=== PATIENT | female | born 1945 | race Caucasian/White ===

== ENCOUNTER → 2016-02-12 | Outpatient (CLI) | payer OTHER, BC ==
[~2016-02-12] MED LIST: CITA20TA9 PO; CLON0.5T3 PO; DILT120C68 PO; FERR1TAB13 PO; FOLI800T PO; GLUCTAB7 PO; LAMO100T16 PO; LURA1TAB PO; MULT-589 PO; OMEG10007 PO; OXYC-57 PO; PANT40TA PO; PRT40 PO; SPIR1TAB72 PO; SPIR50TA PO; SPIRONLACTONE HCTZ PO; WARF2TAB PO; ZNTT/150 PO
== END | disposition home or self-care (01) ==
LOC: C.LAB1850 16:23
PROVIDERS: ATTEND Internal Medicine
DX: R19.7 Diarrhea, unspecified (principal)

== ENCOUNTER 2016-03-09 08:19 | Inpatient (IN) | payer OTHER, BC ==
--- NOTE | 2016-02-22 09:29 | HISTORY & PHYSICAL EXAMINATION ---
DATE OF ADMISSION: 03/09/2016 CHIEF COMPLAINT: Right knee pain. HISTORY OF PRESENT ILLNESS: This 70-year-old female presents to the clinic today for preoperative history and physical. The patient states she has had persistent right knee pain since February of 2013 with recent onset of difficulty and pain with ambulation as well as with ascending and descending stairs. The patient denies any swelling or discoloration to the right knee. She states she does experience clicking and popping with range of motion, but denies any numbness or tingling in the right lower extremity. The patient also denies fever, chills, sweats, nausea, vomiting, diarrhea, chest pain or shortness of breath at this time. PAST SURGICAL HISTORY: Right rotator cuff repair, open reduction and internal fixation of right forearm, tonsillectomy/adenoidectomy and wisdom tooth extraction. PAST MEDICAL HISTORY: Bipolar disorder, anxiety, hallux rigidus, hypertension, hiatal hernia and obesity. FAMILY HISTORY: Father, Parkinson's disease. Mother, Alzheimer's disease, hypertension and stroke. Sister #1, breast cancer. Sister #2, bipolar disorder. ALLERGIES: THE PATIENT HAS MEDICATION ALLERGIES TO GEODON AND VICODIN. CURRENT MEDICATIONS: Celexa 20 mg oral tab 1 tab at bedtime, diltiazem hydrochloride ER 120 mg extended release 1 cap daily, ferrous sulfate 325 mg 1 tab twice daily, fish oil 1000 mg oral capsule daily, folic acid 0.4 mg oral tablet 1 tab daily, glucosamine chondroitin advanced unknown dosage 1 tab daily, Klonopin 0.5 mg oral tablet 1/2 tablet as needed, Lamictal 200 mg oral tablet 1 tab twice daily, multivitamin unknown dosage 1 tab daily, spironolactone 25 mg oral tablet 1 tab twice daily and Latuda 20 mg tablet 2 tabs at bedtime daily. SOCIAL HISTORY: The patient states that she was a 3-pack per day smoker for 16 years, but quit in February of 1996. The patient states she occasionally consumes alcohol, but denies any illicit drug use. PHYSICAL EXAMINATION: SKIN: The patient's skin is normal in appearance. No skin lesions or discharge. EYES: Pupils are equal and reactive to light and accommodation. Extraocular movements are intact. There is no notable nystagmus. EARS: Canals are clear of cerumen. Tympanic membranes are intact bilaterally with no bulging or effusion. NOSE: Turbinates are pink and boggy in appearance with no appreciable rhinorrhea. THROAT: Posterior oropharynx is clear with absence of edema, erythema or exudate. CARDIOVASCULAR: The patient has regular rate and rhythm. No murmurs or gallops appreciated. LUNGS: Auscultation of the lung medrano reveals clear breath sounds throughout. No wheezing, rales or rhonchi. ABDOMEN: Obese, nondistended, and nontender with normoactive bowel sounds. EXTREMITIES: Right knee. The patient is able to extend 0 degrees and flexion to 114 degrees. She has moderate crepitation with active and passive range of motion of the right knee joint and experiences medial and lateral joint line tenderness upon palpation with the knee placed in a flexed position. The patient's right patella is nonmobile due to arthritic changes in the patellofemoral joint. Otherwise, there is no varus or valgus laxity and negative AP drawer sign. Negative Sarah test. No edema, erythema, ecchymosis, warmth or palpable deformity. No dermatomal deficit when compared to the left lower extremity. The patient's right calf is soft, supple, and nontender to palpation. She experiences no referred knee pain with dorsi or plantar flexion of the right foot actually approximately against resistance. She is neurovascularly intact in the right lower extremity. Her peripheral pulses are palpable and her capillary refill is brisk. All other extremities are normal in appearance, appropriate range of motion and strength. NEUROLOGICAL: Cranial nerves II-XII are intact. No motor or sensory deficit. PSYCHOLOGICAL/GENERAL: The patient is alert and oriented x3 with proper grooming and hygiene. DIAGNOSIS: Degenerative joint disease of the right knee. PROCEDURE: Right total knee arthroplasty. RADIOGRAPHIC IMAGING: Images of the right knee show medial joint space narrowing/collapse. PLAN: The patient is scheduled to undergo this procedure with Dr. Param Mackey on 03/09/2016 at the [facility]. Risks and complications of surgery such as infection, bleeding, pain, scarring, nerve and blood vessel damage, weakness, wound problems, stiffness, incomplete relief of symptoms, heart attack, stroke, , hardware failure, loosening wear fracture, blood clots, and embolism were explained to the patient and she understands and agrees. Written consent to perform the procedure was obtained. We will also obtain preoperative medical clearance from the patient's primary care provider, Dr. Lee along with a CBC with differential, CMP, PT, INR, PTT, blood type and screen, urinalysis, urine culture, EKG and chest x-ray. The patient states she will obtain necessary testing next , February 24 prior to her preanesthesia clearance examination in the hospital. The patient states that she may have a walker at home and will bring it with her on the date of surgery. The patient was advised that her postoperative followup with myself will be scheduled for 03/24/2016 at 1:00 p.m. The patient states she will be proceeding to [facility] for rehabilitation for 2 weeks after discharge from the hospital and then will continue physical therapy afterwards in out PT department. The patient was advised to be provided with prescription for physical therapy/occupational therapy, for INR checks biweekly for 6 weeks, a prescription for Coumadin and a prescription for postoperative pain medicine upon discharge from the hospital. The patient was given paperwork to obtain handicap placard for a vehicle. She was advised that she will be unable to drive until cleared by Dr. Mackey post-surgically. The patient verbalized understanding of all information provided at today's visit and thanked us for the care that she has received at our clinic. She states that if she has any additional questions or concerns that should arise prior to the scheduled surgical date, she will contact the clinic accordingly.
[2016-02-25 09:46] VITALS: BMI 35.0
--- NOTE | 2016-02-25 10:39 | PAT Medication Instructions ---
Service Date Feb 25, 2016. Current Home Medication List Citalopram Hydrobromide (Celexa), 40 MG PO HS Clonazepam (Klonopin), 0.25 MG PO HS Clonazepam (Klonopin), 0.25 MG PO BID PRN for Anxiety/Insomnia Diltiazem Hcl Ext Rel (Tiazac), 120 MG PO QPM Ferrous Sulfate (Kp Ferrous Sulfate), 1 TAB PO BID Fish Oil (Willmar-3), 2 CAP PO DAILY Uelqxsccfiy-Eygksmflslr-Ifp C- (Glucosamine Chondroitin), 1 TAB PO BID Hctz/Spironolactone 25MG/25MG (Aldactazide 25MG/25MG), 1 TAB PO BID Lamotrigine (Lamictal), 150 MG PO QAM Lamotrigine (Lamictal), 200 MG PO QPM Lurasidone Hcl (Latuda), 40 MG PO QPM Multivitamins (Daily Yovanny), 1 TAB PO 3XWK Pantoprazole (Protonix), 40 MG PO Q2D PRN for RN [Spironlactone Hctz], 1 TAB PO BID Medication Instructions For Your Scheduled Surgery - Hold the following medications 10 days prior to surgery: Ndobwojlxqz-Fcclhsmyyvx-Ufq C- (Glucosamine Chondroitin), 1 TAB PO BID Fish Oil (Willmar-3), 2 CAP PO DAILY - Hold the following medications the morning of surgery: Spironlactone Hctz 1 TAB PO BID Multivitamins (Daily Yovanny), 1 TAB PO 3XWK Ferrous Sulfate (Kp Ferrous Sulfate), 1 TAB PO BID - Take the following medications the morning of surgery with a sip of water: Pantoprazole (Protonix), 40 MG PO Q2D PRN for RN Lamotrigine (Lamictal), 150 MG PO QAM Clonazepam (Klonopin), 0.25 MG PO BID PRN for Anxiety/Insomnia - Take the following medications as scheduled the night before surgery: Spironlactone Hctz 1 TAB PO BID Lamotrigine (Lamictal), 200 MG PO QPM Lurasidone Hcl (Latuda), 40 MG PO QPM Ferrous Sulfate (Kp Ferrous Sulfate), 1 TAB PO BID Diltiazem Hcl Ext Rel (Tiazac), 120 MG PO QPM Clonazepam (Klonopin), 0.25 MG PO HS Citalopram Hydrobromide (Celexa), 40 MG PO HS If you have any questions please call us at [phone] or [phone] ( Cindy) or [phone]
--- NOTE | 2016-02-25 11:19 | DIAGNOSTIC IMAGING REPORT ---
TWO VIEW CHEST CLINICAL HISTORY: Preoperative examination. FINDINGS: PA and lateral chest radiographs are compared to study dated 05/27/2011. Correlation is made with chest CT dated 11/28/2014. The examination is degraded by large body habitus. The cardiomediastinal silhouette is unremarkable. The lungs and pleural spaces are clear. There is no pneumothorax. The skeletal structures are osteopenic. 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 A surgical anchor is noted in the right humeral head. A thyroid shield is noted. IMPRESSION: No active disease in the chest. Electronically signed by: Virgil Mejia M.D. 02/25/2016 11:18 AM Dictated Date/Time: 02/25/2016 11:16 AM
[2016-02-25 11:59] LABS: BASO ABS # 0.08 K/uL (0-0.2); COMPLETE YES; EOS % 4.4 %; HEMATOCRIT 40.4 % (37-47); IG% 0.1 %; LYMPH % 18.1 %; LYMPH ABS # 1.51 K/uL (1.2-3.4); MEAN CELL VOLUME 90.4 fL (80-100); MEAN CORPUSCULAR HGB CONC 33.2 g/dl (32-36); MEAN PLATELET VOLUME 10.6 fL (7.4-10.4); MONO % 5.9 %; NEUT % 70.5 %; PLATELET COUNT 289 K/uL (130-400); RED BLOOD COUNT 4.47 M/uL (4.2-5.4); WHITE BLOOD COUNT 8.34 K/uL (4.8-10.8)
[2016-02-25 12:08] LABS: PARTIAL THROMBOPLASTIN RATIO 1.1; PROTHROMBIN TIME (PATIENT) 10.7 SECONDS (9.0-12.0)
[2016-02-25 12:28] LABS: BUN/CREATININE RATIO 30.6 (10-20); CALCIUM 10.1 mg/dl (8.5-10.1); CREATININE 1.7 mg/dl (0.60-1.20); POTASSIUM 4.9 mmol/L (3.5-5.1)
[2016-02-25 12:46] LABS: URINE APPEARANCE CLEAR (CLEAR); URINE BILIRUBIN NEG (NEG); URINE COLOR YELLOW; URINE NITRITE NEG (NEG); URINE SPECIFIC GRAVITY 1.009 (1.000-1.030); UROBILINOGEN NEG (NEG); ZZUR CULT IF INDIC CLEAN CATCH NO
[2016-02-25 12:51] LABS: REVIEW REQ? NO
[2016-02-25 12:52] LABS: MANUAL MICROSCOPIC REQUIRED? NO
[~2016-03-09] VITALS: Ht 160 cm; Wt 91.3 kg
[2016-03-09] VITALS (7 sets, daily range): BP systolic 110–149; BP diastolic 64–95; PULSE 70–80; TEMP 36.3–37.1; O2SAT 92–98; Ht 160 cm; Wt 91.3 kg
[~2016-03-09 08:19] MED LIST changes: +BUPIVACAINE 0.25% 30 ML VIAL ONE; +CEFAZOLIN 2000 MG/60 ML D5W 60 ML IV SCH; -DILT120C68 PO; -FOLI800T PO; +ORTHO JOINT ANESTHETIC ONE; -OXYC-57 PO; -PRT40 PO; +SODIUM CHLORIDE 0.9% 1000ML 1,000 ML IV SCH; -SPIR50TA PO; -SPIRONLACTONE HCTZ PO; +TRANEXAMIC ACID INJ 1,000 MG in SODIUM CHLORIDE 0.9% 100ML 100 ML IV SCH; -WARF2TAB PO; -ZNTT/150 PO
[2016-03-09] MEDS ORDERED: BUPIVACAINE 0.5 % 5 MG/1 ML PF 10ML VIAL ONE (08:20)
--- NOTE | 2016-03-09 08:24 | History & Physical Bridge Note ---
H&P Re-Evaluation Bridge Note: I have examined the patient, reviewed the History & Physical and in the interval since the performance of the History & Physical I have noted the following changes of clinical significance: No changes noted. Patient with chronic repetitive questioning but all questions have been answered repeatedly over years.
[2016-03-09] MEDS ORDERED: MIDAZOLAM HCL 1 MG/ML 2ML VIAL ONE ×3 (09:04→11:24)
[2016-03-09] MEDS: LACTATED RINGER'S 1000ML 1,000 ML IV SCH ×2 (09:15→10:21)
[2016-03-09] MEDS ORDERED: ATROPINE SULFATE 0.1 MG/ML 5ML SYR IV PRN (09:45)
[2016-03-09] MEDS ORDERED: ONDANSETRON INJ 2 MG/ML 2 ML VIAL IV PRN ×2 (09:45→12:15)
[2016-03-09] MEDS ORDERED: EpHEDrine SULFATE INJ 50 MG/ML AMP IV PRN (09:45)
[2016-03-09] MEDS ORDERED: PHENYLEPHRINE 100MCG/ML 5ML SYR IV PRN (09:45)
[2016-03-09] MEDS ORDERED: HYDROmorphone INJ 2 MG/ML SYR/VIAL IV PRN (09:45)
[2016-03-09] MEDS ORDERED: KETAMINE HCL INJ 50 MG/ML 10 ML VIAL ONE (10:42)
[2016-03-09] MEDS ORDERED: PROPOFOL IV EMULSION 10 MG/ML 20 ML VIAL IV ONE (10:55)
[2016-03-09] MEDS ORDERED: PHENYLEPHRINE 100MCG/ML 5ML SYR ONE (11:04)
[2016-03-09] MEDS: ROPIVACAINE 5MG/ML 30 ML 150 MG, BUPIVACAINE/EPINEPHR 0.5% MPF 30 ML, KETOROLAC TROMETH... INFIL SCH ×7 (11:36)
[2016-03-09] MEDS ORDERED: POVIDONE-IODINE OP SOLN 30 ML BTL TOP ONE (11:41)
--- NOTE | 2016-03-09 11:48 | [facility] Post Operative Brief Note ---
Immediate Operative Summary Operative Date Mar 09, 2016. Pre-Operative Diagnosis Right Knee Degenerative Joint Disease Post-Operative Diagnosis Same as Preop Procedure(s) Performed Right Total Knee Arthroplasty Surgeon Dr. 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 Right Knee Bone and Tissue Drains none Anesthesia spinal Complication(s) None Disposition Recovery Room / PACU
[2016-03-09] MEDS ORDERED: MoRPHine SULFATE 2 MG/ML CARP IV PRN (12:15)
[2016-03-09] MEDS ORDERED: MAGNESIUM HYDROXIDE SUSP 30 ML UDC PO PRN (12:15)
[2016-03-09] MEDS ORDERED: ACETAMINOPHEN IV 100 ML IV PRN (12:15)
[2016-03-09] MEDS ORDERED: BISACODYL 10 MG SUPP PR PRN (12:15)
[2016-03-09] MEDS ORDERED: DiphenhydrAMINE HCL 50 MG/ML VIAL IV PRN (12:15)
[2016-03-09] MEDS ORDERED: METOCLOPRAMIDE HCL INJ 5 MG/ML 2 ML VIAL IV PRN (12:15)
[2016-03-09] MEDS ORDERED: ALUMINUM/MAGNESIUM/SIMETH (MAALOX MAX) 30 ML UDC PO PRN (12:15)
[2016-03-09] MEDS ORDERED: ACETAMINOPHEN 325 MG TAB PO PRN (12:15)
[2016-03-09] MEDS ORDERED: CLONAZEPAM 0.5 MG TAB PO PRN (12:15)
[2016-03-09] MEDS ORDERED: KETOROLAC TROMETHAMINE 30 MG/ML VIAL IV. SCH (12:15)
--- NOTE | 2016-03-09 12:22 | OPERATIVE REPORT ---
DATE OF OPERATION: 03/09/2016 SURGEON: Dr. Mackey. VENTILATED RIB FITTER: KIN Garcia. PREOPERATIVE DIAGNOSIS: Osteoarthritis right knee. POSTOPERATIVE DIAGNOSIS: Same. OPERATION PERFORMED: Cemented right total knee replacement. PERIOPERATIVE SITUATION: Medically cleared female followed for probably close to 2 decades with significant osteoarthritis of her right knee. She asked questions repeatedly and have been answered repeatedly over ensuing close to 2 decades. She was advised concerning the potential complications and benefits of the procedure. Received a consent. At this point in time wants to proceed with surgical treatment. SUMMARY OF IMPLANTS: Size 3 right posterior cruciate substituting femur, size 3 right rotating platform tibial tray, oval domed 3 pegged patella size 38, insert size 3 x 10 posterior cruciate substituting. Two bags of Palacos G cement. ESTIMATED BLOOD LOSS: 25 mL. CRYSTALLOID: 1200 mL. PROCEDURE: The patient appropriately identified, site verified, consent verified, 2 grams of Ancef confirmed as being given. The right lower extremity was prepped and draped in usual routine fashion. Tourniquet inflated to 300 mmHg for a total of approximately 40 minutes. Midline exposure utilized. Parapatellar arthrotomy performed. Synovectomy completed. The patella was everted. Menisci excised. Osteophytes excised. Distal femur entered. Cruciates excised. Good mobility of the tibia. Distal femur resected 12 mm, proximal tibia 4 mm. The extension gap was good. The femur was sized between a 4 and 3, it was measured 4, cut 3. The flexion gap was excellent. Once this was all completed, the box cut was made and the size 3 fit well. Tibia was then broached and reamed to a 3. The 10 spacer was stable in full extension, mid-range flexion and full flexion. Patella tracked well. It was sized to a 38, resection made leaving 15 mm and the 3 holes made and the trial placed and the patella tracked well. All remaining trial implants were then removed after the Orthomix was injected about the knee. The wound was irrigated with Betadine and Pulsavac. The permanents were then cemented into position. After 12 minutes, the tourniquet was deflated. After 14 minutes, the knee was flexed. There was no cement removal required. The wound was irrigated with Betadine and Pulsavac. The liner was then placed and the knee reduced and then closed with #1 Ethibond, #1 Vicryl, 2-0 Vicryl and stainless steel clips. ESTIMATED BLOOD LOSS: 25 mL. CRYSTALLOID: 1200 mL. DVT prophylaxis will be with protocol with Coumadin. I attest to the content of the Intraoperative Record and any orders documented therein. Any exceptio ns are noted below.
--- NOTE | 2016-03-09 12:45 | PROGRESS NOTE ---
DATE: 03/09/2016 Postop check. The patient is comfortable. Denies any chest pain, shortness of breath, fever, chills, nausea, vomiting or headache. Vital signs are stable. She is afebrile. Neurovascular checked, femoral sciatic nerve is good. She is already wiggling her toes well. X-rays postop, AP and lateral knee reveals well fixed, well aligned knee replacement. ASSESSMENT: Doing well. Will need social service assessment. Will likely need placement based on her sole living arrangements. Follow up on the floor. Social Service has been notified.
--- NOTE | 2016-03-09 12:51 | DIAGNOSTIC IMAGING REPORT ---
RIGHT KNEE 2 VIEWS History: Right total knee arthroplasty. Degenerative arthritis. Postop. FINDINGS: The patient is status post a right total knee arthroplasty. The hardware is intact. No fracture or dislocation. Skin carmen are in place. IMPRESSION: Right total knee arthroplasty. No evidence for hardware complication. Electronically signed by: Al Roldan M.D. 03/09/2016 12:50 PM Dictated Date/Time: 03/09/2016 12:49 PM
[2016-03-09] MEDS ORDERED: MoRPHine SULFATE 4 MG/ML 1 ML CARP\\VIAL IV PRN (13:30)
--- NOTE | 2016-03-09 13:30 | OPERATIVE REPORT ---
DATE OF OPERATION: 03/09/2016 PREOPERATIVE DIAGNOSIS: Right knee end-stage degenerative joint disease. POSTOPERATIVE DIAGNOSIS: Right knee same. PROCEDURE: Right knee total knee arthroplasty using DePuy implants. SURGEON: Dr. Mackey. CMA: Mika Ortiz PA-C. HISTORY OF PRESENT ILLNESS: This 70-year-old white female presented to the office with complaints of intractable right knee pain. She had tried conservative care measures including activity modification, oral anti-inflammatories, oral pain medication, steroid injections, viscosupplementation, physical therapy, and compression wraps. X-rays were obtained. She elected to proceed with surgical intervention after being educated about potential risks and outcomes. OPERATION: The patient was administered a spinal anesthetic. She was then prepped and draped in the usual sterile fashion. Please see Dr. Mackey's operative report for specifics of the procedure. I was present for the entire case from initial patient positioning through final wound closure. Assistance was provided in tissue retraction, hemostasis, trial implant placement, final implant placement, and final wound closure. The patient was taken to the recovery room in satisfactory condition. I attest to the content of the Intraoperative Record and any orders documented therein. Any exceptio ns are noted below.
[2016-03-09] MEDS ORDERED: D5W AND 1/2NSS + 20MEQ KCL 1,000 ML IV SCH (14:00)
--- NOTE | 2016-03-09 14:10 | Anesthesiology Progress Note ---
Anesthesia Post Op Note Date & Time Mar 09, 2016 at 14:10 Vital Signs Pain Intensity: 0.0 Vital Signs Past 12 Hours Date Time Temp Pulse Resp B/P Pulse Ox O2 Delivery O2 Flow Rate FiO2 03/09/16 13:51 37.1 80 16 149/81 97 Nasal Cannula 2.0 03/09/16 13:20 36.3 73 17 138/84 98 Nasal Cannula 2.0 03/09/16 12:50 98 Nasal Cannula 2.0 03/09/16 12:50 36.4 70 16 119/72 98 Nasal Cannula 2.0 03/09/16 12:50 98 Nasal Cannula 2.0 03/09/16 12:38 116/63 03/09/16 12:35 70 16 99 03/09/16 12:35 69 16 03/09/16 12:34 96/71 03/09/16 12:30 74 18 97 03/09/16 12:30 76 18 03/09/16 12:29 114/39 03/09/16 12:25 72 26 03/09/16 12:25 72 26 96 03/09/16 12:24 37 03/09/16 12:21 71 20 93 03/09/16 12:21 71 20 03/09/16 12:18 118/69 03/09/16 12:16 73 18 03/09/16 12:16 70 18 97 03/09/16 12:13 103/66 03/09/16 12:11 71 20 97 03/09/16 12:11 69 20 03/09/16 12:09 93/40 03/09/16 12:07 96/67 03/09/16 12:06 71 15 97 03/09/16 12:06 72 15 03/09/16 12:01 76 16 03/09/16 12:01 75 16 97 03/09/16 11:59 105/60 03/09/16 11:56 36.5 77 16 105/60 96 Nasal Cannula 4 03/09/16 09:00 36.8 77 20 139/95 96 Room Air Notes Mental Status: alert / awake / arousable, participated in evaluation Pt Amnestic to Procedure: Yes Nausea / Vomiting: adequately controlled Pain: adequately controlled Airway Patency, RR, SpO2: stable & adequate BP & HR: stable & adequate Hydration State: stable & adequate Anesthetic Complications: no major complications apparent
[2016-03-09] MEDS ORDERED: WARFARIN SOD 5 MG TAB PO ONE (16:00)
--- NOTE | 2016-03-09 16:53 | Medical Consult ---
Consultation Date of Consultation: Mar 09, 2016. Attending Physician: Param Mackey M.D. Reason for Consultation: Postoperative medical management History of Present Illness The patient is a 70-year-old female seen status post right total knee arthroplasty by Dr. Mackey earlier in the day today. Seen postoperatively, she has no complaints. Her pain is being well managed, and she ate lunch without difficulty. Past Medical/Surgical History Medical Problems: (1) Hematemesis/vomiting blood Status: Acute (2) Upper GI bleeding Status: Acute Family History FH: hypertension Social History Smoking Status: Former Smoker Smokeless Tobacco Use: No Alcohol Use: none Drug Use: none Marital Status: single Housing Status: lives alone Occupation Status: retired Allergies Coded Allergies: Hydrocodone (Unverified Allergy, Unknown, NAUSEA AND VOMITING, 03/09/16) Meloxicam (Verified Allergy, Unknown, melana, 03/09/16) Thioridazine (Verified Allergy, Unknown, RESTLESS LEG, 03/09/16) Ziprasidone (Unverified Allergy, Unknown, VOMITING/BLACK DIARRHEA, 03/09/16) Oxycodone (Verified Adverse Reaction, Mild, VOMITING, 02/25/16) Current Inpatient Medications Current Inpatient Medications Medications (Trade) Dose Ordered Sig/Puja Route Start Time Stop Time Status Last Admin Dose Admin Cefazolin Sodium 60 ml @ 100 mls/hr PREOP IV 03/09/16 06:00 03/09/16 18:00 Tranexamic Acid 1000 mg/Sodium Chloride 110 ml @ 660 mls/hr TODAY@0600 IV 03/09/16 06:00 03/09/16 18:00 03/09/16 10:15 660 MLS/HR Lactated Ringer's 1,000 ml @ 60 mls/hr [id number] IV 03/09/16 06:00 03/09/16 22:39 03/09/16 10:21 60 MLS/HR Sodium Chloride 1,000 ml @ 15 mls/hr Q24H IV 03/09/16 06:00 03/10/16 05:59 Ropivacaine 150 mg/Bupivacaine HCl/Epinephrine Bitart 30 ml/ Ketorolac Tromethamine 30 mg/Dexamethasone Sodium Phosphate 4 mg/Ketamine HCl 10 mg/Clonidine 100 mcg/Sodium Chloride 30 ml/ Empty Bag 93.2 ml @ 0 mls/hr PREOP INFIL 03/09/16 06:00 03/14/16 05:59 03/09/16 11:36 93.2 MLS/HR Potassium Chloride/Dextrose/ Sod Cl 1,000 ml @ 100 mls/hr Q10H IV 03/09/16 14:00 03/10/16 13:59 03/09/16 13:53 100 MLS/HR Cefazolin Sodium/ Dextrose (Ancef Iv/D5 50ml) 60 ml @ 100 mls/hr Q8H IV 03/09/16 18:00 03/10/16 02:35 Acetaminophen (Tylenol Tab) 650 mg Q6H PRN PO 03/09/16 12:15 04/08/16 12:14 Magnesium Hydroxide (Milk Of Magnesia Susp) 30 ml Q6H PRN PO 03/09/16 12:15 04/08/16 12:14 Bisacodyl (Dulcolax Supp) 10 mg DAILY PRN UT 03/09/16 12:15 04/08/16 12:14 Docusate Sodium (coLACE CAP) 100 mg BID PO 03/09/16 21:00 04/08/16 20:59 Diphenhydramine HCl (Benadryl Inj) 25 mg Q8H PRN IV 03/09/16 12:15 04/08/16 12:14 Al Hydrox/Mg Hydrox/Simethicone (Maalox Max Susp) 15 ml Q4H PRN PO 03/09/16 12:15 04/08/16 12:14 Multivitamins (Multivitamin Tab) 1 tab QAM PO 03/10/16 09:00 04/09/16 08:59 Ondansetron HCl (Zofran Inj) 4 mg Q6H PRN IV 03/09/16 12:15 04/08/16 12:14 Metoclopramide HCl (Reglan Inj) 10 mg Q6H PRN IV 03/09/16 12:15 04/08/16 12:14 Ferrous Gluconate (Ferrous Gluconate Tab) 324 mg TIDM PO 03/09/16 17:45 04/08/16 17:59 Pantoprazole Sodium 40 mg 40 mg QAM PO 03/10/16 09:00 04/09/16 08:59 Tranexamic Acid 1000 mg/Sodium Chloride 110 ml @ 660 mls/hr Q6H IV 03/09/16 18:00 03/09/16 18:09 Dexamethasone Sodium Phosphate/ Syringe (Decadron Inj/ Syringe) 2.5 ml @ 1 mls/min ONE ONCE IV 03/10/16 07:30 03/10/16 07:32 Citalopram Hydrobromide (celeXA TAB) 40 mg HS PO 03/09/16 21:00 04/08/16 20:59 Clonazepam (Klonopin Tab) 0.25 mg BID PRN PO 03/09/16 12:15 04/08/16 12:14 Clonazepam (Klonopin Tab) 0.25 mg HS PO 03/09/16 21:00 04/08/16 20:59 HCTZ/ Spironolactone (Aldactazide 25/ 25 Tab) 1 tab BID PO 03/09/16 21:00 04/08/16 20:59 Lamotrigine (Lamictal Tab) 150 mg QAM PO 03/10/16 09:00 04/09/16 08:59 Lamotrigine (Lamictal Tab) 200 mg QPM PO 03/09/16 21:00 04/08/16 20:59 Lurasidone HCl 40 mg 40 mg QPM PO 03/09/16 21:00 04/08/16 20:59 Acetaminophen (Ofirmev Iv) 100 ml @ 400 mls/hr Q8H PRN IV 03/09/16 12:15 03/10/16 12:00 Oxycodone HCl (Roxicodone Immediate Rel Tab) 1 TABLET FOR PAIN RATING... Q4H PRN PO 03/09/16 12:15 03/23/16 12:14 Morphine Sulfate (MoRPHine SULFATE INJ) 2 mg Q1H PRN IV 03/09/16 12:15 03/23/16 12:14 Celecoxib (CeleBREX CAP) 200 mg ONE ONCE PO 03/09/16 17:00 03/09/16 17:01 Morphine Sulfate (MoRPHine SULFATE INJ) 4 mg Q1H PRN IV 03/09/16 13:30 03/23/16 13:29 Review of Systems The patient denies chest pain, palpitations, shortness of breath, cough, vision change, hearing change, sore throat, fevers, chills, sweats, weight change, fatigue, nausea, vomiting, abdominal pain, pelvic pain, blood in urine or stool, dysuria, urinary frequency or urgency, lightheadedness, dizziness, headache, memory loss, rash, abnormal bruising or bleeding, arthralgias or myalgias, back or neck pain, night sweats, or allergy symptoms. The review of systems is otherwise negative other than for that already noted above, and at least 10 systems have been reviewed. Physical Exam Date Time Temp Pulse Resp B/P Pulse Ox O2 Delivery O2 Flow Rate FiO2 03/09/16 15:46 36.8 74 18 114/68 94 Room Air 03/09/16 14:41 36.9 75 17 110/64 98 Nasal Cannula 2.0 03/09/16 13:51 37.1 80 16 149/81 97 Nasal Cannula 2.0 03/09/16 13:20 36.3 73 17 138/84 98 Nasal Cannula 2.0 03/09/16 12:50 98 Nasal Cannula 2.0 03/09/16 12:50 36.4 70 16 119/72 98 Nasal Cannula 2.0 03/09/16 12:50 98 Nasal Cannula 2.0 03/09/16 12:38 116/63 03/09/16 12:35 70 16 99 03/09/16 12:35 69 16 03/09/16 12:34 96/71 03/09/16 12:30 74 18 97 03/09/16 12:30 76 18 03/09/16 12:29 114/39 03/09/16 12:25 72 26 03/09/16 12:25 72 26 96 03/09/16 12:24 37 03/09/16 12:21 71 20 93 03/09/16 12:21 71 20 03/09/16 12:18 118/69 03/09/16 12:16 73 18 03/09/16 12:16 70 18 97 03/09/16 12:13 103/66 03/09/16 12:11 71 20 97 03/09/16 12:11 69 20 03/09/16 12:09 93/40 03/09/16 12:07 96/67 03/09/16 12:06 71 15 97 03/09/16 12:06 72 15 03/09/16 12:01 76 16 03/09/16 12:01 75 16 97 03/09/16 11:59 105/60 03/09/16 11:56 36.5 77 16 105/60 96 Nasal Cannula 4 03/09/16 09:00 36.8 77 20 139/95 96 Room Air The patient is awake, well-developed and adequately nourished, alert and oriented 3, normocephalic and atraumatic, lying in bed and in no acute distress. HEENT--PERRL, EOMI, mucous membranes and oropharynx moist. Neck--supple, no JVD or bruits, thyroid normal, trachea midline, no adenopathy. Heart--normal S1 and S2, no extra beats, no murmurs, rubs or gallops. Lungs--clear bilaterally with good air movement, no respiratory distress, no accessory muscle use. Abdomen--normal bowel sounds and soft, nontender and nondistended, no hernias or masses, no organomegaly. Extremities--no cyanosis, clubbing or edema. There are good distal pulses b/l. Dermatologic--normal skin turgor, normal color, warm and dry, no abnormal lymph nodes, no rash. Neurologic--cranial nerves II through XII grossly intact. Rheumatologic--right knee wrapped. Psychiatric--normal affect. Assessment & Plan Status post right total knee arthroplasty--medically stable. Hypertension--continue spironolactone/HCTZ 25/25 by mouth twice a day. Bipolar disorder/anxiety--continue citalopram 40 mg by mouth at bedtime, clonazepam 0.25 mg by mouth at bedtime and 0.25 mg by mouth twice a day when necessary, Lamictal 150 mg by mouth every morning and 200 mg by mouth every evening, and latuda 40mg by mouth every evening. GERD/hiatal hernia--continue pantoprazole 40 mg by mouth daily while in hospital. Renal insufficiency--creatinine on entrance laboratories was 1.7 with potassium of 4.9. Would recommend changing IV fluids from D5 half normal saline with 20 mEq of potassium at 100 ML's per hour to normal saline at 100 ML's per hour.
[2016-03-09] MEDS ORDERED: CeleBREX 200 MG CAP PO ONE (17:00)
[2016-03-09] MEDS: CEFAZOLIN IV 2,000 MG in DEXTROSE 5% 50ML 50 ML IV SCH (17:52)
[2016-03-09] MEDS: FERROUS GLUCONATE 324 MG TAB PO SCH (17:53)
[2016-03-09] MEDS: SODIUM CHLORIDE 0.9% 1000ML 1,000 ML IV SCH (17:53)
[2016-03-09] MEDS ORDERED: TRANEXAMIC ACID INJ 1,000 MG in SODIUM CHLORIDE 0.9% 100ML 100 ML IV SCH (18:00)
[2016-03-09] MEDS ORDERED: CLONAZEPAM 0.5 MG TAB PO SCH (21:00)
[2016-03-09] MEDS ORDERED: CITALOPRAM 40 MG TAB PO SCH (21:00)
[2016-03-09] MEDS ORDERED: LURASIDONE HCL 40 MG TAB PO SCH (21:00)
[2016-03-09] MEDS ORDERED: NON-FORMULARY MEDICATION (Ferrous Sulfate (Kp Ferrous Sulfate) 1 TAB) PO SCH (21:00)
[2016-03-09] MEDS: DOCUSATE SODIUM 100 MG CAP PO SCH (21:01)
[2016-03-09] MEDS: SPIRONOLACTONE/HCTZ 25-25 PO SCH (21:01)
[2016-03-09] MEDS: OXYCODONE HCL IR 5 MG TAB (IMMEDIATE RELEASE) PO PRN (22:43)
[2016-03-10] MEDS: CEFAZOLIN IV 2,000 MG in DEXTROSE 5% 50ML 50 ML IV SCH (01:54)
[2016-03-10] MEDS: SODIUM CHLORIDE 0.9% 1000ML 1,000 ML IV SCH (02:55)
[2016-03-10 03:10] VITALS: BP 112/68; PULSE 66; TEMP 36.4; O2SAT 96
[2016-03-10] MEDS: OXYCODONE HCL IR 5 MG TAB (IMMEDIATE RELEASE) PO PRN ×3 (04:42→13:22)
[2016-03-10] MEDS: ROPIVACAINE 5MG/ML 30 ML 150 MG, BUPIVACAINE/EPINEPHR 0.5% MPF 30 ML, KETOROLAC TROMETH... INFIL SCH ×7 (05:19)
[2016-03-10 06:54] LABS: HEMATOCRIT 32.1 % (37-47); MEAN CELL VOLUME 91.2 fL (80-100); MEAN CORPUSCULAR HEMOGLOBIN 29.5 pg (25-34); MEAN CORPUSCULAR HGB CONC 32.4 g/dl (32-36); MEAN PLATELET VOLUME 10.8 fL (7.4-10.4); PLATELET COUNT 230 K/uL (130-400); RED BLOOD COUNT 3.52 M/uL (4.2-5.4); WHITE BLOOD COUNT 10.08 K/uL (4.8-10.8)
[2016-03-10 06:59] VITALS: BP 110/69; PULSE 69; TEMP 36.5; O2SAT 90
--- NOTE | 2016-03-10 07:00 | PROGRESS NOTE ---
DATE: 03/10/2016 Postop check. Postop day #1, status post right total knee replacement. The patient is moving quite well, was able to walk in the pereira. She denies any nausea, vomiting, chest pain, shortness of breath, fever or chills. She denies any headache. Abdomen soft, nontender. Neurovascularly check both lower extremities within normal limits. Dressing clean, dry and intact. Was concerned about a bruise on her foot, but it is the prep soap, the color of the long acting topical skin care. Laboratory work is pending today. ASSESSMENT: Overall, doing well, await assessment from insurance company for potential transfer to [facility] pending bed availability and clearance by insurance. Coumadin per nomogram today. MTDD
--- NOTE | 2016-03-10 07:05 | DISCHARGE SUMMARY ---
NOTICE TO RECEIVING LIBERTARIAN/AGENCY This information is strictly Confidential and protected under [place] law. [place] law prohibits you from making any further disclosure of this information unless further disclosure is expressly permitted by the written consent of the person to whom it pertains or is authorized by law. A general authorization for the release of medical or other information is not sufficient for this purpose. Hospital accepts no responsibility if the information is made available to any other person, INCLUDING THE PATIENT. DATE OF DISCHARGE: Either 03/10/16 or 03/11/16 pending clearance with PT, OT and insurance issues for [facility] transfer. CHIEF COMPLAINT: Right knee pain. HISTORY OF PRESENT ILLNESS: A 70-year-old female who lives alone and lateral right total knee replacement. Postoperatively, her pain is well managed with oral medications. She is up and moving well. PAST SURGICAL HISTORY: Remarkable for right rotator cuff repair, ORIF of right forearm, tonsillectomy, adenoidectomy, wisdom teeth extraction. PAST MEDICAL HISTORY: Remarkable for bipolar disorder, anxiety, hallux rigidus, hypertension, hiatal hernia, obesity. FAMILY HISTORY: Remarkable for Parkinson's disease in her father, Alzheimer's disease in her mother. Hypertension, stroke, breast cancer and bipolar disorder. ALLERGIES: GEODON, VICODIN. ALSO HAS SOME SENSITIVITY TO MORPHINE WHICH PRODUCES NAUSEA. PREADMISSION MEDICATIONS: Include Celexa, diltiazem, iron supplements, fish oil, folic acid, glucosamine chondroitin, clonidine, Lamictal, multivitamin, spironolactone and Latuda. She will continue all those medications with the exception of any anti-inflammatories and add p.r.n. Percocet and Coumadin to keep INR 1.8-2.2. Discharge on 4 mg pending laboratory results. SOCIAL HISTORY: Reveals that she quit smoking for 16 years in 1996. Social alcohol use. Pertinent exam reveals intact neurovascular check both upper and lower extremities. Calves nontender. Wound dressing clean, dry and intact. Postop x-rays look excellent. ASSESSMENT: Status post right total knee replacement. Potential transfer to [facility] pending clearance either later today or Monday morning.
[2016-03-10 07:11] LABS: INR 1.1 (0.9-1.1); PROTHROMBIN TIME (PATIENT) 11.6 SECONDS (9.0-12.0)
--- NOTE | 2016-03-10 07:12 | Clinical Documentation Query ---
CLINICAL DOCUMENTATION QUERY 70-y/o female who has undergone cemented right TKR. Internal medicine consult states "Renal Insufficiency." Documenting the stage of CKD will improve data integrity and will help clarify vague terms such as "renal insufficiency" or "chronic renal failure." In your clinical opinion is this patient being managed for: ( ) Chronic kidney disease stage 3-4 ( ) Other explanation of clinical findings (Please Explain) ( ) Unable to determine (Please Define) ( ) Need to Discuss ( x ) Not Agree The medical record reflects the following clinical findings, treatment, and risk factors. Clinical Indicators: BUN 52, Creatinine 1.70, GFR 30.6. Cumulative laboratory EMR review of labs over last 2yrs show this is near or at baseline. Treatment: IVF's changed to NSS w/o K+, daily PRP's, Risk Factors: Age and home HCTZ/Spironolactone therapy. Please clarify and document your clinical opinion in the progress notes and discharge summary. Terms such as "probable", "suspected", "likely", "questionable", "possible", or "still to be ruled out" are acceptable. IF IN AGREEMENT, YOU MUST DOCUMENT ABOVE DIAGNOSTIC STATEMENT IN DAILY PROGRESS NOTES AND DISCHARGE SUMMARY. This document is not part of the patient's record. The stages of CKD according to the [employer] are as follows: Stage I: GFR >90 Stage II: GFR 60-89 Stage III: GFR 30-59 Stage IV: GFR 15-29 Stage V: GFR <15 Thank You, Siddharth Cotter, RN [phone]
[2016-03-10 07:23] LABS: BUN/CREATININE RATIO 20.7 (10-20); CALCIUM 8.6 mg/dl (8.5-10.1); CREATININE 1.6 mg/dl (0.60-1.20); POTASSIUM 3.9 mmol/L (3.5-5.1)
[2016-03-10] MEDS ORDERED: DEXAMETHASONE INJ 10 MG in SYRINGE 0 ML IV ONE (07:30)
[2016-03-10] MEDS ORDERED: OXYC-57 PO (08:55)
[2016-03-10] MEDS ORDERED: WARF2TAB PO (08:55)
[2016-03-10] MEDS ORDERED: PANTOprazole SOD 40 MG TAB PO SCH (09:00)
[2016-03-10] MEDS ORDERED: MULTIVITAMIN TAB PO SCH (09:00)
--- NOTE | 2016-03-10 09:01 | Discharge Instructions ---
Discharge Instructions Admission Reason for Admission: Right Knee Degenerative Joint Disease Discharge Discharge Diagnosis / Problem: Right knee s/p total knee replacement Discharge Goals Goal(s): Decrease discomfort, Improve function, Increase independence Activity Recommendations Activity Level: Up Ad Gayla Therapies: Physical Therapy, Weight Bearing Status (as tolerated) Weightbearing Status: Right weightbearing (as tolerated) Lifting Limitations: gradually increase as tolerated Shower/Bathe: keep incision dry . Additional Information Patient informed of condition: Yes Advance Directives: Yes DNR: No Level of Care: Acute Rehab Communicable Disease: No Prognosis: Stable Perez Catheter: No Instructions / Follow-Up Instructions / Follow-Up New Medicine: * You will likely be taking one or more of these medications: 1. Percocet - Take, as directed, when you need it, every four to six hours to control your pain. 2. Iron Sulfate - Take three times each day for the month after surgery to help you replace the blood lost during surgery. 3. Coumadin - Thins your blood to lessen the chance of forming a blood clot. The dose of this is different for each person and is based on your blood tests that are done twice a week. * The most common side effects of pain medicine and iron are nausea and constipation. If nausea or constipation is too much of a problem or if you have any questions about your new medicines or doses, call [facility] at . We will try to help you manage these issues. VERY IMPORTANT TO READ AND REVIEW" Blood Clots and Blood Thinning Medicine: * You are given Coumadin during the immediate post-operative period to lessen the risk of blood clots forming in your legs and/or lungs. Coumadin is usually given for six weeks after surgery. * The prescription is for 2 mg tablets. At discharge, you should understand your dose and take it all at the same time every day, preferably after dinner. * You need to get your blood checked 1 - 2 times per week for six weeks or as directed. * If your dose needs to change, we will call you. Do not take your medication on the day of the blood test until we call you. Pain: * The immediate post-operative period after knee replacement surgery is often quite painful. * You are given a prescription for pain medicine. You should take it, as directed, when you need it, especially before physical therapy and before going to bed. Pain that interferes with sleep is very common and can last several months. * You will likely need pain medicine for the first four to six weeks. It will not stop all of the pain. The pain will lessen and as you feel better, you may change to milder pain medicine such as Tylenol. * The most common side effects of pain medicine are nausea and constipation, so don't take more than you need. Physical Therapy: * You will have physical therapy two or three times each week for four to six weeks after your surgery in order to regain your knee range of motion and to retrain your knee to work properly. * It is just as important to make sure you are getting your knee perfectly straight as it is to regain your knee bend. * Taking a pain pill an hour before therapy can help you have a more productive and comfortable therapy session if needed. Home Exercise: * You were shown a series of exercises (heel props, heel slides, etc.) in the hospital. Do these exercises three to four times each day including the exercises you were shown in physical therapy. Walking: * Get up and walk several times each day. For the first four weeks, try not to stand or walk for more than one hour at a time. If you do stand or walk for more than one hour, you will not hurt anything, but your knee and leg will likely swell. * As you feel comfortable, you may change from the walker or crutches to a cane and then to independent walking. SELF CARE INSTRUCTIONS AFTER TOTAL KNEE REPLACEMENT A. You may need to continue a physical therapy program after discharge from the hospital. There are several options available to you. Your doctor will assist you in selecting the best one for you. 1. An out-patient facility 2 to 3 times a week for therapy or home therapy. 2. Continue working on all exercises taught to you in the hospital. Your goals should be to increase bending of your knee to 90 degrees and beyond and to fully straighten your knee. B. You may progress at your own pace from walking with a walker or crutches to a cane; then to no assistive devices. C. Make walking a part of your daily routine. Be up as much as comfortable with rest periods throughout the day. Rest with leg elevation is very important. Use the ice wrap frequently for the first 3-4 weeks. D. There are no restrictions on activities. You may ride in a car, shop, participate in secretary book keeper and all social activities. E. Wear the long elastic stockings (CORIE hose) 20 hours a day for six weeks after surgery. They can be removed several times a day for laundering and for a shower. F. Do not place a pillow behind your knee when resting. A pillow at your ankle is okay. VERY IMPORTANT TO READ AND REVIEW A. Take Coumadin, Aspirin or Lovenox (blood thinning medications) as directed by your doctor. If on Coumadin, have a pro-time (blood test) drawn according to your doctor's instructions. This will tell the doctor how well the Coumadin is thinning your blood. 1. YOU WILL BE GIVEN AN ORDER AT DISCHARGE FOR PT/INR (BLOOD WORK). PLEASE HAVE THIS DONE INSTRUCTED. PLEASE CALL OUR OFFICE AFTER YOUR BLOODWORK IS COMPLETE SO WE CAN TRACK YOUR RESULTS. IF YOU ARE GOING TO OUTPATIENT PHYSICAL THERAPY, YOU WILL NEED TO GO TO OUTPATIENT TESTING TO HAVE IT DRAWN. B. There are a few signs you need to watch for after you are home. Call [facility] if you notice any of the followin. Increased severe knee pain. Some pain is expected especially when you exercise. 2. Increased swelling in your leg or knee; pain or swelling of the calf muscle in either lower leg. 3. Any fluid drainage from the incision. 4. Shortness of breath or chest pain. C. Please call [facility] at if you have any concerns or questions about your operation or recovery. The doctor or his nurse will return your call promptly. D. You must take antibiotics before dental work, bladder, bowel or other surgery. Call the office to obtain a prescription at least 2 days prior to your appointment. * CALL IF INCREASED PAIN, REDNESS, DRAINAGE OR FEVER GREATER THAT 101. * Sutures should be removed 12-14 days after surgery unless you are on chronic steriods, then it will be 14-18 days after surgery. Call your doctor if: * Temperature above 101 degrees F. * Pain not relieved by pain medicine ordered. * Increased drainage or redness from incision. * Notify your doctor with any questions or concerns. Current Hospital Diet Patient's current hospital diet: AHA Diet (Heart Healthy) Discharge Diet Recommended Diet: Regular Diet Procedures Procedures Performed: Right Total Knee Arthroplasty Pending Studies Studies pending at discharge: no Physician Orders On Transfer Dressing Changes: as needed for soiling Vital Signs: per facility routine Medical Emergencies . Who to Call and When: Medical Emergencies: If at any time you feel your situation is an emergency, please call 911 immediately. . Non-Emergent Contact Non-Emergency issues call your: Primary Care Provider, Surgeon Call Non-Emergent contact if: temperature is above 100.5, wound has increased drainage, wound has increased redness, wound has increased pain, you have any medication questions . . "Provider Documentation" section prepared by Mika Ortiz PA-C. Core Measure Problem Core Measures: None
[2016-03-10] MEDS: FERROUS GLUCONATE 324 MG TAB PO SCH ×2 (09:18→12:52)
[2016-03-10] MEDS: DOCUSATE SODIUM 100 MG CAP PO SCH (09:19)
[2016-03-10] MEDS: SPIRONOLACTONE/HCTZ 25-25 PO SCH (09:19)
--- NOTE | 2016-03-10 09:49 | Anesthesiology Progress Note ---
Anesthesia Post Op Note Date & Time Mar 10, 2016 at 09:49 Vital Signs Pain Intensity: 7.0 Vital Signs Past 12 Hours Date Time Temp Pulse Resp B/P Pulse Ox O2 Delivery O2 Flow Rate FiO2 03/10/16 07:58 Room Air 03/10/16 06:59 36.5 69 16 110/69 90 Room Air 03/10/16 03:10 36.4 66 16 112/68 96 Room Air 03/10/16 00:15 Room Air 03/09/16 23:31 36.5 78 18 116/66 92 Room Air Notes Mental Status: alert / awake / arousable, participated in evaluation Pt Amnestic to Procedure: Yes Nausea / Vomiting: adequately controlled Pain: adequately controlled Airway Patency, RR, SpO2: stable & adequate BP & HR: stable & adequate Hydration State: stable & adequate Neuraxial Anesthesia: sensory block resolved Anesthetic Complications: no major complications apparent
[2016-03-10 10:00] VITALS: BP 135/72
--- NOTE | 2016-03-10 10:22 | Hospitalist Progress Note ---
Hospitalist Progress Note Date of Service Mar 10, 2016. Subjective Pt evaluation today including: conversation w/ patient, physical exam, chart review, lab review, review of inpatient medication list Voiding: no voiding problems, no incontinence Patient states she is not feeling feel well today. Pain is not controlled. + passing gas, no BM. Ortho put in for discharge today, but per patient, she is not leaving today due to uncontrolled pain. Patient denies any fever, chills, sweats, lightheadedness, dizziness, vision changes, CP, palpitations, edema, SOB , wheezing, cough, abdominal pain, nausea, vomiting, diarrhea, urinary symptoms , melena, numbness/tingling, weakness, depression, active bleeding, or new skin discoloration/changes. Medications Current Inpatient Medications Medications (Trade) Dose Ordered Sig/Puja Route Start Time Stop Time Status Last Admin Dose Admin Ropivacaine/ Bupivacaine HCl/ Epinephrine Bitart/Ketorolac Tromethamine/ Dexamethasone Sodium Phosphate/ Ketamine HCl/ Clonidine/Sodium Chloride/Empty Bag (Naropin Inj 5MG/ Ml 30ML/ Sensorcaine/ Epinephrine 0.5% Mpf 1:200,000/ Toradol Inj/ Decadron Inj/ Ketalar Steri-Vial I... 93.2 ml @ 0 mls/hr PREOP INFIL 03/09/16 06:00 03/14/16 05:59 03/09/16 11:36 93.2 MLS/HR Acetaminophen (Tylenol Tab) 650 mg Q6H PRN PO 03/09/16 12:15 04/08/16 12:14 Magnesium Hydroxide (Milk Of Magnesia Susp) 30 ml Q6H PRN PO 03/09/16 12:15 04/08/16 12:14 Bisacodyl (Dulcolax Supp) 10 mg DAILY PRN SC 03/09/16 12:15 04/08/16 12:14 Docusate Sodium (coLACE CAP) 100 mg BID PO 03/09/16 21:00 04/08/16 20:59 03/10/16 09:19 100 MG Diphenhydramine HCl (Benadryl Inj) 25 mg Q8H PRN IV 03/09/16 12:15 04/08/16 12:14 Al Hydrox/Mg Hydrox/Simethicone (Maalox Max Susp) 15 ml Q4H PRN PO 03/09/16 12:15 04/08/16 12:14 Multivitamins (Multivitamin Tab) 1 tab QAM PO 03/10/16 09:00 04/09/16 08:59 03/10/16 09:19 1 TAB Ondansetron HCl (Zofran Inj) 4 mg Q6H PRN IV 03/09/16 12:15 04/08/16 12:14 Metoclopramide HCl (Reglan Inj) 10 mg Q6H PRN IV 03/09/16 12:15 04/08/16 12:14 Ferrous Gluconate (Ferrous Gluconate Tab) 324 mg TIDM PO 03/09/16 17:45 04/08/16 17:59 03/10/16 09:18 324 MG Pantoprazole Sodium (Protonix Tab) 40 mg QAM PO 03/10/16 09:00 04/09/16 08:59 03/10/16 09:19 40 MG Citalopram Hydrobromide (celeXA TAB) 40 mg HS PO 03/09/16 21:00 04/08/16 20:59 03/09/16 20:58 40 MG Clonazepam (Klonopin Tab) 0.25 mg BID PRN PO 03/09/16 12:15 04/08/16 12:14 Clonazepam (Klonopin Tab) 0.25 mg HS PO 03/09/16 21:00 04/08/16 20:59 03/09/16 20:58 0.25 MG Lamotrigine (Lamictal Tab) 150 mg QAM PO 03/10/16 09:00 04/09/16 08:59 03/10/16 09:19 150 MG Lamotrigine (Lamictal Tab) 200 mg QPM PO 03/09/16 21:00 04/08/16 20:59 03/09/16 20:59 200 MG Lurasidone HCl 40 mg 40 mg QPM PO 03/09/16 21:00 04/08/16 20:59 03/09/16 21:01 40 MG Acetaminophen (Ofirmev Iv) 100 ml @ 400 mls/hr Q8H PRN IV 03/09/16 12:15 03/10/16 12:00 03/10/16 09:25 400 MLS/HR Oxycodone HCl (Roxicodone Immediate Rel Tab) 1 TABLET FOR PAIN RATING... Q4H PRN PO 03/09/16 12:15 03/23/16 12:14 03/10/16 09:17 10 MG Morphine Sulfate (MoRPHine SULFATE INJ) 2 mg Q1H PRN IV 03/09/16 12:15 03/23/16 12:14 Morphine Sulfate (MoRPHine SULFATE INJ) 4 mg Q1H PRN IV 03/09/16 13:30 03/23/16 13:29 Warfarin Sodium (Coumadin Tab) 5 mg DAILY@16 PO 03/10/16 16:00 03/10/16 16:01 HCTZ/ Spironolactone (Aldactazide / Tab) 1 tab DAILY PO 03/11/16 09:00 04/10/16 08:59 Diltiazem HCl (Dilacor Xr Cap) 120 mg QAM PO 03/11/16 09:00 04/10/16 08:59 Objective Vital Signs Date Time Temp Pulse Resp B/P Pulse Ox O2 Delivery O2 Flow Rate FiO2 03/10/16 07:58 Room Air 03/10/16 06:59 36.5 69 16 110/69 90 Room Air 03/10/16 03:10 36.4 66 16 112/68 96 Room Air 03/10/16 00:15 Room Air 03/09/16 23:31 36.5 78 18 116/66 92 Room Air 03/09/16 15:46 36.8 74 18 114/68 94 Room Air 03/09/16 15:30 Room Air 03/09/16 14:41 36.9 75 17 110/64 98 Nasal Cannula 2.0 03/09/16 13:51 37.1 80 16 149/81 97 Nasal Cannula 2.0 03/09/16 13:20 36.3 73 17 138/84 98 Nasal Cannula 2.0 03/09/16 12:50 98 Nasal Cannula 2.0 03/09/16 12:50 36.4 70 16 119/72 98 Nasal Cannula 2.0 03/09/16 12:50 98 Nasal Cannula 2.0 03/09/16 12:38 116/63 03/09/16 12:35 70 16 99 03/09/16 12:35 69 16 03/09/16 12:34 96/71 03/09/16 12:30 74 18 97 03/09/16 12:30 76 18 03/09/16 12:29 114/39 03/09/16 12:25 72 26 03/09/16 12:25 72 26 96 03/09/16 12:24 37 03/09/16 12:21 71 20 93 03/09/16 12:21 71 20 03/09/16 12:18 118/69 03/09/16 12:16 73 18 03/09/16 12:16 70 18 97 03/09/16 12:13 103/66 03/09/16 12:11 71 20 97 03/09/16 12:11 69 20 03/09/16 12:09 93/40 03/09/16 12:07 96/67 03/09/16 12:06 71 15 97 03/09/16 12:06 72 15 03/09/16 12:01 76 16 03/09/16 12:01 75 16 97 03/09/16 11:59 105/60 03/09/16 11:56 36.5 77 16 105/60 96 Nasal Cannula 4 Physical Exam General Appearance: no apparent distress Eyes: normal inspection, PERRL ENT: hearing grossly normal Neck: supple Respiratory/Chest: lungs clear, no respiratory distress, no accessory muscle use Cardiovascular: regular rate, rhythm Abdomen: normal bowel sounds, non tender, soft Extremities: no pedal edema, no calf tenderness, + pertinent finding (CORIE/ brace on right lower extremity ) Neurologic/Psychiatric: alert, oriented x 3, + pertinent finding (Rude/ insulting ) Skin: normal color, warm/dry, no rash Laboratory Results Last 24 Hours Test 03/10/16 05:13 White Blood Count 10.08 K/uL Red Blood Count 3.52 M/uL Hemoglobin 10.4 g/dL Hematocrit 32.1 % Mean Corpuscular Volume 91.2 fL Mean Corpuscular Hemoglobin 29.5 pg Mean Corpuscular Hemoglobin Concent 32.4 g/dl RDW Standard Deviation 44.7 fL RDW Coefficient of Variation 13.4 % Platelet Count 230 K/uL Mean Platelet Volume 10.8 fL Prothrombin Time 11.6 SECONDS Prothromb Time International Ratio 1.1 Sodium Level 140 mmol/L Potassium Level 3.9 mmol/L Chloride Level 105 mmol/L Carbon Dioxide Level 26 mmol/L Anion Gap 9.0 mmol/L Blood Urea Nitrogen 33 mg/dl Creatinine 1.60 mg/dl Est Creatinine Clear Calc Drug Dose 35.6 ml/min Estimated GFR () 37.7 Estimated GFR (Non- 32.5 BUN/Creatinine Ratio 20.7 Random Glucose 92 mg/dl Calcium Level 8.6 mg/dl Assessment and Plan 70-year-old female seen status post right total knee arthroplasty by Dr. Mackey on 03/09. - DVT prophylaxis, pain management, and PT/OT as per primary team - Follow CBC and BMP Hypertension: - Continue spironolactone/HCTZ 25/25 by mouth twice a day. Bipolar disorder/anxiety: - Continue Citalopram 40 mg by mouth at bedtime, Clonazepam 0.25 mg by mouth at bedtime and 0.25 mg by mouth twice a day when necessary, Lamictal 150 mg by mouth every morning and 200 mg by mouth every evening, and Latuda 40mg by mouth every evening. GERD/hiatal hernia: - Continue Pantoprazole 40 mg by mouth daily while in hospital. Renal insufficiency, baseline Cr. ~1.6: - Creatinine on entrance laboratories was 1.7 with potassium of 4.9. Would recommend changing IV fluids from D5 half normal saline with 20 mEq of potassium at 100 ML's per hour to normal saline at 100 ML's per hour. - Continue to follow BMP, currently stable. DVT prophylaxis: - As per primary team Code Status: - LEVEL I, FULL Dispo: - Discharge as per primary team. Discharge to [facility] today?- recommend repeat BMP tomorrow (2/3) and encourage plenty of fluids to patient. Thank you for this consultation. We will continue to follow throughout hospital stay.
[2016-03-10 11:22] VITALS: BP 128/76; PULSE 76; TEMP 36.8; O2SAT 93
--- NOTE | 2016-03-10 12:40 | PROGRESS NOTE ---
DATE: 03/10/2016 Afternoon rounds. Discussed transfer with the patient. At this point in time she is acceptable due to that wound is clean. She is on oral meds. She can discontinue the knee immobilizer. She should receive her Coumadin prior to discharge today. [facility] that she had obtained it, and discharge on 4 mg per day. Check INR on Monday. Follow up is already arranged in 2 weeks. She should arrange for outpatient PT appointments at [facility] and make that arrangement 3-4 days before she is discharged from [facility] so she can start that appointment relatively quickly.
[2016-03-10 13:00] VITALS: BP 128/76; PULSE 76; TEMP 36.8; O2SAT 93
[2016-03-10] MEDS ORDERED: WARFARIN SOD 5 MG TAB PO SCH (16:00)
[2016-03-11] MEDS ORDERED: DILTIAZEM HCL 120 MG ER CAP PO SCH (09:00)
[2016-03-11] MEDS ORDERED: SPIRONOLACTONE/HCTZ 25-25 PO SCH (09:00)
== END 2016-03-10 15:10 | DRG 470 ==
LOC: ENRESERVDT → ENRESERVTM → C.ACU 08:19 → C.3E 08:30
PROVIDERS: ADMIT Physical Medicine & Rehabilitation Sports Medicine; ATTEND Physical Medicine & Rehabilitation Sports Medicine
PROC: 0SRC0J9 Replacement of Right Knee Joint with Synthetic Substitute, Cemented, Open Approach (ICD-10-PCS; principal; 2016-03-09 10:40)
DX: M17.11 Unilateral primary osteoarthritis, right knee (principal); D62 Acute posthemorrhagic anemia; F31.9 Bipolar disorder, unspecified; E66.9 Obesity, unspecified; K21.9 Gastro-esophageal reflux disease without esophagitis; K44.9 Diaphragmatic hernia without obstruction or gangrene; I12.9 Hypertensive chronic kidney disease with stage 1 through stage 4 chronic kidney disease, or unspecified chronic kidney disease; M20.20 Hallux rigidus, unspecified foot; F41.9 Anxiety disorder, unspecified; N18.3 Chronic kidney disease, stage 3 (moderate); Z68.35 Body mass index [BMI] 35.0-35.9, adult; Z87.891 Personal history of nicotine dependence; Z79.899 Other long term (current) drug therapy

== ENCOUNTER → 2016-04-25 | Outpatient (CLI) | payer OTHER, BC ==
[~2016-04-25] MED LIST changes: -BUPIVACAINE 0.25% 30 ML VIAL ONE; -CEFAZOLIN 2000 MG/60 ML D5W 60 ML IV SCH; -OMEG10007 PO; -ORTHO JOINT ANESTHETIC ONE; +OXYC-57 PO; -SODIUM CHLORIDE 0.9% 1000ML 1,000 ML IV SCH; -TRANEXAMIC ACID INJ 1,000 MG in SODIUM CHLORIDE 0.9% 100ML 100 ML IV SCH; +WARF2TAB PO
== END | disposition home or self-care (01) ==
LOC: C.RDSM 15:15
PROVIDERS: ATTEND Physical Medicine & Rehabilitation Sports Medicine
DX: Z96.651 Presence of right artificial knee joint (principal)

== ENCOUNTER → 2016-06-27 | Outpatient (CLI) | payer OTHER, BC | END | disposition home or self-care (01) | LOC: C.RDSM 14:50 | PROVIDERS: ATTEND Physical Medicine & Rehabilitation Sports Medicine | DX: M25.551 Pain in right hip (principal); M79.671 Pain in right foot; M25.579 Pain in unspecified ankle and joints of unspecified foot ==

== ENCOUNTER → 2016-09-07 | Outpatient (CLI) | payer OTHER, BC | END | disposition home or self-care (01) | LOC: C.LABSPEC 16:14 | PROVIDERS: ATTEND Dermatology | DX: L08.9 Local infection of the skin and subcutaneous tissue, unspecified (principal); L57.0 Actinic keratosis ==

== ENCOUNTER → 2016-09-07 | Outpatient (CLI) | payer OTHER, BC | END | disposition home or self-care (01) | LOC: C.PATHSPEC 16:34 | PROVIDERS: ATTEND Dermatology | DX: L57.0 Actinic keratosis (principal) ==

== ENCOUNTER → 2016-10-05 | Outpatient (CLI) | payer OTHER, BC ==
[~2016-10-05] MED LIST changes: -OXYC-57 PO; -WARF2TAB PO
== END | disposition home or self-care (01) ==
LOC: C.PAPS 09:45
PROVIDERS: ATTEND Obstetrics & Gynecology
DX: Z12.4 Encounter for screening for malignant neoplasm of cervix (principal); R87.615 Unsatisfactory cytologic smear of cervix

== ENCOUNTER → 2016-10-12 | Outpatient (CLI) | payer OTHER, BC ==
[2016-10-12 14:49] LABS: TOTAL IRON BINDING CAPACITY 368 mcg/dl (250-450)
== END | disposition home or self-care (01) ==
LOC: C.LAB1850 13:32
PROVIDERS: ATTEND Internal Medicine
DX: R53.83 Other fatigue (principal); Z13.0 Encounter for screening for diseases of the blood and blood-forming organs and certain disorders involving the immune mechanism

== ENCOUNTER → 2016-11-29 | Outpatient (CLI) | payer OTHER, BC ==
--- NOTE | 2016-11-29 15:15 | MAMMOGRAPHY REPORT ---
BILATERAL DIGITAL SCREENING MAMMOGRAM WITH CAD: 11/29/2016 CLINICAL HISTORY: Routine screening. TECHNIQUE: Bilateral CC, MLO and exaggerated lateral left CC views were obtained. Current study was also evaluated with a Computer Aided Detection (CAD) system. COMPARISON: Comparison is made to exams dated: 10/08/2014 mammogram, 04/25/2012 mammogram, 12/02/2008 m ammogram - [facility], 10/23/2007, 09/18/2006, and 02/10/2005 mammogram - [facility]. BREAST COMPOSITION: There are scattered areas of fibroglandular density in both breasts. FINDINGS: There are benign rim calcifications in both breasts. Stable asymmetries in the left breas t. No suspicious mass, architectural distortion or cluster of microcalcifications is seen. IMPRESSION: ACR BI-RADS CATEGORY 2: BENIGN There is no mammographic evidence of malignancy. A 1 year screening mammogram is recommended. The pa tient will receive written notification of the results. Approximately 10% of breast cancers are not detected with mammography. A negative mammographic report should not delay biopsy if a clinically suggestive mass is present. Cathleen Miller M.D. ay/:11/29/2016 14:32:34 Account Auditor: Darrick LOPEZ(R)(M), [facility] letter sent: Normal 1/2 BI-RADS Code: ACR BI-RADS Category 2: Benign
== END | disposition home or self-care (01) ==
LOC: C.MAMM 13:55
PROVIDERS: ATTEND Obstetrics & Gynecology
DX: Z12.31 Encounter for screening mammogram for malignant neoplasm of breast (principal); M85.852 Other specified disorders of bone density and structure, left thigh; M85.851 Other specified disorders of bone density and structure, right thigh

== ENCOUNTER → 2016-12-05 | Outpatient (CLI) | payer OTHER, BC | END | disposition home or self-care (01) | LOC: C.RDSM 14:15 | PROVIDERS: ATTEND Physical Medicine & Rehabilitation Sports Medicine | DX: Z96.651 Presence of right artificial knee joint (principal); M25.561 Pain in right knee ==

== ENCOUNTER → 2016-12-27 | Outpatient (CLI) | payer OTHER, BC ==
[2016-12-27 12:21] LABS: BASO % 0.9 %; BASO ABS # 0.05 K/uL (0-0.2); BLOOD UREA NITROGEN 34 mg/dl (7-18); BUN/CREATININE RATIO 21.2 (10-20); CARBON DIOXIDE 28 mmol/L (21-32); CHLORIDE 104 mmol/L (98-107); CHOLESTEROL 239 mg/dl (0-200); COMPLETE YES; CREATININE 1.58 mg/dl (0.60-1.20); EOS % 7.3 %; GLUCOSE 97 mg/dl (70-99); HEMATOCRIT 43.4 % (37-47); IG% 0.2 %; LYMPH % 22.1 %; LYMPH ABS # 1.27 K/uL (1.2-3.4); MEAN CELL VOLUME 92.7 fL (80-100); MEAN CORPUSCULAR HEMOGLOBIN 30.8 pg (25-34); MEAN CORPUSCULAR HGB CONC 33.2 g/dl (32-36); MEAN PLATELET VOLUME 11.1 fL (7.4-10.4); MONO % 7.5 %; PLATELET COUNT 265 K/uL (130-400); POTASSIUM 3.8 mmol/L (3.5-5.1); RED BLOOD COUNT 4.68 M/uL (4.2-5.4); SODIUM 140 mmol/L (136-145); TRIGLYCERIDES 88 mg/dl (0-150); VERY LOW DENSITY LIPOPROT CALC 18 mg/dl; WHITE BLOOD COUNT 5.74 K/uL (4.8-10.8)
[2016-12-27 12:23] LABS: ESTIMATED AVERAGE GLUCOSE 126 mg/dl; HA1C FLAG Normal (Normal)
[2016-12-27 12:32] LABS: CHOLESTEROL/HDL RATIO 3.1; HDL CHOLESTEROL 76 mg/dl; LDL CHOLESTEROL CALCULATED 145 mg/dl
== END | disposition home or self-care (01) ==
LOC: C.LAB1850 10:04
PROVIDERS: ATTEND Internal Medicine
DX: I10 Essential (primary) hypertension (principal)

== ENCOUNTER → 2017-01-13 | Outpatient (CLI) | payer OTHER, BC ==
[2017-01-13 17:00] LABS: ALKALINE PHOSPHATASE 138 U/L (45-117); ALT/SGPT 41 U/L (12-78); AST/SGOT 33 U/L (15-37)
== END | disposition home or self-care (01) ==
LOC: C.LAB1850 15:22
PROVIDERS: ATTEND Student in an Organized Health Care Education/Training Program
DX: Z79.899 Other long term (current) drug therapy (principal)

== ENCOUNTER 2017-04-03 21:26 | Emergency (ER) | payer OTHER, BC ==
[~2017-04-03] VITALS: Ht 162.6 cm; Wt 86.6 kg
[2017-04-03 21:32] VITALS: TEMP 36.7; Ht 162.6 cm; Wt 86.6 kg
[2017-04-03] MEDS ORDERED: ASCO10003 PO (22:52)
[2017-04-03] MEDS ORDERED: PRT/20 PO (22:52)
[2017-04-03] MEDS ORDERED: CALCTAB7 PO (22:52)
[2017-04-03] MEDS ORDERED: ACETAMINOPHEN 500 MG TAB PO STA (23:52)
[2017-04-04 01:02] VITALS: BP 138/85; PULSE 86; O2SAT 92
--- NOTE | 2017-04-04 03:00 | EMERGENCY ROOM VISIT NOTE ---
History Report prepared by Pita: Selwyn Holm Under the Supervision of: Dr. Benedicto Juarez M.D. First contact with patient: 22:31 Chief Complaint: FALL Stated Complaint: FALL History of Present Illness The patient is a 72 year old female who presents to the Emergency Room with complaints of constant left elbow pain following a fall that occurred tonight. The patient states that she tripped over her cat tonight and fell down. She notes that when she fell, she hit her head and left shoulder/arm. She also complains of an itchy foot and left shoulder pain. She reports that she has also been having left knee pain prior to her fall tonight. She rates her pain as a 4/10. Pt denies LOC, visual changes, neck pain, chest pain, breathing difficulties, nausea, vomiting, abdominal pain, back pain, numbness, weakness, open wounds, active bleeding, or other complaints. Source of History: patient Onset: tonight Position: elbow (left) Symptom Intensity: 4/10 Timing: constant Note: She also complains of head pain, left knee pain, left shoulder pain, and of an itchy foot. Review of Systems See HPI for pertinent positives and negatives. A total of ten systems were reviewed and were otherwise negative. Past Medical & Surgical Medical Problems: (1) Broken arm (2) Esophageal ulcer (3) Hiatal hernia (4) Hypertension (5) Right knee DJD (6) Stomach problems Family History FH: hypertension Lung disease Social History Smoking Status: Never Smoker Alcohol Use: none Drug Use: none Marital Status: single Housing Status: lives alone Occupation Status: retired Current/Historical Medications Scheduled Ascorbic Acid (Vitamin C), 1,000 MG PO AMPM Calcium Carbonate-Vitamin D W/ (Caltrate 600 Plus), 1 TAB PO DAILY Citalopram Hydrobromide (Celexa), 40 MG PO HS Clonazepam (Klonopin), 0.5 MG PO HS Yveelxwnzlt-Msvvtskpusy-Ymn C- (Glucosamine Chondroitin), 1 TAB PO BID Hctz/Spironolactone (Spironolactone/Hydrochlor 25-25 mg), 1 TAB PO BID Lamotrigine (Lamictal), 150 MG PO QAM Lamotrigine (Lamictal), 200 MG PO QPM Lurasidone Hcl (Latuda), 10 MG PO QPM Multivitamins (Daily Yovanny), 1 TAB PO 3XWK Pantoprazole (Protonix), 20 MG PO DAILY Allergies Coded Allergies: Hydrocodone (Unverified Allergy, Unknown, NAUSEA AND VOMITING, 03/09/16) Meloxicam (Verified Allergy, Unknown, melana, 03/09/16) Thioridazine (Verified Allergy, Unknown, RESTLESS LEG, 03/09/16) Ziprasidone (Unverified Allergy, Unknown, VOMITING/BLACK DIARRHEA, 03/09/16) Oxycodone (Verified Adverse Reaction, Mild, VOMITING, 02/25/16) Physical Exam Vital Signs Date Time Temp Pulse Resp B/P (MAP) Pulse Ox O2 Delivery O2 Flow Rate FiO2 04/04/17 01:02 86 20 138/85 92 04/04/17 00:51 86 20 138/85 92 Room Air 04/03/17 23:32 64 20 135/77 95 Room Air 04/03/17 21:32 36.7 68 16 148/91 97 Room Air Physical Exam GENERAL: Awake, alert, well-appearing, in no distress HENT: Normocephalic, atraumatic. Oropharynx unremarkable. Contusion to the forehead. EYES: Normal conjunctiva. Sclera non-icteric. NECK: Supple. No nuchal rigidity. FROM. No masses. RESPIRATORY: Clear to auscultation. No wheezes. CARDIAC: Normal rate. Normal rhythm. No murmurs. No rubs. Extremities warm and well perfused. Pulses equal. No JVD. GI: Soft, non-distended. No tenderness to palpation. No rebound or guarding. No masses. RECTAL: Deferred. MUSCULOSKELETAL: Atraumatic. Chest examination reveals no tenderness. The back is symmetrical on inspection without obvious abnormality. There is no CVA tenderness to palpation. No joint edema UPPER EXTREMITIES: Tenderness to proximal left arm, tenderness to the left shoulder. Atraumatic. LOWER EXTREMITIES: Calves are equal size bilaterally and non-tender. No edema. No discoloration. Atraumatic. NEURO: Normal sensorium. No sensory or motor deficits noted. SKIN: No rash or jaundice noted. Medical Decision & Procedures ER Provider Diagnostic Interpretation: Radiology results as stated below per my review and radiologist interpretation: 2 VIEW LEFT HUMERUS X-RAY No fracture. No dislocation. CT HEAD: Compared to 02/26/12. No intracranial hemorrhage or skull fracture. Mild sinus disease. Additional chronic findings. Radiologist: Linda Bauer M.D. Medications Administered Medications (Trade) Dose Ordered Sig/Puja Route Start Time Stop Time Status Last Admin Dose Admin Acetaminophen (Tylenol Tab) 1,000 mg NOW STAT PO 04/03/17 23:52 04/03/17 23:54 DC 04/04/17 00:02 1,000 MG ED Course 2239: The patient was evaluated in room B6. A complete history and physical exam was performed. 2352: Acetaminophen 1000mg PO 0108: I reevaluated the patient. Discussed results and discharge instructions: she verbalized understanding and agreement. The patient is ready for discharge. Medical Decision Prior records reviewed and summarized above. Triage Nursing notes reviewed and agree them. The patient's history was concerning for traumatic injury. Differential diagnosis: Etiologies such as concussion, intracranial bleeding, fracture, dislocation, neurovascular compromise, compartment syndrome, soft tissue injury, as well as others were entertained. Physical examination: Consistent with an isolated head and left upper arm injury. ER treatment provided: Tylenol Sling On reassessment the patient felt better. Diagnostics interpreted by me: Imaging studies: CT scan and Xrays as above. The patient is doing very well. She did not suffer any evidence of fracture, dislocation, or intracranial injury. I discussed following up with her primary physician. She also asked if she could follow-up with her orthopedist. It either would be acceptable. Conservative management was discussed. The patient felt comfortable. I gave my usual and customary discussion regarding this issue. By the evaluation outlined above other emergent etiologies such as those listed in the differential, as well as others, were deemed relatively unlikely. The patient was educated about the findings as listed above. All questions were answered and the patient was pleased with the treatment. Return instructions were outlined and the patient was discharged in stable condition. The patient was referred to her PCP/orthopedist for follow-up for a recheck of the current condition. Head Trauma GCS Score: 15 Medication Reconcilliation Current Medication List: was personally reviewed by me Blood Pressure Screening Patient's blood pressure: Elevated blood pressure Blood pressure disposition: Elevated BP felt to be situational Impression Primary Impression: Closed head injury Additional Impressions: Contusion of left shoulder Fall Scribe Attestation The scribe's documentation has been prepared under my direction and personally reviewed by me in its entirety. I confirm that the note above accurately reflects all work, treatment, procedures, and medical decision making performed by me. Departure Information Dispostion Home / Self-Care Referrals Poncho Lee M.D. (PCP) Forms HOME CARE DOCUMENTATION FORM, IMPORTANT VISIT INFORMATION Patient Instructions My [facility] Additional Instructions ORTHOPEDIC INSTRUCTIONS: Acetaminophen(Tylenol) may be used for fever or pain. Use 1000mg every six hours as needed. Avoid using more than 4000mg in a 24 hour period. Ice compresses for 20 minutes at a time four times daily for 2-3 days. Use the crutches as instructed. Use the sling as instructed. Remove your arm from the sling 4-6 times a day and move all the joints around to keep them loose. Rest your injury. Return to the ER immediately for any numbness, tingling, severe pain, extreme swelling in the extremity or as needed. Follow-up with your primary care physician or orthopedist in 2 to 3 days for a recheck of your current condition. Problem Qualifiers
--- NOTE | 2017-04-04 06:35 | DIAGNOSTIC IMAGING REPORT ---
L HUMERUS MIN 2 VIEWS ROUTINE HISTORY: 72 years-old Female left arm pain, proximal, fall acute left arm pain status post fall COMPARISON: None available TECHNIQUE: 2 views of the left humerus FINDINGS: Mild marginal spurring involves the medial and lateral epicondyles of the distal humerus. Bones appear mildly demineralized. Degenerative changes are also seen about the left shoulder. There is no acute fracture or dislocation identified. Punctate radiodensities of the left upper arm may reflect vascular calcifications. A pin projects over the left axillary region, likely external to the patient. IMPRESSION: No acute fracture or dislocation identified. The above report was generated using voice recognition software. It may contain grammatical, syntax or spelling errors. Electronically signed by: Alonso Neumann M.D. 04/04/2017 6:33 AM Dictated Date/Time: 04/04/2017 6:32 AM
--- NOTE | 2017-04-04 07:30 | DIAGNOSTIC IMAGING REPORT ---
HEAD WITHOUT CONTRAST (CT) CLINICAL HISTORY: 72 years-old Female presenting with fall. TECHNIQUE: Multidetector CT imaging of the head was performed without the use of intravenous contrast. IV contrast: None. A dose lowering technique was used consistent with the principles of ALARA (as low as reasonably achievable). COMPARISON: 02/26/2012. CT DOSE (mGy.cm): The estimated cumulative dose is 614.27 mGy.cm. FINDINGS: Lead Burner topogram: Unremarkable. Ventricles and sulci normal in size. Periventricular and subcortical white matter hypoattenuation, nonspecific but likely indicative of chronic small vessel ischemic change. No mass effect or midline shift. No hemorrhage or acute territorial infarct. Apparent extra axial crescentic hyperdensity along the anterior right temporal region is felt to most likely be artifact. No convincing evidence of extra-axial fluid collection. Paranasal sinuses and mastoid air cells clear. Calvarium intact. IMPRESSION: 1. Chronic small vessel ischemic change. No acute intracranial abnormality. Electronically signed by: Melquiades Guillen M.D. 04/04/2017 7:29 AM Dictated Date/Time: 04/04/2017 6:55 AM
== END 2017-04-04 01:03 | disposition home or self-care (01) ==
LOC: EDBD 21:26 → C.EDB 21:28
DX: S09.90XA Unspecified injury of head, initial encounter (principal); S40.012A Contusion of left shoulder, initial encounter; W01.0XXA Fall on same level from slipping, tripping and stumbling without subsequent striking against object, initial encounter; I10 Essential (primary) hypertension; M17.11 Unilateral primary osteoarthritis, right knee; Z87.19 Personal history of other diseases of the digestive system; Z88.6 Allergy status to analgesic agent; Z88.8 Allergy status to other drugs, medicaments and biological substances; Z82.49 Family history of ischemic heart disease and other diseases of the circulatory system

== ENCOUNTER → 2017-04-07 | Outpatient (CLI) | payer OTHER, BC ==
[~2017-04-07] MED LIST changes: +ASCO10003 PO; +CALCTAB7 PO; -FERR1TAB13 PO; -PANT40TA PO; +PRT/20 PO
[2017-04-07 16:05] LABS: BLOOD UREA NITROGEN 44 mg/dl (7-18); CALCIUM 10.4 mg/dl (8.5-10.1); CARBON DIOXIDE 30 mmol/L (21-32); CREATININE 1.59 mg/dl (0.60-1.20); GLUCOSE 86 mg/dl (70-99); SODIUM 137 mmol/L (136-145)
== END | disposition home or self-care (01) ==
LOC: C.LAB1850 14:35
PROVIDERS: ATTEND Internal Medicine
DX: E78.00 Pure hypercholesterolemia, unspecified (principal)

== ENCOUNTER → 2017-05-31 | Outpatient (CLI) | payer OTHER, BC | END | disposition home or self-care (01) | LOC: C.LABSPEC 11:20 | PROVIDERS: ATTEND Physician Assistant | DX: K13.0 Diseases of lips (principal) ==

== ENCOUNTER → 2017-06-09 | Outpatient (CLI) | payer OTHER, BC ==
--- NOTE | 2017-06-09 17:29 | DIAGNOSTIC IMAGING REPORT ---
L UPPER EXT JOINT WITHOUT CLINICAL HISTORY: 72 years-old Female with COMPLETE ROTATOR CUFF TEAR. Acute left arm pain with recent fall. COMPARISON: Left humerus radiographs 04/03/2017 TECHNIQUE: Multiplanar, multi sequence MRI of the left shoulder was performed without intravenous contrast. FINDINGS: Motion degraded exam. ROTATOR CUFF: Full-thickness tear of the mid to posterior supraspinatus tendon measures at least 2.2 x 0.6 cm in transverse and AP dimension. There is suggested additional full thickness tearing of the anterior supraspinatus fibers which are not well-seen secondary to motion. Retracted fibers are seen to the level of the mid humeral head with mild surrounding edema as seen on image 11 series 6. There is at least moderate atrophy of the supraspinatus musculature. Fluid tracks along the myotendinous junction of the supraspinatus. The infraspinatus tendon appears to be completely torn with large fluid-filled defect measuring up to 2.4 x 2.3 cm in transverse and AP dimension nicely seen on image 14 series 6 and 16 series 9 adjacent to the posterior facet greater tuberosity. Torn and retracted infraspinatus tendon fibers are seen adjacent to the glenoid on image 14 series 6. There is severe atrophy of infraspinatus musculature with edema and fluid tracking along the myotendinous junction. Infraspinatus tendon appears intact. Moderate subscapularis tendinosis with a focal area of full-thickness tearing of the mid insertional fibers measuring up to 4 mm in craniocaudal dimension nicely seen on image 16 series 9 and image 9 series 4. No significant subscapularis atrophy. BICEPS TENDON: The long-head biceps tendon is displaced from the bicipital groove and is subluxed medially as seen on image 21 series 4. LABRUM: Multifocal fraying and tearing of the labrum, likely chronic. There is no evidence for a paralabral cyst. GLENOHUMERAL JOINT: Mild to moderate degenerative changes with marginal spurring and chondral thinning. Moderate joint effusion without definite intra-articular loose body. ACROMIOCLAVICULAR JOINT: Moderate degenerative changes with marginal spurring, capsular hypertrophy and trace fluid within the joint space. Decreased coracohumeral interval of 3 mm secondary to rotator cuff tear. Moderate subacromial/subdeltoid bursitis. OUTLET SPACES: The suprascapular notch and quadrilateral space are without obstructing or space occupying lesions. BONE MARROW: No acute fracture or marrow occupying lesion. Mild subcortical cystic changes of the lesser tuberosity and posterior facet of the greater tuberosity. SOFT TISSUES: The periarticular soft tissues are unremarkable. IMPRESSION: 1. Patient motion limits the study. 2. Complete tear of the infraspinatus tendon with retracted fibers extending to the level of the glenoid. Severe atrophy of the infraspinatus musculature. 3. Focal full-thickness tear of the mid posterior supraspinatus tendon with probable additional full-thickness tearing of the anterior supraspinatous fibers, not well seen secondary to patient motion. There appears to be a few supraspinous tendon fibers intact. At least moderate atrophy of the supraspinatus musculature. 4. Focal full-thickness tear of the mid insertional fibers of the subscapularis tendon. 5. The long head biceps tendon is displaced from the bicipital groove and is subluxed medially. 6. Mild to moderate glenohumeral and moderate AC joint degenerative changes with moderate glenohumeral joint effusion. The above report was generated using voice recognition software. It may contain grammatical, syntax or spelling errors. Electronically signed by: Alonso Neumann M.D. 06/09/2017 5:28 PM Dictated Date/Time: 06/09/2017 4:26 PM
== END | disposition home or self-care (01) ==
LOC: C.MRIBC 15:34
PROVIDERS: ATTEND Physical Medicine & Rehabilitation Sports Medicine
DX: M75.122 Complete rotator cuff tear or rupture of left shoulder, not specified as traumatic (principal)

== ENCOUNTER 2020-12-11 17:41 | Inpatient (IN) ==
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
[2020-12-11 18:59] LABS: Basophils # (auto) 0.03 K/uL (0-0.2); Basophils % (auto) 0.4 %; Eosinophils # (auto) 0.07 K/uL (0-0.5); Hematocrit (blood only) 38.4 % (37-47); Hemoglobin 13.2 g/dL (12.0-16.0); Immature Granulocytes # (auto) 0.01 K/uL (0.00-0.02); Immature Granulocytes % (auto) 0.1 %; Lymphocytes # (auto) 1.75 K/uL (1.2-3.4); Lymphocytes % (auto) 24.7 %; Mean Corpuscular Hemoglobin 30.3 pg (25-34); Mean Corpuscular Hgb Conc 34.4 g/dL (32-36); Mean Corpuscular Volume 88.3 fL (80-100); Mean Platelet Volume 9.6 fL (7.4-10.4); Monocytes # (auto) 0.41 K/uL (0.11-0.59); Monocytes % (auto) 5.8 %; Neutrophils # (auto) 4.82 K/uL (1.4-6.5); Platelet Count 320 K/uL (130-400); RDW Coefficient of Variation 13.1 % (11.5-14.5); RDW Standard Deviation 42.5 fL (36.4-46.3); Red Blood Count 4.35 M/uL (4.2-5.4); White Blood Count 7.09 K/uL (4.8-10.8)
[2020-12-11 19:09] LABS: Appearance Urine Clear (Clear); Bacteria Urine Automated Negative (Negative); Bilirubin Urine Negative (Negative); Blood Urine Negative (Negative); Color Urine Yellow; Glucose Urine UA Negative (Negative); Ketones Urine Negative (Negative); Leukocyte Esterase Urine 2+ (Negative); Nitrite Urine Negative (Negative); Protein Urine 2+ (Negative); RBC Urine Automated 0-4 /hpf (0-4); Specific Gravity Urine 1.011 (1.000-1.030); Urobilinogen Urine Negative (Negative); WBC Urine Automated >30 /hpf (0-5); pH Urine 5.5 (4.5-7.5)
[2020-12-11] MEDS ORDERED: cephALEXin 250 MG CAP PO ONE (19:16)
[2020-12-11 19:27] LABS: Albumin Level 3.7 gm/dl (3.4-5.0); Calcium 10.4 mg/dl (8.5-10.1); Creatinine Clr Calc Pharmacy 27.1 ml/min; Est GFR (African American) 34.3 ml/min; Est GFR (Non-African American) 29.6 ml/min; Potassium 3.4 mmol/L (3.5-5.1)
[2020-12-11 19:29] LABS: Acetaminophen < 2 ug/ml (10-30); Salicylate < 1.7 mg/dl (2.8-20)
[2020-12-11 19:37] LABS: Bilirubin,Total 0.3 mg/dl (0.2-1); Globulin 3.8 gm/dl (2.5-4.0); Thyroid Stimulating Hormone 1.56 uIu/ml (0.300-4.500); Total Protein 7.5 gm/dl (6.4-8.2)
[2020-12-11 19:41] LABS: Amphetamines+Metham, Urine Neg (Neg); Barbiturates, Urine Neg (Neg); Benzodiazepine, Urine Neg (Neg); Cocaine, Urine Neg (Neg); MDMA (Ecstacy), Urine Neg (Neg); Methadone, Urine Neg (Neg); Opiate, Urine Neg (Neg); Phencyclidine, Urine Neg (Neg)
[2020-12-11] MEDS ORDERED: MAGNESIUM HYDROXIDE SUSP 30 ML UDC PO PRN (20:49)
[2020-12-11] MEDS ORDERED: ALUMINUM/MAGNESIUM SUSP 30 ML UDC PO PRN (20:49)
[2020-12-11] MEDS ORDERED: SODIUM CHLORIDE 0.65% NA SOLN 45 ML (OCEAN) PRN (20:49)
[2020-12-11] MEDS: hydrOXYzine HCl 25 MG TAB PO PRN (22:09)
[2020-12-12] MEDS: cephALEXin 250 MG CAP PO SCH ×2 (08:36→21:07)
--- NOTE | 2020-12-12 11:33 | History & Physical ---
Date of Service December 12, 2020 Impression / Recommendations Impression 75 yo female with a long history of bipolar disorder, no hospitalizations for >20 years on high dose lamictal which she continues to tolerate well. She presents as relatively cognitively intact but concerns about break ins/rearranging personal items is often part of dementia, otherwise there is no evidence of psychosis (thought disorganization, hallucinations) associated with her depression. It's anticipated she will do well in the structure of the unit and being out of the stress of her home which sounds to be full of decades worth of family items, including her parents things (?hoarding). She is quite lonely. (1) Bipolar disease, chronic: (2) Chronic renal insufficiency: (3) Vitamin D deficiency: The patient was admitted to the [facility] ([facility] mental health unit) on q15 min checks (behavioral with suicide precautions) for safety. The patient will participate in group, recreational, and milieu therapies and will be offered additional individual and family sessions as clinically appropriate. Continue current medications but hold Klonopin prn as not taking consistently and fall risk given age. Will coordinate care with Richardson on 12/14/20. Patient denies awareness of vitamin D deficiency and doesn't want to take additional supplements. Her BUN/Cr elevations are chronic/stable and not a direct result of dehydration. She was started on Keflex in the ED for a UTI and UC is pending. Risk Factors Assessment Do You Have Access To A Gun?: No Protective Factors Assessment Employed: No Psychiatric History Identifying Data Vicky THAYER (kathmallorie Bob) is a 75-year-old F who currently lives in [place] alone, has a history of multiple inpatient hospitalizations for bipolar disorder, and was admitted on 12/11/20 21:12 on a 201 voluntary commitment for passive SI and decline in functioning. Chief Complaint "I just haven't felt like doing much". History of Present Illness The patient reports her most recent inpatient hospitalization was in 1996 at the [facility]. Around that time she was started on lamotrigine and "that's really kept me out of the hospital". Her mood does cycle, mainly from irritable ("sometimes) to low energy and motivation to go places or eat much. She reports mainly having tofu and eggs throughout day. She started feeling more depressed several weeks ago and was using 10,000 lux light therapy 30 min twice a day but "it made me anxious" so stopped. Her mood has declined since. She remains overwhelmed in caring for the family home but is quite attached to it. She does have a jail support person who helps her organize mail, etc as "my only support". She relates longstanding concerns (likely paranoia) that her estranged sister is coming in to the home and moving things around just to upset her. She reports sending a legal letter over a decade ago but only recently changing the locks. She denies intent or plan to harm herself but "it wouldn't matter if the sun didn't come up." She reports compliant with her medication and appointments with her outpatient psychiatrist and therapist. Past Psychiatric History Previous Psych History: diagnosed with bipolar disorder in her 20s, recurrent manic episodes, Current Psychiatric Diagnosis: MDD Outpatient Services: [facility] (Dr. Arevalo, therapist Tanya Lombardi) Previous Psych Admissions: estimates "at least 20", none since 1996. First was at [facility]. Reports prior admissions here but historical visit hx appears mainly labs in late . Do You Have Access To A Gun?: No History of Previous Suicide Attempt: No Describe Attempts in the Past: None Past Medication Trials: patient unable to provide full list, an allergy to thioridazine and ziprasidone are listed on her chart; Vraylar trial "not helpful" Allergies Allergy/AdvReac Type Severity Reaction Status Date / Time hydrocodone AdvReac Intermediate NAUSEA AND Verified 12/12/20 11:09 VOMITING meloxicam AdvReac Intermediate melana Verified 12/12/20 11:09 thioridazine AdvReac Intermediate RESTLESS Verified 12/12/20 11:09 LEG ziprasidone AdvReac Intermediate VOMITING/BLACK Verified 12/12/20 11:09 DIARRHEA Home Medications Medication Instructions Recorded Confirmed Type clonazepam 0.5 mg tablet 0.5 - 1.5 mg PO HS PRN tab 10/01/18 12/12/20 History vitamin B complex 1 tab PO DAILY 02/25/19 12/12/20 History glucosamine sulfate dipotassium Cl 2 tab PO BID cap 06/25/19 12/12/20 History 500 mg-chondroitin 400 mg capsule (Glucosamine Sulfate 2 KCL-Chondroitin) multivitamin 1 tab PO DAILY tab 06/25/19 12/12/20 History diclofenac sodium 1 % topical gel 1 g TOPICAL QID PRN 08/13/19 12/12/20 History psyllium 3 tsp PO DAILY 08/13/19 12/12/20 History ascorbic acid (vitamin C) 500 mg 1 gm PO QID tab 08/16/19 12/12/20 History tablet (Vitamin C) spironolactone 25 0.5 tab PO BID #90 tab 02/06/20 12/12/20 Rx mg-hydrochlorothiazide 25 mg tablet melatonin 3 mg capsule 6 mg PO HS cap 05/18/20 12/12/20 History hydroxyzine HCl 10 mg tablet 20 mg PO HS PRN tab 06/04/20 12/12/20 History lamotrigine 100 mg tablet 250 mg PO AMHS tab 06/04/20 12/12/20 History pantoprazole 40 mg tablet,delayed 40 mg PO DAILY #30 tab 11/02/20 12/12/20 Rx release omega-3 fatty acids 2 cap PO DAILY 12/12/20 12/12/20 History Family History Family History of: Bipolar (older sister committed suicide in her 20s) Alcohol History Hx of Alcohol Use Over the Past 12 Months: No AUDIT Total Score: 0 Smoking Use Have You Smoked or Used Tobacco Products in the Last 30 Days: No Smoking Status: Never smoker Substance History Hx of Prescription Med Misuse Over the Past 12 Months: No Hx of Over the Counter Med Misuse Over the Past 12 Months: No Hx of Inhalent Misuse Over the Past 12 Months: No Hx of Organic Substance Use Over the Past 12 Months: No Hx of Illegal Substances/Street Drug Use Over Past 12 Months: No Problems as a Result of Past Substance Use: None Identified Personal History Living Arrangements: Home Highest Grade Completed: College Highest Grade Completed Comment: graduated at [employer] and 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, hx of service in [place]) Employment Status: Retired Marital Status: Single (states a man after the [employer] so his visa wouldn't ) Number Of Children: gave to a boy when in college, placed for adoption (she is thankful) Beliefs That Will Affect Care: None Current Legal Problems: No Hx Traumatic Life Events: No Patient History Medical History Actinic keratosis Anxiety Benign skin lesion Bipolar I disorder, single manic episode Chronic renal insufficiency Esophagitis, Emanuel grade D Familial hypercholesteremia Forearm fracture Herpes simplex Hyperglycemia Hypertension Left knee DJD Urge and stress incontinence Surgical History H/O tooth extraction S/P knee surgery S/P rotator cuff repair S/P tonsillectomy Family History Mother Hypertension Other Alzheimer disease Social History Smoking Status: Never smoker Tobacco Type: Cigarettes Hx Alcohol Use: Yes Hx Substance Use: No Preferred Language: Bengali Communication Ability: Effective Taxi Dancer Required: No Beliefs That Will Affect Care: None current occupational status: retired Feels Safe at Home: Yes Childhood Exposure to Second-Hand Smoke: No Assistive Devices: Glasses Review of Systems Review of Systems: All systems reviewed & are unremarkable except as noted in HPI & below Physical Exam Psychiatric: Orientation: alert and oriented x 3 Apperance: appropriately dressed and appropriately groomed Eye Contact: good eye contact Motor Behavior: no abnormal motor movements Speech: normal rate/rhythm/volume of speech Affect: + depressed affect Mood: + depressed mood Thought Process: goal directed thought process Thought Content: reality based without delusions Suicidal Thoughts: denies suicidal thoughts Homicidal Thoughts: denies homicidal thoughts Hallucinations: no auditory hallucinations and no v isual hallucinations Cognition: attention grossly intact and language grossly intact Estimated Intelligence: consistent with education level Insight: + fair insight Judgement: + limited judgement Vital Signs (Past 24 Hours): Last Vital Signs Temp 36.9 C 12/12/20 06:37 Pulse 69 12/12/20 06:38 Resp 16 12/12/20 06:37 BP 130/76 12/12/20 06:38 Pulse Ox 98 12/11/20 21:47 Exam Statement: A physical exam was performed in the ED by Dr. Lujan for the purposes of medical clearance. I accept that physical as correct and adequate for the purposes of the inpatient physical exam. Results & Data ([facility]) Laboratory Results Laboratory Results - last 24 hr 12/11/20 12/11/20 12/11/20 18:30 18:30 18:41 WBC 7.09 RBC 4.35 Hgb 13.2 Hct 38.4 MCV 88.3 MCH 30.3 MCHC 34.4 RDW Std Deviation 42.5 RDW Coeff of Benny 13.1 Plt Count 320 MPV 9.6 Immature Gran % (Auto) 0.1 Neut % (Auto) 68.0 Lymph % (Auto) 24.7 Clinch % (Auto) 5.8 Eos % (Auto) 1.0 Baso % (Auto) 0.4 Neut # (Auto) 4.82 Lymph # (Auto) 1.75 Clinch # (Auto) 0.41 Eos # (Auto) 0.07 Baso # (Auto) 0.03 Immature Gran # (Auto) 0.01 Sodium Potassium Chloride Carbon Dioxide Anion Gap BUN Creatinine Est Cr Clr Drug Dosing Est GFR ( Amer) Est GFR (Non-Af Amer) BUN/Creatinine Ratio Glucose Calcium Total Bilirubin AST ALT Alkaline Phosphatase Total Protein Albumin Globulin Albumin/Globulin Ratio TSH Urine Color Yellow Urine Appearance Clear Urine pH 5.5 Ur Specific [place] 1.011 Urine Protein 2+ H Urine Glucose (UA) Negative Urine Ketones Negative Urine Blood Negative Urine Nitrite Negative Urine Bilirubin Negative Urine Urobilinogen Negative Ur Leukocyte Esterase 2+ H Urine WBC (Auto) >30 H Urine RBC (Auto) 0-4 U Hyaline Cast (Auto) 10-30 H U Epithel Cells (Auto) 10-20 H Urine Bacteria (Auto) Negative Salicylates Urine Opiates Screen Neg Ur Methadone, Qual Neg Acetaminophen Urine Barbiturates Neg Ur Phencyclidine (PCP) Neg U Amphetamin/Meth Scrn Neg MDMA (Ecstasy) Screen Neg U Benzodiazepines Scrn Neg Ur Cocaine Metabolite Neg U Marijuana (THC) Screen Neg Ethyl Alcohol mg/dL COVID-19 Eval Order SARS-CoV-2, RNA, NAAT 12/11/20 12/11/20 12/11/20 18:41 18:41 18:41 WBC RBC Hgb Hct MCV MCH MCHC RDW Std Deviation RDW Coeff of Benny Plt Count MPV Immature Gran % (Auto) Neut % (Auto) Lymph % (Auto) Clinch % (Auto) Eos % (Auto) Baso % (Auto) Neut # (Auto) Lymph # (Auto) Clinch # (Auto) Eos # (Auto) Baso # (Auto) Immature Gran # (Auto) Sodium 137 Potassium 3.4 L Chloride 102 Carbon Dioxide 25 Anion Gap 10.0 BUN 45 H Creatinine 1.68 H Est Cr Clr Drug Dosing 27.1 Est GFR ( Amer) 34.3 Est GFR (Non-Af Amer) 29.6 BUN/Creatinine Ratio 27.0 H Glucose 101 H Calcium 10.4 H Total Bilirubin 0.3 AST 29 ALT 33 Alkaline Phosphatase 101 Total Protein 7.5 Albumin 3.7 Globulin 3.8 Albumin/Globulin Ratio 1.0 TSH 1.560 Urine Color Urine Appearance Urine pH Ur Specific [place] Urine Protein Urine Glucose (UA) Urine Ketones Urine Blood Urine Nitrite Urine Bilirubin Urine Urobilinogen Ur Leukocyte Esterase Urine WBC (Auto) Urine RBC (Auto) U Hyaline Cast (Auto) U Epithel Cells (Auto) Urine Bacteria (Auto) Salicylates < 1.7 L Urine Opiates Screen Ur Methadone, Qual Acetaminophen < 2 L Urine Barbiturates Ur Phencyclidine (PCP) U Amphetamin/Meth Scrn MDMA (Ecstasy) Screen U Benzodiazepines Scrn Ur Cocaine Metabolite U Marijuana (THC) Screen Ethyl Alcohol mg/dL < 3.0 COVID-19 Eval Order SARS-CoV-2, RNA, NAAT 12/11/20 12/11/20 19:19 19:19 WBC RBC Hgb Hct MCV MCH MCHC RDW Std Deviation RDW Coeff of Benny Plt Count MPV Immature Gran % (Auto) Neut % (Auto) Lymph % (Auto) Clinch % (Auto) Eos % (Auto) Baso % (Auto) Neut # (Auto) Lymph # (Auto) Clinch # (Auto) Eos # (Auto) Baso # (Auto) Immature Gran # (Auto) Sodium Potassium Chloride Carbon Dioxide Anion Gap BUN Creatinine Est Cr Clr Drug Dosing Est GFR ( Amer) Est GFR (Non-Af Amer) BUN/Creatinine Ratio Glucose Calcium Total Bilirubin AST ALT Alkaline Phosphatase Total Protein Albumin Globulin Albumin/Globulin Ratio TSH Urine Color Urine Appearance Urine pH Ur Specific [place] Urine Protein Urine Glucose (UA) Urine Ketones Urine Blood Urine Nitrite Urine Bilirubin Urine Urobilinogen Ur Leukocyte Esterase Urine WBC (Auto) Urine RBC (Auto) U Hyaline Cast (Auto) U Epithel Cells (Auto) Urine Bacteria (Auto) Salicylates Urine Opiates Screen Ur Methadone, Qual Acetaminophen Urine Barbiturates Ur Phencyclidine (PCP) U Amphetamin/Meth Scrn MDMA (Ecstasy) Screen U Benzodiazepines Scrn Ur Cocaine Metabolite U Marijuana (THC) Screen Ethyl Alcohol mg/dL COVID-19 Eval [facility] SARS-CoV-2, RNA, NAAT NEGATIVE Current Inpatient Medications Current Inpatient Medications: Current Inpatient Medications Acetaminophen (Acetaminophen 325 Mg Tab) 650 mg PO Q4H PRN PRN Reason: Headache or Minor Fever Stop: 01/10/21 20:48 Al Hydrox/Mg Hydrox/Simethicone (Aluminum/Magnesium Susp 30 Ml Udc) 30 ml PO Q4H PRN PRN Reason: GI Upset Stop: 01/10/21 20:48 Ascorbic Acid (Ascorbic Acid 500 Mg Tab) 1,000 mg PO QID RENATE Stop: 01/11/21 12:59 Cephalexin HCl (Cephalexin 250 Mg Cap) 250 mg PO BID RENATE; Protocol Stop: 12/16/20 09:01 Last Admin: 12/12/20 08:36 Dose: 250 mg Documented by: Diclofenac Sodium (Diclofenac Sod 1% Gel 100 Gm Tube) 1 gm EXT QID PRN PRN Reason: Pain Stop: 01/11/21 10:57 HCTZ/Spironolactone (Spironolactone/Hctz 25-25) 0.5 tab PO BID RENATE Stop: 01/11/21 11:14 Hydroxyzine HCl (Hydroxyzine Hcl 25 Mg Tab) 50 mg PO HSZ PRN PRN Reason: Insomnia Stop: 01/10/21 20:48 Last Admin: 12/11/20 22:09 Dose: 50 mg Documented by: Hydroxyzine HCl (Hydroxyzine Hcl 25 Mg Tab) 25 mg PO Q4H PRN PRN Reason: Anxiety Stop: 01/10/21 20:48 Lamotrigine (Lamotrigine 100 Mg Tab) 250 mg PO AMHS RENATE Stop: 01/11/21 10:59 Magnesium Hydroxide (Magnesium Hydroxide Susp 30 Ml Udc) 30 ml PO DAILY PRN PRN Reason: Constipation Stop: 01/10/21 20:48 Melatonin (Melatonin 3 Mg Tab) 6 mg PO HS RENATE Stop: 01/11/21 21:59 Multivitamins (Multivitamin Tab) 1 tab PO DAILY RENATE Stop: 01/11/21 11:14 Pantoprazole Sodium (Pantoprazole 40 Mg Tab) 40 mg PO DAILY RENATE Stop: 01/11/21 11:14 Psyllium Hydrophilic Mucilloid (Psyllium 58.6% Powder Packet) 1 pkt PO DAILY RENATE Stop: 01/11/21 11:14 Sodium Chloride (Sodium Chloride 0.65% Na Soln 45 Ml ([place])) 1 - 2 sprays NA PRN PRN PRN Reason: Nasal Dryness/Congestion Stop: 01/10/21 20:48 Vitamin B Complex (Vitamin B Complex Tab) 1 tab PO DAILY RENATE Stop: 01/11/21 11:14
[2020-12-12] MEDS: lamoTRIgine 100 MG TAB PO SCH ×2 (11:39→21:07)
[2020-12-12] MEDS: SPIRONOLACTONE/HCTZ 25-25 PO SCH ×2 (11:39→21:07)
[2020-12-12] MEDS: VITAMIN B COMPLEX TAB PO SCH (11:41)
[2020-12-12] MEDS: PSYLLIUM 58.6% POWDER PACKET PO SCH (11:43)
[2020-12-12] MEDS: MULTIVITAMIN TAB PO SCH (12:43)
[2020-12-12] MEDS: PANTOprazole 40 MG TAB PO SCH (12:43)
[2020-12-12] MEDS: ASCORBIC ACID 500 MG TAB PO SCH ×3 (12:46→21:08)
[2020-12-12] MEDS ORDERED: MELATONIN 3 MG TAB PO SCH (22:00)
[2020-12-12] MEDS: hydrOXYzine HCl 25 MG TAB PO PRN (22:11)
[2020-12-13] MEDS: ASCORBIC ACID 500 MG TAB PO SCH ×2 (08:02→20:11)
[2020-12-13] MEDS: cephALEXin 250 MG CAP PO SCH ×2 (08:03→20:11)
[2020-12-13] MEDS: SPIRONOLACTONE/HCTZ 25-25 PO SCH ×2 (08:03→20:10)
[2020-12-13] MEDS: lamoTRIgine 100 MG TAB PO SCH ×2 (08:08→20:08)
[2020-12-13] MEDS: MULTIVITAMIN TAB PO SCH (08:09)
[2020-12-13] MEDS: VITAMIN B COMPLEX TAB PO SCH (08:10)
[2020-12-13] MEDS: PSYLLIUM 58.6% POWDER PACKET PO SCH (08:10)
[2020-12-13] MEDS: PANTOprazole 40 MG TAB PO SCH (08:10)
[2020-12-13] MEDS: DICLOFENAC SOD 1% GEL 100 GM TUBE EXT PRN (08:16)
--- NOTE | 2020-12-13 11:58 | Psychiatric Progress Note ---
Date of Service December 13, 2020 Impression / Recommendations Impression 75 yo female with a long history of bipolar disorder, no hospitalizations for >20 years on high dose lamictal which she continues to tolerate well. She presents as relatively cognitively intact but concerns about break ins/rearranging personal items is often part of dementia, otherwise there is no evidence of psychosis (thought disorganization, hallucinations) associated with her depression. It's anticipated she will do well in the structure of the unit and being out of the stress of her home which sounds to be full of decades worth of family items, including her parents things (?hoarding). She is quite lonely. 12/13/20: appears to have switched to mixed state/hypomania, change even noted by peers though also hyperfocussed on things being done/given a certain way which would also be consistent with OCPD (1) Bipolar disease, chronic: (2) Chronic renal insufficiency: (3) Vitamin D deficiency: 12/13/20: increase Metamucil, prune juice, staff to review belongings requests. The patient is not acutely agitated so best to wait for additional medications until can confirm past trials with Richardson and coordinate care with Dr. Arevalo. She denies suicidal ideation but is unable to care for self out of the hospital and is clearly exhibiting mood instability. 12/12/20: The patient was admitted to the [facility] ([facility]) on q15 min checks (behavioral with suicide precautions) for safety. The patient will participate in group, recreational, and milieu therapies and will be offered additional individual and family sessions as clinically appropriate. Continue current medications but hold Klonopin prn as not taking consistently and fall risk given age. Will coordinate care with Richardson on 12/14/20. Patient denies awareness of vitamin D deficiency and doesn't want to take additional supplements. Her BUN/Cr elevations are chronic/stable and not a direct result of dehydration. She was started on Keflex in the ED for a UTI and UC is pending. Risk Factors Assessment Do You Have Access To A Gun?: No Protective Factors Assessment Employed: No Interval History Identifying Information Vicky THAYER (kaths Lisbeth) is a 75-year-old F who currently lives in [place] alone, has a history of multiple inpatient hospitalizations for bipolar disorder, and was admitted on 12/11/20 21:12 on a 201 voluntary commitment for passive SI and decline in functioning. Chief Complaint "yeah I'm more on a high today as I decided to stay in my house". Review of Systems Sleep Information Total Hours of Sleep: 5.5 Meal Information Percent Meal Consumed - Breakfast: 100 Percent Meal Consumed - Lunch: 100 Percent Meal Consumed - Dinner: 100 Subjective Subjective Patient was seen & assessed and interval progress reviewed with nursing and social work. Marked change in appearance today from depressed to hyperverbal, needing verbal cues for redirection, somewhat disorganized in conversation (very circumstantial). She was very insistent about her meds are given and items she would like brought from home, most are contraband and she seemed to have difficulty processing/accepting this. Reports constipation. Physical Exam Psychiatric Orientation: alert and oriented x 3 Apperance: appropriately dressed and appropriately groomed Eye Contact: good eye contact Motor Behavior: no abnormal motor movements Speech: + pressured speech Affect: + anxious affect Mood: + depressed mood Thought Process: + circumstantial thought process Thought Content: reality based without delusions Suicidal Thoughts: denies suicidal thoughts Homicidal Thoughts: denies homicidal thoughts Hallucinations: no auditory hallucinations and no visual hallucinations Cognition: language grossly intact; + attention not intact Estimated Intelligence: consistent with education level Insight: + limited insight Judgement: + limited judgement Vital Signs (Past 24 Hours) Last Vital Signs Temp 36.5 C 12/13/20 06:44 Pulse 73 12/13/20 06:45 Resp 18 12/13/20 06:44 BP 174/89 H 12/13/20 06:45 Pulse Ox 98 12/11/20 21:47 Results & Data ([facility]) Current Inpatient Medications Current Inpatient Medications: Current Inpatient Medications Acetaminophen (Acetaminophen 325 Mg Tab) 650 mg PO Q4H PRN PRN Reason: Headache or Minor Fever Stop: 01/10/21 20:48 Al Hydrox/Mg Hydrox/Simethicone (Aluminum/Magnesium Susp 30 Ml Udc) 30 ml PO Q4H PRN PRN Reason: GI Upset Stop: 01/10/21 20:48 Ascorbic Acid (Ascorbic Acid 500 Mg Tab) 2,000 mg PO BID RENATE Stop: 01/12/21 20:59 Cephalexin HCl (Cephalexin 250 Mg Cap) 250 mg PO BID RENATE; Protocol Stop: 12/16/20 09:01 Last Admin: 12/13/20 08:03 Dose: 250 mg Documented by: Diclofenac Sodium (Diclofenac Sod 1% Gel 100 Gm Tube) 1 gm EXT QID PRN PRN Reason: Pain Stop: 01/11/21 10:57 Last Admin: 12/13/20 08:16 Dose: 1 gm Documented by: HCTZ/Spironolactone (Spironolactone/Hctz 25-25) 0.5 tab PO BID RENATE Stop: 01/11/21 11:14 Last Admin: 12/13/20 08:03 Dose: 0.5 tab Documented by: Hydroxyzine HCl (Hydroxyzine Hcl 25 Mg Tab) 25 mg PO Q4H PRN PRN Reason: Anxiety Stop: 01/10/21 20:48 Hydroxyzine HCl (Hydroxyzine Hcl 25 Mg Tab) 25 mg PO HSZ RENATE Stop: 01/12/21 21:59 Lamotrigine (Lamotrigine 100 Mg Tab) 250 mg PO AMHS RENATE Stop: 01/11/21 10:59 Last Admin: 12/13/20 08:08 Dose: 250 mg Documented by: Magnesium Hydroxide (Magnesium Hydroxide Susp 30 Ml Udc) 30 ml PO DAILY PRN PRN Reason: Constipation Stop: 01/10/21 20:48 Melatonin (Melatonin 3 Mg Tab) 9 mg PO HS PRN PRN Reason: sleep Stop: 01/12/21 21:59 Multivitamins (Multivitamin Tab) 1 tab PO DAILY RENATE Stop: 01/11/21 11:14 Last Admin: 12/13/20 08:09 Dose: 1 tab Documented by: Pantoprazole Sodium (Pantoprazole 40 Mg Tab) 40 mg PO DAILY RENATE Stop: 01/11/21 11:14 Last Admin: 12/13/20 08:10 Dose: 40 mg Documented by: Psyllium Hydrophilic Mucilloid (Psyllium 58.6% Powder Packet) 3 pkt PO DAILY@0700 RENATE Stop: 01/13/21 06:59 Sodium Chloride (Sodium Chloride 0.65% Na Soln 45 Ml ([place])) 1 - 2 sprays NA PRN PRN PRN Reason: Nasal Dryness/Congestion Stop: 01/10/21 20:48 Vitamin B Complex (Vitamin B Complex Tab) 1 tab PO DAILY RENATE Stop: 01/11/21 11:14 Last Admin: 12/13/20 08:10 Dose: 1 tab Documented by: Mental Health & Subst Abuse Tx Therapist Name of Therapist: Enrique Lombardi [employer] B[employer] Coverer Name of Looseleaf B[employer] Coverer: None Post Discharge Appointments Primary Care Physician Name Of Family Doctor: FARSHAD Hernandes
[2020-12-13] MEDS: hydrOXYzine HCl 25 MG TAB PO SCH (21:44)
[2020-12-13] MEDS: MELATONIN 3 MG TAB PO PRN (23:32)
[2020-12-14] MEDS: hydrOXYzine HCl 25 MG TAB PO SCH ×2 (02:29→21:20)
[2020-12-14] MEDS: DICLOFENAC SOD 1% GEL 100 GM TUBE EXT PRN (06:14)
[2020-12-14] MEDS: PSYLLIUM 58.6% POWDER PACKET PO SCH (06:47)
[2020-12-14] MEDS: cephALEXin 250 MG CAP PO SCH ×2 (08:29→21:14)
[2020-12-14] MEDS: ASCORBIC ACID 500 MG TAB PO SCH ×2 (08:29→21:12)
[2020-12-14] MEDS: SPIRONOLACTONE/HCTZ 25-25 PO SCH ×2 (08:30→21:15)
[2020-12-14] MEDS: lamoTRIgine 100 MG TAB PO SCH ×2 (08:31→21:16)
[2020-12-14] MEDS: MULTIVITAMIN TAB PO SCH (08:33)
[2020-12-14] MEDS: VITAMIN B COMPLEX TAB PO SCH (08:33)
[2020-12-14] MEDS: PANTOprazole 40 MG TAB PO SCH (08:33)
--- NOTE | 2020-12-14 09:58 | Psychiatric Progress Note ---
Date of Service December 14, 2020 Impression / Recommendations Impression 75 yo female with a long history of bipolar disorder, no hospitalizations for >20 years on high dose lamictal which she continues to tolerate well. She presents as relatively cognitively intact but concerns about break ins/rearranging personal items is often part of dementia, otherwise there is no evidence of psychosis (hallucinations) associated with her depression. 12/14/20: mixed state, poor sleep. More irritable/manic today. (1) Bipolar disease, chronic: (2) Chronic renal insufficiency: (3) Vitamin D deficiency: 12/14/20: LM for Dr. Arevalo, awaiting return call. In interim as patient is clearly more restlesss/manic will offer prn benzo (preferrably Ativan as shorter acting but she may not agree) and thorazine though lowest dose is PO. She is becoming increasingly intrussive in groups and is unable to care for basic needs outside of the hospital given unpredictable nature of her mood swings. 12/13/20: increase Metamucil, prune juice, staff to review belongings requests. The patient is not acutely agitated so best to wait for additional medications until can confirm past trials with [facility] and coordinate care with Dr. Arevalo. She denies suicidal ideation but is unable to care for self out of the hospital and is clearly exhibiting mood instability. 12/12/20: The patient was admitted to [facility] ([facility] mental [facility] unit) on q15 min checks (behavioral with suicide precautions) for safety. The patient will participate in group, recreational, and milieu therapies and will be offered additional individual and family sessions as clinically appropriate. Continue current medications but hold Klonopin prn as not taking consistently and fall risk given age. Will coordinate care with Richardson on 12/14/20. Patient denies awareness of vitamin D deficiency and doesn't want to take additional supplements. Her BUN/Cr elevations are chronic/stable and not a direct result of dehydration. She was started on Keflex in the ED for a UTI and UC is pending. Risk Factors Assessment Do You Have Access To A Gun?: No Protective Factors Assessment Employed: No Interval History Identifying Information Vicky THAYER (prefers Lisbeth) is a 75-year-old F who currently lives in [place] alone, has a history of multiple inpatient hospitalizations for bipolar disorder, and was admitted on 12/11/20 21:12 on a 201 voluntary commitment for passive SI and decline in functioning. Chief Complaint "You did me wrong, I'm so angry I don't even want to meet with you.". Review of Systems Sleep Information Total Hours of Sleep: 0 Meal Information Percent Meal Consumed - Breakfast: 100 Percent Meal Consumed - Lunch: 100 Percent Meal Consumed - Dinner: 100 Subjective Subjective Patient was seen & assessed and interval progress reviewed with treatment team. Patient remained hyperverbal, restless at times and did not sleep much overnight despite medications. Was more resistant to staff involving her elder support person in calls/stay but did sign KEVYN. Very irritable this am, upset that did not have access to prn Klonopin last night. Re-reviewed fall risk and need to collaborate with Dr. Arevalo as records just confirmed this am. She wrote a 3 page letter expressing her anger to me and clearly fueled by manic symptoms. Of interest records from [facility] note a recent fall and confirm limited supply of thorazine 10 mg daily (patient is asking for 2.5 mg of liquid only, reviewed non formulary). Exhaustive med trials listed. Medication Trials per [facility] Records: Strattera [place], Depakote, Tegretol, Trileptal, Neurontin Celexa, Wellbutrin, Zoloft, trazodone, Lexapro, Luvox, Prozac, Buspar Latuda, Abilify (akathisia), Risperdal, Invega, Seroquel (sedation), Haldol, Zyprexa, Remeron, Geodon (edema), thorazine, Vraylar (decreased sleep) Klonopin, Xanax Namenda trial for OCD traits Physical Exam Psychiatric Orientation: alert and oriented x 3 Apperance: appropriately dressed and appropriately groomed Eye Contact: good eye contact Motor Behavior: no abnormal motor movements Speech: + pressured speech Affect: + labile affect Mood: + irritable mood Thought Process: + circumstantial thought process Thought Content: + paranoid Suicidal Thoughts: denies suicidal thoughts Homicidal Thoughts: denies homicidal thoughts Hallucinations: no auditory hallucinations and no visual hallucinations Cognition: language grossly intact; + attention not intact Estimated Intelligence: consistent with education level Insight: + limited insight Judgement: + limited judgement Vital Signs (Past 24 Hours) Last Vital Signs Temp 36.9 C 12/14/20 06:36 Pulse 76 12/14/20 06:37 Resp 18 12/14/20 06:36 BP 125/88 12/14/20 06:37 Pulse Ox 98 12/11/20 21:47 Results & Data ([facility]) Current Inpatient Medications Current Inpatient Medications: Current Inpatient Medications Acetaminophen (Acetaminophen 325 Mg Tab) 650 mg PO Q4H PRN PRN Reason: Headache or Minor Fever Stop: 01/10/21 20:48 Al Hydrox/Mg Hydrox/Simethicone (Aluminum/Magnesium Susp 30 Ml Udc) 30 ml PO Q4H PRN PRN Reason: GI Upset Stop: 01/10/21 20:48 Ascorbic Acid (Ascorbic Acid 500 Mg Tab) 2,000 mg PO BID [facility] Stop: 01/12/21 20:59 Last Admin: 12/14/20 08:29 Dose: 2,000 mg Documented by: Cephalexin HCl (Cephalexin 250 Mg Cap) 250 mg PO BID [facility]; Protocol Stop: 12/16/20 09:01 Last Admin: 12/14/20 08:29 Dose: 250 mg Documented by: Diclofenac Sodium (Diclofenac Sod 1% Gel 100 Gm Tube) 1 gm EXT QID PRN PRN Reason: Pain Stop: 01/11/21 10:57 Last Admin: 12/14/20 06:14 Dose: 1 gm Documented by: HCTZ/Spironolactone (Spironolactone/Hctz 25-25) 0.5 tab PO BID [facility] Stop: 01/11/21 11:14 Last Admin: 12/14/20 08:30 Dose: 0.5 tab Documented by: Hydroxyzine HCl (Hydroxyzine Hcl 25 Mg Tab) 25 mg PO Q4H PRN PRN Reason: Anxiety Stop: 01/10/21 20:48 Hydroxyzine HCl (Hydroxyzine Hcl 25 Mg Tab) 25 mg PO HSZ [facility] Stop: 01/12/21 21:59 Last Admin: 12/14/20 02:29 Dose: 25 mg Documented by: Lamotrigine (Lamotrigine 100 Mg Tab) 250 mg PO AMHS [facility] Stop: 01/11/21 10:59 Last Admin: 12/14/20 08:31 Dose: 250 mg Documented by: Magnesium Hydroxide (Magnesium Hydroxide Susp 30 Ml Udc) 30 ml PO DAILY PRN PRN Reason: Constipation Stop: 01/10/21 20:48 Melatonin (Melatonin 3 Mg Tab) 9 mg PO HS PRN PRN Reason: sleep Stop: 01/12/21 21:59 Last Admin: 12/13/20 23:32 Dose: 9 mg Documented by: Multivitamins (Multivitamin Tab) 1 tab PO DAILY [facility] Stop: 01/11/21 11:14 Last Admin: 12/14/20 08:33 Dose: 1 tab Documented by: Pantoprazole Sodium (Pantoprazole 40 Mg Tab) 40 mg PO DAILY [facility] Stop: 01/11/21 11:14 Last Admin: 12/14/20 08:33 Dose: 40 mg Documented by: Psyllium Hydrophilic Mucilloid (Psyllium 58.6% Powder Packet) 3 pkt PO DAILY@0700 [facility] Stop: 01/13/21 06:59 Last Admin: 12/14/20 06:47 Dose: 3 pkt Documented by: Sodium Chloride (Sodium Chloride 0.65% Na Soln 45 Ml ([place])) 1 - 2 sprays NA PRN PRN PRN Reason: Nasal Dryness/Congestion Stop: 01/10/21 20:48 Vitamin B Complex (Vitamin B Complex Tab) 1 tab PO DAILY [facility] Stop: 01/11/21 11:14 Last Admin: 12/14/20 08:33 Dose: 1 tab Documented by: Mental Health & Subst Abuse Tx Therapist Name of Therapist: Enrique Lombardi Arson Investigator Name of Arson Investigator: None Post Discharge Appointments Primary Care Physician Name Of Family Doctor: FARSHAD Hernandes
[2020-12-14] MEDS ORDERED: clonazePAM 0.25 MG TAB PO PRN (13:38)
[2020-12-14] MEDS: clonazePAM 0.25 MG TAB PO SCH (17:05)
[2020-12-14] MEDS ORDERED: chlorproMAZINE HCL 10 MG TAB PO SCH (22:00)
[2020-12-14] MEDS: MELATONIN 3 MG TAB PO PRN (22:26)
[2020-12-15] MEDS: PSYLLIUM 58.6% POWDER PACKET PO SCH (06:31)
[2020-12-15] MEDS: ASCORBIC ACID 500 MG TAB PO SCH ×2 (08:03→21:23)
[2020-12-15] MEDS: cephALEXin 250 MG CAP PO SCH ×2 (08:04→21:24)
[2020-12-15] MEDS: clonazePAM 0.25 MG TAB PO SCH ×2 (08:04→17:37)
[2020-12-15] MEDS: SPIRONOLACTONE/HCTZ 25-25 PO SCH ×2 (08:05→21:24)
[2020-12-15] MEDS: lamoTRIgine 100 MG TAB PO SCH ×2 (08:07→21:25)
[2020-12-15] MEDS: PANTOprazole 40 MG TAB PO SCH (08:09)
[2020-12-15] MEDS: VITAMIN B COMPLEX TAB PO SCH (08:09)
[2020-12-15] MEDS: MULTIVITAMIN TAB PO SCH (08:09)
--- NOTE | 2020-12-15 14:59 | Psychiatric Progress Note ---
Date of Service December 15, 2020 Impression / Recommendations Impression 75 yo female with a long history of bipolar disorder, no hospitalizations for >20 years on high dose lamictal which she continues to tolerate well. She presents as relatively cognitively intact but concerns about break ins/rearranging personal items is often part of dementia, otherwise there is no evidence of psychosis (hallucinations) associated with her depression. 12/15/20: ongoing renzo, more physically intrussive/dancing (1) Bipolar disease, chronic: (2) Chronic renal insufficiency: (3) Vitamin D deficiency: 12/15/20: titrate klonopin and thorazine, patient refusing more therapeutic doses, challenging to redirect due to renzo, not sleeping, clearly not able to focus to care for self outside of the hospital. 12/14/20: LM for Dr. Arevalo, awaiting return call. In interim as patient is clearly more restlesss/manic will offer prn benzo (preferrably Ativan as shorter acting but she may not agree) and thorazine though lowest dose is PO. She is becoming increasingly intrussive in groups and is unable to care for basic needs outside of the hospital given unpredictable nature of her mood swings. 12/13/20: increase Metamucil, prune juice, staff to review belongings requests. The patient is not acutely agitated so best to wait for additional medications until can confirm past trials with [facility] and coordinate care with Dr. Arevalo. She denies suicidal ideation but is unable to care for self out of the hospital and is clearly exhibiting mood instability. 12/12/20: The patient was admitted to the [facility] ([facility]) on q15 min checks (behavioral with suicide precautions) for safety. The patient will participate in group, recreational, and milieu therapies and will be offered additional individual and family sessions as clinically appropriate. Continue current medications but hold Klonopin prn as not taking consistently and fall risk given age. Will coordinate care with Richardson on 12/14/20. Patient denies awareness of vitamin D deficiency and doesn't want to take additional supplements. Her BUN/Cr elevations are chronic/stable and not a direct result of dehydration. She was started on Keflex in the ED for a UTI and UC is pending. Risk Factors Assessment Do You Have Access To A Gun?: No Protective Factors Assessment Employed: No Interval History Identifying Information Vicky THAYER (mony Bob) is a 75-year-old F who currently lives in [place] alone, has a history of multiple inpatient hospitalizations for bipolar disorder, and was admitted on 12/11/20 21:12 on a 201 voluntary commitment for passive SI and decline in functioning. Chief Complaint "we undershot, well you tell me how I can contest my discharge". (patient is not being discharged) Review of Systems Sleep Information Total Hours of Sleep: 2 Sleep Comments: pt difficulty falling asleep, but mostly remained in bed. pt loud and underlying irritability at times. pt on q-15 minute checks Meal Information Percent Meal Consumed - Breakfast: 80 Percent Meal Consumed - Lunch: 100 Percent Meal Consumed - Dinner: 100 Medication Trials per [facility] Records: Strattera [place], Depakote, Tegretol, Trileptal, Neurontin Celexa, Wellbutrin, Zoloft, trazodone, Lexapro, Luvox, Prozac, Buspar Latuda, Abilify (akathisia), Risperdal, Invega, Seroquel (sedation), Haldol, Zyprexa, Remeron, Geodon (edema), thorazine, Vraylar (decreased sleep) Klonopin, Xanax Namenda trial for OCD traits Subjective Subjective Patient was seen & assessed and interval progress reviewed with nursing and social work. Patient is hyperverbal and intrussive, today not just verbally but also physically and has been approaching the door and bumping into staff and/or refusing to move due to her psychomotor restlessness. She gets hyperfocussed on her prolific writings and reading papers about healthcare power of psychiatric nursing aide and her rights under Medicare to appeal her discharge (which has not been discussed). She is willing to take 3/4 tabs of her klonopin and thorazine starting later today. She has no evidence of sedation, gait disturbance, and is refusing full tabs. Medication Trials per [facility] Records: Strattera [place], Depakote, Tegretol, Trileptal, Neurontin Celexa, Wellbutrin, Zoloft, trazodone, Lexapro, Luvox, Prozac, Buspar Latuda, Abilify (akathisia), Risperdal, Invega, Seroquel (sedation), Haldol, Zyprexa, Remeron, Geodon (edema), thorazine, Vraylar (decreased sleep) Klonopin, Xanax Namenda trial for OCD traits Physical Exam Psychiatric Orientation: alert and oriented x 3 Apperance: appropriately dressed and appropriately groomed Eye Contact: good eye contact Motor Behavior: no abnormal motor movements Speech: + pressured speech and normal rate/rhythm/volume of speech Affect: + labile affect Mood: + irritable mood Thought Process: + circumstantial thought process Thought Content: + paranoid Suicidal Thoughts: denies suicidal thoughts Homicidal Thoughts: denies homicidal thoughts Hallucinations: no auditory hallucinations and no visual hallucinations Cognition: language grossly intact; + attention not intact Estimated Intelligence: consistent with education level Insight: + limited insight Judgement: + limited judgement Vital Signs (Past 24 Hours) Last Vital Signs Temp 36.7 C 12/15/20 06:39 Pulse 76 12/15/20 06:40 Resp 16 12/15/20 06:39 BP 178/94 H 12/15/20 06:40 Pulse Ox 98 12/11/20 21:47 Results & Data ([facility]) Current Inpatient Medications Current Inpatient Medications: Current Inpatient Medications Acetaminophen (Acetaminophen 325 Mg Tab) 650 mg PO Q4H PRN PRN Reason: Headache or Minor Fever Stop: 01/10/21 20:48 Al Hydrox/Mg Hydrox/Simethicone (Aluminum/Magnesium Susp 30 Ml Udc) 30 ml PO Q4H PRN PRN Reason: GI Upset Stop: 01/10/21 20:48 Ascorbic Acid (Ascorbic Acid 500 Mg Tab) 2,000 mg PO BID [facility] Stop: 01/12/21 20:59 Last Admin: 12/15/20 08:03 Dose: 2,000 mg Documented by: Cephalexin HCl (Cephalexin 250 Mg Cap) 250 mg PO BID [facility]; Protocol Stop: 12/16/20 09:01 Last Admin: 12/15/20 08:04 Dose: 250 mg Documented by: Chlorpromazine HCl (Chlorpromazine Hcl 10 Mg Tab) 2.5 mg PO [facility] Stop: 01/13/21 21:59 Last Admin: 12/14/20 21:17 Dose: 2.5 mg Documented by: Clonazepam (Clonazepam 0.25 Mg Tab) 0.125 mg PO BIDM [facility] Stop: 01/13/21 17:44 Last Admin: 12/15/20 08:04 Dose: 0.125 mg Documented by: Clonazepam (Clonazepam 0.25 Mg Tab) 0.125 mg PO HS PRN PRN Reason: Insomnia Stop: 01/13/21 13:37 Last Admin: 12/14/20 22:24 Dose: 0.125 mg Documented by: Diclofenac Sodium (Diclofenac Sod 1% Gel 100 Gm Tube) 1 gm EXT QID PRN PRN Reason: Pain Stop: 01/11/21 10:57 Last Admin: 12/14/20 06:14 Dose: 1 gm Documented by: HCTZ/Spironolactone (Spironolactone/Hctz 25-25) 0.5 tab PO BID [facility] Stop: 01/11/21 11:14 Last Admin: 12/15/20 08:05 Dose: 0.5 tab Documented by: Hydroxyzine HCl (Hydroxyzine Hcl 25 Mg Tab) 25 mg PO Q4H PRN PRN Reason: Anxiety Stop: 01/10/21 20:48 Hydroxyzine HCl (Hydroxyzine Hcl 25 Mg Tab) 25 mg PO HSZ [facility] Stop: 01/12/21 21:59 Last Admin: 12/14/20 21:20 Dose: 25 mg Documented by: Lamotrigine (Lamotrigine 100 Mg Tab) 250 mg PO AMHS [facility] Stop: 01/11/21 10:59 Last Admin: 12/15/20 08:07 Dose: 250 mg Documented by: Magnesium Hydroxide (Magnesium Hydroxide Susp 30 Ml Udc) 30 ml PO DAILY PRN PRN Reason: Constipation Stop: 01/10/21 20:48 Melatonin (Melatonin 3 Mg Tab) 9 mg PO HS PRN PRN Reason: sleep Stop: 01/12/21 21:59 Last Admin: 12/14/20 22:26 Dose: 9 mg Documented by: Multivitamins (Multivitamin Tab) 1 tab PO DAILY [facility] Stop: 01/11/21 11:14 Last Admin: 12/15/20 08:09 Dose: 1 tab Documented by: Pantoprazole Sodium (Pantoprazole 40 Mg Tab) 40 mg PO DAILY [facility] Stop: 01/11/21 11:14 Last Admin: 12/15/20 08:09 Dose: 40 mg Documented by: Psyllium Hydrophilic Mucilloid (Psyllium 58.6% Powder Packet) 3 pkt PO DAILY@0700 [facility] Stop: 01/13/21 06:59 Last Admin: 12/15/20 06:31 Dose: 3 pkt Documented by: Sodium Chloride (Sodium Chloride 0.65% Na Soln 45 Ml ([place])) 1 - 2 sprays NA PRN PRN PRN Reason: Nasal Dryness/Congestion Stop: 01/10/21 20:48 Vitamin B Complex (Vitamin B Complex Tab) 1 tab PO DAILY [facility] Stop: 01/11/21 11:14 Last Admin: 12/15/20 08:09 Dose: 1 tab Documented by: Mental Health & Subst Abuse Tx Therapist Name of Therapist: Enrique Lombardi Credentialing Coordinator Name of Credentialing Coordinator: None Post Discharge Appointments Primary Care Physician Name Of Family Doctor: FARSHAD Hernandes
[2020-12-15] MEDS ORDERED: clonazePAM 0.25 MG TAB PO PRN (15:12)
[2020-12-15] MEDS: hydrOXYzine HCl 25 MG TAB PO SCH (21:44)
[2020-12-15] MEDS ORDERED: chlorproMAZINE HCL 10 MG TAB PO SCH (22:00)
--- NOTE | 2020-12-16 06:35 | Psychiatric Progress Note ---
Date of Service December 16, 2020 Impression / Recommendations Impression 75 yo female with a long history of bipolar disorder, no hospitalizations for >20 years on high dose lamictal which she continues to tolerate well. She presents as relatively cognitively intact but concerns about break ins/rearranging personal items is often part of dementia, otherwise there is no evidence of psychosis (hallucinations) associated with her depression. 12/16/20: remains disorganized due to renzo but underlying memory issues suspected. (1) Bipolar disease, chronic: (2) Chronic renal insufficiency: (3) Vitamin D deficiency: 12/16/20: Klonopin 0.5 mg this hs with 10 mg Thorazine to address renzo and mood related sleep disturbance. Reviewed her fasting metabolic labs again from 10/27. 12/15/20: titrate klonopin and thorazine, patient refusing more therapeutic doses, challenging to redirect due to renzo, not sleeping, clearly not able to focus to care for self outside of the hospital. 12/14/20: LM for Dr. Arevalo, awaiting return call. In interim as patient is clearly more restlesss/manic will offer prn benzo (preferrably Ativan as shorter acting but she may not agree) and thorazine though lowest dose is PO. She is becoming increasingly intrussive in groups and is unable to care for basic needs outside of the hospital given unpredictable nature of her mood swings. 12/13/20: increase Metamucil, prune juice, staff to review belongings requests. The patient is not acutely agitated so best to wait for additional medications until can confirm past trials with [facility] and coordinate care with Dr. Arevalo. She denies suicidal ideation but is unable to care for self out of the hospital and is clearly exhibiting mood instability. 12/12/20: The patient was admitted to the [facility] ([facility] unit) on q15 min checks (behavioral with suicide precautions) for safety. The patient will participate in group, recreational, and milieu therapies and will be offered additional individual and family sessions as clinically appropriate. Continue current medications but hold Klonopin prn as not taking consistently and fall risk given age. Will coordinate care with [facility] on 12/14/20. Patient denies awareness of vitamin D deficiency and doesn't want to take additional supplements. Her BUN/Cr elevations are chronic/stable and not a direct result of dehydration. She was started on Keflex in the ED for a UTI and UC is pending. Risk Factors Assessment Do You Have Access To A Gun?: No Protective Factors Assessment Employed: No Interval History Identifying Information Vicky THAYER (mony Lisbeth) is a 75-year-old F who currently lives in [place] alone, has a history of multiple inpatient hospitalizations for bipolar disorder, and was admitted on 12/11/20 21:12 on a 201 voluntary commitment for passive SI and decline in functioning. Chief Complaint "what do you mean, 1 tab, 3/4 tab, how many milligrams?".(disorganized) Review of Systems Sleep Information Total Hours of Sleep: 6 Meal Information Percent Meal Consumed - Breakfast: 80 Percent Meal Consumed - Lunch: 100 Percent Meal Consumed - Dinner: 100 Medication Trials per [facility] Records: Strattera [place], Depakote, Tegretol, Trileptal, Neurontin Celexa, Wellbutrin, Zoloft, trazodone, Lexapro, Luvox, Prozac, Buspar Latuda, Abilify (akathisia), Risperdal, Invega, Seroquel (sedation), Haldol, Zyprexa, Remeron, Geodon (edema), thorazine, Vraylar (decreased sleep) Klonopin, Xanax Namenda trial for OCD traits Subjective Subjective Patient was seen & assessed and interval progress reviewed with treatment team. Patient will be provided alternative activities to group as she is intrussive and resists redirection, in part due to renzo but also baseline temperament. She denies any side effects to medication, no longer wants Klonopin during the day and wanted to dictate doses of meds after we met and agreed. She slept 6 hrs. She is insistent that she not be on checks overnight as disrupts her and reviewed unit policies. She seemed calmer re: her updated length of stay. Medication Trials per [facility] Records: Strattera Moneta, Depakote, Tegretol, Trileptal, Neurontin Celexa, Wellbutrin, Zoloft, trazodone, Lexapro, Luvox, Prozac, Buspar Latuda, Abilify (akathisia), Risperdal, Invega, Seroquel (sedation), Haldol, Zyprexa, Remeron, Geodon (edema), thorazine, Vraylar (decreased sleep) Klonopin, Xanax Namenda trial for OCD traits Physical Exam Psychiatric Orientation: alert and oriented x 3 Apperance: appropriately dressed and appropriately groomed Eye Contact: + fair eye contact Motor Behavior: no abnormal motor movements Speech: + pressured speech Affect: + anxious affect and + labile affect Mood: + irritable mood Thought Process: + circumstantial thought process Suicidal Thoughts: denies suicidal thoughts Homicidal Thoughts: denies homicidal thoughts Hallucinations: no auditory hallucinations and no visual hallucinations Cognition: language grossly intact; + attention not intact Estimated Intelligence: consistent with education level Insight: + limited insight Judgement: + limited judgement Vital Signs (Past 24 Hours) Last Vital Signs Temp 36.8 C 12/15/20 22:04 Pulse 76 12/15/20 06:40 Resp 16 12/15/20 06:39 BP 178/94 H 12/15/20 06:40 Pulse Ox 98 12/11/20 21:47 Results & Data ([facility]) Current Inpatient Medications Current Inpatient Medications: Current Inpatient Medications Acetaminophen (Acetaminophen 325 Mg Tab) 650 mg PO Q4H PRN PRN Reason: Headache or Minor Fever Stop: 01/10/21 20:48 Al Hydrox/Mg Hydrox/Simethicone (Aluminum/Magnesium Susp 30 Ml Udc) 30 ml PO Q4H PRN PRN Reason: GI Upset Stop: 01/10/21 20:48 Ascorbic Acid (Ascorbic Acid 500 Mg Tab) 2,000 mg PO BID RENATE Stop: 01/12/21 20:59 Last Admin: 12/15/20 21:23 Dose: 2,000 mg Documented by: Cephalexin HCl (Cephalexin 250 Mg Cap) 250 mg PO BID RENATE; Protocol Stop: 12/16/20 09:01 Last Admin: 12/15/20 21:24 Dose: 250 mg Documented by: Chlorpromazine HCl (Chlorpromazine Hcl 10 Mg Tab) 7.5 mg PO HS RENATE Stop: 01/14/21 21:59 Last Admin: 12/15/20 21:42 Dose: 7.5 mg Documented by: Clonazepam (Clonazepam 0.25 Mg Tab) 0.375 mg PO HS PRN PRN Reason: Insomnia Stop: 01/13/21 13:37 Last Admin: 12/15/20 21:19 Dose: 0.375 mg Documented by: Clonazepam (Clonazepam 0.25 Mg Tab) 0.375 mg PO BIDM RENATE Stop: 01/14/21 17:44 Last Admin: 12/15/20 17:37 Dose: Not Given Documented by: Diclofenac Sodium (Diclofenac Sod 1% Gel 100 Gm Tube) 1 gm EXT QID PRN PRN Reason: Pain Stop: 01/11/21 10:57 Last Admin: 12/14/20 06:14 Dose: 1 gm Documented by: HCTZ/Spironolactone (Spironolactone/Hctz 25-25) 0.5 tab PO BID RENATE Stop: 01/11/21 11:14 Last Admin: 12/15/20 21:24 Dose: 0.5 tab Documented by: Hydroxyzine HCl (Hydroxyzine Hcl 25 Mg Tab) 25 mg PO Q4H PRN PRN Reason: Anxiety Stop: 01/10/21 20:48 Hydroxyzine HCl (Hydroxyzine Hcl 25 Mg Tab) 25 mg PO HSZ RENATE Stop: 01/12/21 21:59 Last Admin: 12/15/20 21:44 Dose: 25 mg Documented by: Lamotrigine (Lamotrigine 100 Mg Tab) 250 mg PO AMHS RENATE Stop: 01/11/21 10:59 Last Admin: 12/15/20 21:25 Dose: 250 mg Documented by: Magnesium Hydroxide (Magnesium Hydroxide Susp 30 Ml Udc) 30 ml PO DAILY PRN PRN Reason: Constipation Stop: 01/10/21 20:48 Multivitamins (Multivitamin Tab) 1 tab PO DAILY RENATE Stop: 01/11/21 11:14 Last Admin: 12/15/20 08:09 Dose: 1 tab Documented by: Pantoprazole Sodium (Pantoprazole 40 Mg Tab) 40 mg PO DAILY RENATE Stop: 01/11/21 11:14 Last Admin: 12/15/20 08:09 Dose: 40 mg Documented by: Psyllium Hydrophilic Mucilloid (Psyllium 58.6% Powder Packet) 3 pkt PO DAILY@0700 RENATE Stop: 01/13/21 06:59 Last Admin: 12/15/20 06:31 Dose: 3 pkt Documented by: Sodium Chloride (Sodium Chloride 0.65% Na Soln 45 Ml ([place])) 1 - 2 sprays NA PRN PRN PRN Reason: Nasal Dryness/Congestion Stop: 01/10/21 20:48 Vitamin B Complex (Vitamin B Complex Tab) 1 tab PO DAILY RENATE Stop: 01/11/21 11:14 Last Admin: 12/15/20 08:09 Dose: 1 tab Documented by: Mental Health & Subst Abuse Tx Therapist Name of Therapist: Enrique Lombardi Civil Engineer Helper Name of Civil Engineer Helper: None Post Discharge Appointments Primary Care Physician Name Of Family Doctor: FARSHAD Hernandes
[2020-12-16] MEDS: PSYLLIUM 58.6% POWDER PACKET PO SCH (07:33)
[2020-12-16] MEDS: ASCORBIC ACID 500 MG TAB PO SCH ×2 (09:35→22:18)
[2020-12-16] MEDS: cephALEXin 250 MG CAP PO SCH (09:35)
[2020-12-16] MEDS: clonazePAM 0.25 MG TAB PO SCH (09:36)
[2020-12-16] MEDS: SPIRONOLACTONE/HCTZ 25-25 PO SCH ×2 (09:38→20:53)
[2020-12-16] MEDS: PANTOprazole 40 MG TAB PO SCH (09:39)
[2020-12-16] MEDS: lamoTRIgine 100 MG TAB PO SCH ×2 (09:39→20:53)
[2020-12-16] MEDS: MULTIVITAMIN TAB PO SCH (09:39)
[2020-12-16] MEDS: VITAMIN B COMPLEX TAB PO SCH (09:40)
[2020-12-16] MEDS: hydrOXYzine HCl 25 MG TAB PO PRN (20:52)
[2020-12-16] MEDS: hydrOXYzine HCl 25 MG TAB PO SCH (20:55)
[2020-12-16] MEDS ORDERED: chlorproMAZINE HCL 10 MG TAB PO SCH (21:00)
[2020-12-16] MEDS: clonazePAM 0.5 MG TAB PO SCH (22:18)
[2020-12-17] MEDS: PSYLLIUM 58.6% POWDER PACKET PO SCH (06:14)
[2020-12-17] MEDS: ASCORBIC ACID 500 MG TAB PO SCH ×2 (08:17→21:49)
[2020-12-17] MEDS: SPIRONOLACTONE/HCTZ 25-25 PO SCH ×2 (08:19→21:49)
[2020-12-17] MEDS: lamoTRIgine 100 MG TAB PO SCH ×2 (08:20→21:49)
[2020-12-17] MEDS: MULTIVITAMIN TAB PO SCH (08:21)
[2020-12-17] MEDS: PANTOprazole 40 MG TAB PO SCH (08:21)
[2020-12-17] MEDS: VITAMIN B COMPLEX TAB PO SCH (08:22)
--- NOTE | 2020-12-17 11:04 | Psychiatric Progress Note ---
Date of Service December 17, 2020 Impression / Recommendations Impression 75 yo female with a long history of bipolar disorder, no hospitalizations for >20 years on high dose lamictal which she continues to tolerate well. She presents as relatively cognitively intact but concerns about break ins/rearranging personal items is often part of dementia, otherwise there is no evidence of psychosis (hallucinations) associated with her depression. 12/17/20: sleep improving, would benefit from additional mood stabilizer. (1) Bipolar disease, chronic: (2) Chronic renal insufficiency: (3) Vitamin D deficiency: 12/17/20: patient is refusing a trial of Trilafon. Thorazine will be d/c as refusing any dose at this point. 12/16/20: Klonopin 0.5 mg this hs with 10 mg Thorazine to address renzo and mood related sleep disturbance. Reviewed her fasting metabolic labs again from 10/27. 12/15/20: titrate klonopin and thorazine, patient refusing more therapeutic doses, challenging to redirect due to renzo, not sleeping, clearly not able to focus to care for self outside of the hospital. 12/14/20: LM for Dr. Arevalo, awaiting return call. In interim as patient is clearly more restlesss/manic will offer prn benzo (preferrably Ativan as shorter acting but she may not agree) and thorazine though lowest dose is PO. She is becoming increasingly intrussive in groups and is unable to care for basic needs outside of the hospital given unpredictable nature of her mood swings. 12/13/20: increase Metamucil, prune juice, staff to review belongings requests. The patient is not acutely agitated so best to wait for additional medications until can confirm past trials with [facility] and coordinate care with Dr. Arevalo. She denies suicidal ideation but is unable to care for self out of the hospital and is clearly exhibiting mood instability. 12/12/20: [facility] mental [facility] unit) on q15 min checks (behavioral with suicide precautions) for safety. The patient will participate in group, recreational, and milieu therapies and will be offered additional individual and family sessions as clinically appropriate. Continue current medications but hold Klonopin prn as not taking consistently and fall risk given age. Will coordinate care with [facility] on 12/14/20. Patient denies awareness of vitamin D deficiency and doesn't want to take additional supplements. Her BUN/Cr elevations are chronic/stable and not a direct result of dehydration. She was started on Keflex in the ED for a UTI and UC is pending. Risk Factors Assessment Do You Have Access To A Gun?: No Protective Factors Assessment Employed: No Interval History Identifying Information Vicky THAYER ([facility]) is a 75-year-old F who currently lives in [place] alone, has a history of multiple inpatient hospitalizations for bipolar disorder, and was admitted on 12/11/20 21:12 on a 201 voluntary commitment for passive SI and decline in functioning. Chief Complaint "I'm not taking thorazine, all I need is Klonopin to regulate my sleep". Review of Systems Sleep Information Total Hours of Sleep: 7 Sleep Comments: pt on q-15 minute checks Meal Information Percent Meal Consumed - Breakfast: 100 Percent Meal Consumed - Lunch: 100 Percent Meal Consumed - Dinner: 100 Medication Trials per [facility] Records: Strattera [place], Depakote, Tegretol, Trileptal, Neurontin Celexa, Wellbutrin, Zoloft, trazodone, Lexapro, Luvox, Prozac, Buspar Latuda, Abilify (akathisia), Risperdal, Invega, Seroquel (sedation), Haldol, Zyprexa, Remeron, Geodon (edema), thorazine, Vraylar (decreased sleep) Klonopin, Xanax Namenda trial for OCD traits Subjective Subjective Patient was seen & assessed and interval progress reviewed with nursing and social work. The patient is more appropriate in group this am. She refused thorazine last night due to concerns about weight gain and also just her resistance to treating hypomania. She is disorganized with her papers and notes and initially insisted on 1 mg Klonopin then by end of conversation was just as insistent that she only take 0.5 mg. She has a variety of requests for staff from temperature of milk to dictating her aftercare planning. Medication Trials per [facility] Records: Strattera [place], Depakote, Tegretol, Trileptal, Neurontin Celexa, Wellbutrin, Zoloft, trazodone, Lexapro, Luvox, Prozac, Buspar Latuda, Abilify (akathisia), Risperdal, Invega, Seroquel (sedation), Haldol, Zyprexa, Remeron, Geodon (edema), thorazine, Vraylar (decreased sleep) Klonopin, Xanax Namenda trial for OCD traits Physical Exam Psychiatric Orientation: alert Apperance: appropriately dressed and appropriately groomed Eye Contact: + fair eye contact Motor Behavior: no abnormal motor movements Speech: + pressured speech Affect: + anxious affect and + labile affect Mood: + irritable mood Thought Process: + circumstantial thought process Thought Content: + preoccupation and + paranoid (sister entering home) Suicidal Thoughts: denies suicidal thoughts Homicidal Thoughts: denies homicidal thoughts Hallucinations: no auditory hallucinations and no visual hallucinations Cognition: language grossly intact; + attention not intact Estimated Intelligence: consistent with education level Insight: + limited insight Judgement: + limited judgement Vital Signs (Past 24 Hours) Last Vital Signs Temp 37 C 12/17/20 06:43 Pulse 77 12/17/20 06:43 Resp 16 12/17/20 06:43 BP 153/84 H 12/17/20 06:43 Pulse Ox 98 12/11/20 21:47 Results & Data ([facility]) Current Inpatient Medications Current Inpatient Medications: Current Inpatient Medications Acetaminophen (Acetaminophen 325 Mg Tab) 650 mg PO Q4H PRN PRN Reason: Headache or Minor Fever Stop: 01/10/21 20:48 Al Hydrox/Mg Hydrox/Simethicone (Aluminum/Magnesium Susp 30 Ml Udc) 30 ml PO Q4H PRN PRN Reason: GI Upset Stop: 01/10/21 20:48 Ascorbic Acid (Ascorbic Acid 500 Mg Tab) 2,000 mg PO BID RENATE Stop: 01/12/21 20:59 Last Admin: 12/17/20 08:17 Dose: 2,000 mg Documented by: Chlorpromazine HCl (Chlorpromazine Hcl 10 Mg Tab) 10 mg PO HS RENATE Stop: 01/15/21 20:59 Last Admin: 12/16/20 21:02 Dose: Not Given Documented by: Clonazepam (Clonazepam 0.5 Mg Tab) 0.5 mg PO HS RENATE Stop: 01/15/21 21:59 Last Admin: 11/10/21 22:18 Dose: 0.5 mg Documented by: Diclofenac Sodium (Diclofenac Sod 1% Gel 100 Gm Tube) 1 gm EXT QID PRN PRN Reason: Pain Stop: 01/11/21 10:57 Last Admin: 12/14/20 06:14 Dose: 1 gm Documented by: HCTZ/Spironolactone (Spironolactone/Hctz 25-25) 0.5 tab PO BID RENATE Stop: 01/11/21 11:14 Last Admin: 12/17/20 08:19 Dose: 0.5 tab Documented by: Hydroxyzine HCl (Hydroxyzine Hcl 25 Mg Tab) 25 mg PO Q4H PRN PRN Reason: Anxiety Stop: 01/10/21 20:48 Last Admin: 12/16/20 20:52 Dose: 25 mg Documented by: Hydroxyzine HCl (Hydroxyzine Hcl 25 Mg Tab) 25 mg PO HSZ RENATE Stop: 01/12/21 21:59 Last Admin: 12/16/20 20:55 Dose: 25 mg Documented by: Lamotrigine (Lamotrigine 100 Mg Tab) 250 mg PO AMHS RENATE Stop: 01/11/21 10:59 Last Admin: 12/17/20 08:20 Dose: 250 mg Documented by: Magnesium Hydroxide (Magnesium Hydroxide Susp 30 Ml Udc) 30 ml PO DAILY PRN PRN Reason: Constipation Stop: 01/10/21 20:48 Multivitamins (Multivitamin Tab) 1 tab PO DAILY RENATE Stop: 01/11/21 11:14 Last Admin: 12/17/20 08:21 Dose: 1 tab Documented by: Pantoprazole Sodium (Pantoprazole 40 Mg Tab) 40 mg PO DAILY RENATE Stop: 01/11/21 11:14 Last Admin: 12/17/20 08:21 Dose: 40 mg Documented by: Psyllium Hydrophilic Mucilloid (Psyllium 58.6% Powder Packet) 3 pkt PO DAILY@0700 RENATE Stop: 01/13/21 06:59 Last Admin: 12/17/20 06:14 Dose: 3 pkt Documented by: Sodium Chloride (Sodium Chloride 0.65% Na Soln 45 Ml ([place])) 1 - 2 sprays NA PRN PRN PRN Reason: Nasal Dryness/Congestion Stop: 12/05/21 20:48 Vitamin B Complex (Vitamin B Complex Tab) 1 tab PO DAILY RENATE Stop: 01/11/21 11:14 Last Admin: 12/17/20 08:22 Dose: 1 tab Documented by: Mental Health & Subst Abuse Tx Therapist Name of Therapist: Enrique Lombardi Licensed Home Inspector Name of Licensed Home Inspector: None Post Discharge Appointments Primary Care Physician Name Of Family Doctor: FARSHAD Hernandes
[2020-12-17] MEDS: DICLOFENAC SOD 1% GEL 100 GM TUBE EXT PRN ×2 (16:34→20:43)
[2020-12-17] MEDS: hydrOXYzine HCl 25 MG TAB PO SCH (21:49)
[2020-12-17] MEDS: clonazePAM 0.5 MG TAB PO SCH (21:49)
[2020-12-17] MEDS: hydrOXYzine HCl 25 MG TAB PO PRN (22:02)
[2020-12-18] MEDS: PSYLLIUM 58.6% POWDER PACKET PO SCH (06:14)
[2020-12-18] MEDS: ASCORBIC ACID 500 MG TAB PO SCH ×2 (07:59→21:19)
[2020-12-18] MEDS: SPIRONOLACTONE/HCTZ 25-25 PO SCH ×2 (08:00→21:04)
[2020-12-18] MEDS: lamoTRIgine 100 MG TAB PO SCH ×2 (08:01→21:06)
[2020-12-18] MEDS: PANTOprazole 40 MG TAB PO SCH (08:02)
[2020-12-18] MEDS: MULTIVITAMIN TAB PO SCH (08:02)
[2020-12-18] MEDS: VITAMIN B COMPLEX TAB PO SCH (08:02)
[2020-12-18] MEDS: ACETAMINOPHEN 325 MG TAB PO PRN ×2 (08:38→16:06)
--- NOTE | 2020-12-18 16:21 | Psychiatric Progress Note ---
Date of Service December 18, 2020 Impression / Recommendations Impression 75 yo female with a long history of bipolar disorder, no hospitalizations for >20 years on high dose lamictal which she continues to tolerate well. She presents as relatively cognitively intact but concerns about break ins/rearranging personal items is often part of dementia, otherwise there is no evidence of psychosis (hallucinations) associated with her depression. 12/18/20: labile/pressured at times but more redirectible. (1) Bipolar disease, chronic: (2) Chronic renal insufficiency: (3) Vitamin D deficiency: 12/18/20: refusing additional med changes. Received patient's feedback and when I did not react, reminded her that she specifically requested I not discuss it with her. 12/17/20: patient is refusing a trial of Trilafon. Thorazine will be d/c as r efusing any dose at this point. 12/16/20: Klonopin 0.5 mg this hs with 10 mg Thorazine to address renzo and mood related sleep disturbance. Reviewed her fasting metabolic labs again from 10/27. 12/15/20: titrate klonopin and thorazine, patient refusing more therapeutic doses, challenging to redirect due to renzo, not sleeping, clearly not able to focus to care for self outside of the hospital. 12/14/20: LM for Dr. Arevalo, awaiting return call. In interim as patient is clearly more restlesss/manic will offer prn benzo (preferrably Ativan as shorter acting but she may not agree) and thorazine though lowest dose is PO. She is becoming increasingly intrussive in groups and is unable to care for basic needs outside of the hospital given unpredictable nature of her mood swings. 12/13/20: increase Metamucil, prune juice, staff to review belongings requests. The patient is not acutely agitated so best to wait for additional medications until can confirm past trials with [facility] and coordinate care with Dr. Arevalo. She denies suicidal ideation but is unable to care for self out of the hospital and is clearly exhibiting mood instability. 12/12/20: The patient was admitted to the [facility] ([facility] mental health unit) on q15 min checks (behavioral with suicide precautions) for safety. The patient will participate in group, recreational, and milieu therapies and w ill be offered additional individual and family sessions as clinically appropriate. Continue current medications but hold Klonopin prn as not taking consistently and fall risk given age. Will coordinate care with [facility] on 12/14/20. Patient denies awareness of vitamin D deficiency and doesn't want to take additional supplements. Her BUN/Cr elevations are chronic/stable and not a direct result of dehydration. She was started on Keflex in the ED for a UTI and UC is pending. Risk Factors Assessment Do You Have Access To A Gun?: No Protective Factors Assessment Employed: No Interval History Identifying Information Vicky THAYER ([employer] [facility]) is a 75-year-old F who currently lives in [place] alone, has a history of multiple inpatient hospitalizations for bipolar disorder, and was admitted on 12/11/20 21:12 on a 201 voluntary commitment for passive SI and decline in functioning. Chief Complaint "I'm going to read this feedback to you and I want you to listen, I don't want to discuss it after, ok?". Review of Systems Sleep Information Total Hours of Sleep: 6.5 Sleep Comments: pt on q-15 minute checks Meal Information Percent Meal Consumed - Breakfast: 100 Percent Meal Consumed - Lunch: 100 Percent Meal Consumed - Dinner: 100 [facility]: Strattera [place], Depakote, Tegretol, Trileptal, Neurontin Celexa, Wellbutrin, Zoloft, trazodone, Lexapro, Luvox, Prozac, Buspar Latuda, Abilify (akathisia), Risperdal, Invega, Seroquel (sedation), Haldol, Zyprexa, Remeron, Geodon (edema), thorazine, Vraylar (decreased sleep) Klonopin, Xanax Namenda trial for OCD traits Subjective Subjective Patient was seen & assessed and interval progress reviewed with treatment team. Sleep continues to improve, more appropriate in groups but forgetful, can be rigid around certain aspects of care. Remains focussed on a bowel movement early in her stay as irritated a hemmorhoid or fissure apparently, she attributes to getting the wrong dose of metamucil first dose as hospital has packets but timing of constipation would predate. Medication Trials per [facility] Records: Strattera [place], Depakote, Tegretol, Trileptal, Neurontin Celexa, Wellbutrin, Zoloft, trazodone, Lexapro, Luvox, Prozac, Buspar Latuda, Abilify (akathisia), Risperdal, Invega, Seroquel (sedation), Haldol, Zyprexa, Remeron, Geodon (edema), thorazine, Vraylar (decreased sleep) Klonopin, Xanax Namenda trial for OCD traits Physical Exam Psychiatric Orientation: alert and oriented x 3 Apperance: appropriately dressed and appropriately groomed Eye Contact: + fair eye contact Motor Behavior: no abnormal motor movements Speech: + pressured speech Affect: + labile affect Mood: + irritable mood Thought Process: + circumstantial thought process Thought Content: + preoccupation Suicidal Thoughts: denies suicidal thoughts Homicidal Thoughts: denies homicidal thoughts Hallucinations: no auditory hallucinations and no visual hallucinations Cognition: language grossly intact; + attention not intact Estimated Intelligence: consistent with education level Insight: + limited insight Judgement: + limited judgement Vital Signs (Past 24 Hours) Last Vital Signs Temp 36.9 C 12/18/20 06:00 Pulse 89 12/18/20 06:37 Resp 16 12/18/20 06:00 BP 150/89 H 12/18/20 06:37 Pulse Ox 98 12/11/20 21:47 Results & Data ([facility]) Current Inpatient Medications Current Inpatient Medications: Current Inpatient Medications Acetaminophen (Acetaminophen 325 Mg Tab) 650 mg PO Q4H PRN PRN Reason: Headache or Minor Fever Stop: 01/10/21 20:48 Last Admin: 12/18/20 16:06 Dose: 650 mg Documented by: Al Hydrox/Mg Hydrox/Simethicone (Aluminum/Magnesium Susp 30 Ml Udc) 30 ml PO Q4H PRN PRN Reason: GI Upset Stop: 01/10/21 20:48 Ascorbic Acid (Ascorbic Acid 500 Mg Tab) 2,000 mg PO BID RENATE Stop: 01/12/21 20:59 Last Admin: 12/18/20 07:59 Dose: 2,000 mg Documented by: Clonazepam (Clonazepam 0.5 Mg Tab) 0.5 mg PO HS RENATE Stop: 01/15/21 21:59 Last Admin: 12/17/20 21:49 Dose: 0.5 mg Documented by: Diclofenac Sodium (Diclofenac Sod 1% Gel 100 Gm Tube) 1 gm EXT QID PRN PRN Reason: Pain Stop: 01/11/21 10:57 Last Admin: 12/17/20 20:43 Dose: 1 gm Documented by: HCTZ/Spironolactone (Spironolactone/Hctz 25-25) 0.5 tab PO BID RENATE Stop: 01/11/21 11:14 Last Admin: 12/18/20 08:00 Dose: 0.5 tab Documented by: Hydroxyzine HCl (Hydroxyzine Hcl 25 Mg Tab) 25 mg PO Q4H PRN PRN Reason: Anxiety Stop: 01/10/21 20:48 Last Admin: 12/17/20 22:02 Dose: 25 mg Documented by: Hydroxyzine HCl (Hydroxyzine Hcl 25 Mg Tab) 25 mg PO HSZ RENATE Stop: 01/12/21 21:59 Last Admin: 12/17/20 21:49 Dose: 25 mg Documented by: Lamotrigine (Lamotrigine 100 Mg Tab) 250 mg PO AMHS RENATE Stop: 01/11/21 10:59 Last Admin: 12/18/20 08:01 Dose: 250 mg Documented by: Magnesium Hydroxide (Magnesium Hydroxide Susp 30 Ml Udc) 30 ml PO DAILY PRN PRN Reason: Constipation Stop: 01/10/21 20:48 Multivitamins (Multivitamin Tab) 1 tab PO DAILY RENATE Stop: 01/11/21 11:14 Last Admin: 12/18/20 08:02 Dose: 1 tab Documented by: Pantoprazole Sodium (Pantoprazole 40 Mg Tab) 40 mg PO DAILY RENATE Stop: 01/11/21 11:14 Last Admin: 12/18/20 08:02 Dose: 40 mg Documented by: Psyllium Hydrophilic Mucilloid (Psyllium 58.6% Powder Packet) 3 pkt PO DAILY@0700 RENATE Stop: 01/13/21 06:59 Last Admin: 12/18/20 06:14 Dose: 3 pkt Documented by: Sodium Chloride (Sodium Chloride 0.65% Na Soln 45 Ml ([place])) 1 - 2 sprays NA PRN PRN PRN Reason: Nasal Dryness/Congestion Stop: 01/10/21 20:48 Last Admin: 12/17/20 14:46 Dose: 1 sprays Documented by: Vitamin B Complex (Vitamin B Complex Tab) 1 tab PO DAILY RENATE Stop: 01/11/21 11:14 Last Admin: 12/18/20 08:02 Dose: 1 tab Documented by: Mental Health & Subst Abuse Tx Psychiatrist Name of Psychiatrist: [facility] [place] - Dr. Arevalo Psychiatrist's Date of Appointment with Psychiatrist: 12/25/20 Time of Appointment with Psychiatrist: 11:00 a.m. Psychiatric Appointment Comment: Zoom Therapist Name of Therapist: [facility] Therapist's Date of Therapist Appointment: 12/24/20 Time of Therapist Appointment: 3:00pm Therapy Appointment Comment: [facility] Federal Agent Name of Federal Agent: None Post Discharge Appointments Primary Care Physician Name Of Family Doctor: ABDIAZIZ Hernandes Primary Care Date of Appointment with PCP: 12/24/20 Time of Appointment with PCP: 11:15 a.m. Provider Appointment Comment: [address] [facility] [place] Contact Information Discharge Discharge Address: [address] [place] [address], [place] [address]
[2020-12-18] MEDS: clonazePAM 0.5 MG TAB PO SCH (21:09)
[2020-12-18] MEDS: hydrOXYzine HCl 25 MG TAB PO SCH (21:15)
[2020-12-19] MEDS: DICLOFENAC SOD 1% GEL 100 GM TUBE EXT PRN (06:44)
[2020-12-19] MEDS: PSYLLIUM 58.6% POWDER PACKET PO SCH (07:22)
[2020-12-19] MEDS: SPIRONOLACTONE/HCTZ 25-25 PO SCH ×2 (08:14→20:48)
[2020-12-19] MEDS: ASCORBIC ACID 500 MG TAB PO SCH ×2 (08:14→20:53)
[2020-12-19] MEDS: lamoTRIgine 100 MG TAB PO SCH ×2 (08:15→20:47)
[2020-12-19] MEDS: MULTIVITAMIN TAB PO SCH (08:17)
[2020-12-19] MEDS: VITAMIN B COMPLEX TAB PO SCH (08:17)
[2020-12-19] MEDS: PANTOprazole 40 MG TAB PO SCH (08:17)
--- NOTE | 2020-12-19 15:15 | Psychiatric Progress Note ---
Date of Service December 19, 2020 Impression / Recommendations Impression 75 yo female with a long history of bipolar disorder, no hospitalizations for >20 years on high dose lamictal which she continues to tolerate well. She presents as relatively cognitively intact but concerns about break ins/rearranging personal items is often part of dementia, otherwise there is no evidence of psychosis (hallucinations) associated with her depression. Diagnostically seems most consistent with mixed episode given paranoia and poor sleep with rapid speech and lability. (1) Bipolar disease, chronic: (2) Chronic renal insufficiency: (3) Vitamin D deficiency: 12/19/20: refusing consideration of additional mood stabilizer such as seroquel, olanzapine or trilafon even at a low dose to help with sleep. Given ongoing sleep challenges increasing Klonopin to 0.75 mg qhs prn to help address insomnia, mixed episode. Discussed risks, benefits,alternatives with her including risks of falls, cognitive impairment. She consented to and requested higher Klonopin dose. 12/18/20: refusing additional med changes. Received patient's feedback and when I did not react, reminded her that she specifically requested I not discuss it with her. 12/17/20: patient is refusing a trial of Trilafon. Thorazine will be d/c as refusing any dose at this point. 12/16/20: Klonopin 0.5 mg this hs with 10 mg Thorazine to address renzo and mood related sleep disturbance. Reviewed her fasting metabolic labs again from 10/27. 12/15/20: titrate klonopin and thorazine, patient refusing more therapeutic doses, challenging to redirect due to renzo, not sleeping, clearly not able to focus to care for self outside of the hospital. 12/14/20: LM for Dr. Arevalo, awaiting return call. In interim as patient is clearly more restlesss/manic will offer prn benzo (preferrably Ativan as shorter acting but she may not agree) and thorazine though lowest dose is PO. She is becoming increasingly intrussive in groups and is unable to care for basic needs outside of the hospital given unpredictable nature of her mood swings. 12/13/20: increase Metamucil, prune juice, staff to review belongings requests. The patient is not acutely agitated so best to wait for additional medications until can confirm past trials with [facility] and coordinate care with Dr. Arevalo. She denies suicidal ideation but is unable to care for self out of the hospital and is clearly exhibiting mood instability. 12/12/20: The patient was admitted to the [facility] ([facility] mental [facility] unit) on q15 min checks (behavioral with suicide precautions) for safety. The patient will participate in group, recreational, and milieu therapies and will be offered additional individual and family sessions as clinically appropriate. Continue current medications but hold Klonopin prn as not taking consistently and fall risk given age. Will coordinate care with [facility] on 12/14/20. Patient denies awareness of vitamin D deficiency and doesn't want to take additional supplements. Her BUN/Cr elevations are chronic/stable and not a direct result of dehydration. She was started on Keflex in the ED for a UTI and UC is pending. Risk Factors Assessment Do You Have Access To A Gun?: No Protective Factors Assessment Employed: No Interval History Identifying Information Vicky THAYER ([facility]) is a 75-year-old F who currently lives in [place] alone, has a history of multiple inpatient hospitalizations for bipolar disorder, and was admitted on 12/11/20 21:12 on a 201 voluntary commitment for passive SI and decline in functioning. Chief Complaint "I am here because my sister was messing with my stuff". Review of Systems Sleep Information Total Hours of Sleep: 3 Sleep Comments: pt on q-15 minute checks Meal Information Percent Meal Consumed - Breakfast: 100 Percent Meal Consumed - Lunch: 100 Percent Meal Consumed - Dinner: 100 Medication Trials per [facility] Records: Strattera [place], Depakote, Tegretol, Trileptal, Neurontin Celexa, Wellbutrin, Zoloft, trazodone, Lexapro, Luvox, Prozac, Buspar Latuda, Abilify (akathisia), Risperdal, Invega, Seroquel (sedation), Haldol, Zyprexa, Remeron, Geodon (edema), thorazine, Vraylar (decreased sleep) Klonopin, Xanax Namenda trial for OCD traits Subjective Subjective Patient was seen & assessed and interval progress reviewed with treatment team nursing and social work. Slept poorly last night, about 3 hours. She remains adamant not to take any medication except for lamictal and klonopin. She doesn't feel that her current symptoms are consistent with renzo or a mixed episode but rather anxiety from her sister moving things in her house and having to go through many items in her house (which has been a years long project). Medication Trials per [facility] Records: Strattera [place], Depakote, Tegretol, Trileptal, Neurontin Celexa, Wellbutrin, Zoloft, trazodone, Lexapro, Luvox, Prozac, Buspar Latuda, Abilify (akathisia), Risperdal, Invega, Seroquel (sedation), Haldol, Zyprexa, Remeron, Geodon (edema), thorazine, Vraylar (decreased sleep) Klonopin, Xanax Namenda trial for OCD traits Physical Exam Psychiatric Orientation: alert and oriented x 3 Apperance: appropriately dressed and appropriately groomed Eye Contact: + fair eye contact Motor Behavior: no abnormal motor movements Speech: normal rate/rhythm/volume of speech Affect: + labile affect Mood: + irritable mood Thought Process: + circumstantial thought process Thought Content: + preoccupation and + paranoid (sister entering home) Suicidal Thoughts: denies suicidal thoughts Homicidal Thoughts: denies homicidal thoughts Hallucinations: no auditory hallucinations and no visual hallucinations Cognition: language grossly intact; + attention not intact Estimated Intelligence: consistent with education level Insight: + limited insight Judgement: + limited judgement Vital Signs (Past 24 Hours) Last Vital Signs Temp 37.0 C 12/19/20 06:00 Pulse 69 12/19/20 06:34 Resp 16 12/19/20 06:00 BP 133/106 H 12/19/20 06:34 Pulse Ox 98 12/11/20 21:47 Results & Data ([facility]) Current Inpatient Medications Current Inpatient Medications: Current Inpatient Medications Acetaminophen (Acetaminophen 325 Mg Tab) 650 mg PO Q4H PRN PRN Reason: Headache or Minor Fever Stop: 01/10/21 20:48 Last Admin: 12/18/20 16:06 Dose: 650 mg Documented by: Al Hydrox/Mg Hydrox/Simethicone (Aluminum/Magnesium Susp 30 Ml Udc) 30 ml PO Q4H PRN PRN Reason: GI Upset Stop: 01/10/21 20:48 Ascorbic Acid (Ascorbic Acid 500 Mg Tab) 2,000 mg PO BID RENATE Stop: 01/12/21 20:59 Last Admin: 12/19/20 08:14 Dose: 2,000 mg Documented by: Clonazepam (Clonazepam 0.25 Mg Tab) 0.75 mg PO HS PRN PRN Reason: Anxiety/Agitation Stop: 01/18/21 21:59 Diclofenac Sodium (Diclofenac Sod 1% Gel 100 Gm Tube) 1 gm EXT QID PRN PRN Reason: Pain Stop: 01/11/21 10:57 Last Admin: 12/19/20 06:44 Dose: 1 gm Documented by: HCTZ/Spironolactone (Spironolactone/Hctz 25-25) 0.5 tab PO BID RENATE Stop: 01/11/21 11:14 Last Admin: 12/19/20 08:14 Dose: 0.5 tab Documented by: Hydroxyzine HCl (Hydroxyzine Hcl 25 Mg Tab) 25 mg PO Q4H PRN PRN Reason: Anxiety Stop: 01/10/21 20:48 Last Admin: 12/17/20 22:02 Dose: 25 mg Documented by: Hydroxyzine HCl (Hydroxyzine Hcl 25 Mg Tab) 25 mg PO HSZ RENATE Stop: 01/12/21 21:59 Last Admin: 12/18/20 21:15 Dose: 25 mg Documented by: Lamotrigine (Lamotrigine 100 Mg Tab) 250 mg PO AMHS RENATE Stop: 01/11/21 10:59 Last Admin: 12/19/20 08:15 Dose: 250 mg Documented by: Magnesium Hydroxide (Magnesium Hydroxide Susp 30 Ml Udc) 30 ml PO DAILY PRN PRN Reason: Constipation Stop: 01/10/21 20:48 Multivitamins (Multivitamin Tab) 1 tab PO DAILY RENATE Stop: 01/11/21 11:14 Last Admin: 12/19/20 08:17 Dose: 1 tab Documented by: Pantoprazole Sodium (Pantoprazole 40 Mg Tab) 40 mg PO DAILY RENATE Stop: 01/11/21 11:14 Last Admin: 12/19/20 08:17 Dose: 40 mg Documented by: Psyllium Hydrophilic Mucilloid (Psyllium 58.6% Powder Packet) 3 pkt PO DAILY@0700 RENATE Stop: 01/13/21 06:59 Last Admin: 12/19/20 07:22 Dose: 3 pkt Documented by: Sodium Chloride (Sodium Chloride 0.65% Na Soln 45 Ml ([place])) 1 - 2 sprays NA PRN PRN PRN Reason: Nasal Dryness/Congestion Stop: 01/10/21 20:48 Last Admin: 12/17/20 14:46 Dose: 1 sprays Documented by: Vitamin B Complex (Vitamin B Complex Tab) 1 tab PO DAILY RENATE Stop: 01/11/21 11:14 Last Admin: 12/19/20 08:17 Dose: 1 tab Documented by: Mental Health & Subst Abuse Tx Psychiatrist [facility] Date of Appointment with Psychiatrist: 12/25/20 Time of Appointment with Psychiatrist: 11:00 a.m. Psychiatric Appointment Comment: Zoom Therapist Name of Therapist: [facility] Lombardi Therapist's Date of Therapist Appointment: 12/24/20 Time of Therapist Appointment: 3:00pm Therapy Appointment Comment: [phone] [facility] Wool Washer Name of Wool Washer: None Post Discharge Appointments Primary Care Physician Name Of Family Doctor: ABDIAZIZ Hernandes Primary Care Date of Appointment with PCP: 12/24/20 Time of Appointment with PCP: 11:15 a.m. Provider Appointment Comment: [id number] [facility] [place] Contact Information Discharge Discharge Address: [address] [place] [address], [place] [address]
[2020-12-19] MEDS: hydrOXYzine HCl 25 MG TAB PO SCH (20:47)
[2020-12-19] MEDS: clonazePAM 0.25 MG TAB PO PRN (21:18)
[2020-12-20] MEDS: PSYLLIUM 58.6% POWDER PACKET PO SCH (06:55)
[2020-12-20] MEDS: SPIRONOLACTONE/HCTZ 25-25 PO SCH ×2 (08:52→21:56)
[2020-12-20] MEDS: lamoTRIgine 100 MG TAB PO SCH ×2 (08:53→21:56)
[2020-12-20] MEDS: MULTIVITAMIN TAB PO SCH (08:54)
[2020-12-20] MEDS: PANTOprazole 40 MG TAB PO SCH (08:55)
[2020-12-20] MEDS: VITAMIN B COMPLEX TAB PO SCH (08:55)
[2020-12-20] MEDS: ASCORBIC ACID 500 MG TAB PO SCH (08:55)
--- NOTE | 2020-12-20 14:31 | Psychiatric Progress Note ---
Date of Service December 20, 2020 Impression / Recommendations Impression 75 yo female with a long history of bipolar disorder, no hospitalizations for >20 years on high dose lamictal which she continues to tolerate well. She presents as relatively cognitively intact but concerns about break ins/rearranging personal items is often part of dementia, otherwise there is no evidence of psychosis (hallucinations) associated with her depression. Diagnostically seems most consistent with mixed episode given paranoia and poor sleep with mood lability. 12/20/20: improvement in sleep, speech is normal rate today and less tangential, remains slightly irritable but easier to redirect. (1) Bipolar disease, chronic: (2) Chronic renal insufficiency: (3) Vitamin D deficiency: 12/20/20: continues to decline any additional medications for mood or sleep. Continue with Klonopin 0.75 mg qhs. Will discontinue her supplements as she has been declining these and requested they be stopped with exception of Vit C. 12/19/20: refusing consideration of additional mood stabilizer such as seroquel, olanzapine or trilafon even at a low dose to help with sleep. Given ongoing sleep challenges increasing Klonopin to 0.75 mg qhs prn to help address ins omnia, mixed episode. Discussed risks, benefits,alternatives with her including risks of falls, cognitive impairment. She consented to and requested higher Klonopin dose. 12/18/20: refusing additional med changes. Received patient's feedback and when I did not react, reminded her that she specifically requested I not discuss it with her. 12/17/20: patient is refusing a trial of Trilafon. Thorazine will be d/c as refusing any dose at this point. 12/16/20: Klonopin 0.5 mg this hs with 10 mg Thorazine to address renzo and mood related sleep disturbance. Reviewed her fasting metabolic labs again from 10/27. 12/15/20: titrate klonopin and thorazine, patient refusing more therapeutic doses, challenging to redirect due to renzo, not sleeping, clearly not able to focus to care for self outside of the hospital. 12/14/20: LM for Dr. Arevalo, awaiting return call. In interim as patient is clearly more restlesss/manic will offer prn benzo (preferrably Ativan as shorter acting but she may not agree) and thorazine though lowest dose is PO. She is becoming increasingly intrussive in groups and is unable to care for basic needs outside of the hospital given unpredictable nature of her mood swings. 12/13/20: increase Metamucil, prune juice, staff to review belongings requests. The patient is not acutely agitated so best to wait for additional medications until can confirm past trials with [facility] and coordinate care with Dr. Arevalo. She denies suicidal ideation but is unable to care for self out of the hospital and is clearly exhibiting mood instability. 12/12/20: The patient was admitted to the [facility] ([facility] mental [facility] unit) on q15 min checks (behavioral with suicide precautions) for safety. The patient will participate in group, recreational, and milieu therapies and will be offered additional individual and family sessions as clinically appropriate. Continue current medications but hold Klonopin prn as not taking consistently and fall risk given age. Will coordinate care with Richardson on 12/14/20. Patient denies awareness of vitamin D deficiency and doesn't want to take additional supplements. Her BUN/Cr elevations are chronic/stable and not a direct result of dehydration. She was started on Keflex in the ED for a UTI and UC is pending. Risk Factors Assessment Do You Have Access To A Gun?: No Protective Factors Assessment Employed: No Interval History Identifying Information Vicky THAYER (mony Bob) is a 75-year-old F who currently lives in [place] alone, has a history of multiple inpatient hospitalizations for bipolar disorder, and was admitted on 12/11/20 21:12 on a 201 voluntary commitment for passive SI and decline in functioning. Chief Complaint "See I got the medication I wanted and I slept well". Review of Systems Sleep Information Total Hours of Sleep: 7.25 Sleep Comments: pt on q-15 minute checks Meal Information Percent Meal Consumed - Breakfast: 100 Percent Meal Consumed - Lunch: 100 Percent Meal Consumed - Dinner: 100 Medication Trials per [facility] Records: Strattera [place], Depakote, Tegretol, Trileptal, Neurontin Celexa, Wellbutrin, Zoloft, trazodone, Lexapro, Luvox, Prozac, Buspar Latuda, Abilify (akathisia), Risperdal, Invega, Seroquel (sedation), Haldol, Zyprexa, Remeron, Geodon (edema), thorazine, Vraylar (decreased sleep) Klonopin, Xanax Namenda trial for OCD traits Subjective Subjective Patient was seen & assessed and interval progress reviewed with treatment team nursing and social work. She slept 7.25 hours last night. Reports stable mood today. Denies any side effects from the medication. Put in her 72 hour notice which will on 12/22 at 10am. She continues to feel that lamictal and Klonopin are the only medications she would like to do and requests that I discontinue all her supplements except Vitamin C. Medication Trials per [facility] Records: Strattera [place], Depakote, Tegretol, Trileptal, Neurontin Celexa, Wellbutrin, Zoloft, trazodone, Lexapro, Luvox, Prozac, Buspar Latuda, Abilify (akathisia), Risperdal, Invega, Seroquel (sedation), Haldol, Zyprexa, Remeron, Geodon (edema), thorazine, Vraylar (decreased sleep) Klonopin, Xanax Namenda trial for OCD traits Physical Exam Psychiatric Orientation: alert and oriented x 3 Apperance: appropriately dressed and appropriately groomed Eye Contact: good eye contact Motor Behavior: no abnormal motor movements Speech: normal rate/rhythm/volume of speech Affect: + labile affect Mood: + irritable mood Thought Process: goal directed thought process Thought Content: reality based without delusions Suicidal Thoughts: denies suicidal thoughts Homicidal Thoughts: denies homicidal thoughts Hallucinations: no auditory hallucinations and no visual hallucinations Cognition: language grossly intact; + attention not intact Estimated Intelligence: consistent with education level Insight: + fair insight Judgement: + limited judgement Vital Signs (Past 24 Hours) Last Vital Signs Temp 36.6 C 12/20/20 06:00 Pulse 76 12/20/20 06:26 Resp 16 12/20/20 06:00 BP 149/88 H 12/20/20 06:26 Pulse Ox 98 12/11/20 21:47 Results & Data ([facility]) Current Inpatient Medications Current Inpatient Medications: Current Inpatient Medications Acetaminophen (Acetaminophen 325 Mg Tab) 650 mg PO Q4H PRN PRN Reason: Headache or Minor Fever Stop: 01/10/21 20:48 Last Admin: 12/18/20 16:06 Dose: 650 mg Documented by: Al Hydrox/Mg Hydrox/Simethicone (Aluminum/Magnesium Susp 30 Ml Udc) 30 ml PO Q4H PRN PRN Reason: GI Upset Stop: 01/10/21 20:48 Ascorbic Acid (Ascorbic Acid 500 Mg Tab) 2,000 mg PO BID RENATE Stop: 01/12/21 20:59 Last Admin: 12/20/20 08:55 Dose: 2,000 mg Documented by: Clonazepam (Clonazepam 0.25 Mg Tab) 0.75 mg PO HS PRN PRN Reason: Anxiety/Agitation Stop: 01/18/21 21:59 Last Admin: 12/19/20 21:18 Dose: 0.75 mg Documented by: Diclofenac Sodium (Diclofenac Sod 1% Gel 100 Gm Tube) 1 gm EXT QID PRN PRN Reason: Pain Stop: 01/11/21 10:57 Last Admin: 12/19/20 06:44 Dose: 1 gm Documented by: HCTZ/Spironolactone (Spironolactone/Hctz 25-25) 0.5 tab PO BID RENATE Stop: 01/11/21 11:14 Last Admin: 12/20/20 08:52 Dose: 0.5 tab Documented by: Hydroxyzine HCl (Hydroxyzine Hcl 25 Mg Tab) 25 mg PO Q4H PRN PRN Reason: Anxiety Stop: 01/10/21 20:48 Last Admin: 12/17/20 22:02 Dose: 25 mg Documented by: Hydroxyzine HCl (Hydroxyzine Hcl 25 Mg Tab) 25 mg PO HSZ RENATE Stop: 01/12/21 21:59 Last Admin: 12/19/20 20:47 Dose: 25 mg Documented by: Lamotrigine (Lamotrigine 100 Mg Tab) 250 mg PO AMHS RENATE Stop: 01/11/21 10:59 Last Admin: 12/20/20 08:53 Dose: 250 mg Documented by: Magnesium Hydroxide (Magnesium Hydroxide Susp 30 Ml Udc) 30 ml PO DAILY PRN PRN Reason: Constipation Stop: 01/10/21 20:48 Multivitamins (Multivitamin Tab) 1 tab PO DAILY RENATE Stop: 01/11/21 11:14 Last Admin: 12/20/20 08:54 Dose: Not Given Documented by: Pantoprazole Sodium (Pantoprazole 40 Mg Tab) 40 mg PO DAILY RENATE Stop: 01/11/21 11:14 Last Admin: 12/20/20 08:55 Dose: 40 mg Documented by: Psyllium Hydrophilic Mucilloid (Psyllium 58.6% Powder Packet) 3 pkt PO DAILY@0700 RENATE Stop: 01/13/21 06:59 Last Admin: 12/20/20 06:55 Dose: 3 pkt Documented by: Sodium Chloride (Sodium Chloride 0.65% Na Soln 45 Ml ([place])) 1 - 2 sprays NA PRN PRN PRN Reason: Nasal Dryness/Congestion Stop: 01/10/21 20:48 Last Admin: 12/17/20 14:46 Dose: 1 sprays Documented by: Vitamin B Complex (Vitamin B Complex Tab) 1 tab PO DAILY RENATE Stop: 01/11/21 11:14 Last Admin: 12/20/20 08:55 Dose: Not Given Documented by: Mental Health & Subst Abuse Tx Psychiatrist Name of Psychiatrist: Richardson Plunkett - Dr. Arevalo Psychiatrist's Date of Appointment with Psychiatrist: 12/25/20 Time of Appointment with Psychiatrist: 11:00 a.m. Psychiatric Appointment Comment: Zoom Therapist Name of Therapist: Richardson Lombardi Therapist's Date of Therapist Appointment: 12/24/20 Time of Therapist Appointment: 3:00pm Therapy Appointment Comment: [address] [facility] Quality Facilitator Name of Quality Facilitator: None Post Discharge Appointments Primary Care Physician Name Of Family Doctor: ABDIAZIZ Hernandes Primary Care Date of Appointment with PCP: 12/24/20 Time of Appointment with PCP: 11:15 a.m. Provider Appointment Comment: [id number] [facility], [place] Contact Information Discharge Discharge Address: [address] [place] [id number]
[2020-12-20] MEDS ORDERED: ASCORBIC ACID 500 MG TAB PO PRN (14:33)
[2020-12-20] MEDS: hydrOXYzine HCl 25 MG TAB PO SCH (21:57)
[2020-12-20] MEDS: clonazePAM 0.25 MG TAB PO PRN (22:42)
[2020-12-21] MEDS: ACETAMINOPHEN 325 MG TAB PO PRN ×2 (06:49→20:23)
[2020-12-21] MEDS: PSYLLIUM 58.6% POWDER PACKET PO SCH (07:59)
--- NOTE | 2020-12-21 08:40 | Psychiatric Progress Note ---
Date of Service December 21, 2020 Impression / Recommendations Impression 75 yo female with a long history of bipolar disorder, no hospitalizations for >20 years on high dose lamictal which she continues to tolerate well. She presents as relatively cognitively intact but concerns about break ins/rearranging personal items is often part of dementia, otherwise there is no evidence of psychosis (hallucinations) associated with her depression. Diagnostically seems most consistent with mixed episode given paranoia and poor sleep with mood lability. 12/21/20: ongoing improvement in sleep, speech rate is normal though remains very circumferential and irritable. Showing signs of cluster B traits with [id number] thinking, splitting, over-valuation/de-valuation. Able to participate in discussions about treatment plan and asking appropriate questions. Remains fixated on very specific details including wanting melatonin ordered but for nursing not to ask her if she wants, only for her to be the one to request it, wanting her Vitamin C to be the only supplement offered etc. Discussed risks. benefits, alternatives of potential medications for krishna stabilization. She had been thinking about seroquel and wants to try this. Discussed risks including but not limited to cardiac, movement side effects including tardive dyskinesia, metabolic risks, orthostatic hypotension and falls. She consented to starting this to help with her sleep and mood. (1) Bipolar disease, chronic: (2) Chronic renal insufficiency: (3) Vitamin D deficiency: 12/21/20: Consented to starting seroquel 100 mg qhs. Continue with clonazepam 0.75 mg qhs. Melatonin ODT from her home medications. Vitamin C scheduled. 12/20/20: continues to decline any additional medications for mood or sleep. Continue with Klonopin 0.75 mg qhs. Will discontinue her supplements as she has been declining these and requested they be stopped with exception of Vit C. 12/19/20: refusing consideration of additional mood stabilizer such as seroquel, olanzapine or trilafon even at a low dose to help with sleep. Given ongoing sleep challenges increasing Klonopin to 0.75 mg qhs prn to help address insomnia, mixed episode. Discussed risks, benefits,alternatives with her i ncluding risks of falls, cognitive impairment. She consented to and requested higher Klonopin dose. 12/18/20: refusing additional med changes. Received patient's feedback and when I did not react, reminded her that she specifically requested I not discuss it with her. 12/17/20: patient is refusing a trial of Trilafon. Thorazine will be d/c as refusing any dose at this point. 12/16/20: Klonopin 0.5 mg this hs with 10 mg Thorazine to address renzo and mood related sleep disturbance. Reviewed her fasting metabolic labs again from 10/27. 12/15/20: titrate klonopin and thorazine, patient refusing more therapeutic doses, challenging to redirect due to renzo, not sleeping, clearly not able to focus to care for self outside of the hospital. 12/14/20: LM for Dr. Arevalo, awaiting return call. In interim as patient is clearly more restlesss/manic will offer prn benzo (preferrably Ativan as shorter acting but she may not agree) and thorazine though lowest dose is PO. She is becoming increasingly intrussive in groups and is unable to care for basic needs outside of the hospital given unpredictable nature of her mood swings. 12/13/20: increase Metamucil, prune juice, staff to review belongings requests. The patient is not acutely agitated so best to wait for additional medications until can confirm past trials with [facility] and coordinate care with Dr. Arevalo. She denies suicidal ideation but is unable to care for self out of the hospital and is clearly exhibiting mood instability. 12/12/20: The patient was admitted to the [facility]) on q15 min checks (behavioral with suicide precautions) for safety. The patient will participate in group, recreational, and milieu therapies and will be offered additional individual and family sessions as clinically appropriate. Continue current medications but hold Klonopin prn as not taking consistently and fall risk given age. Will coordinate care with Richardson on 12/14/20. Patient denies awareness of vitamin D deficiency and doesn't want to take additional supplements. Her BUN/Cr elevations are chronic/stable and not a direct result of dehydration. She was started on Keflex in the ED for a UTI and UC is pending. Risk Factors Assessment Do You Have Access To A Gun?: No Protective Factors Assessment Employed: No Interval History Identifying Information Vicky THAYER (prefers Lisbeth) is a 75-year-old F who currently lives in [place] alone, has a history of multiple inpatient hospitalizations for bipolar disorder, and was admitted on 12/11/20 21:12 on a 201 voluntary commitment for passive SI and decline in functioning. Chief Complaint "I need more time before I can go home to my house". Review of Systems Sleep Information Total Hours of Sleep: 6 Sleep Comments: pt on q-15 minute checks Meal Information Percent Meal Consumed - Breakfast: 100 Percent Meal Consumed - Lunch: 100 Percent Meal Consumed - Dinner: 50 Medication Trials per [facility] Records: Strattera [place], Depakote, Tegretol, Trileptal, Neurontin Celexa, Wellbutrin, Zoloft, trazodone, Lexapro, Luvox, Prozac, Buspar Latuda, Abilify (akathisia), Risperdal, Invega, Seroquel (sedation), Haldol, Zyprexa, Remeron, Geodon (edema), thorazine, Vraylar (decreased sleep) Klonopin, Xanax Namenda trial for OCD traits Subjective Subjective Patient was seen & assessed and interval progress reviewed with treatment team nursing and social work. She remains irritable at times. She slept about 6 hours last night. She rescinded her 72 hour notice. Today she reports finding therapeutic processing with individual staff helpful. Continues to be demanding of staff and providers as well as showing significant devaluation and overvaluation and splitting at times. Spent an extensive amount of time over the course of the day processing with her what would be helpful in terms of treatment and discussing again potential medication options. She has now decided she would like to try seroquel for additional mood stabilization and help with sleep. Medication Trials per [facility] Records: Strattera [place], Depakote, Tegretol, Trileptal, Neurontin Celexa, Wellbutrin, Zoloft, trazodone, Lexapro, Luvox, Prozac, Buspar Latuda, Abilify (akathisia), Risperdal, Invega, Seroquel (sedation), Haldol, Zyprexa, Remeron, Geodon (edema), thorazine, Vraylar (decreased sleep) Klonopin, Xanax Namenda trial for OCD traits Physical Exam Psychiatric Orientation: alert and oriented x 3 Apperance: appropriately dressed and appropriately groomed Eye Contact: good eye contact Motor Behavior: steady gait and station and no abnormal motor movements Speech: normal rate/rhythm/volume of speech Affect: + irritable affect Mood: + anxious mood and + irritable mood; no depressed mood Thought Process: + circumstantial thought process and + perseveration Thought Content: + preoccupation and reality based without delusions Suicidal Thoughts: denies suicidal thoughts Homicidal Thoughts: denies homicidal thoughts Hallucinations: no auditory hallucinations and no visual hallucinations Cognition: recent memory grossly intact, remote memory grossly intact, attention grossly intact and language grossly intact Insight: + limited insight Judgement: + limited judgement Vital Signs (Past 24 Hours) Last Vital Signs Temp 36.9 C 12/21/20 06:44 Pulse 77 12/21/20 06:44 Resp 18 12/21/20 06:44 BP 144/86 H 12/21/20 06:44 Pulse Ox 98 12/11/20 21:47 Results & Data ([facility]) Current Inpatient Medications Current Inpatient Medications: Current Inpatient Medications Acetaminophen (Acetaminophen 325 Mg Tab) 650 mg PO Q4H PRN PRN Reason: Headache or Minor Fever Stop: 01/10/21 20:48 Last Admin: 12/21/20 06:49 Dose: 650 mg Documented by: Al Hydrox/Mg Hydrox/Simethicone (Aluminum/Magnesium Susp 30 Ml Udc) 30 ml PO Q4H PRN PRN Reason: GI Upset Stop: 01/10/21 20:48 Ascorbic Acid (Ascorbic Acid 500 Mg Tab) 2,000 mg PO BID PRN PRN Reason: nutritional supplementation Stop: 01/12/21 20:59 Clonazepam (Clonazepam 0.25 Mg Tab) 0.75 mg PO HS PRN PRN Reason: Anxiety/Agitation Stop: 01/18/21 21:59 Last Admin: 12/20/20 22:42 Dose: 0.75 mg Documented by: Diclofenac Sodium (Diclofenac Sod 1% Gel 100 Gm Tube) 1 gm EXT QID PRN PRN Reason: Pain Stop: 01/11/21 10:57 Last Admin: 12/19/20 06:44 Dose: 1 gm Documented by: HCTZ/Spironolactone (Spironolactone/Hctz 25-25) 0.5 tab PO BID RENATE Stop: 01/11/21 11:14 Last Admin: 12/20/20 21:56 Dose: 0.5 tab Documented by: Hydroxyzine HCl (Hydroxyzine Hcl 25 Mg Tab) 25 mg PO Q4H PRN PRN Reason: Anxiety Stop: 01/10/21 20:48 Last Admin: 12/17/20 22:02 Dose: 25 mg Documented by: Hydroxyzine HCl (Hydroxyzine Hcl 25 Mg Tab) 25 mg PO HSZ RENATE Stop: 01/12/21 21:59 Last Admin: 12/20/20 21:57 Dose: 25 mg Documented by: Lamotrigine (Lamotrigine 100 Mg Tab) 250 mg PO AMHS RENATE Stop: 01/11/21 10:59 Last Admin: 12/20/20 21:56 Dose: 250 mg Documented by: Magnesium Hydroxide (Magnesium Hydroxide Susp 30 Ml Udc) 30 ml PO DAILY PRN PRN Reason: Constipation Stop: 01/10/21 20:48 Pantoprazole Sodium (Pantoprazole 40 Mg Tab) 40 mg PO DAILY RENATE Stop: 01/11/21 11:14 Last Admin: 12/20/20 08:55 Dose: 40 mg Documented by: Psyllium Hydrophilic Mucilloid (Psyllium 58.6% Powder Packet) 3 pkt PO DAILY@0700 RENATE Stop: 01/13/21 06:59 Last Admin: 12/21/20 07:59 Dose: 3 pkt Documented by: Sodium Chloride (Sodium Chloride 0.65% Na Soln 45 Ml ([place])) 1 - 2 sprays NA PRN PRN PRN Reason: Nasal Dryness/Congestion Stop: 01/10/21 20:48 Last Admin: 12/17/20 14:46 Dose: 1 sprays Documented by: Mental Health & Subst Abuse Tx Psychiatrist [facility] Psychiatrist's Date of Appointment with Psychiatrist: 12/25/20 Time of Appointment with Psychiatrist: 11:00 a.m. Psychiatric Appointment Comment: Zoom Therapist Name of Therapist: Richardson Lombardi Therapist's Date of Therapist Appointment: 12/24/20 Time of Therapist Appointment: 3:00pm Therapy Appointment Comment: [address] [facility] Process Design Chemical Engineer Name of Process Design Chemical Engineer: None Post Discharge Appointments Primary Care Physician Name Of Family Doctor: ABDIAZIZ Hernandes Primary Care Date of Appointment with PCP: 12/24/20 Time of Appointment with PCP: 11:15 a.m. Provider Appointment Comment: [id number] [facility] [place] Contact Information Discharge Discharge Address: [address] [place] [address], [place] [address]
[2020-12-21] MEDS: SPIRONOLACTONE/HCTZ 25-25 PO SCH ×2 (08:52→22:19)
[2020-12-21] MEDS: lamoTRIgine 100 MG TAB PO SCH ×2 (08:54→22:20)
[2020-12-21] MEDS: PANTOprazole 40 MG TAB PO SCH (08:55)
[2020-12-21] MEDS ORDERED: MELATONIN 3 MG TAB PO PRN (14:16)
[2020-12-21] MEDS ORDERED: MELATONIN 10MG TABLET PO PRN (14:34)
[2020-12-21] MEDS: ASCORBIC ACID 500 MG TAB PO SCH (22:18)
[2020-12-21] MEDS: hydrOXYzine HCl 25 MG TAB PO SCH (22:21)
[2020-12-21] MEDS: clonazePAM 0.25 MG TAB PO PRN (22:29)
[2020-12-21] MEDS: QUEtiapine FUMARATE 100 MG TABLET PO SCH (22:31)
[2020-12-22] MEDS: PSYLLIUM 58.6% POWDER PACKET PO SCH (07:00)
[2020-12-22] MEDS: lamoTRIgine 100 MG TAB PO SCH ×2 (08:01→20:59)
[2020-12-22] MEDS: ASCORBIC ACID 500 MG TAB PO SCH ×2 (08:01→21:01)
[2020-12-22] MEDS: PANTOprazole 40 MG TAB PO SCH (08:02)
[2020-12-22] MEDS: SPIRONOLACTONE/HCTZ 25-25 PO SCH ×2 (08:02→21:00)
--- NOTE | 2020-12-22 14:45 | Psychiatric Progress Note ---
Date of Service December 22, 2020 Impression / Recommendations Impression 75 yo female with a long history of bipolar disorder, no hospitalizations for >20 years on high dose lamictal which she continues to tolerate well. She presents as relatively cognitively intact but concerns about break ins/rearranging personal items is often part of dementia, otherwise there is no evidence of psychosis (hallucinations) associated with her depression. Diagnostically seems most consistent with mixed episode given paranoia and poor sleep with mood lability. 12/22/20: consistent sleep, mood remains stable with baseline irritability/particularism that seems to be a personality trait. She remains anxious with some avoidance about going home where she will need to begin working on going through her items in her home. (1) Bipolar disease, chronic: (2) Chronic renal insufficiency: (3) Vitamin D deficiency: 12/22/20: She refused and now declines seroquel to help with sleep, given stable sleep over the last three nights reasonable to continue with her preference of clonazepam and melatonin. Increasing dose of melatonin to 1.5 tabs of home ODT version as this is what she takes at home. 12/21/20: Consented to starting seroquel 100 mg qhs. Continue with clonazepam 0.75 mg qhs. Melatonin ODT from her home medications. Vitamin C scheduled. 12/20/20: continues to decline any additional medications for mood or sleep. Continue with Klonopin 0.75 mg qhs. Will discontinue her supplements as she has been declining these and requested they be stopped with exception of Vit C. 12/19/20: refusing consideration of additional mood stabilizer such as seroquel, olanzapine or trilafon even at a low dose to help with sleep. Given ongoing sleep challenges increasing Klonopin to 0.75 mg qhs prn to help address insomnia, mixed episode. Discussed risks, benefits,alternatives with her including risks of falls, cognitive impairment. She consented to and requested higher Klonopin dose. 12/18/20: refusing additional med changes. Received patient's feedback and when I did not react, reminded her that she specifically requested I not discuss it with her. 12/17/20: patient is refusing a trial of Trilafon. Thorazine will be d/c as refusing any dose at this point. 12/16/20: Klonopin 0.5 mg this hs with 10 mg Thorazine to address renzo and mood related sleep disturbance. Reviewed her fasting metabolic labs again from 10/27. 12/15/20: titrate klonopin and thorazine, patient refusing more therapeutic doses, challenging to redirect due to renzo, not sleeping, clearly not able to focus to care for self outside of the hospital. 12/14/20: LM for Dr. Arevalo, awaiting return call. In interim as patient is clearly more restlesss/manic will offer prn benzo (preferrably Ativan as shorter acting but she may not agree) and thorazine though lowest dose is PO. She is becoming increasingly intrussive in groups and is unable to care for basic needs outside of the hospital given unpredictable nature of her mood swings. 12/13/20: increase Metamucil, prune juice, staff to review belongings requests. The patient is not acutely agitated so best to wait for additional medications until can confirm past trials with Richardson and coordinate care with Dr. Arevalo. She denies suicidal ideation but is unable to care for self out of the hospital and is clearly exhibiting mood instability. 12/12/20: The patient was admitted to the [facility] ([facility] inpatient mental health unit) on q15 min checks (behavioral with suicide precautions) for safety. The patient will participate in group, recreational, and milieu therapies and will be offered additional individual and family sessions as clinically appropriate. Continue current medications but hold Klonopin prn as not taking consistently and fall risk given age. Will coordinate care with Richardson on 12/14/20. Patient denies awareness of vitamin D deficiency and doesn't want to take additional supplements. Her BUN/Cr elevations are chronic/stable and not a direct result of dehydration. She was started on Keflex in the ED for a UTI and UC is pending. Risk Factors Assessment Do You Have Access To A Gun?: No Protective Factors Assessment Employed: No Interval History Identifying Information Vicky THAYER (prefers Lisbeth) is a 75-year-old F who currently lives in [place] alone, has a history of multiple inpatient hospitalizations for bipolar disorder, and was admitted on 12/11/20 21:12 on a 201 voluntary commitment for passive SI and decline in functioning. Chief Complaint "I'm anxious about dealing with all of the stuff in my house". Review of Systems Sleep Information Total Hours of Sleep: 6 Sleep Comments: pt on q-15 minute checks Meal Information Percent Meal Consumed - Breakfast: 100 Percent Meal Consumed - Lunch: 100 Percent Meal Consumed - Dinner: 85 Medication Trials per [facility] Records: Strattera [place], Depakote, Tegretol, Trileptal, Neurontin Celexa, Wellbutrin, Zoloft, trazodone, Lexapro, Luvox, Prozac, Buspar Latuda, Abilify (akathisia), Risperdal, Invega, Seroquel (sedation), Haldol, Zyprexa, Remeron, Geodon (edema), thorazine, Vraylar (decreased sleep) Klonopin, Xanax Namenda trial for OCD traits Subjective Subjective Patient was seen & assessed and interval progress reviewed with treatment team nursing and social work. Remains intrusive with peers in terms of seeking to monopolize their attention and that of individual staff. She declined the seroquel last night as she did not want to risk feeling oversedated today though also states she did not sleep well last night due to waking up early. Continues to feel that melatonin, klonopin and lamictal are the best medications for her and does not desire trying anything else. Remains anxious about going home and dealing with the hoarded items in her house. Medication Trials per [facility] Records: Strattera [place], Depakote, Tegretol, Trileptal, Neurontin Celexa, Wellbutrin, Zoloft, trazodone, Lexapro, Luvox, Prozac, Buspar Latuda, Abilify (akathisia), Risperdal, Invega, Seroquel (sedation), Haldol, Zyprexa, Remeron, Geodon (edema), thorazine, Vraylar (decreased sleep) Klonopin, Xanax Namenda trial for OCD traits Physical Exam Psychiatric Orientation: alert and oriented x 3 Apperance: appropriately dressed and appropriately groomed Eye Contact: good eye contact Motor Behavior: steady gait and station and no abnormal motor movements Speech: normal rate/rhythm/volume of speech Affect: + irritable affect Mood: + irritable mood Thought Process: + circumstantial thought process Thought Content: reality based without delusions Suicidal Thoughts: denies suicidal thoughts Homicidal Thoughts: denies homicidal thoughts Hallucinations: no auditory hallucinations and no visual hallucinations Cognition: recent memory grossly intact, remote memory grossly intact, attention grossly intact and language grossly intact Insight: + fair insight Judgement: + limited judgement Vital Signs (Past 24 Hours) Last Vital Signs Temp 36.9 C 12/22/20 06:28 Pulse 91 H 12/22/20 06:28 Resp 16 12/22/20 06:28 BP 145/92 H 12/22/20 06:28 Pulse Ox 98 12/11/20 21:47 Results & Data ([facility]) Current Inpatient Medications Current Inpatient Medications: Current Inpatient Medications Acetaminophen (Acetaminophen 325 Mg Tab) 650 mg PO Q4H PRN PRN Reason: Headache or Minor Fever Stop: 01/10/21 20:48 Last Admin: 12/21/20 20:23 Dose: 650 mg Documented by: Al Hydrox/Mg Hydrox/Simethicone (Aluminum/Magnesium Susp 30 Ml Udc) 30 ml PO Q4H PRN PRN Reason: GI Upset Stop: 01/10/21 20:48 Ascorbic Acid (Ascorbic Acid 500 Mg Tab) 2,000 mg PO BID RENATE Stop: 01/20/21 20:59 Last Admin: 12/22/20 08:01 Dose: 2,000 mg Documented by: Clonazepam (Clonazepam 0.25 Mg Tab) 0.75 mg PO HS PRN PRN Reason: Anxiety/Agitation Stop: 01/18/21 21:59 Last Admin: 12/21/20 22:29 Dose: 0.75 mg Documented by: Diclofenac Sodium (Diclofenac Sod 1% Gel 100 Gm Tube) 1 gm EXT QID PRN PRN Reason: Pain Stop: 01/11/21 10:57 Last Admin: 12/19/20 06:44 Dose: 1 gm Documented by: HCTZ/Spironolactone (Spironolactone/Hctz 25-25) 0.5 tab PO BID RENATE Stop: 01/11/21 11:14 Last Admin: 12/22/20 08:02 Dose: 0.5 tab Documented by: Hydroxyzine HCl (Hydroxyzine Hcl 25 Mg Tab) 25 mg PO Q4H PRN PRN Reason: Anxiety Stop: 01/10/21 20:48 Last Admin: 12/17/20 22:02 Dose: 25 mg Documented by: Hydroxyzine HCl (Hydroxyzine Hcl 25 Mg Tab) 25 mg PO HSZ RENATE Stop: 01/12/21 21:59 Last Admin: 12/21/20 22:21 Dose: 25 mg Documented by: Lamotrigine (Lamotrigine 100 Mg Tab) 250 mg PO AMHS RENATE Stop: 01/11/21 10:59 Last Admin: 12/22/20 08:01 Dose: 250 mg Documented by: Magnesium Hydroxide (Magnesium Hydroxide Susp 30 Ml Udc) 30 ml PO DAILY PRN PRN Reason: Constipation Stop: 01/10/21 20:48 Melatonin (Melatonin 10mg Tablet) 1 ea PO HS PRN PRN Reason: Sleep Stop: 01/20/21 14:33 Pantoprazole Sodium (Pantoprazole 40 Mg Tab) 40 mg PO DAILY RENATE Stop: 01/11/21 11:14 Last Admin: 12/22/20 08:02 Dose: 40 mg Documented by: Psyllium Hydrophilic Mucilloid (Psyllium 58.6% Powder Packet) 3 pkt PO DAILY@0700 RENATE Stop: 01/13/21 06:59 Last Admin: 12/22/20 07:00 Dose: 3 pkt Documented by: Quetiapine Fumarate (Quetiapine Fumarate 100 Mg Tablet) 100 mg PO HS RENATE Stop: 01/20/21 21:59 Last Admin: 12/21/20 22:31 Dose: Not Given Documented by: Sodium Chloride (Sodium Chloride 0.65% Na Soln 45 Ml ([place])) 1 - 2 sprays NA PRN PRN PRN Reason: Nasal Dryness/Congestion Stop: 01/10/21 20:48 Last Admin: 12/17/20 14:46 Dose: 1 sprays Documented by: Mental Health & Subst Abuse Tx Psychiatrist Name of Psychiatrist: [facility] Tejas Arevalo Psychiatrist's Date of Appointment with Psychiatrist: 12/28/20 Time of Appointment with Psychiatrist: 11:20 a.m. Psychiatric Appointment Comment: In person Therapist Name of Therapist: Richardson Lombardi Therapist's Date of Therapist Appointment: 12/24/20 Time of Therapist Appointment: 3:00pm (zoom) Therapy Appointment Comment: [address] [facility] Supervisor Mechanic Boilermaking Name of Supervisor Mechanic Boilermaking: None Post Discharge Appointments Primary Care Physician Name Of Family Doctor: ABDIAZIZ Hernandes Primary Care Date of Appointment with PCP: 12/24/20 Time of Appointment with PCP: 11:15 a.m. Provider Appointment Comment: [id number] [facility] [place] Contact Information Discharge Discharge Address: [address] [place] [address], [place] [address]
[2020-12-22] MEDS: ACETAMINOPHEN 325 MG TAB PO PRN (15:02)
[2020-12-22] MEDS: DICLOFENAC SOD 1% GEL 100 GM TUBE EXT PRN (17:35)
[2020-12-22] MEDS: hydrOXYzine HCl 25 MG TAB PO SCH (20:59)
[2020-12-22] MEDS: QUEtiapine FUMARATE 100 MG TABLET PO SCH (21:22)
[2020-12-22] MEDS: clonazePAM 0.25 MG TAB PO PRN (22:45)
[2020-12-22] MEDS: MELATONIN 5 MG TABLET PO PRN (23:31)
[2020-12-23] MEDS: PSYLLIUM 58.6% POWDER PACKET PO SCH (07:29)
[2020-12-23] MEDS: ASCORBIC ACID 500 MG TAB PO SCH ×2 (08:54→20:06)
[2020-12-23] MEDS: SPIRONOLACTONE/HCTZ 25-25 PO SCH ×2 (08:54→20:06)
[2020-12-23] MEDS: lamoTRIgine 100 MG TAB PO SCH ×2 (08:55→20:07)
[2020-12-23] MEDS: PANTOprazole 40 MG TAB PO SCH (08:56)
[2020-12-23] MEDS: ACETAMINOPHEN 325 MG TAB PO PRN (09:09)
--- NOTE | 2020-12-23 14:41 | Psychiatric Progress Note ---
Date of Service December 23, 2020 Impression / Recommendations Impression 75 yo female with a long history of bipolar disorder, no hospitalizations for >20 years on high dose lamictal which she continues to tolerate well. She presents as relatively cognitively intact but concerns about break ins/rearranging personal items is often part of dementia, otherwise there is no evidence of psychosis (hallucinations) associated with her depression. Diagnostically seems most consistent with mixed episode given paranoia and poor sleep with mood lability. 12/23/20: consistent sleep, mood remains stable with baseline irritability/particularism that seems to be a personality trait. She remains anxious with some avoidance about going home where she will need to begin working on going through her items in her home but has spent extensive time in 1 on 1 sessions with staff to prepare herself for this. (1) Bipolar disease, chronic: (2) Chronic renal insufficiency: (3) Vitamin D deficiency: 12/23/20: She requests reduction in clonazepam dose which is reasonable and appropriate given improvement and stability of sleep and risks associated with clonazepam making lowest possible dose ideal. Clonazepam 0.5 mg qhs prn. Continue melatonin 2 tabs ODT (total dose 10 mg) qhs prn. 12/22/20: She refused and now declines seroquel to help with sleep, given stable sleep over the last three nights reasonable to continue with her preference of clonazepam and melatonin. Increasing dose of melatonin to 2 tabs of home ODT version as this is what she takes at home. 12/21/20: Consented to starting seroquel 100 mg qhs. Continue with clonazepam 0.75 mg qhs. Melatonin ODT from her home medications. Vitamin C scheduled. 12/20/20: continues to decline any additional medications for mood or sleep. Continue with Klonopin 0.75 mg qhs. Will discontinue her supplements as she has been declining these and requested they be stopped with exception of Vit C. 12/19/20: refusing consideration of additional mood stabilizer such as seroquel, olanzapine or trilafon even at a low dose to help with sleep. Given ongoing sleep challenges increasing Klonopin to 0.75 mg qhs prn to help address insomnia, mixed episode. Discussed risks, benefits,alternatives with her including risks of falls, cognitive impairment. She consented to and requested higher Klonopin dose. 12/18/20: refusing additional med changes. Received patient's feedback and when I did not react, reminded her that she specifically requested I not discuss it with her. 12/17/20: patient is refusing a trial of Trilafon. Thorazine will be d/c as refusing any dose at this point. 12/16/20: Klonopin 0.5 mg this hs with 10 mg Thorazine to address renzo and mood related sleep disturbance. Reviewed her fasting metabolic labs again from 10/27. 12/15/20: titrate klonopin and thorazine, patient refusing more therapeutic doses, challenging to redirect due to renzo, not sleeping, clearly not able to focus to care for self outside of the hospital. 12/14/20: LM for Dr. Arevalo, awaiting return call. In interim as patient is clearly more restlesss/manic will offer prn benzo (preferrably Ativan as shorter acting but she may not agree) and thorazine though lowest dose is PO. She is becoming increasingly intrussive in groups and is unable to care for basic needs outside of the hospital given unpredictable nature of her mood swings. 12/13/20: increase Metamucil, prune juice, staff to review belongings requests. The patient is not acutely agitated so best to wait for additional medications until can confirm past trials with Richardson and coordinate care with Dr. Arevalo. She denies suicidal ideation but is unable to care for self out of the hospital and is clearly exhibiting mood instability. 12/12/20: [facility]) on q15 min checks (behavioral with suicide precautions) for safety. The patient will participate in group, recreational, and milieu therapies and will be offered additional individual and family sessions as clinically appropriate. Continue current medications but hold Klonopin prn as not taking consistently and fall risk given age. Will coordinate care with Richardson on 12/14/20. Patient denies awareness of vitamin D deficiency and doesn't want to take additional supplements. Her BUN/Cr elevations are chronic/stable and not a direct result of dehydration. She was started on Keflex in the ED for a UTI and UC is pending. Risk Factors Assessment Do You Have Access To A Gun?: No Protective Factors Assessment Employed: No Interval History Identifying Information Vicky THAYER (prefers Lisbeth) is a 75-year-old F who currently lives in [place] alone, has a history of multiple inpatient hospitalizations for bipolar disorder, and was admitted on 12/11/20 21:12 on a 201 voluntary commitment for passive SI and decline in functioning. Chief Complaint "I'm good". Review of Systems Sleep Information Total Hours of Sleep: 6 Sleep Comments: pt on q-15 minute checks Meal Information Percent Meal Consumed - Breakfast: 95 Percent Meal Consumed - Lunch: 100 Percent Meal Consumed - Dinner: 90 Medication Trials per [facility] Records: Strattera [place], Depakote, Tegretol, Trileptal, Neurontin Celexa, Wellbutrin, Zoloft, trazodone, Lexapro, Luvox, Prozac, Buspar Latuda, Abilify (akathisia), Risperdal, Invega, Seroquel (sedation), Haldol, Zyprexa, Remeron, Geodon (edema), thorazine, Vraylar (decreased sleep) Klonopin, Xanax Namenda trial for OCD traits Subjective Subjective Patient was seen & assessed and interval progress reviewed with treatment team nursing and social work. She remains demanding of frequent one on one time with staff and tends to monopolize conversations with peers. She tells me that she slept well last night but overslept and missed the sunrise and thus felt "oversedated". She requests to reduce her clonazepam dose back down to 0.5 mg qhs prn. States her preference to not be asked by staff if she wants her clonazepam but rather "the instructions should say-patient may request up until 3 am and she forgets to ask then that's too bad, poor luck for her". Informed her that I would order it for qhs prn and add comments that she not be offered the medication unless she requests it. She also stated her frustration that after she declined her vitamin C that I changed this to prn status and did not inform her rather than keeping it as a scheduled medication. She feels ready for plan for discharge tomorrow. No SI. No HI. Medication Trials per [facility] Records: Strattera [place], Depakote, Tegretol, Trileptal, Neurontin Celexa, Wellbutrin, Zoloft, trazodone, Lexapro, Luvox, Prozac, Buspar Latuda, Abilify (akathisia), Risperdal, Invega, Seroquel (sedation), Haldol, Zyprexa, Remeron, Geodon (edema), thorazine, Vraylar (decreased sleep) Klonopin, Xanax Namenda trial for OCD traits Physical Exam Psychiatric Orientation: alert and oriented x 3 Apperance: appropriately dressed and appropriately groomed Eye Contact: good eye contact Motor Behavior: no abnormal motor movements Speech: normal rate/rhythm/volume of speech Affect: + irritable affect Mood: + irritable mood; no depressed mood and no anxious mood Thought Process: goal directed thought process Thought Content: reality based without delusions Suicidal Thoughts: denies suicidal thoughts Homicidal Thoughts: denies homicidal thoughts Hallucinations: no auditory hallucinations and no visual hallucinations Cognition: attention grossly intact and language grossly intact Estimated Intelligence: consistent with education level Insight: + fair insight Judgement: + fair judgement Vital Signs (Past 24 Hours) Last Vital Signs Temp 36.9 C 12/23/20 06:35 Pulse 76 12/23/20 06:35 Resp 16 12/23/20 06:35 BP 141/85 H 12/23/20 06:35 Pulse Ox 98 12/11/20 21:47 Results & Data ([facility]) Current Inpatient Medications Current Inpatient Medications: Current Inpatient Medications Acetaminophen (Acetaminophen 325 Mg Tab) 650 mg PO Q4H PRN PRN Reason: Headache or Minor Fever Stop: 01/10/21 20:48 Last Admin: 12/23/20 09:09 Dose: 650 mg Documented by: Al Hydrox/Mg Hydrox/Simethicone (Aluminum/Magnesium Susp 30 Ml Udc) 30 ml PO Q4H PRN PRN Reason: GI Upset Stop: 01/10/21 20:48 Ascorbic Acid (Ascorbic Acid 500 Mg Tab) 2,000 mg PO BID RENATE Stop: 01/20/21 20:59 Last Admin: 12/23/20 08:54 Dose: 2,000 mg Documented by: Clonazepam (Clonazepam 0.25 Mg Tab) 0.75 mg PO HS PRN PRN Reason: Anxiety/Agitation Stop: 01/18/21 21:59 Last Admin: 12/22/20 22:45 Dose: 0.75 mg Documented by: Diclofenac Sodium (Diclofenac Sod 1% Gel 100 Gm Tube) 1 gm EXT QID PRN PRN Reason: Pain Stop: 01/11/21 10:57 Last Admin: 12/22/20 17:35 Dose: 1 gm Documented by: HCTZ/Spironolactone (Spironolactone/Hctz 25-25) 0.5 tab PO BID RENATE Stop: 01/11/21 11:14 Last Admin: 12/23/20 08:54 Dose: 0.5 tab Documented by: Hydroxyzine HCl (Hydroxyzine Hcl 25 Mg Tab) 25 mg PO Q4H PRN PRN Reason: Anxiety Stop: 01/10/21 20:48 Last Admin: 12/17/20 22:02 Dose: 25 mg Documented by: Hydroxyzine HCl (Hydroxyzine Hcl 25 Mg Tab) 25 mg PO HSZ RENATE Stop: 01/12/21 21:59 Last Admin: 12/22/20 20:59 Dose: 25 mg Documented by: Lamotrigine (Lamotrigine 100 Mg Tab) 250 mg PO AMHS RENATE Stop: 01/11/21 10:59 Last Admin: 12/23/20 08:55 Dose: 250 mg Documented by: Magnesium Hydroxide (Magnesium Hydroxide Susp 30 Ml Udc) 30 ml PO DAILY PRN PRN Reason: Constipation Stop: 01/10/21 20:48 Melatonin (Melatonin 5 Mg Tablet) 2 ea PO HS PRN PRN Reason: Sleep Stop: 01/20/21 14:33 Last Admin: 12/22/20 23:31 Dose: 2 ea Documented by: Pantoprazole Sodium (Pantoprazole 40 Mg Tab) 40 mg PO DAILY RENATE Stop: 01/11/21 11:14 Last Admin: 12/23/20 08:56 Dose: 40 mg Documented by: Psyllium Hydrophilic Mucilloid (Psyllium 58.6% Powder Packet) 3 pkt PO DAILY@0700 RENATE Stop: 01/13/21 06:59 Last Admin: 12/23/20 07:29 Dose: 3 pkt Documented by: Quetiapine Fumarate (Quetiapine Fumarate 100 Mg Tablet) 100 mg PO HS RENATE Stop: 01/20/21 21:59 Last Admin: 12/22/20 21:22 Dose: Not Given Documented by: Sodium Chloride (Sodium Chloride 0.65% Na Soln 45 Ml ([place])) 1 - 2 sprays NA PRN PRN PRN Reason: Nasal Dryness/Congestion Stop: 01/10/21 20:48 Last Admin: 12/17/20 14:46 Dose: 1 sprays Documented by: Mental Health & Subst Abuse Tx Psychiatrist Name of Psychiatrist: [facility] - Dr. Arevalo Psychiatrist's Date of Appointment with Psychiatrist: 12/28/20 Time of Appointment with Psychiatrist: 11:20 a.m. Psychiatric Appointment Comment: In person Therapist Name of Therapist: Richardson Lombardi Therapist's Date of Therapist Appointment: 12/24/20 Time of Therapist Appointment: 3:00pm (zoom) Therapy Appointment Comment: [address] [facility] Event Marketing Coordinator Name of Event Marketing Coordinator: None Post Discharge Appointments Primary Care Physician Name Of Family Doctor: ABDIAZIZ Hernandes Primary Care Date of Appointment with PCP: 12/24/20 Time of Appointment with PCP: 11:15 a.m. Provider Appointment Comment: [id number] [facility] [place] Contact Information Discharge Discharge Address: [address] [place] [address], [place] [address]
[2020-12-23] MEDS ORDERED: clonazePAM 0.5 MG TAB PO PRN (14:42)
[2020-12-23] MEDS: DICLOFENAC SOD 1% GEL 100 GM TUBE EXT PRN ×2 (19:30→21:08)
[2020-12-23] MEDS: hydrOXYzine HCl 25 MG TAB PO SCH (20:08)
[2020-12-23] MEDS: MELATONIN 5 MG TABLET PO PRN (21:57)
[2020-12-24] MEDS: PSYLLIUM 58.6% POWDER PACKET PO SCH (06:59)
--- NOTE | 2020-12-24 09:26 | Discharge Summary ---
Date of Service December 24, 2020 History of Present Illness The patient reports her most recent inpatient hospitalization was in 1996 at the [facility]. Around that time she was started on lamotrigine and "that's really kept me out of the hospital". Her mood does cycle, mainly from irritable ("sometimes) to low energy and motivation to go places or eat much. She reports mainly having tofu and eggs throughout day. She started feeling more depressed several weeks ago and was using 10,000 lux light therapy 30 min twice a day but "it made me anxious" so stopped. Her mood has declined since. She remains overwhelmed in caring for the family home but is quite attached to it. She does have a usp support person who helps her organize mail, etc as "my only support". She relates longstanding concerns (likely paranoia) that her estranged sister is coming in to the home and moving things around just to upset her. She reports sending a legal letter over a decade ago but only recently changing the locks. She denies intent or plan to harm herself but "it wouldn't matter if the sun didn't come up." She reports compliant with her medication and appointments with her outpatient psychiatrist and therapist. Physical Exam Vital Signs (Past 24 Hours) Last Vital Signs Temp 36.6 C 12/24/20 06:00 Pulse 73 12/24/20 06:30 Resp 16 12/24/20 06:00 BP 150/84 H 12/24/20 06:30 Pulse Ox 98 12/11/20 21:47 See admission H&P and DOD summary. Principal Diagnosis Bipolar Affective Disorder, mixed episode Psychiatric Data See daily stay summary. In short, safety was maintained and the patient was cooperative with care. There were no medication changes per her request. We did review the risks associated with clonazepam use particularly given her age. Initially she had poor sleep but had consistently 6-7.5 hours per night for the four nights prior to discharge. A safety plan was completed prior to discharge. Day of Discharge Assessment Today the patient voices readiness for discharge. She remains anxious about returning to her home given that she will need to resume sorting through her items and decluttering. She does not improvement in mood and sleep. She mirian thoughts of harm to self or others. Thoughts are organized and they are clinically improved from admission. There is no evidence of psychosis. She improved in the hospital with support and medication adjustments. She agrees to take medications as prescribed and keep follow-up appointments. At the time of discharge she is deemed to be stable and appropriate for outpatient level of care. She is not deemed to be at imminent risk of harm to self or others. She is aware of emergency and crisis services. Knows to call 911 or go to nearest emergency care center if in a crisis which cannot be handled as an outpatient. Transition of Care Transition Of Care Record: was reviewed with the patient Advance Directives Advance Directives Information Provided: Yes Advance Directives: No Mental Health Advance Directive: No Advance Directives on File: No Living Will: No Power of Business Continuity Planning Director: No Advance Directives Reason:: Declines as Mental Health Visit. Risk Factors Assessment : Yes Do You Have Access To A Gun?: No Health Problems: Yes Mental Health Diagnoses: Yes Substance Use Disorders: No Hopelessness: No Protective Factors Assessment Employed: No Stable Relationships: Yes Supportive Family: Yes Good Rapport with Provider: Yes Discharge Data Lab Results 12/11/20 12/11/20 12/11/20 18:30 18:30 18:41 WBC 7.09 RBC 4.35 Hgb 13.2 Hct 38.4 MCV 88.3 MCH 30.3 MCHC 34.4 RDW Std Deviation 42.5 RDW Coeff of Benny 13.1 Plt Count 320 MPV 9.6 Immature Gran % (Auto) 0.1 Neut % (Auto) 68.0 Lymph % (Auto) 24.7 [place] % (Auto) 5.8 Eos % (Auto) 1.0 Baso % (Auto) 0.4 Neut # (Auto) 4.82 Lymph # (Auto) 1.75 [place] # (Auto) 0.41 Eos # (Auto) 0.07 Baso # (Auto) 0.03 Immature Gran # (Auto) 0.01 Sodium Potassium Chloride Carbon Dioxide Anion Gap BUN Creatinine Est Cr Clr Drug Dosing Est GFR ( Amer) Est GFR (Non-Af Amer) BUN/Creatinine Ratio Glucose Calcium Total Bilirubin AST ALT Alkaline Phosphatase Total Protein Albumin Globulin Albumin/Globulin Ratio TSH Urine Color Yellow Urine Appearance Clear Urine pH 5.5 Ur Specific [place] 1.011 Urine Protein 2+ H Urine Glucose (UA) Negative Urine Ketones Negative Urine Blood Negative Urine Nitrite Negative Urine Bilirubin Negative Urine Urobilinogen Negative Ur Leukocyte Esterase 2+ H Urine WBC (Auto) >30 H Urine RBC (Auto) 0-4 U Hyaline Cast (Auto) 10-30 H U Epithel Cells (Auto) 10-20 H Urine Bacteria (Auto) Negative Salicylates Urine Opiates Screen Neg Ur Methadone, Qual Neg Acetaminophen Urine Barbiturates Neg Ur Phencyclidine (PCP) Neg U Amphetamin/Meth Scrn Neg MDMA (Ecstasy) Screen Neg U Benzodiazepines Scrn Neg Ur Cocaine Metabolite Neg U Marijuana (THC) Screen Neg Ethyl Alcohol mg/dL COVID-19 Eval Order SARS-CoV-2, RNA, NAAT 12/11/20 12/11/20 12/11/20 18:41 18:41 18:41 WBC RBC Hgb Hct MCV MCH MCHC RDW Std Deviation RDW Coeff of Benny Plt Count MPV Immature Gran % (Auto) Neut % (Auto) Lymph % (Auto) [place] % (Auto) Eos % (Auto) Baso % (Auto) Neut # (Auto) Lymph # (Auto) [place] # (Auto) Eos # (Auto) Baso # (Auto) Immature Gran # (Auto) Sodium 137 Potassium 3.4 L Chloride 102 Carbon Dioxide 25 Anion Gap 10.0 BUN 45 H Creatinine 1.68 H Est Cr Clr Drug Dosing 27.1 Est GFR ( Amer) 34.3 Est GFR (Non-Af Amer) 29.6 BUN/Creatinine Ratio 27.0 H Glucose 101 H Calcium 10.4 H Total Bilirubin 0.3 AST 29 ALT 33 Alkaline Phosphatase 101 Total Protein 7.5 Albumin 3.7 Globulin 3.8 Albumin/Globulin Ratio 1.0 TSH 1.560 Urine Color Urine Appearance Urine pH Ur Specific [place] Urine Protein Urine Glucose (UA) Urine Ketones Urine Blood Urine Nitrite Urine Bilirubin Urine Urobilinogen Ur Leukocyte Esterase Urine WBC (Auto) Urine RBC (Auto) U Hyaline Cast (Auto) U Epithel Cells (Auto) Urine Bacteria (Auto) Salicylates < 1.7 L Urine Opiates Screen Ur Methadone, Qual Acetaminophen < 2 L Urine Barbiturates Ur Phencyclidine (PCP) U Amphetamin/Meth Scrn MDMA (Ecstasy) Screen U Benzodiazepines Scrn Ur Cocaine Metabolite U Marijuana (THC) Screen Ethyl Alcohol mg/dL < 3.0 COVID-19 Eval Order SARS-CoV-2, RNA, NAAT 12/11/20 12/11/20 19:19 19:19 WBC RBC Hgb Hct MCV MCH MCHC RDW Std Deviation RDW Coeff of [place]enny Plt Count MPV Immature Gran % (Auto) Neut % (Auto) Lymph % (Auto) [place] % (Auto) Eos % (Auto) Baso % (Auto) Neut # (Auto) Lymph # (Auto) [place] # (Auto) Eos # (Auto) Baso # (Auto) Immature Gran # (Auto) Sodium Potassium Chloride Carbon Dioxide Anion Gap BUN Creatinine Est Cr Clr Drug Dosing Est GFR ( Amer) Est GFR (Non-Af Amer) BUN/Creatinine Ratio Glucose Calcium Total Bilirubin AST ALT Alkaline Phosphatase Total Protein Albumin Globulin Albumin/Globulin Ratio TSH Urine Color Urine Appearance Urine pH Ur Specific [place] Urine Protein Urine Glucose (UA) Urine Ketones Urine Blood Urine Nitrite Urine Bilirubin Urine Urobilinogen Ur Leukocyte Esterase Urine WBC (Auto) Urine RBC (Auto) U Hyaline Cast (Auto) U Epithel Cells (Auto) Urine Bacteria (Auto) Salicylates Urine Opiates Screen Ur Methadone, Qual Acetaminophen Urine Barbiturates Ur Phencyclidine (PCP) U Amphetamin/Meth Scrn MDMA (Ecstasy) Screen U Benzodiazepines Scrn Ur Cocaine Metabolite U Marijuana (THC) Screen Ethyl Alcohol mg/dL COVID-19 Eval [facility] SARS-CoV-2, RNA, NAAT NEGATIVE Hospital Course (1) Bipolar disease, chronic: (2) Chronic renal insufficiency: (3) Vitamin D deficiency: 12/23/20: She requests reduction in clonazepam dose which is reasonable and appropriate given improvement and stability of sleep and risks associated with clonazepam making lowest possible dose ideal. Clonazepam 0.5 mg qhs prn. Continue melatonin 2 tabs ODT (total dose 10 mg) qhs prn. 12/22/20: She refused and now declines seroquel to help with sleep, given stable sleep over the last three nights reasonable to continue with her preference of clonazepam and melatonin. Increasing dose of melatonin to 2 tabs of home ODT version as this is what she takes at home. 12/21/20: Consented to starting seroquel 100 mg qhs. Continue with clonazepam 0.75 mg qhs. Melatonin ODT from her home medications. Vitamin C scheduled. 12/20/20: continues to decline any additional medications for mood or sleep. Continue with Klonopin 0.75 mg qhs. Will discontinue her supplements as she has been declining these and requested they be stopped with exception of Vit C. 12/19/20: refusing consideration of additional mood stabilizer such as seroquel, olanzapine or trilafon even at a low dose to help with sleep. Given ongoing sleep challenges increasing Klonopin to 0.75 mg qhs prn to help address insomnia, mixed episode. Discussed risks, benefits,alternatives with her including risks of falls, cognitive impairment. She consented to and requested higher Klonopin dose. 12/18/20: refusing additional med changes. Received patient's feedback and when I did not react, reminded her that she specifically requested I not discuss it with her. 12/17/20: patient is refusing a trial of Trilafon. Thorazine will be d/c as refusing any dose at this point. 12/16/20: Klonopin 0.5 mg this hs with 10 mg Thorazine to address renzo and mood related sleep disturbance. Reviewed her fasting metabolic labs again from 10/27. 12/15/20: titrate klonopin and thorazine, patient refusing more therapeutic doses, challenging to redirect due to renzo, not sleeping, clearly not able to focus to care for self outside of the hospital. 12/14/20: LM for Dr. Arevalo, awaiting return call. In interim as patient is clearly more restlesss/manic will offer prn benzo (preferrably Ativan as shorter acting but she may not agree) and thorazine though lowest dose is PO. She is becoming increasingly intrussive in groups and is unable to care for basic needs outside of the hospital given unpredictable nature of her mood swings. 12/13/20: increase Metamucil, prune juice, staff to review belongings requests. The patient is not acutely agitated so best to wait for additional medications until can confirm past trials with Richardson and coordinate care with Dr. Arevalo. She denies suicidal ideation but is unable to care for self out of the hospital and is clearly exhibiting mood instability. 12/12/20: The patient was admitted to the [facility] on q15 min checks (behavioral with suicide precautions) for safety. The patient will participate in group, recreational, and milieu therapies and will be offered additional individual and family sessions as clinically appropriate. Continue current medications but hold Klonopin prn as not taking consistently and fall risk given age. Will coordinate care with Richardson on 12/14/20. Patient denies awareness of vitamin D deficiency and doesn't want to take additional supplements. Her BUN/Cr elevations are chronic/stable and not a direct result of dehydration. She was started on Keflex in the ED for a UTI and UC is pending. Mental Health & Subst Abuse Tx Psychiatrist Name of Psychiatrist: [facility] - Dr. Arevalo Psychiatrist's Date of Appointment with Psychiatrist: 12/28/20 Time of Appointment with Psychiatrist: 11:20 a.m. Psychiatric Appointment Comment: In person Therapist Name of Therapist: Richardson Lombardi Therapist's Date of Therapist Appointment: 12/24/20 Time of Therapist Appointment: 3:00pm (zoom) Therapy Appointment Comment: [address] [facility] Name of Balloon Sander: None Post Discharge Appointments Primary Care Physician Name Of Family Doctor: ABDIAZIZ Hernandes Primary [facility] Date of Appointment with PCP: 12/24/20 Time of Appointment with PCP: 11:15 a.m. Provider Appointment Comment: [address], [place] Contact Information Discharge Discharge Address: [address] [place] [id number] Discharge Plan Discharge Items Patient Disposition: Home - Self-Care Reason For Visit: DEPRESSION Discharge Diagnosis: Bipolar Affective Disorder, mixed episode Condition on Discharge: Good Activity: Resume your previous activity Non-emergency contact: Primary Care Provider, Psychiatrist and Therapist Call non-emergency contact if: you have any medication questions and your symptoms worsen Follow-up/Referrals: Mayra Hernandes CRNP [Primary Care Provider] - Diet: Regular Addtl Attending Provider Instructions: SPECIAL CARE INSTRUCTIONS: 1. Follow through with your scheduled aftercare appointments. If unable to keep an appointment, please call to reschedule. 2. Take your medication only as prescribed. Medication should not be changed or stopped without the approval of your doctor. In the event of worsening symptoms or concerns about side effects, contact your doctor immediately. 3. Utilize new healthy coping skills, anger management skills, and stress management skills learned during your hospitalization. Journal feelings and process them with a support person. Identify stressors or situations that may result in relapse, deterioration or inappropriate behaviors and develop a plan to deal with those issues. 4. If your coping skills are ineffective and you are in crisis, contact your outpatient providers for direction. If unable to reach your providers, please call the [facility] CRISIS LINE AT , go to the [facility] walk-in center at [address], [address], [place], or go to the closest Emergency Room. 5. Avoid alcohol and un-prescribed drugs. 6. You have been provided with the Mental Health Advance Directives Pamphlet for your review. 7. Your condition is stable for discharge to outpatient level of care, but recovery is an ongoing process. Ifthoughts to harm yourself or others return, follow the safety plan developed during your stay. Planning for a safe return home includes securing weapons. Our treatment team recommends weaponsbe removed from the home until your outpatient provider reassesses your progress. In rare cases where the items themselvescannot be removed, guns and ammunitionshould be secured separatelyand keys stored by a reliable personoutside of the home. If you were admitted on an involuntary commitment, the police or other legal authorities may be involved in this process. AFTERCARE APPOINTMENTS: * Please call your insurance company prior to your scheduled appointment to confirm your aftercare providers are covered. Take your insurance information to your appointments. WHO TO CALL AND WHEN: Medical Emergencies: For questions or emergencies related to your hospital stay, please contact the Inpatient Behavioral Health Unit at [phone]. A molecular pathologist is on-call 29/08 for the Behavioral Health Unit for emergencies At any time you feel your situation is an emergency, you may also call 911 immediately. Pending Studies at Discharge: No Stand-Alone Forms: My [facility] Medications and DC Order Prescriptions: Continued spironolacton-hydrochlorothiaz 25-25 mg tablet 0.5 tab PO BID Qty: 90 RF: 3 pantoprazole 40 mg tablet,delayed release (DR/EC) 40 mg PO DAILY Qty: 30 RF: 5 melatonin 3 mg capsule 6 mg PO HS RF: 0 hydroxyzine HCl 10 mg tablet 20 mg PO HS PRN (Reason: anxiety/insomnia) RF: 0 vitamin B complex Tablet 1 tab PO DAILY RF: 0 diclofenac sodium 1 % gel 1 g TOPICAL QID PRN (Reason: Pain) RF: 0 psyllium Powder 3 tsp PO DAILY RF: 0 clonazepam 0.5 mg tablet 0.5 - 1.5 mg PO HS PRN (Reason: Sleep) RF: 0 Glucosamine Sulf-Chondroitin 500-400 mg capsule 2 tab PO BID RF: 0 multivitamin Tablet 1 tab PO DAILY RF: 0 ascorbic acid (vitamin C) [Vitamin C] 500 mg tablet 1 gm PO QID RF: 0 lamotrigine 100 mg tablet 250 mg PO AMHS RF: 0 [place] 3 Fish Oil Capsule 2 cap PO DAILY RF: 0 Discharge Orders: Discharge Order (Routine); Ordered 12/24/20 Ordered By: Toma Mccormack Admission Data Admit Date/Time: 12/11/20 21:12 Attending Provider: Toma Mccormack Admit Provider: Cesilia Spencer Primary Care Provider: Mayra Hernandes Other Interventions: PSY Interdisciplinary Discharge Planning Last Done: 12/21/20 11:17 Coding Level of Care Code 74727 D/C day mgmt > 30 min Diagnoses Bipolar disease, chronic F31.9 Chronic renal insufficiency N18.9 Vitamin D deficiency E55.9
[2020-12-24] MEDS: SPIRONOLACTONE/HCTZ 25-25 PO SCH (10:03)
[2020-12-24] MEDS: lamoTRIgine 100 MG TAB PO SCH (10:04)
[2020-12-24] MEDS: PANTOprazole 40 MG TAB PO SCH (10:04)
[2020-12-24] MEDS: ASCORBIC ACID 500 MG TAB PO SCH (10:10)
== END 2020-12-24 10:48 | disposition home or self-care (01) | DRG 885 ==
LOC: ED 17:41 → 3S 21:07 → SUATTDRO 21:12 → 3S 21:12

== ENCOUNTER 2021-10-19 21:55 | Observation (INO) ==
--- NOTE | 2021-10-19 23:05 | Emergency Department Note ---
Impression & Plan Stroke-like episode ADMIT ED Provider Note HPI: The patient is a 76-year-old female who presents the emergency department the chief complaint of right arm numbness/tingling as well as some heaviness. Patient states that the symptoms began about 3 hours and 20 minutes prior to arrival to the ED. Patient states she developed some heaviness in her right arm and also had a tingling sensation in her right arm. Patient states that by the time she arrived here to the ED her symptoms had largely resolved but she still does have some tingling in her fingers. On arrival she does not have any focal deficits. Denies any recent injuries or pain. Patient denies any chest pain or shortness of breath, on arrival she is hemodynamically stable, she is otherwise in no acute distress on my initial evaluation. ROS: -Neuro: Numbness/tingling in right upper extremity, right upper extremity weakness (transient) *10 point review systems was conducted and is otherwise negative unless stated above *Outpatient medications and allergy history reviewed PE: General: Alert, NAD HEENT: Normocephalic, atraumatic Eyes: Extraocular eye movement is intact, no scleral erythema Pulmonary: Clear to auscultation bilaterally, no wheezing Cardio: Regular rate and rhythm GI: Abdomen is soft, nontender : No suprapubic tenderness MSK: No evidence of trauma or malformation of the extremities, no edema Skin: No evidence of rash Neuro: Alert, no focal deficits, no ataxia on [id number] testing bilaterally, symmetrical facial movements are appreciated, there is no drift of the upper extremities or lower extremities with testing against gravity Psychiatric: Cooperative energy scheduler: - An order was placed for continuous cardiac monitoring - Patient was noted to be in sinus rhythm with a rate of 70 CT HEAD: No acute abnormality. Compared to 08/13/2019. No acute intracranial hemorrhage or abnormal extra-axial fluid collection. No acute stroke. Non-specific white matter changes, most commonly seen with small vessel disease. Age-appropriate central and peripheral atrophy. No midline shift. Redemonstrated partially calcified extra-axial 7 x 9 mm mass at the lateral left frontal lobe, consistent with a meningioma. No significant mass-effect. No paranasal sinus air-fluid level. No fracture. Radiologist: Chay Prajapati M.D. CTA HEAD: IMPRESSION: No large vessel occlusion. FINDINGS: No intracranial thrombosis or occlusion. Mild atherosclerotic plaque at the cavernous internal carotid arteries without a hemodynamically significant stenosis. The anterior circulation including the intracranial internal carotid arteries, middle and anterior cerebral arteries are otherwise normal in appearance. Posterior circulation is unremarkable. No aneurysm or vascular malformation. Radiologist: Chay Prajapati M.D. CTA NECK: IMPRESSION: No hemodynamically significant stenosis. FINDINGS: No thrombosis or occlusion. No evidence for dissection. Mild atherosclerotic plaque at the bilateral carotid bulbs without a hemodynamically significant stenosis. Bilateral carotid and vertebral arteries are otherwise unremarkable. Degenerative changes of the cervical spine. 2.2 cm complex left thyroid mass. Radiologist: Chay Prajapati M.D. Study ready at 01:32 and initial results transmitted at 02:10 Communications: Clear Time Type Notes Call Doctor Stroke EKG: Rate: 67 Rhythm: Normal sinus rhythm Intervals: Within normal limits ST changes: No ST elevation Time: 2238 NIH STROKE SCALE: 1A: Level of consciousness Alert; keenly responsive 0 1B: Ask month and age Both questions right 0 1C: 'Blink eyes' & 'squeeze hands' Performs both tasks 0 2: Horizontal extraocular movements Normal 0 3: Visual medrano No visual loss 0 4: Facial palsy Normal symmetry 0 5A: Left arm motor drift No drift for 10 seconds 0 5B: Right arm motor drift No drift for 10 seconds 0 6A: Left leg motor drift No drift for 5 seconds 0 6B: Right leg motor drift No drift for 5 seconds 0 7: Limb Ataxia No ataxia 0 8: Sensation Mild-moderate loss: can sense being touched +1 9: Language/aphasia Normal; no aphasia 0 10: Dysarthria Normal 0 11: Extinction/inattention No abnormality 0 TOTAL NIH SCORE = 1 Medical Decision Making: Patient presented to the emergency department with paresthesia type sensation in the right upper extremity and also complained of some transient weakness that was resolved by the time she arrived to the ED. On arrival she is but does complain of some tingling in her hand, she states the weakness she previously experienced is resolved. Patient did arrive within a 4.5-hour window however her symptoms are largely resolved, I did discuss thrombolytic therapy with the patient and at this time given her rapid resolution of symptoms she is not thought to be an optimal candidate for this therapy, patient was in agreement following discussion of risk and benefit and states she would not like this medicine to be given, which I do feel is reasonable. CT Imaging of the head as well as CT angiography of the head and neck were obtained, no evidence of stroke or large vessel occlusion is noted. Patient's lab work is otherwise largely unremarkable, does show chronic kidney disease with creatinine of 1.54 which is near the patient's baseline. On reassessment she states that she is feeling improved, she does not have any motor deficits on my reassessment, still does complain of some tingling sensation in the distal right upper extremity. I do have concern that the patient may have had a lacunar infarct or TIA, given this, she will be admitted for MRI imaging, she was given aspirin prior to admission. [facility] Hospitalist service was consulted for admission and the patient was admitted in stable condition for further care. Diagnosis: 1. Strokelike episode 2. Paresthesia of the right upper extremity 3. Chronic kidney disease Disposition: ADMIT Vazquez Unger DO Emergency Medicine Past Med/Surg History Medical History (Updated 10/20/21 @ 02:19 by Vazquez Unger DO) Actinic keratosis Acute UTI Anxiety Benign skin lesion Bipolar I disorder Chronic renal insufficiency Depression Esophagitis, [place] grade D Familial hypercholesteremia Forearm fracture GERD with esophagitis Herpes simplex Hyperglycemia Hypertension Left knee DJD Urge and stress incontinence Surgical History H/O tooth extraction S/P knee surgery S/P rotator cuff repair S/P tonsillectomy Family History (Updated 04/16/21 @ 13:36 by SHANTEL Jerome) Mother Hypertension Sister Breast cancer Grandfather (Paternal) Myocardial infarction Father Prostate cancer Other Alzheimer disease Denies family history of Ovarian cancer Colorectal cancer Social History (Updated 04/16/21 @ 13:35 by SHANTEL Jerome) Smoking Status: Former smoker Tobacco Type: Cigarettes Second Hand Exposure: No; Hx Alcohol Use: No Hx Substance Use: No Preferred Language: Kazakh Communication Ability: Effective Information Security Consultant Required: No Beliefs That Will Affect Care: None marital status: Single current occupational status: retired Feels Safe at Home: Yes Childhood Exposure to Second-Hand Smoke: No Dental Care, Regularly: Yes Physical Activity Frequency: 3-4 Times per Week Seatbelt Use: always Sunscreen Use: Yes Assistive Devices: Glasses Allergies Allergies Allergy/AdvReac Type Severity Reaction Status Date / Time hydrocodone AdvReac Intermediate NAUSEA AND Verified 08/05/21 14:49 VOMITING meloxicam AdvReac Intermediate melana Verified 08/05/21 14:49 thioridazine AdvReac Intermediate RESTLESS Verified 08/05/21 14:49 LEG ziprasidone AdvReac Intermediate VOMITING/BLACK Verified 08/05/21 14:49 DIARRHEA Home Meds Home Medications Medication Instructions Recorded Confirmed vitamin B complex 1 tab PO DAILY 02/25/19 08/05/21 multivitamin 1 tab PO DAILY 06/25/19 08/05/21 diclofenac sodium 1 % topical gel 1 g topical QID PRN Pain 08/13/19 08/05/21 omega-3 fatty acids 2 cap PO DAILY 12/12/20 08/05/21 melatonin 3 mg capsule 6 mg PO HS 03/08/21 08/05/21 clonazepam 0.5 mg tablet 0.25 mg PO HS PRN Sleep 04/16/21 08/05/21 glucosamine sulfate dipotassium Cl 2 tab PO DAILY 04/16/21 08/05/21 500 mg-chondroitin 400 mg capsule (Glucosamine Sulfate 2 KCL-Chondroitin) mecobalamin (vitamin B12) 1,000 1,000 mcg sublingual DAILY 04/16/21 08/05/21 mcg disintegrating tablet,sublingual psyllium 3 tsp PO DAILY 04/16/21 08/05/21 ascorbic acid (vitamin C) 1,000 mg 2,000 mg PO .COMPLEX 07/16/21 08/05/21 tablet,extended release cariprazine 1.5 mg capsule 1.5 mg PO DAILY 07/16/21 08/05/21 (Vraylar) hydroxyzine HCl 10 mg tablet 20 mg PO HS anxiety/insomnia 08/05/21 08/05/21 lamotrigine 100 mg tablet 500 mg PO AMHS 08/05/21 08/05/21 Previous Rx's Medication Instructions Recorded spironolactone 25 1 tab PO DAILY hypertension #90 05/05/21 mg-hydrochlorothiazide 25 mg tablet tabs pantoprazole 20 mg tablet,delayed 20 mg PO BID PRN acid reflux #60 09/24/21 release tabs Results & Data (ED) Vital Signs Vital Signs - 24 hr 10/19/21 22:13 10/19/21 23:27 10/20/21 01:36 Temperature 36.7 C Temperature Source Temporal Artery Scan Pulse Rate 72 Pulse Rate [Right] 63 61 Respiratory Rate 18 16 16 Respiratory Effort / Characteristics Non-Labored Spontaneous Non-Labored Spontaneous Non-Labored Spontaneous Respiratory Depth Normal Normal Normal Respiratory Pattern Regular Blood Pressure 161/97 H Blood Pressure [Right Arm] 126/70 122/63 Blood Pressure Mean 118 Blood Pressure Mean [Right Arm] 88 82 Blood Pressure Position Sitting Blood Pressure Position [Right Arm] Lying Pulse Oximetry 96 93 96 Oxygen Delivery Method Room Air Room Air Room Air Sepsis Recent Fever Within 48 Hours No Sepsis New/Unexplained Change in Mental Status N/A Sepsis Action Taken by Nursing No Action Required Laboratory Data Result diagrams: 10/19/21 23:23 10/19/21 23:23 Lab Results 10/19/21 10/19/21 10/19/21 Range/Units 23:20 23:23 23:23 WBC 6.29 (4.8-10.8) K/ul RBC 3.87 L (3.93-5.22) M/uL Hgb 11.6 L (12.0-16.0) g/dl Hct 34.1 (34.1-44.9) % MCV 88.1 (80.0-100.0) fL MCH 30.0 (25.0-34.0) pg MCHC 34.0 (32.0-36.0) g/dL RDW Std Deviation 41.5 (36.4-46.3) fL RDW Coeff of Benny 12.9 (11.5-14.5) % Plt Count 269 (130-400) K/uL MPV 10.6 (9.4-12.3) fL Immature Gran % (Auto) 0.2 % Neut % (Auto) 60.1 % Lymph % (Auto) 25.9 % [place] % (Auto) 8.9 % Eos % (Auto) 4.1 % Baso % (Auto) 0.8 % Neut # (Auto) 3.78 (1.4-6.5) K/uL Lymph # (Auto) 1.63 (1.2-3.4) K/uL [place] # (Auto) 0.56 (0.24-0.82) K/uL Eos # (Auto) 0.26 (0-0.50) K/uL Baso # (Auto) 0.05 (0-0.2) K/uL Immature Gran # (Auto) 0.01 (0.00-0.02) K/uL APTT (21.0-31.0) Seconds PTT Ratio Sodium 139 (136-145) mmol/L Potassium 3.4 L (3.5-5.1) mmol/L Chloride 104 (98-107) mmol/L Carbon Dioxide 25 (21-32) mmol/L Anion Gap 10 (3-11) BUN 51 H (6-23) mg/dl Creatinine 1.54 H (0.6-1.2) mg/dl Est Cr Clr Drug Dosing 28.0 ml/min Est GFR ( Amer) 37.9 ml/min Est GFR (Non-Af Amer) 32.7 ml/min BUN/Creatinine Ratio 33.1 H (10-20) Glucose 91 (70-99(Fasting)) mg/dl Calcium 9.8 (8.5-10.1) mg/dl Magnesium 2.0 (1.7-2.4) mg/dl Total Bilirubin 0.3 (0.2-1.0) mg/dl AST 28 (13-39) U/L ALT 23 (7-52) U/L Alkaline Phosphatase 98 (34-104) U/L Troponin I High Sens 9.6 (0-14) pg/ml Total Protein 6.6 (6.0-8.3) gm/dl Albumin 3.9 (3.4-5.0) gm/dl Globulin 2.7 (2.5-4.0) gm/dl Albumin/Globulin Ratio 1.4 (0.9-2) Urine Color Urine Appearance (Clear) Urine pH (4.5-7.5) Ur Specific [place] (1.000-1.030) Urine Protein (Negative) Urine Glucose (UA) (Negative) Urine Ketones (Negative) Urine Blood (Negative) Urine Nitrite (Negative) Urine Bilirubin (Negative) Urine Urobilinogen (Negative) Ur Leukocyte Esterase (Negative) Urine WBC (Auto) (0-5) /hpf Urine RBC (Auto) (0-4) /hpf U Hyaline Cast (Auto) (0-5) /lpf U Epithel Cells (Auto) (0-5) /lpf Urine Bacteria (Auto) (Negative) SARS-CoV-2 (PCR) NEGATIVE (Negative) Influenza Type A (PCR) Negative (Neg) Influenza Type B (PCR) Negative (Neg) RSV (RT-PCR) Negative (Neg) 10/19/21 10/20/21 Range/Units 23:23 00:02 WBC (4.8-10.8) K/ul RBC (3.93-5.22) M/uL Hgb (12.0-16.0) g/dl Hct (34.1-44.9) % MCV (80.0-100.0) fL MCH (25.0-34.0) pg MCHC (32.0-36.0) g/dL RDW Std Deviation (36.4-46.3) fL RDW Coeff of Benny (11.5-14.5) % Plt Count (130-400) K/uL MPV (9.4-12.3) fL Immature Gran % (Auto) % Neut % (Auto) % Lymph % (Auto) % [place] % (Auto) % Eos % (Auto) % Baso % (Auto) % Neut # (Auto) (1.4-6.5) K/uL Lymph # (Auto) (1.2-3.4) K/uL [place] # (Auto) (0.24-0.82) K/uL Eos # (Auto) (0-0.50) K/uL Baso # (Auto) (0-0.2) K/uL Immature Gran # (Auto) (0.00-0.02) K/uL APTT 28.3 (21.0-31.0) Seconds PTT Ratio 1.0 Sodium (136-145) mmol/L Potassium (3.5-5.1) mmol/L Chloride (98-107) mmol/L Carbon Dioxide (21-32) mmol/L Anion Gap (3-11) BUN (6-23) mg/dl Creatinine (0.6-1.2) mg/dl Est Cr Clr Drug Dosing ml/min Est GFR ( Amer) ml/min Est GFR (Non-Af Amer) ml/min BUN/Creatinine Ratio (10-20) Glucose (70-99(Fasting)) mg/dl Calcium (8.5-10.1) mg/dl Magnesium (1.7-2.4) mg/dl Total Bilirubin (0.2-1.0) mg/dl AST (13-39) U/L ALT (7-52) U/L Alkaline Phosphatase (34-104) U/L Troponin I High Sens (0-14) pg/ml Total Protein (6.0-8.3) gm/dl Albumin (3.4-5.0) gm/dl Globulin (2.5-4.0) gm/dl Albumin/Globulin Ratio (0.9-2) Urine Color Yellow Urine Appearance Clear (Clear) Urine pH 7.0 (4.5-7.5) Ur Specific [place] 1.009 (1.000-1.030) Urine Protein 2+ H (Negative) Urine Glucose (UA) Negative (Negative) Urine Ketones Negative (Negative) Urine Blood Negative (Negative) Urine Nitrite Negative (Negative) Urine Bilirubin Negative (Negative) Urine Urobilinogen Negative (Negative) Ur Leukocyte Esterase Negative (Negative) Urine WBC (Auto) 1-5 (0-5) /hpf Urine RBC (Auto) 0-4 (0-4) /hpf U Hyaline Cast (Auto) 0 (0-5) /lpf U Epithel Cells (Auto) 0-5 (0-5) /lpf Urine Bacteria (Auto) Negative (Negative) SARS-CoV-2 (PCR) (Negative) Influenza Type A (PCR) (Neg) Influenza Type B (PCR) (Neg) RSV (RT-PCR) (Neg) Administered Medications Discontinued Medications Ioversol (Optiray 300 500ml) 125 ml IV ONCE ONE Stop: 10/20/21 01:22 Last Admin: 10/20/21 01:21 Dose: 115 ml Documented By: JUNIOR Discharge Plan Visit Data Chief Complaint: Arm Pain Stated Complaint: TINGLING IN ARM, NUMBNESS ED Provider: Vazquez Unger Discharge Problem: Stroke-like episode Forms Stand Alone Forms: My [facility] Prescriptions Prescriptions: No Action spironolacton-hydrochlorothiaz 25-25 mg tablet 1 tab PO DAILY Qty: 90 3RF pantoprazole 20 mg tablet,delayed release (DR/EC) 20 mg PO BID PRN (Reason: acid reflux) Qty: 60 2RF melatonin 3 mg capsule 6 mg PO HS mecobalamin (vitamin B12) 1,000 mcg tablet,disintegrating 1,000 mcg sublingual DAILY Rx Instructions: place tablet under tongue and allow to dissolve for at least30 secs before swallowing ascorbic acid (vitamin C) 1,000 mg tablet extended release 2,000 mg PO .COMPLEX Rx Instructions: 3,000 am 2,000 pm Vraylar 1.5 mg capsule 1.5 mg PO DAILY Label Comments: PATIENT TAKES THIS MEDICATION EVERY 3 DAYS hydroxyzine HCl 10 mg tablet 20 mg PO HS vitamin B complex Tablet 1 tab PO DAILY diclofenac sodium 1 % gel 1 g TOPICAL QID PRN (Reason: Pain) psyllium Powder 3 tsp PO DAILY Rx Instructions: Metamucil multivitamin Tablet 1 tab PO DAILY clonazepam 0.5 mg tablet 0.25 mg PO HS PRN (Reason: Sleep) Glucosamine Sulf-Chondroitin 500-400 mg capsule 2 tab PO DAILY lamotrigine 100 mg tablet 500 mg PO AMHS Label Comments: 300mg in the AM and 200mg in the PM - Total 500mg daily omega-3 fatty acids Capsule 2 cap PO DAILY Referrals Referrals: Henrietta Mathias MD [Primary Care Provider] -
[2021-10-20 00:07] LABS: Basophils # (auto) 0.05 K/uL (0-0.2); Basophils % (auto) 0.8 %; Eosinophils # (auto) 0.26 K/uL (0-0.50); Eosinophils % (auto) 4.1 %; Hematocrit (blood only) 34.1 % (34.1-44.9); Hemoglobin 11.6 g/dl (12.0-16.0); Immature Granulocytes # (auto) 0.01 K/uL (0.00-0.02); Immature Granulocytes % (auto) 0.2 %; Lymphocytes # (auto) 1.63 K/uL (1.2-3.4); Lymphocytes % (auto) 25.9 %; Mean Corpuscular Volume 88.1 fL (80.0-100.0); Mean Platelet Volume 10.6 fL (9.4-12.3); Monocytes # (auto) 0.56 K/uL (0.24-0.82); Monocytes % (auto) 8.9 %; Neutrophils # (auto) 3.78 K/uL (1.4-6.5); Neutrophils % (auto) 60.1 %; Platelet Count 269 K/uL (130-400); RDW Coefficient of Variation 12.9 % (11.5-14.5); RDW Standard Deviation 41.5 fL (36.4-46.3); Red Blood Count 3.87 M/uL (3.93-5.22); White Blood Count 6.29 K/ul (4.8-10.8)
[2021-10-20 00:19] LABS: Partial Thromboplastin Time 28.3 Seconds (21.0-31.0)
[2021-10-20 00:30] LABS: Appearance Urine Clear (Clear); Bacteria Urine Automated Negative (Negative); Bilirubin Urine Negative (Negative); Blood Urine Negative (Negative); Cast Urine Automated 0 /lpf (0-5); Color Urine Yellow; Epithelial Cell Urine Auto 0-5 /lpf (0-5); Glucose Urine UA Negative (Negative); Ketones Urine Negative (Negative); Leukocyte Esterase Urine Negative (Negative); Nitrite Urine Negative (Negative); Protein Urine 2+ (Negative); RBC Urine Automated 0-4 /hpf (0-4); Specific Gravity Urine 1.009 (1.000-1.030); Urobilinogen Urine Negative (Negative)
[2021-10-20 00:37] LABS: Albumin Globulin Ratio 1.4 (0.9-2); Albumin Level 3.9 gm/dl (3.4-5.0); BUN Creatinine Ratio 33.1 (10-20); Bilirubin,Total 0.3 mg/dl (0.2-1.0); Calcium 9.8 mg/dl (8.5-10.1); Est GFR (African American) 37.9 ml/min; Est GFR (Non-African American) 32.7 ml/min; Globulin 2.7 gm/dl (2.5-4.0); Potassium 3.4 mmol/L (3.5-5.1); Total Protein 6.6 gm/dl (6.0-8.3)
[2021-10-20 00:38] LABS: Troponin I High Sensitivity 9.6 pg/ml (0-14)
[2021-10-20 00:52] LABS: Influenza A virus by PCR Negative (Neg); Influenza B virus by PCR Negative (Neg); RSV by PCR Negative (Neg); SARS CoV2 RNA(COVID-19) InHosp NEGATIVE (Negative)
[2021-10-20] MEDS ORDERED: OPTIRAY 300 500mL IV ONE (01:21)
[2021-10-20] MEDS ORDERED: ASPIRIN CHEW 324 MG PO STA (02:24)
--- NOTE | 2021-10-20 03:16 | History & Physical Report ---
Date of Service October 20, 2021 Assessment & Plan (1) Stroke-like episode: Plan: Lisbeth Li is a 76-year-old female with past medical history of bipolar 1 disorder, anxiety, CKD 3, GERD, hyperlipidemia who presented due to right arm weakness and numbness. Strokelike symptoms With negative CT head, CTA H/N Symptoms largely resolved by the time of her arrival to the hospital Concerning for possible small infarct versus TIA Received ASA 324 mg x 1 in ED consider 81 mg daily depending on imaging findings MRI brain ordered Lipids, A1c in a.m. Per chart reports of hypercholesterolemia, patient reticent to start statin at her last PCP visit Admit to med telemetry Thyroid mass 2.2 cm complex left thyroid mass seen on CTA neck Per chart review history of solitary thyroid nodule, but unclear whether any specific work-up was done for this TSH and free T4 with a.m. labs Can consider ultrasound to further guide work-up, i.e. need for FNA Bipolar 1 disorder/anxiety/insomnia Continue home cariprazine, clonazepam as needed, hydroxyzine as needed, lamotrigine, melatonin as needed Hypertension Continue home spironolactonehydrochlorothiazide GERD Continue home pantoprazole DVT prophylaxis: SCDs Diet: Heart healthy Dispo: Admit to med telemetry CODE STATUS: Full (2) Bipolar I disorder: (3) GERD with esophagitis: (4) Hypercholesterolemia: (5) Anxiety: (6) Solitary thyroid nodule: (7) Hypertension: History of Present Illness Primary Care Provider: Henrietta Mathias MD Lisbeth Li is a 76-year-old female with past medical history of bipolar 1 disorder, anxiety, CKD 3, GERD, hyperlipidemia who presented due to right arm weakness and numbness. Symptoms started earlier tonight the patient states they have been largely gone away since she arrived. Does still report some mild tingling in her fingers of the right hand. Upon my evaluation, the patient is quite sleepy. But does respond to questions appropriately and is oriented. She denies headache, dizziness, vision changes, nausea, vomiting, abdominal pain, chest pain, palpitations, shortness of breath, weakness of any of her other limbs. In ED had CT head negative for acute findings, CTA head negative for acute finding/stenosis, CTA neck negative for stenosis but did note 2.2 cm thyroid mass (see stat rad read for full details). Lab work showed normal white count, anemia with hemoglobin of 11.6, normal platelet count, potassium level of 3.4, BUN of 51 and creatinine of 1.54, which is baseline for her in the setting of CKD 3. She did have a BUN/creatinine ratio of 33.1. She received aspirin 324 mg x 1. Allergies Allergy/AdvReac Type Severity Reaction Status Date / Time hydrocodone AdvReac Intermediate NAUSEA AND Verified 10/20/21 02:34 VOMITING meloxicam AdvReac Intermediate melana Verified 10/20/21 02:34 thioridazine AdvReac Intermediate RESTLESS Verified 10/20/21 02:34 LEG ziprasidone AdvReac Intermediate VOMITING/BLACK Verified 10/20/21 02:34 DIARRHEA Home Medications Medication Instructions Recorded Confirmed Type vitamin B complex 1 tab PO DAILY 02/25/19 10/20/21 History multivitamin 1 tab PO DAILY 06/25/19 10/20/21 History diclofenac sodium 1 % topical gel 1 g topical QID PRN Pain 08/13/19 10/20/21 History omega-3 fatty acids 2 cap PO DAILY 12/12/20 10/20/21 History melatonin 3 mg capsule 6 mg PO HS 03/08/21 10/20/21 History clonazepam 0.5 mg tablet 0.25 mg PO HS PRN Sleep 04/16/21 10/20/21 History glucosamine sulfate dipotassium Cl 2 tab PO DAILY 04/16/21 10/20/21 History 500 mg-chondroitin 400 mg capsule (Glucosamine Sulfate 2 KCL-Chondroitin) mecobalamin (vitamin B12) 1,000 1,000 mcg sublingual DAILY 04/16/21 10/20/21 History mcg disintegrating tablet,sublingual psyllium 3 tsp PO DAILYBB 04/16/21 10/20/21 History spironolactone 25 1 tab PO DAILY hypertension #90 05/05/21 10/20/21 Rx mg-hydrochlorothiazide 25 mg tablet tabs ascorbic acid (vitamin C) 1,000 mg See Rx Instructions .Route .COMPLEX 07/16/21 10/20/21 History tablet,extended release cariprazine 1.5 mg capsule 1.5 mg PO .EVERY 3RD DAY 07/16/21 10/20/21 History (Vraylar) lamotrigine 100 mg tablet See Rx Instructions .Route .COMPLEX 08/05/21 10/20/21 History pantoprazole 20 mg tablet,delayed 20 mg PO Q OTHER DAY PRN Dyspepsia 10/20/21 10/20/21 History release topiramate 50 mg tablet (Topamax) 50 mg PO HS 10/20/21 10/20/21 History Past Med/Surg History Medical History (Updated 10/20/21 @ 02:19 by Vazquez Unger, DO) Actinic keratosis Acute UTI Anxiety Benign skin lesion Bipolar I disorder Chronic renal insufficiency Depression Esophagitis, [place] grade D Familial hypercholesteremia Forearm fracture GERD with esophagitis Herpes simplex Hyperglycemia Hypertension Left knee DJD Urge and stress incontinence Surgical History H/O tooth extraction S/P knee surgery S/P rotator cuff repair S/P tonsillectomy Family History (Updated 04/16/21 @ 13:36 by SHANTEL Jerome) Mother Hypertension Sister Breast cancer Grandfather (Paternal) Myocardial infarction Father Prostate cancer Other Alzheimer disease Denies family history of Ovarian cancer Colorectal cancer Social History (Updated 04/16/21 @ 13:35 by SHANTEL Jerome) Smoking Status: Former smoker Tobacco Type: Cigarettes Second Hand Exposure: No; Hx Alcohol Use: No Hx Substance Use: No Preferred Language: Icelandic Communication Ability: Effective Team Manager Required: No Beliefs That Will Affect Care: None marital status: Single Current Living Situation: Alone current occupational status: retired Feels Safe at Home: Yes Childhood Exposure to Second-Hand Smoke: No Dental Care, Regularly: Yes Physical Activity Frequency: 3-4 Times per Week Seatbelt Use: always Sunscreen Use: Yes Assistive Devices: Glasses Review of Systems Review of Systems: Per HPI Physical Exam Physical Exam: GENERAL: A&Ox3. NAD. Sleepy. HEENT: PERRL, EOMI. Moist mucous membranes. NECK: No JVD. No lymphadenopathy. CHEST/LUNGS: CTAB A/P. No crackles, wheezes, rales, rhonchi. HEART: RRR. No m/g/r. No carotid bruits. ABDOMEN: NT/ND, soft. BS+ x4 EXTREMITIES: No cyanosis, no clubbing, no edema SKIN: Warm and dry. No rashes or lesions. PSYCHIATRIC: Euthymic affect, no SI, no pressured speech, no hallucinations NEUROLOGIC: No FND. CN II-XII grossly intact. Results & Data Results & Data ([facility]) Vital Signs (Past 12 Hours) Vital Signs Temp Pulse Pulse Resp BP BP Pulse Ox 10/20/21 03:00 57 L 16 112/62 96 10/20/21 01:36 61 16 122/63 96 10/19/21 23:27 63 16 126/70 93 10/19/21 22:13 36.7 C 72 18 161/97 H 96 O2 Del Method 10/20/21 03:00 Room Air 10/20/21 01:36 Room Air 10/19/21 23:27 Room Air 10/19/21 22:13 Room Air Code Status & VTE Plan VTE Prophylaxis Plan VTE Prophylaxis will be ordered: Yes Supervising Physician Co-Signing Physician Notes Attending addendum: I have physically seen this patient, have supervised the medical residents activities, and agree with the H&P unless as otherwise noted. Assessment and Plan: Strokelike symptoms- Transient right upper extremity weakness CT head, CTA head and neck negative Order MRI brain Status post aspirin 324 mg in ED Start on aspirin 81 mg every morning Check a fasting lipid panel hemoglobin A1c Stroke that tPA order set 2.2 cm complex left thyroid mass- Noted on CTA neck Check TSH and free T4 Ultrasound to further characterize Bipolar 1 disorder/anxiety/insomnia- Continue cariprazine, clonazepam, hydroxyzine, lamotrigine and melatonin as noted Remaining orders and notations as noted Resident Activity Tracking Resident Involvement: Resident Care Provided Care Provided: Adult Hospital Medicine
[2021-10-20] MEDS ORDERED: ONDANSETRON INJ 2 MG/ML 2 ML VIAL IV PRN (03:41)
[2021-10-20] MEDS ORDERED: PHARMACIST DISCHARGE MED REC CONSULT PRN (03:41)
[2021-10-20] MEDS ORDERED: POLYETHYLENE (MIRALAX) 17 GM PACK PO PRN (03:41)
[2021-10-20] MEDS ORDERED: ACETAMINOPHEN 325 MG TAB PO PRN (03:41)
[2021-10-20] MEDS ORDERED: DICLOFENAC SOD 1% GEL 100 GM TUBE EXT PRN (03:41)
[2021-10-20] MEDS ORDERED: SODIUM CHLORIDE 0.9% 1000ML 1,000 ML IV SCH (03:41)
[2021-10-20] MEDS: clonazePAM 0.25 MG TAB PO PRN ×2 (04:08→22:32)
[2021-10-20] MEDS ORDERED: PANTOprazole 40 MG TAB PO PRN (05:33)
[2021-10-20 05:53] LABS: Basophils # (auto) 0.07 K/uL (0-0.2); Basophils % (auto) 1.5 %; Eosinophils % (auto) 6.4 %; Hematocrit (blood only) 33.9 % (34.1-44.9); Hemoglobin 11.2 g/dl (12.0-16.0); Lymphocytes # (auto) 1.33 K/uL (1.2-3.4); Lymphocytes % (auto) 28.2 %; Mean Corpuscular Hemoglobin 29.3 pg (25.0-34.0); Mean Corpuscular Volume 88.7 fL (80.0-100.0); Mean Platelet Volume 10.1 fL (9.4-12.3); Monocytes # (auto) 0.51 K/uL (0.24-0.82); Monocytes % (auto) 10.8 %; Neutrophils % (auto) 53.1 %; Platelet Count 256 K/uL (130-400); RDW Coefficient of Variation 13.1 % (11.5-14.5); RDW Standard Deviation 42.4 fL (36.4-46.3); Red Blood Count 3.82 M/uL (3.93-5.22); White Blood Count 4.71 K/ul (4.8-10.8)
[2021-10-20] MEDS: PSYLLIUM or GUAR GUM FIBER POWDER PACKET PO SCH (06:05)
[2021-10-20 06:21] LABS: BUN Creatinine Ratio 29.4 (10-20); Calcium 9.5 mg/dl (8.5-10.1); Chol HDL Ratio 2.7 (0-5); Creatinine Clr Calc Pharmacy 27.3 ml/min; Est GFR (African American) 36.2 ml/min; Est GFR (Non-African American) 31.2 ml/min; Potassium 3.2 mmol/L (3.5-5.1)
[2021-10-20 06:33] LABS: Thyroid Stimulating Hormone 1.809 uIu/ml (0.300-4.500)
[2021-10-20 06:35] LABS: T4 Free Thyroxine 0.81 ng/dl (0.61-1.60)
--- NOTE | 2021-10-20 07:10 | CT Scan Report ---
CT angio head w con, CT angio neck with con CLINICAL HISTORY: 76 years-old Female with Stroke Like Symptoms. Acute strokelike symptoms COMPARISON STUDY: Head CT of same day, thyroid ultrasound 04/02/2015. TECHNIQUE: Following the IV administration of 115 cc of Optiray, CT angiogram of the head and neck wa s performed from the aortic arch to the skull apex. Images are reviewed in the axial, sagittal, and c oronal planes. 3-D MIPS images are created and assessed. IV contrast was administered without complic ation. All measurements were obtained according to NASCET criteria. A dose lowering technique was uti lized adhering to the principles of ALARA. CT DOSE: 1177.61 mGy.cm FINDINGS: Three-vessel morphology of the thoracic aortic arch. There is patency of the innominate and imaged cohen bclavian arteries. The common and internal carotid arteries are widely patent. Atherosclerotic plaque of the carotid bulbs results in less than 50% stenosis bilaterally. Mild calcified plaque of the cli noid and supraclinoid segments of the internal carotid arteries without significant stenosis. The mid dle and anterior cerebral arteries appear patent. Codominant and patent vertebral arteries. The basil ar and posterior cerebral arteries appear patent. Cerebral venous sinuses are patent. 9 mm meningioma adjacent to left frontal lobe. No pneumothorax. 2 .7 cm heterogeneous left thyroid nodule, stable from prior. Mild mucosal thickening of the right maxi llary sinus. Degenerative changes of the spine. No pneumothorax. IMPRESSION: 1. Mild atherosclerotic vascular disease without aneurysm, high-grade stenosis, dissection or arteria l occlusion. 2. 9 mm meningioma adjacent to the left frontal lobe. ACT 112: Negative or not required by law. The above report was generated using voice recognition software. It may contain grammatical, syntax o r spelling errors. Electronically signed by: Isaias Neumann M.D. 10/20/2021 7:08 AM
--- NOTE | 2021-10-20 07:10 | CT Scan Report ---
CT head/brain wo con CLINICAL HISTORY: 76 years-old Female with Stroke Like Symptoms. Acute strokelike symptoms TECHNIQUE: Multiple axial CT images of the head were obtained without contrast. A dose lowering tech nique was utilized adhering to the principles of ALARA. COMPARISON: CTA head and neck of same day FINDINGS: No acute intracranial hemorrhage, midline shift, intra-axial mass, hydrocephalus, territorial ischemi a or abnormal extra-axial collection. Involutional changes with ex vacuo ventriculomegaly. White davon er hypodensities suggest chronic microvascular ischemic disease. Partially calcified 8 x 9 mm extra-a xial lesion adjacent to left frontal lobe, image 17 series 2. This results in mild mass effect withou t edema of the adjacent brain parenchyma. The calvarium is intact. The paranasal sinuses, mastoid air cells, and middle ear cavities are clear . IMPRESSION: 1. No acute intracranial abnormality. 2. Involutional changes with chronic microvascular ischemic disease. 3. 9 mm hyperdense extra-axial lesion adjacent to left frontal lobe is suggestive of a meningioma. ACT 112: Negative or not required by law. The above report was generated using voice recognition software. It may contain grammatical, syntax o r spelling errors. Electronically signed by: Isaias Neumann M.D. 10/20/2021 7:08 AM
[2021-10-20 07:44] LABS: Estimated Average Glucose 128 mg/dl; Hemoglobin A1C 6.1 % (4.5-5.6)
[2021-10-20] MEDS: lamoTRIgine 100 MG TAB PO SCH (08:26)
[2021-10-20] MEDS: MULTIVITAMIN TAB PO SCH (08:26)
[2021-10-20] MEDS: CYANOCOBALAMIN (B-12) 500 MCG TABLET PO SCH (08:27)
[2021-10-20] MEDS: VITAMIN B COMPLEX TAB PO SCH (08:27)
[2021-10-20] MEDS: SPIRONOLACTONE/HCTZ 25-25 PO SCH (08:27)
[2021-10-20] MEDS ORDERED: OMEGA-3 (PURIFIED FISH OIL) 1 GM CAP PO SCH (09:00)
[2021-10-20] MEDS ORDERED: GLUCOSAMINE SU PO SCH (09:00)
[2021-10-20] MEDS ORDERED: PSYLLIUM or GUAR GUM FIBER POWDER PACKET PO SCH (09:00)
[2021-10-20] MEDS ORDERED: POTASSIUM CHLORIDE CRTAB 20 MEQ TABCR PO STA (09:12)
[2021-10-20] MEDS ORDERED: GADOBUTROL 65ML VIAL IV ONE (10:01)
--- NOTE | 2021-10-20 12:15 | Electrocardiogram Report ---
Test Reason : Blood Pressure : / mmHG Vent. Rate : 067 BPM Atrial Rate : 067 BPM P-R Int : 180 ms QRS Dur : 092 ms QT Int : 400 ms P-R-T Axes : 061 046 046 degrees QTc Int : 422 ms Normal sinus rhythm Normal ECG When compared with ECG of 13-AUG-2019 20:50, No significant change was found Confirmed by Martinez Akhtar ([id number]) on 10/20/2021 12:15:06 PM Referred By: REFERRED SELF Confirmed By:Martinez Akhtar
[2021-10-20] MEDS: PANTOprazole 40 MG TAB PO SCH (14:18)
--- NOTE | 2021-10-20 15:17 | XCELERA ---
[id number]
--- NOTE | 2021-10-20 15:22 | Magnetic Resonance Report ---
MR brain wo/w con HISTORY: 76 years-old Female stroke r/o acute strokelike symptoms with right upper extremity weaknes s COMPARISON: CT head and CTA head and neck studies of same day TECHNIQUE: Multiplanar multisequence MRI of the brain was obtained both with and without the use of 7 cc Gadavist FINDINGS: No restricted diffusion to suggest acute or subacute infarct. Midline structures are unremarkable. De generative changes of the cervical spine with posterior disc osteophyte complex at C2/C3 resulting in mild central canal stenosis. Motion degraded exam. No acute intracranial hemorrhage, midline shift, abnormal extra-axial collection, hydrocephalus or intra-axial mass. Age-related involutional changes. Moderate T2/FLAIR hyperintense foci noted throughout the white matter. Enhancing 9 x 9 mm extra-axia l lesion adjacent to the left frontal temporal lobe, image 14 series 11. No significant mass effect. Cerebral venous sinuses and major arterial flow voids appear patent. Skull, orbits and soft tissues a re unremarkable. Partially imaged mild polypoid because of thickening of the right maxillary sinus. IMPRESSION: 1. No acute intracranial abnormality. No acute or subacute infarct. 2. 9 mm meningioma adjacent to the left cerebral convexity. 3. Age-related involutional changes with chronic microvascular ischemic disease. ACT 112: Negative or not required by law. The above report was generated using voice recognition software. It may contain grammatical, syntax o r spelling errors. Electronically signed by: Isaias Neumann M.D. 10/20/2021 3:20 PM
--- NOTE | 2021-10-20 20:25 | Billing Data ---
Date of Service October 20, 2021 Coding Level of Care Code INT OBSERVATION CARE 70M LVL 3
[2021-10-20] MEDS ORDERED: lamoTRIgine 100 MG TAB PO SCH (21:00)
[2021-10-20] MEDS ORDERED: hydrOXYzine HCl 10 MG TAB PO SCH (21:00)
[2021-10-20] MEDS ORDERED: MELATONIN 3 MG TAB PO SCH (21:00)
[2021-10-20] MEDS ORDERED: TOPIRAMATE 50 MG TAB PO SCH (21:00)
--- NOTE | 2021-10-20 21:08 | Hospitalist Progress Note ---
Date of Service October 20, 2021 Assessment & Plan (1) Right arm numbness: Plan: full TIA/stroke w/u negative except for tiny meningioma left frontal lobe region tele negative for PAF MRI Brain negative for old or new CVA CTA head/neck without occlusion, aneurysm, dissection she has had 2+ weeks of neck pain and now the right arm numbness; thus, right arm symptoms may be radiculopathy from the cervical spine will obtain cervical spine MRI and then re-eval consider outpatient NCS/EMG cont asa low-dose in meantime (2) Meningioma: Plan: 9mm, left frontal region appears asymptomatic incidental finding will need yearly surveillance of this lesion (3) Thyroid nodule greater than or equal to 1.5 cm in diameter incidentally noted on imaging study: Plan: 2.7 cm heterogeneous left thyroid nodule will refer to endo post-discharge may need biopsy given the size TSH and FT4 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 (4) Solitary thyroid nodule: Plan: as above (5) Bipolar I disorder: Plan: cont home meds (6) GERD with esophagitis: Plan: PPI (7) Hypercholesterolemia: Plan: LDL = 111 HDL = 71 depending on rest of "TIA" work-up may or may not need therapy for this (8) Anxiety: Plan: cont home meds (9) Hypertension: Plan: cont HCTZ/aldactone HCTZ is the cause of low K low K replaced (10) Chronic kidney disease, stage IV (severe): Plan: baseline creatinine ~1.5 to 1.6 BMP am Plan await c-spine MRI Admission and Anticipated Discharge Date Admission Date: October 20, 2021 Subjective patient reports ongoing mild numbness extending from the posterior neck region, down the right arm, and into the right hand it is not as bad as previous but still present no weakness she notes she has had 2+ weeks of neck pain saw [facility] for this recently they had talked about potentially obtaining advanced imaging of the neck if things didn't improve with her neck pain denies any right leg symptoms denies any left arm or left leg symptoms speech is clear no dysphagia tele overnight wnl Review of Systems Review of Systems: gen - feels well cv - no cp pulm - no dyspnea GI - no abd pain, nausea, or emesis Physical Exam Physical Exam: gen - NAD neck - mild discomfort base of neck posteriorly, rotation of neck relatively intact; no JVD heart - RRR, s1 s2 lungs - CTA b/l abd - soft NT ND BS+ ext - no edema, pulses 2+ b/l neuro - no facial droop; strength 5/5 x 4 exts; sensation intact to light touch b/l upper extremities; no pronator drift psych - a/o x 3, pressured speech at times Results & Data Results & Data ([facility]) Vital Signs (Past 12 Hours) Vital Signs Temp Pulse Pulse Resp BP Pulse Ox O2 Del Method 10/20/21 19:24 36.4 C L 70 18 128/67 98 Room Air 10/20/21 15:36 36.9 C 58 L 18 125/68 92 Room Air 10/20/21 14:19 66 10/20/21 11:17 36.8 C 66 18 160/95 H 99 Laboratory Results Laboratory Results - last 24 hr 10/19/21 10/19/21 10/19/21 23:20 23:23 23:23 WBC 6.29 RBC 3.87 L Hgb 11.6 L Hct 34.1 MCV 88.1 MCH 30.0 MCHC 34.0 RDW Std Deviation 41.5 RDW Coeff of Benny 12.9 Plt Count 269 MPV 10.6 Immature Gran % (Auto) 0.2 Neut % (Auto) 60.1 Lymph % (Auto) 25.9 Eagle % (Auto) 8.9 Eos % (Auto) 4.1 Baso % (Auto) 0.8 Neut # (Auto) 3.78 Lymph # (Auto) 1.63 Eagle # (Auto) 0.56 Eos # (Auto) 0.26 Baso # (Auto) 0.05 Immature Gran # (Auto) 0.01 APTT PTT Ratio Sodium 139 Potassium 3.4 L Chloride 104 Carbon Dioxide 25 Anion Gap 10 BUN 51 H Creatinine 1.54 H Est Cr Clr Drug Dosing 28.0 Est GFR ( Amer) 37.9 Est GFR (Non-Af Amer) 32.7 BUN/Creatinine Ratio 33.1 H Glucose 91 Estimat Average Glucose Hemoglobin A1c Calcium 9.8 Magnesium 2.0 Total Bilirubin 0.3 AST 28 ALT 23 Alkaline Phosphatase 98 Troponin I High Sens 9.6 Total Protein 6.6 Albumin 3.9 Globulin 2.7 Albumin/Globulin Ratio 1.4 Triglycerides Cholesterol LDL Cholesterol, Calc VLDL Cholesterol, Calc HDL Cholesterol Cholesterol/HDL Ratio TSH Free T4 Urine Color Urine Appearance Urine pH Ur Specific Dime Box Urine Protein Urine Glucose (UA) Urine Ketones Urine Blood Urine Nitrite Urine Bilirubin Urine Urobilinogen Ur Leukocyte Esterase Urine WBC (Auto) Urine RBC (Auto) U Hyaline Cast (Auto) U Epithel Cells (Auto) Urine Bacteria (Auto) SARS-CoV-2 (PCR) NEGATIVE Influenza Type A (PCR) Negative Influenza Type B (PCR) Negative RSV (RT-PCR) Negative 10/19/21 10/20/21 10/20/21 23:23 00:02 05:29 WBC 4.71 L RBC 3.82 L Hgb 11.2 L Hct 33.9 L MCV 88.7 MCH 29.3 MCHC 33.0 RDW Std Deviation 42.4 RDW Coeff of Benny 13.1 Plt Count 256 MPV 10.1 Immature Gran % (Auto) 0.0 Neut % (Auto) 53.1 Lymph % (Auto) 28.2 Eagle % (Auto) 10.8 Eos % (Auto) 6.4 Baso % (Auto) 1.5 Neut # (Auto) 2.50 Lymph # (Auto) 1.33 Eagle # (Auto) 0.51 Eos # (Auto) 0.30 Baso # (Auto) 0.07 Immature Gran # (Auto) 0.00 APTT 28.3 PTT Ratio 1.0 Sodium Potassium Chloride Carbon Dioxide Anion Gap BUN Creatinine Est Cr Clr Drug Dosing Est GFR ( Amer) Est GFR (Non-Af Amer) BUN/Creatinine Ratio Glucose Estimat Average Glucose Hemoglobin A1c Calcium Magnesium Total Bilirubin AST ALT Alkaline Phosphatase Troponin I High Sens Total Protein Albumin Globulin Albumin/Globulin Ratio Triglycerides Cholesterol LDL Cholesterol, Calc VLDL Cholesterol, Calc HDL Cholesterol Cholesterol/HDL Ratio TSH Free T4 Urine Color Yellow Urine Appearance Clear Urine pH 7.0 Ur Specific Dime Box 1.009 Urine Protein 2+ H Urine Glucose (UA) Negative Urine Ketones Negative Urine Blood Negative Urine Nitrite Negative Urine Bilirubin Negative Urine Urobilinogen Negative Ur Leukocyte Esterase Negative Urine WBC (Auto) 1-5 Urine RBC (Auto) 0-4 U Hyaline Cast (Auto) 0 U Epithel Cells (Auto) 0-5 Urine Bacteria (Auto) Negative SARS-CoV-2 (PCR) Influenza Type A (PCR) Influenza Type B (PCR) RSV (RT-PCR) 10/20/21 10/20/21 10/20/21 05:29 05:29 05:29 WBC RBC Hgb Hct MCV MCH MCHC RDW Std Deviation RDW Coeff of Benny Plt Count MPV Immature Gran % (Auto) Neut % (Auto) Lymph % (Auto) Eagle % (Auto) Eos % (Auto) Baso % (Auto) Neut # (Auto) Lymph # (Auto) Eagle # (Auto) Eos # (Auto) Baso # (Auto) Immature Gran # (Auto) APTT PTT Ratio Sodium 138 Potassium 3.2 L Chloride 104 Carbon Dioxide 28 Anion Gap 6 BUN 47 H Creatinine 1.60 H Est Cr Clr Drug Dosing 27.3 Est GFR ( Amer) 36.2 Est GFR (Non-Af Amer) 31.2 BUN/Creatinine Ratio 29.4 H Glucose 117 H Estimat Average Glucose 128 Hemoglobin A1c 6.1 H Calcium 9.5 Magnesium Total Bilirubin AST ALT Alkaline Phosphatase Troponin I High Sens Total Protein Albumin Globulin Albumin/Globulin Ratio Triglycerides 54 Cholesterol 193 LDL Cholesterol, Calc 111 VLDL Cholesterol, Calc 11 HDL Cholesterol 71 Cholesterol/HDL Ratio 2.7 TSH 1.809 Free T4 0.81 Urine Color Urine Appearance Urine pH Ur Specific Dime Box Urine Protein Urine Glucose (UA) Urine Ketones Urine Blood Urine Nitrite Urine Bilirubin Urine Urobilinogen Ur Leukocyte Esterase Urine WBC (Auto) Urine RBC (Auto) U Hyaline Cast (Auto) U Epithel Cells (Auto) Urine Bacteria (Auto) SARS-CoV-2 (PCR) Influenza Type A (PCR) Influenza Type B (PCR) RSV (RT-PCR) Diagnostic Findings Head CT 10/19/21 23:14 CT head/brain wo con CLINICAL HISTORY: 76 years-old Female with Stroke Like Symptoms. Acute strokelike symptoms TECHNIQUE: Multiple axial CT images of the head were obtained without contrast. A dose lowering technique was utilized adhering to the principles of ALARA. COMPARISON: CTA head and neck of same day FINDINGS: No acute intracranial hemorrhage, midline shift, intra-axial mass, hydro cephalus, territorial ischemia or abnormal extra-axial collection. Involutional changes with ex vacuo ventriculomegaly. White matter hypodensities suggest chronic microvascular ischemic disease. Partially calcified 8 x 9 mm extra-axial lesion adjacent to left frontal lobe, image 17 series 2. This results in mild mass effect without edema of the adjacent brain parenchyma. The calvarium is intact. The paranasal sinuses, mastoid air cells, and middle ear cavities are clear. IMPRESSION: 1. No acute intracranial abnormality. 2. Involutional changes with chronic microvascular ischemic disease. 3. 9 mm hyperdense extra-axial lesion adjacent to left frontal lobe is suggestive of a meningioma. ACT 112: Negative or not required by law. The above report was generated using voice recognition software. It may contain grammatical, syntax or spelling errors. Electronically signed by: Isaias Neumann M.D. 10/20/2021 7:08 AM Head CTA 10/19/21 23:14 CT angio head w con, CT angio neck with con CLINICAL HISTORY: 76 years-old Female with Stroke Like Symptoms. Acute strokelike symptoms COMPARISON STUDY: Head CT of same day, thyroid ultrasound 04/02/2015. TECHNIQUE: Following the IV administration of 115 cc of Optiray, CT angiogram of the head and neck was performed from the aortic arch to the skull apex. Images are reviewed in the axial, sagittal, and coronal planes. 3-D MIPS images are created and assessed. IV contrast was administered without complication. All measurements were obtained according to NASCET criteria. A dose lowering technique was utilized adhering to the principles of ALARA. CT DOSE: 1177.61 mGy.cm FINDINGS: Three-vessel morphology of the thoracic aortic arch. There is patency of the innominate and imaged subclavian arteries. The common and internal carotid arteries are widely patent. Atherosclerotic plaque of the carotid bulbs results in less than 50% stenosis bilaterally. Mild calcified plaque of the clinoid and supraclinoid segments of the internal carotid arteries without significant stenosis. The middle and anterior cerebral arteries appear patent. Codominant and patent vertebral arteries. The basilar and posterior cerebral arteries appear patent. Cerebral venous sinuses are patent. 9 mm meningioma adjacent to left frontal lobe. No pneumothorax. 2.7 cm heterogeneous left thyroid nodule, stable from prior. Mild mucosal thickening of the right maxillary sinus. Degenerative changes of the spine. No pneumothorax. IMPRESSION: 1. Mild atherosclerotic vascular disease without aneurysm, high-grade stenosis, dissection or arterial occlusion. 2. 9 mm meningioma adjacent to the left frontal lobe. ACT 112: Negative or not required by law. The above report was generated using voice recognition software. It may contain grammatical, syntax or spelling errors. Electronically signed by: Isaias Neumann M.D. 10/20/2021 7:08 AM Neck CTA 10/19/21 23:14 CT angio head w con, CT angio neck with con CLINICAL HISTORY: 76 years-old Female with Stroke Like Symptoms. Acute strokelike symptoms COMPARISON STUDY: Head CT of same day, thyroid ultrasound 04/02/2015. TECHNIQUE: Following the IV administration of 115 cc of Optiray, CT angiogram of the head and neck was performed from the aortic arch to the skull apex. Images are reviewed in the axial, sagittal, and coronal planes. 3-D MIPS images are created and assessed. IV contrast was administered without complication. All measurements were obtained according to NASCET criteria. A dose lowering technique was utilized adhering to the principles of ALARA. CT DOSE: 1177.61 mGy.cm FINDINGS: Three-vessel morphology of the thoracic aortic arch. There is patency of the innominate and imaged subclavian arteries. The common and internal carotid arteries are widely patent. Atherosclerotic plaque of the carotid bulbs results in less than 50% stenosis bilaterally. Mild calcified plaque of the clinoid and supraclinoid segments of the internal carotid arteries without significant stenosis. The middle and anterior cerebral arteries appear patent. Codominant and patent vertebral arteries. The basilar and posterior cerebral arteries appear patent. Cerebral venous sinuses are patent. 9 mm meningioma adjacent to left frontal lobe. No pneumothorax. 2.7 cm heterogeneous left thyroid nodule, stable from prior. Mild mucosal thickening of the right maxillary sinus. Degenerative changes of the spine. No pneumothorax. IMPRESSION: 1. Mild atherosclerotic vascular disease without aneurysm, high-grade stenosis, dissection or arterial occlusion. 2. 9 mm meningioma adjacent to the left frontal lobe. ACT 112: Negative or not required by law. The above report was generated using voice recognition software. It may contain grammatical, syntax or spelling errors. Electronically signed by: Isaias Neumann M.D. 10/20/2021 7:08 AM Brain MRI 10/20/21 07:00 MR brain wo/w con HISTORY: 76 years-old Female stroke r/o acute strokelike symptoms with right upper extremity weakness COMPARISON: CT head and CTA head and neck studies of same day TECHNIQUE: Multiplanar multisequence MRI of the brain was obtained both with and without the use of 7 cc Gadavist FINDINGS: No restricted diffusion to suggest acute or subacute infarct. Midline structures are unremarkable. Degenerative changes of the cervical spine with posterior disc osteophyte complex at C2/C3 resulting in mild central canal stenosis. Motion degraded exam. No acute intracranial hemorrhage, midline shift, abnormal extra- axial collection, hydrocephalus or intra-axial mass. Age-related involutional changes. Moderate T2/FLAIR hyperintense foci noted throughout the white matter. Enhancing 9 x 9 mm extra-axial lesion adjacent to the left frontal temporal lobe, image 14 series 11. No significant mass effect. Cerebral venous sinuses and major arterial flow voids appear patent. Skull, orbits and soft tissues are unremarkable. Partially imaged mild polypoid because of thickening of the right maxillary sinus. IMPRESSION: 1. No acute intracranial abnormality. No acute or subacute infarct. 2. 9 mm meningioma adjacent to the left cerebral convexity. 3. Age-related involutional changes with chronic microvascular ischemic disease. ACT 112: Negative or not required by law. The above report was generated using voice recognition software. It may contain grammatical, syntax or spelling errors. Electronically signed by: Isaias eNumann M.D. 10/20/2021 3:20 PM PG Care Time/CCT Total # of Minutes Spent Total Time Spent with Patient: Total time spent is greater than 50% in coordination of care (as documented) at patient's floor/unit and/or counseling patient: Coding Level of Care Code 98708 Subseq Obs Care Lvl 2 Diagnoses Right arm numbness R20.0 Meningioma D32.9 Thyroid nodule greater than or equal to 1.5 cm in diameter incidentally noted on imaging study E04.1 Solitary thyroid nodule E04.1 Bipolar I disorder F31.9 GERD with esophagitis K21.00 Hypercholesterolemia E78.00 Anxiety F41.9 Hypertension I10 Chronic kidney disease, stage IV (severe) N18.4
[2021-10-21] MEDS: PSYLLIUM or GUAR GUM FIBER POWDER PACKET PO SCH (06:13)
[2021-10-21 06:19] LABS: Basophils # (auto) 0.05 K/uL (0-0.2); Basophils % (auto) 1.1 %; Eosinophils # (auto) 0.33 K/uL (0-0.50); Eosinophils % (auto) 7.1 %; Hemoglobin 11.7 g/dl (12.0-16.0); Immature Granulocytes # (auto) 0.01 K/uL (0.00-0.02); Immature Granulocytes % (auto) 0.2 %; Lymphocytes # (auto) 1.44 K/uL (1.2-3.4); Mean Corpuscular Hemoglobin 29.8 pg (25.0-34.0); Mean Corpuscular Hgb Conc 33.4 g/dL (32.0-36.0); Mean Corpuscular Volume 89.3 fL (80.0-100.0); Mean Platelet Volume 10.4 fL (9.4-12.3); Monocytes % (auto) 10.8 %; Neutrophils # (auto) 2.32 K/uL (1.4-6.5); Neutrophils % (auto) 49.8 %; Platelet Count 248 K/uL (130-400); RDW Coefficient of Variation 13.2 % (11.5-14.5); RDW Standard Deviation 43.3 fL (36.4-46.3); Red Blood Count 3.92 M/uL (3.93-5.22); White Blood Count 4.65 K/ul (4.8-10.8)
[2021-10-21 06:38] LABS: BUN Creatinine Ratio 24.3 (10-20); Calcium 9.5 mg/dl (8.5-10.1); Creatinine Clr Calc Pharmacy 29.5 ml/min; Est GFR (African American) 39.7 ml/min; Est GFR (Non-African American) 34.3 ml/min; Potassium 3.6 mmol/L (3.5-5.1)
[2021-10-21] MEDS: PANTOprazole 40 MG TAB PO SCH (08:29)
[2021-10-21] MEDS: lamoTRIgine 100 MG TAB PO SCH (08:30)
[2021-10-21] MEDS: VITAMIN B COMPLEX TAB PO SCH (08:30)
[2021-10-21] MEDS: CYANOCOBALAMIN (B-12) 500 MCG TABLET PO SCH (08:30)
[2021-10-21] MEDS: MULTIVITAMIN TAB PO SCH (08:30)
[2021-10-21] MEDS: SPIRONOLACTONE/HCTZ 25-25 PO SCH (08:31)
[2021-10-21] MEDS ORDERED: PANTOprazole 40 MG TAB PO SCH (09:00)
--- NOTE | 2021-10-21 13:54 | Magnetic Resonance Report ---
MR cervical spine wo con: HISTORY: 76 years-old Female suspected radiculopathy right arm. Chronic neck pain with acute right u pper extremity radicular symptoms. COMPARISON: CTA of the neck 10/20/2021. TECHNIQUE: Multiplanar multisequence MRI of the cervical spine was obtained without the use of IV con trast. FINDINGS: The imaged posterior fossa structures are unremarkable. There is normal signal within the brainstem, cervical and imaged thoracic spinal cord. No acute fracture, subluxation, endplate erosion, suspiciou s bone lesion or prevertebral edema. Multilevel degenerative changes of the cervical spine as describ ed below. C2-C3: Mild to moderate intervertebral disc space narrowing with uncovertebral hypertrophy. Central d isc protrusion (10 mm transverse dimension). AP dimension of the thecal sac to 7 mm. Mild to moderate central canal stenosis. No significant neural foraminal narrowing. C3-C4: Moderate to severe intervertebral disc space narrowing with uncovertebral hypertrophy and post erior disc osteophyte complex. Severe facet arthrosis with trace left facet effusion. Flattening of t he ventral thecal sac without significant central canal stenosis. Severe left with moderate right nimco ral foraminal narrowing. C4-C5: Moderate to severe intervertebral disc space narrowing with uncovertebral hypertrophy and post erior disc osteophyte complex. Severe facet arthrosis. The central canal is patent. Mild to moderate right with severe left neural foraminal narrowing. C5-C6: Moderate to severe intervertebral disc space narrowing with uncovertebral hypertrophy and post erior disc osteophyte complex. Severe facet arthrosis. Mild central canal narrowing, AP dimension of the thecal sac measuring 8 mm. Severe left with mild to moderate right neural foraminal narrowing. C6-C7: Moderate to severe intervertebral disc space narrowing with uncovertebral hypertrophy and post erior disc osteophyte complex. Severe facet arthrosis. The central canal is patent. Severe left with moderate right neural foraminal narrowing. C7-T1: Moderate to severe intervertebral disc space narrowing with posterior disc osteophyte complex and severe facet arthrosis. The central canal is patent. No significant neural foraminal narrowing. IMPRESSION: 1. 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 2. Mild to moderate central canal stenosis at C2-C3. 3. Normal signal of the cervical spinal cord. ACT 112: Negative or not required by law. The above report was generated using voice recognition software. It may contain grammatical, syntax o r spelling errors. Dictated: 10/21/2021 1:09 PM Transcribed: 10/21/2021 1:32 PM Sunita [id number] [facility] Electronically signed by: Isaias Neumann M.D. 10/21/2021 1:53 PM
--- NOTE | 2021-10-21 15:16 | Discharge Summary ---
Date of Service October 21, 2021 Discharge Exam gen - NAD neck - mild discomfort base of neck posteriorly, rotation of neck relatively intact; no JVD heart - RRR, s1 s2 lungs - CTA b/l abd - soft NT ND BS+ ext - no edema, pulses 2+ b/l neuro - no facial droop; strength 5/5 x 4 exts; sensation intact to light touch b/l upper extremities; no pronator drift psych - a/o x 3, pressured speech at times Discharge Data Allergies Allergy/AdvReac Type Severity Reaction Status Date / Time hydrocodone AdvReac Intermediate NAUSEA AND Verified 10/20/21 02:34 VOMITING meloxicam AdvReac Intermediate melana Verified 10/20/21 02:34 thioridazine AdvReac Intermediate RESTLESS Verified 10/20/21 02:34 LEG ziprasidone AdvReac Intermediate VOMITING/BLACK Verified 10/20/21 02:34 DIARRHEA Consultations 10/20/21 02:25 ED Decision to Admit Stat 10/21/21 14:33 Burn CD for patient Routine Ordered Studies 10/19/21 23:14 CT angio head w con Urgent CT angio neck with con Urgent CT head/brain wo con Urgent 10/20/21 07:00 MR brain wo/w con Routine 10/21/21 08:20 MR cervical spine wo con Routine Hospital Course (1) Right arm numbness: full TIA/stroke w/u negative except for tiny meningioma left frontal lobe region tele negative for PAF MRI Brain negative for old or new CVA CTA head/neck without occlusion, aneurysm, dissection she has had 2+ weeks of neck pain and now the right arm numbness; thus, right arm symptoms may be radiculopathy from the cervical spine will obtain cervical spine MRI and then re-eval consider outpatient NCS/EMG cont asa low-dose in meantime (2) Meningioma: 9mm, left frontal region appears asymptomatic incidental finding will need yearly surveillance of this lesion (3) Thyroid nodule greater than or equal to 1.5 cm in diameter incidentally noted on imaging study: 2.7 cm heterogeneous left thyroid nodule will refer to endo post-discharge may need biopsy given the size TSH and FT4 wnl will 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 on this incidental finding (4) Solitary thyroid nodule: as above (5) Bipolar I disorder: cont home meds (6) GERD with esophagitis: PPI (7) Hypercholesterolemia: LDL = 111 HDL = 71 depending on rest of "TIA" work-up may or may not need therapy for this (8) Anxiety: cont home meds (9) Hypertension: cont HCTZ/aldactone HCTZ is the cause of low K low K replaced (10) Chronic kidney disease, stage IV (severe): baseline creatinine ~1.5 to 1.6 BMP am Plan await c-spine MRI Discharge Plan Discharge Items Patient Disposition: Home - Self-Care Reason For Visit: STROKE-LIKE SYMPTOMS Discharge Diagnosis: 1. right arm tingling - likely due to severe cervical spine arthritis/degenerative disease 2. stroke ruled out; MRI brain did not show a stroke; "TIA" event unlikely as the cause of the right arm tingling 3. 8-9mm incidentally found meningioma of the head 4. 2.7cm thyroid nodule on your thyroid gland 5. mildly low potassium - likely due to your diuretic high blood pressure medication Activity: As commented below Activity Comment: avoid any activity that worsens your neck discomfort or the tingling Lifting: No more than 10 pounds Exercise/Sports: Wait until after follow-up appointment Non-emergency contact: Primary Care Provider and Specialist Call non-emergency contact if: you have any medication questions and your symptoms worsen Follow-up/Referrals: Nik Lam MD [Physician] - (3-4 weeks - right arm tingling, cervical spine DJD) Sb Michael MD [Physician] - 06/15/22 8:15 am (first available - left thyroid nodule, 2.7 cm ) Henrietta Mathias MD [Primary Care Provider] - 11/01/21 11:00 am Fadi Alonzo PA-C [Physician [employer]] - (keep any scheduled appointment with Mr Alonzo at [facility] for your neck) Jessica Peña PA-C [Physician [employer]] - 10/28/21 9:15 am Diet: Regular Addtl Attending Provider Instructions: Ms Li, Cristhian were hospitalized due to right arm symptoms including tingling extending from the neck region down to the hand and some mild weakness. The weakness has resolved but your tingling has continued. We performed a large work-up to exclude stroke and your MRI brain did NOT show an old or new stroke. CT scans of the blood vessels of the head & neck were normal. Your heart monitoring was normal. Your echocardiogram heart ultrasound was normal. The symptoms seemed to be originating from the neck. MRI of the cervical spine showed moderate-severe arthritis/degeneration of all levels of the neck. I suspect that a nerve exiting the neck is irritated as a result of your neck arthritis. At this time a TIA event (TIA stands for Transient ischemic event) is not suspected. A TIA event is when a set of neurological symptoms start and end quickly, typically within a few hours. Given the negative MRI brain and the fact that your tingling in the right arm continues this would argue against TIA. Again I am most suspicious your symptoms are coming from the neck/cervical spine. Incidentally we found 2 things on imaging that you will need follow-up for. * 8-9mm in size probable meningioma of the head; these are benign and typically do not require any treatment UNLESS they grow very large and start to cause symptoms; [facility] can follow this over time * 2.7cm thyroid nodule of the left thyroid gland - you will need follow-up with [facility] for this With respect to the neck you can do the following - * continue the diclofenac (voltaren) gel - 4gm up to 4 times each day rubbed into the neck at site of pain * tylenol skze-mql-pchaell, 1000mg up to 3 times each day for pain as desired * follow-up with Mr Fadi Alonzo [facility] - for the neck; be sure to bring the CD-ROM with you to your next appointment with him * heating pad is often a good option on days when the neck is bothering you * you can also talk to your family doctor or neurology or orthopedics about gabapentin medication which can help calm down the tingling in your arm Until you see [facility] please take a baby aspirin 81mg once daily. Neurology may say that you don't necessarily need to take this chronically. Your potassium level was mildly low due to your diuretic water pill blood pressure medication. Please take a prescription potassium supplement 10meq once daily and have your family doctor repeat your potassium level at time of hospital follow-up. Prescription sent to your pharmacy for you. Finally, it appears based on blood work you have been a pre-diabetic for several years. Continue to follow with your family doctor for this. You are doing a good job keeping it in check with diet! Your hemoglobin a1c was 6.1%. Return to [facility] if - * you have severe neck or right arm pain * you have worsening numbness/tingling of the right arm or worsening weakness * any symptoms on the left side of your body that are concerning to you - pain, numbness, weakness, etc * any other concerns It was our pleasure to care for you at [facility]! Dr Lamb Pending Studies at Discharge: No Stand-Alone Forms: My [facility], Smoking Cessation Medications and DC Order Prescriptions: New potassium chloride 10 mEq capsule, extended release 10 meq PO DAILY Qty: 30 1RF aspirin 81 mg tablet,delayed release (DR/EC) 81 mg PO DAILY Qty: 30 2RF Rx Instructions: purchase [id number] Continued spironolacton-hydrochlorothiaz 25-25 mg tablet 1 tab PO DAILY Qty: 90 3RF melatonin 3 mg capsule 6 mg PO HS mecobalamin (vitamin B12) 1,000 mcg tablet,disintegrating 1,000 mcg sublingual DAILY Rx Instructions: place tablet under tongue and allow to dissolve for at least30 secs before swallowing ascorbic acid (vitamin C) 1,000 mg tablet extended release See Rx Instructions .ROUTE .COMPLEX Rx Instructions: take 3,000 mg orally in the am and 2,000 mg orally in the pm Vraylar 1.5 mg capsule 1.5 mg PO .EVERY 3RD DAY Label Comments: PATIENT TAKES THIS MEDICATION EVERY 3 DAYS vitamin B complex Tablet 1 tab PO DAILY diclofenac sodium 1 % gel 1 g TOPICAL QID PRN (Reason: Pain) psyllium Powder 3 tsp PO DAILYBB Rx Instructions: Metamucil multivitamin Tablet 1 tab PO DAILY clonazepam 0.5 mg tablet 0.25 mg PO HS PRN (Reason: Sleep) Rx Instructions: up to 3 doses Glucosamine Sulf-Chondroitin 500-400 mg capsule 2 tab PO DAILY lamotrigine 100 mg tablet See Rx Instructions .ROUTE .COMPLEX Label Comments: 300mg in the AM and 200mg in the PM - Total 500mg daily Rx Instructions: take 300mg orally the morning and take 200mg orally in the evening omega-3 fatty acids Capsule 2 cap PO DAILY pantoprazole 20 mg tablet,delayed release (DR/EC) 20 mg PO Q OTHER DAY PRN (Reason: Dyspepsia) topiramate [Topamax] 50 mg Tablet 50 mg PO HS Discharge Orders: Discharge Order (Routine); Ordered 10/21/21 Ordered By: Poncho Gold/Other Patient Handouts: Prediabetes, Common Thyroid Problems, 5 Steps for Eating Healthier, Cervical Disk Problems, Cervical Spine Tx, Cervical Radiculopathy Admission Data Admit Date/Time: 10/20/21 02:48 Attending Provider: Poncho Lamb Admit Provider: Marcos Bautista Primary Care Provider: Henrietta Mathias Other Providers: Duran Yap Coding Diagnoses Right arm numbness R20.0 Meningioma D32.9 Thyroid nodule greater than or equal to 1.5 cm in diameter incidentally noted on imaging study E04.1 Solitary thyroid nodule E04.1 Bipolar I disorder F31.9 GERD with esophagitis K21.00 Hypercholesterolemia E78.00 Anxiety F41.9 Hypertension I10 Chronic kidney disease, stage IV (severe) N18.4
== END 2021-10-21 16:24 | disposition home or self-care (01) ==
LOC: ED 21:55 → 2N 21:55 → SUATTDRO 10-20 02:48 → 2N 10-20 03:11
DX: Z88.8 Allergy status to other drugs, medicaments and biological substances; N18.4 Chronic kidney disease, stage 4 (severe); R29.90 Unspecified symptoms and signs involving the nervous system; D32.9 Benign neoplasm of meninges, unspecified; Z88.5 Allergy status to narcotic agent; E78.00 Pure hypercholesterolemia, unspecified; F31.9 Bipolar disorder, unspecified; E04.1 Nontoxic single thyroid nodule; Z79.899 Other long term (current) drug therapy; Z87.891 Personal history of nicotine dependence; K21.00 Gastro-esophageal reflux disease with esophagitis, without bleeding

== ENCOUNTER 2022-07-04 07:42 | Inpatient (IN) ==
--- NOTE | 2022-07-04 08:15 | Emergency Department Note ---
Impression & Plan Manic behavior, Bipolar disorder ED Provider Note Name: Vicky THAYER Age: 77 Sex: F Arrives Via: Walk-In Informant: Patient ED Provider: Jose G Benson MD Chief Complaint: Mental health evaluation Impression: As per impressions above Medical Decision Makin-year-old female arrives for evaluation of acute psychosis. Patient with a history of bipolar disorder and is clearly in a manic episode at this time. She is somewhat tangential though I am a bit concerned that she may be having some internal stimuli affecting her. Patient is fully willing to sign herself into the hospital on a voluntary basis and I think this is reasonable to allow her to do. She is medically clear. She has not had any recent head injury there is no evidence of head injury and I do not feel CT imaging of the head is necessary especially given her history. Laboratory work-up is fortunately benign. There is no evidence of intoxication or drug as cause. She was excepted to [facility]. Prior Medical Record and Triage/Nursing Notes reviewed by Me External chart reviewed by me including previous hospitalization records Differentials:Mood disorder, infection, hypoglycemia, electrolyte abnormalities, cardiac sources, intracerebral event, toxicologic, trauma, neurologic, as well as other pathologies. Vital Signs: reviewed and remarkable for HTN Labs:Reviewed and remarkable for no significant abnormalities Consults:[facility] - Accepted to their facility Plan: Disposition:Hospitalization. Home. Condition: Good History of Present Illness:77-year-old female arrives for a mental health evaluation. Patient notes for the last 3 days (at other times states 3 weeks) she has been having increasing anxiety, agitation and inability to sleep. She feels like things are wiggling in front of her. She denies any thoughts of harm to herself or others. She denies any auditory or visual hallucinations. She makes vague reference to being commanded to do things but then denies that afterwards. Denies any drug use does admit periodic hard seltzer use which she had a drink yesterday. Denies intoxication. Denies any falls, trauma, injuries. Denies any headache, chest pain, neck pain, fevers, chills, nausea, vomiting, abdominal pain, back pain or other concerning signs or symptoms. She does note that she chronically has bubbling of her urine in the toilet. Denies any urinary burning or frequency. Patient has a long history of mental health disease with previous diagnosis of bipolar disorder and most recent hospitalization December 2020. Patient denies any inciting event or current new stressor at home. Past History:See Below Home Medications:See Below Allergies:See Below Vitals:Blood Pressure: 182/107, Pulse 90, RR 20, T 36.5C, O2 97% on RA Physical Exam: GENERAL: Patient is anxious/agitated appearing and in minimal distress. RESPIRATORY: No dyspnea. Clear to auscultation and equal bilaterally. No wheeze, no rhonchi. CARDIOVASCULAR: Regular rate and rhythm.No murmurs, rubs, gallops appreciated. EXTREMITIES: Normal motion all extremities, no cyanosis, no edema. NEUROLOGIC: Alert and oriented, no acute motor or sensory deficits, no focal weakness, cranial nerves grossly intact. SKIN: No rash, no jaundice, no diaphoresis. PSYCH: Hyperactive/mildly agitated, tangential, admits depression, denies suicidal/homicidal ideation. GCS: 15 ED Course: Times/Reassessments: Stable throughout Jose G Benson MD Past Med/Surg History Medical History Anxiety Bipolar I disorder Chronic kidney disease stage 3 Depression DJD (degenerative joint disease) of cervical spine Encounter for pre-operative examination Esophageal ulcer Esophagitis, [place] grade D Forearm fracture at age 11 - compound fracture. GERD with esophagitis Herpes simplex Hiatal hernia Hypertension Meningioma monitors with Dr Arroyo. no surgery. Osteoporosis Solitary thyroid nodule TIA (transient ischemic attack) Surgical History H/O tooth extraction History of colonoscopy History of open reduction and internal fixation (ORIF) procedure right arm History of right knee joint replacement S/P rotator cuff repair right S/P tonsillectomy Family History Mother Hypertension Sister Breast cancer Grandfather (Paternal) Myocardial infarction Father Prostate cancer Other Alzheimer disease No family history of adverse response to anesthesia Denies family history of Ovarian cancer Colorectal cancer Social History Smoking Status: Former smoker Tobacco Type: Cigarettes Second Hand Exposure: No; Do You Dip or Chew Tobacco: No; Hx Alcohol Use: No Hx Substance Use: No Preferred Language: Turkmen Communication Ability: Effective [employer]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 [employer] Required: No Beliefs That Will Affect Care: None marital status: Single Current Living Situation: Alone current occupational status: retired Feels Safe at Home: Yes Childhood Exposure to Second-Hand Smoke: No Diet: regular Dental Care, Regularly: Yes Physical Activity Frequency: 3-4 Times per Week Seatbelt Use: always Sunscreen Use: Yes Gender Identity: Female Assistive Devices: Contacts and Glasses Allergies Allergies Allergy/AdvReac Type Severity Reaction Status Date / Time hydrocodone AdvReac Intermediate NAUSEA AND Verified 06/22/22 13:58 VOMITING meloxicam AdvReac Intermediate melana Verified 06/22/22 13:58 thioridazine AdvReac Intermediate RESTLESS Verified 06/22/22 13:58 LEG ziprasidone AdvReac Intermediate VOMITING/BLACK Verified 06/22/22 13:58 DIARRHEA Home Meds Home Medications Medication Instructions Recorded Confirmed vitamin B complex 1 tab PO QAM 02/25/19 07/04/22 multivitamin 1 tab PO QAM 06/25/19 07/04/22 diclofenac sodium 1 % topical gel 1 g topical QID PRN Pain 08/13/19 07/04/22 omega-3 fatty acids 2 cap PO QPM 12/12/20 07/04/22 clonazepam 0.5 mg tablet 0.25 mg PO HS PRN Sleep 04/16/21 07/04/22 glucosamine sulfate dipotassium Cl 2 tab PO QAM 04/16/21 07/04/22 500 mg-chondroitin 400 mg capsule (Glucosamine Sulfate 2 KCL-Chondroitin) mecobalamin (vitamin B12) 1,000 1,000 mcg sublingual QAM 04/16/21 07/04/22 mcg disintegrating tablet,sublingual psyllium 3 tsp PO DAILYBB 04/16/21 07/04/22 pantoprazole 20 mg tablet,delayed 20 mg PO Q OTHER DAY PRN Dyspepsia 10/20/21 07/04/22 release lamotrigine 100 mg tablet 100 mg PO .COMPLEX 11/30/21 07/04/22 cariprazine 1.5 mg capsule 1.5 mg PO QAM 03/10/22 07/04/22 (Vraylar) hydroxyzine HCl 10 mg tablet 30 mg PO HS PRN Anxiety 03/10/22 07/04/22 cholecalciferol (vitamin D3) 50 50 mcg PO QAM 06/22/22 07/04/22 mcg (2,000 unit) capsule potassium chloride 10 mEq 10 meq PO QAM 06/22/22 07/04/22 capsule,extended release spironolactone 25 1 tab PO QAM hypertension 06/22/22 07/04/22 mg-hydrochlorothiazide 25 mg tablet Results & Data (ED) Vital Signs Vital Signs - 24 hr 07/04/22 07:56 07/04/22 09:22 07/04/22 10:42 Temperature 36.5 C Temperature Source Temporal Artery Scan Pulse Rate 90 Pulse Rate [Finger] 82 Respiratory Rate 20 18 Respiratory Effort / Characteristics Non-Labored Spontaneous Respiratory Depth Normal Blood Pressure 182/107 H Blood Pressure [Right Arm] 199/114 H 182/86 H Blood Pressure Mean 132 Blood Pressure Mean [Right Arm] 142 118 Blood Pressure Position Sitting Blood Pressure Position [Right Arm] Sitting Pulse Oximetry 97 98 Oxygen Delivery Method Room Air Room Air Sepsis Recent Fever Within 48 Hours No Sepsis New/Unexplained Change in Mental Status N/A Sepsis Action Taken by Nursing No Action Required Laboratory Data 07/04/22 08:30 07/04/22 08:30 Lab Results 07/04/22 07/04/22 07/04/22 Range/Units 08:12 08:16 08:16 WBC (4.8-10.8) K/ul RBC (4.20-5.40) M/uL Hgb (12.0-16.0) g/dl Hct (37.0-47.0) % MCV (80.0-100.0) fL MCH (25.0-34.0) pg MCHC (32.0-36.0) g/dL RDW Std Deviation (36.4-46.3) fL RDW Coeff of Benny (11.5-14.5) % Plt Count (130-400) K/uL MPV (9.4-12.4) fL Immature Gran % (Auto) % Neut % (Auto) % Lymph % (Auto) % [place] % (Auto) % Eos % (Auto) % Baso % (Auto) % Neut # (Auto) (1.40-6.50) K/uL Lymph # (Auto) (1.2-3.4) K/uL [place] # (Auto) (0.11-0.59) K/uL Eos # (Auto) (0-0.50) K/uL Baso # (Auto) (0-0.2) K/uL Immature Gran # (Auto) (0.01-0.20) K/uL Sodium (136-145) mmol/L Potassium (3.5-5.1) mmol/L Chloride (98-107) mmol/L Carbon Dioxide (21-32) mmol/L Anion Gap (3-11) BUN (6-23) mg/dl Creatinine (0.6-1.2) mg/dl Est Cr Clr Drug Dosing ml/min Est GFR ( Amer) ml/min Est GFR (Non-Af Amer) ml/min BUN/Creatinine Ratio (10-20) Glucose (70-99(Fasting)) mg/dl Calcium (8.6-10.3) mg/dl Phosphorus 3.4 (2.5-4.9) mg/dl Total Bilirubin (0.2-1.0) mg/dl AST (13-39) U/L ALT (7-52) U/L Alkaline Phosphatase (34-104) U/L Total Protein (6.0-8.3) gm/dl Albumin (3.4-5.0) gm/dl Globulin (2.5-4.0) gm/dl Albumin/Globulin Ratio (0.9-2) TSH (0.300-4.500) uIu/ml Urine Color Yellow Urine Appearance Clear (Clear) Urine pH 5.5 (4.5-7.5) Ur Specific Goldsmith 1.008 (1.000-1.030) Urine Protein 2+ H (Negative) Urine Glucose (UA) Negative (Negative) Urine Ketones Negative (Negative) Urine Blood Trace H (Negative) Urine Nitrite Negative (Negative) Urine Bilirubin Negative (Negative) Urine Urobilinogen Negative (Negative) Ur Leukocyte Esterase 1+ H (Negative) Urine WBC (Auto) 5-10 H (0-5) /hpf Urine RBC (Auto) 0-4 (0-4) /hpf U Hyaline Cast (Auto) 1-5 (0-5) /lpf U Epithel Cells (Auto) 20-30 H (0-5) /lpf Urine Bacteria (Auto) Negative (Negative) Salicylates (3.0-30) mg/dl Urine Opiates Screen Neg (Neg) Ur Methadone, Qual Neg (Neg) Acetaminophen (10-30) ug/ml Urine Barbiturates Neg (Neg) Ur Phencyclidine (PCP) Neg (Neg) U Amphetamin/Meth Scrn Neg (Neg) MDMA (Ecstasy) Screen Neg (Neg) U Benzodiazepines Scrn Neg (Neg) Ur Cocaine Metabolite Neg (Neg) U Marijuana (THC) Screen Neg (Neg) Ethyl Alcohol mg/dL (<10.0) mg/dl SARS-CoV-2, RNA, NAAT (NEGATIVE) 07/04/22 07/04/22 07/04/22 Range/Units 08:16 08:30 08:30 WBC 7.35 (4.8-10.8) K/ul RBC 4.17 L (4.20-5.40) M/uL Hgb 12.6 (12.0-16.0) g/dl Hct 37.9 (37.0-47.0) % MCV 90.9 (80.0-100.0) fL MCH 30.2 (25.0-34.0) pg MCHC 33.2 (32.0-36.0) g/dL RDW Std Deviation 43.4 (36.4-46.3) fL RDW Coeff of Benny 13.1 (11.5-14.5) % Plt Count 305 (130-400) K/uL MPV 10.2 (9.4-12.4) fL Immature Gran % (Auto) 0.4 % Neut % (Auto) 67.6 % Lymph % (Auto) 18.5 % [place] % (Auto) 8.6 % Eos % (Auto) 3.9 % Baso % (Auto) 1.0 % Neut # (Auto) 4.97 (1.40-6.50) K/uL Lymph # (Auto) 1.36 (1.2-3.4) K/uL [place] # (Auto) 0.63 H (0.11-0.59) K/uL Eos # (Auto) 0.29 (0-0.50) K/uL Baso # (Auto) 0.07 (0-0.2) K/uL Immature Gran # (Auto) 0.03 (0.01-0.20) K/uL Sodium 138 (136-145) mmol/L Potassium 3.9 (3.5-5.1) mmol/L Chloride 106 (98-107) mmol/L Carbon Dioxide 24 (21-32) mmol/L Anion Gap 8 (3-11) BUN 55 H (6-23) mg/dl Creatinine 1.69 H (0.6-1.2) mg/dl Est Cr Clr Drug Dosing 26.4 ml/min Est GFR ( Amer) 33.6 ml/min Est GFR (Non-Af Amer) 29.0 ml/min BUN/Creatinine Ratio 32.5 H (10-20) Glucose 105 H (70-99(Fasting)) mg/dl Calcium 10.0 (8.6-10.3) mg/dl Phosphorus (2.5-4.9) mg/dl Total Bilirubin 0.3 (0.2-1.0) mg/dl AST 42 H (13-39) U/L ALT 40 (7-52) U/L Alkaline Phosphatase 108 H (34-104) U/L Total Protein 7.9 (6.0-8.3) gm/dl Albumin 4.4 (3.4-5.0) gm/dl Globulin 3.5 (2.5-4.0) gm/dl Albumin/Globulin Ratio 1.3 (0.9-2) TSH (0.300-4.500) uIu/ml Urine Color Urine Appearance (Clear) Urine pH (4.5-7.5) Ur Specific G[place]mith (1.000-1.030) Urine Protein (Negative) Urine Glucose (UA) (Negative) Urine Ketones (Negative) Urine Blood (Negative) Urine Nitrite (Negative) Urine Bilirubin (Negative) Urine Urobilinogen (Negative) Ur Leukocyte Esterase (Negative) Urine WBC (Auto) (0-5) /hpf Urine RBC (Auto) (0-4) /hpf U Hyaline Cast (Auto) (0-5) /lpf U Epithel Cells (Auto) (0-5) /lpf Urine Bacteria (Auto) (Negative) Salicylates (3.0-30) mg/dl Urine Opiates Screen (Neg) Ur Methadone, Qual (Neg) Acetaminophen (10-30) ug/ml Urine Barbiturates (Neg) Ur Phencyclidine (PCP) (Neg) U Amphetamin/Meth Scrn (Neg) MDMA (Ecstasy) Screen (Neg) U Benzodiazepines Scrn (Neg) Ur Cocaine Metabolite (Neg) U Marijuana (THC) Screen (Neg) Ethyl Alcohol mg/dL (<10.0) mg/dl SARS-CoV-2, RNA, NAAT NEGATIVE (NEGATIVE) 07/04/22 07/04/22 07/04/22 Range/Units 08:30 08:30 08:30 WBC (4.8-10.8) K/ul RBC (4.20-5.40) M/uL Hgb (12.0-16.0) g/dl Hct (37.0-47.0) % MCV (80.0-100.0) fL MCH (25.0-34.0) pg MCHC (32.0-36.0) g/dL RDW Std Deviation (36.4-46.3) fL RDW Coeff of Benny (11.5-14.5) % Plt Count (130-400) K/uL MPV (9.4-12.4) fL Immature Gran % (Auto) % Neut % (Auto) % Lymph % (Auto) % [place] % (Auto) % Eos % (Auto) % Baso % (Auto) % Neut # (Auto) (1.40-6.50) K/uL Lymph # (Auto) (1.2-3.4) K/uL [place] # (Auto) (0.11-0.59) K/uL Eos # (Auto) (0-0.50) K/uL Baso # (Auto) (0-0.2) K/uL Immature Gran # (Auto) (0.01-0.20) K/uL Sodium (136-145) mmol/L Potassium (3.5-5.1) mmol/L Chloride (98-107) mmol/L Carbon Dioxide (21-32) mmol/L Anion Gap (3-11) BUN (6-23) mg/dl Creatinine (0.6-1.2) mg/dl Est Cr Clr Drug Dosing ml/min Est GFR ( Amer) ml/min Est GFR (Non-Af Amer) ml/min BUN/Creatinine Ratio (10-20) Glucose (70-99(Fasting)) mg/dl Calcium (8.6-10.3) mg/dl Phosphorus (2.5-4.9) mg/dl Total Bilirubin (0.2-1.0) mg/dl AST (13-39) U/L ALT (7-52) U/L Alkaline Phosphatase (34-104) U/L Total Protein (6.0-8.3) gm/dl Albumin (3.4-5.0) gm/dl Globulin (2.5-4.0) gm/dl Albumin/Globulin Ratio (0.9-2) TSH 3.852 (0.300-4.500) uIu/ml Urine Color Urine Appearance (Clear) Urine pH (4.5-7.5) Ur Specific G[place]mith (1.000-1.030) Urine Protein (Negative) Urine Glucose (UA) (Negative) Urine Ketones (Negative) Urine Blood (Negative) Urine Nitrite (Negative) Urine Bilirubin (Negative) Urine Urobilinogen (Negative) Ur Leukocyte Esterase (Negative) Urine WBC (Auto) (0-5) /hpf Urine RBC (Auto) (0-4) /hpf U Hyaline Cast (Auto) (0-5) /lpf U Epithel Cells (Auto) (0-5) /lpf Urine Bacteria (Auto) (Negative) Salicylates < 3.0 L (3.0-30) mg/dl Urine Opiates Screen (Neg) Ur Methadone, Qual (Neg) Acetaminophen < 3 L (10-30) ug/ml Urine Barbiturates (Neg) Ur Phencyclidine (PCP) (Neg) U Amphetamin/Meth Scrn (Neg) MDMA (Ecstasy) Screen (Neg) U Benzodiazepines Scrn (Neg) Ur Cocaine Metabolite (Neg) U Marijuana (THC) Screen (Neg) Ethyl Alcohol mg/dL < 10.0 (<10.0) mg/dl SARS-CoV-2, RNA, NAAT (NEGATIVE) Administered Medications Discontinued Medications Olanzapine (Olanzapine 2.5 Mg Tab) 2.5 mg PO ONE STA Stop: 07/04/22 11:05 Last Admin: 07/04/22 11:09 Dose: 2.5 mg Documented By: ELIOT Discharge Plan Visit Data Chief Complaint: Mental Health Evaluation Stated Complaint: MENTAL HEALTH EVALUATION ED Provider: Jose G Benson Discharge Problem: Manic behavior, Bipolar disorder Patient Disposition: Admitted As Inpatient Discharge Instructions Interventions: ED Discharge Assessment Last Done: 07/04/22 11:41
[2022-07-04 08:52] LABS: Basophils # (auto) 0.07 K/uL (0-0.2); Eosinophils # (auto) 0.29 K/uL (0-0.50); Eosinophils % (auto) 3.9 %; Hematocrit (blood only) 37.9 % (37.0-47.0); Hemoglobin 12.6 g/dl (12.0-16.0); Immature Granulocytes # (auto) 0.03 K/uL (0.01-0.20); Immature Granulocytes % (auto) 0.4 %; Lymphocytes # (auto) 1.36 K/uL (1.2-3.4); Lymphocytes % (auto) 18.5 %; Mean Corpuscular Hemoglobin 30.2 pg (25.0-34.0); Mean Corpuscular Hgb Conc 33.2 g/dL (32.0-36.0); Mean Corpuscular Volume 90.9 fL (80.0-100.0); Mean Platelet Volume 10.2 fL (9.4-12.4); Monocytes # (auto) 0.63 K/uL (0.11-0.59); Monocytes % (auto) 8.6 %; Neutrophils # (auto) 4.97 K/uL (1.40-6.50); Neutrophils % (auto) 67.6 %; Platelet Count 305 K/uL (130-400); RDW Coefficient of Variation 13.1 % (11.5-14.5); RDW Standard Deviation 43.4 fL (36.4-46.3); Red Blood Count 4.17 M/uL (4.20-5.40); White Blood Count 7.35 K/ul (4.8-10.8)
[2022-07-04 08:57] LABS: Appearance Urine Clear (Clear); Bacteria Urine Automated Negative (Negative); Bilirubin Urine Negative (Negative); Blood Urine Trace (Negative); Color Urine Yellow; Epithelial Cell Urine Auto 20-30 /lpf (0-5); Glucose Urine UA Negative (Negative); Ketones Urine Negative (Negative); Leukocyte Esterase Urine 1+ (Negative); Nitrite Urine Negative (Negative); Protein Urine 2+ (Negative); RBC Urine Automated 0-4 /hpf (0-4); Specific Gravity Urine 1.008 (1.000-1.030); Urobilinogen Urine Negative (Negative); pH Urine 5.5 (4.5-7.5)
[2022-07-04 09:04] LABS: Acetaminophen < 3 ug/ml (10-30); Salicylate < 3.0 mg/dl (3.0-30)
[2022-07-04 09:06] LABS: Albumin Globulin Ratio 1.3 (0.9-2); Albumin Level 4.4 gm/dl (3.4-5.0); BUN Creatinine Ratio 32.5 (10-20); Bilirubin,Total 0.3 mg/dl (0.2-1.0); Creatinine Clr Calc Pharmacy 26.4 ml/min; Est GFR (African American) 33.6 ml/min; Globulin 3.5 gm/dl (2.5-4.0); Potassium 3.9 mmol/L (3.5-5.1); Total Protein 7.9 gm/dl (6.0-8.3)
[2022-07-04 09:25] LABS: Amphetamines+Metham, Urine Neg (Neg); Barbiturates, Urine Neg (Neg); Benzodiazepine, Urine Neg (Neg); Cocaine, Urine Neg (Neg); MDMA (Ecstacy), Urine Neg (Neg); Methadone, Urine Neg (Neg); Opiate, Urine Neg (Neg); Phencyclidine, Urine Neg (Neg)
[2022-07-04] MEDS ORDERED: OLANZAPINE 2.5 MG TAB PO STA (11:04)
[2022-07-04] MEDS ORDERED: MAGNESIUM HYDROXIDE SUSP 30 ML UDC PO PRN (11:33)
[2022-07-04] MEDS ORDERED: BISMUTH SUBSALICYLATE LIQD 236 ML PO PRN (11:33)
[2022-07-04] MEDS ORDERED: SODIUM CHLORIDE 0.65% NA SOLN 45 ML (OCEAN) PRN (11:33)
[2022-07-04] MEDS ORDERED: ALUMINUM/MAGNESIUM SUSP 30 ML UDC PO PRN (11:33)
[2022-07-04] MEDS ORDERED: hydrOXYzine HCl 25 MG TAB PO PRN ×2 (11:33)
[2022-07-04] MEDS ORDERED: ACETAMINOPHEN 325 MG TAB PO PRN (11:33)
[2022-07-04] MEDS ORDERED: PANTOprazole 40 MG TAB PO PRN (11:35)
[2022-07-04] MEDS ORDERED: lamoTRIgine 100 MG TAB PO SCH (11:45)
--- NOTE | 2022-07-04 12:05 | History & Physical ---
Date of Service July 04, 2022 Impression / Recommendations Impression 77 yo female with long hx of bipolar illness, presents with renzo in the setting of possible decreased compliance with appointments and medications. MNPR due to renzo, poor sleep (1) Bipolar disease, chronic: Plan The patient was admitted to the [facility] ([facility] inpatient mental health unit) on q15 min checks (behavioral with suicide precautions) for safety. The patient will participate in group, recreational, and milieu therapies and will be offered additional individual and family sessions as clinically appropriate. As was the class last stay, she is very selective about medications and is only willing to take clonazepam for sleep. Zyprexa will be offered as a prn. Will coordinate care with Dr. Arevalo tomorrow as [facility] is currently closed for . Inventory Assets Strengths: intelligent, good relationship with Ludmila Needs: regulate sleep, ensure medication compliance Suicide Risk Level Suicide Risk Level: Low (q15 min observation checks) Risk Factors Assessment : Yes Do You Have Access To A Gun?: No Health Problems: Yes Mental Health Diagnoses: Yes Substance Use Disorders: No Family History of Suicide: Yes Previous Psychiatric Hospitalization: Yes Protective Factors Assessment : No Employed: No Stable Relationships: Yes Psychiatric History Identifying Data Lisbeth is a 77-year-old F who currently lives alone in [place], last hospitalized here in Dec 2020, and was admitted on 07/04/22 11:33 on a 201 voluntary commitment for renzo. Chief Complaint "I forget to take my meds and don't sleep, I'll behave, I need 4 packets of psyllium, don't you know I had sex on the unit her, no PA, no [place]." loud speech History of Present Illness Her presentation is rather similar to last stay in that she hasn't been sleeping well for several days and is increasingly paranoid that her sister is coming in to her home and taking and/or rearranging things. Her main support remains Ludmila, her mcfpurgent care technician who does help with organizing the house. Patient states she can't remember to take Klonopin but it works when she takes it, quickly shifts focus on her psyllium for her bowels which was not ordered correctly last time. Was hypertalkative and tangential in the ED but cooperated with medical clearance, BP was quite elevated on presentation presumably due to renzo. Per 12/2020 admit note: The patient reports her most recent inpatient hospitalization was in 1996 at the [facility]. Around that time she was started on lamotrigine and "that's really kept me out of the hospital". Her mood does cycle, mainly from irritable ("sometimes) to low energy and motivation to go places or eat much. She reports mainly having tofu and eggs throughout day. She started feeling more depressed several weeks ago and was using 10,000 lux light therapy 30 min twice a day but "it made me anxious" so stopped. Her mood has declined since. She remains overwhelmed in caring for the family home but is quite attached to it. She does have a shelter support person who helps her organize mail, etc as "my only support". She relates longstanding concerns (like ly paranoia) that her estranged sister is coming in to the home and moving things around just to upset her. She reports sending a legal letter over a decade ago but only recently changing the locks. She denies intent or plan to harm herself but "it wouldn't matter if the sun didn't come up." She reports compliant with her medication and appointments with her outpatient psychiatrist and therapist. Past Psychiatric History Current Psychiatric Diagnosis: Bipolar Outpatient Services: [facility] Dr. Arevalo mcfpurgent care technician Previous Psych Admissions: 21+ Do You Have Access To A Gun?: No History of Previous Suicide Attempt: No Past Medication Trials: per previous records from Dr. Arevalo: mood stabilizers: topamax, lithium, Trileptal, Depakote, Tegretol antipsychotics: Haldol, Seroquel, Invega, Latuda, Lamictal, Thorazine, Geodon, thioridazine, Abilify, Risperdal antianxiety: Buspar, Xanax, Klonopin antidepressants: Lexapro, Remeron, trazodone,Wellbutrin, Zoloft, Celexa, Prozac, Luvox other: Namenda for refractory OCD, Strattera Allergies Allergy/AdvReac Type Severity Reaction Status Date / Time hydrocodone AdvReac Intermediate NAUSEA AND Verified 06/22/22 13:58 VOMITING meloxicam AdvReac Intermediate melana Verified 06/22/22 13:58 thioridazine AdvReac Intermediate RESTLESS Verified 06/22/22 13:58 LEG ziprasidone AdvReac Intermediate VOMITING/BLACK Verified 06/22/22 13:58 DIARRHEA Home Medications Medication Instructions Recorded Confirmed Type vitamin B complex 1 tab PO QAM 02/25/19 07/04/22 History multivitamin 1 tab PO QAM 06/25/19 07/04/22 History diclofenac sodium 1 % topical gel 1 g topical QID PRN Pain 08/13/19 07/04/22 History omega-3 fatty acids 2 cap PO QPM 12/12/20 07/04/22 History clonazepam 0.5 mg tablet 0.25 mg PO HS PRN Sleep 04/16/21 07/04/22 History glucosamine sulfate dipotassium Cl 2 tab PO QAM 04/16/21 07/04/22 History 500 mg-chondroitin 400 mg capsule (Glucosamine Sulfate 2 KCL-Chondroitin) mecobalamin (vitamin B12) 1,000 1,000 mcg sublingual QAM 04/16/21 07/04/22 History mcg disintegrating tablet,sublingual psyllium 3 tsp PO DAILYBB 04/16/21 07/04/22 History pantoprazole 20 mg tablet,delayed 20 mg PO Q OTHER DAY PRN Dyspepsia 10/20/21 07/04/22 History release lamotrigine 100 mg tablet 100 mg PO .COMPLEX 11/30/21 07/04/22 History cariprazine 1.5 mg capsule 1.5 mg PO QAM 03/10/22 07/04/22 History (Vraylar) hydroxyzine HCl 10 mg tablet 30 mg PO HS PRN Anxiety 03/10/22 07/04/22 History cholecalciferol (vitamin D3) 50 50 mcg PO QAM 06/22/22 07/04/22 History mcg (2,000 unit) capsule potassium chloride 10 mEq 10 meq PO QAM 06/22/22 07/04/22 History capsule,extended release spironolactone 25 1 tab PO QAM hypertension 06/22/22 07/04/22 History mg-hydrochlorothiazide 25 mg tablet Family History Family History of: Suicide Completion (sister in her 20's) Alcohol History Hx of Alcohol Use Over the Past 12 Months: Yes (Social) Smoking Use tobacco type: cigarettes Smoking Status: Former smoker Substance History Hx of Prescription Med Misuse Over the Past 12 Months: No Hx of Over the Counter Med Misuse Over the Past 12 Months: No Hx of Inhalent Misuse Over the Past 12 Months: No Hx of Organic Substance Use Over the Past 12 Months: No Hx of Illegal Substances/Street Drug Use Over Past 12 Months: No Personal History Living Arrangements: Home Highest Grade Completed: College 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 GERD with esophagitis Herpes simplex Hiatal hernia Hypertension Meningioma monitors with Dr Arroyo. no surgery. Osteoporosis Solitary thyroid nodule TIA (transient ischemic attack) Surgical History H/O tooth extraction History of colonoscopy History of open reduction and internal fixation (ORIF) procedure right arm History of right knee joint replacement S/P rotator cuff repair right S/P tonsillectomy Family History Mother Hypertension Sister Breast cancer Grandfather (Paternal) Myocardial infarction Father Prostate cancer Other Alzheimer disease No family history of adverse response to anesthesia Denies family history of Ovarian cancer Colorectal cancer Social History Smoking Status: Former smoker Tobacco Type: Cigarettes Second Hand Exposure: No; Do You Dip or Chew Tobacco: No; Hx Alcohol Use: No Hx Substance Use: No Preferred Language: Amharic Communication Ability: Effective Slot Technician Required: No Beliefs That Will Affect Care: None marital status: Single Current Living Situation: Alone current occupational status: retired Feels Safe at Home: Yes Childhood Exposure to Second-Hand Smoke: No Diet: regular Dental Care, Regularly: Yes Physical Activity Frequency: 3-4 Times per Week Seatbelt Use: always Sunscreen Use: Yes Gender Identity: Female Assistive Devices: Contacts and Glasses Review of Systems Review of Systems: All systems reviewed & are unremarkable except as noted in HPI & below Physical Exam Psychiatric: Orientation: alert and oriented x 3 Apperance: appropriately dressed and appropriately groomed Eye Contact: good eye contact Motor Behavior: no abnormal motor movements Speech: + pressured speech (yet can be interrupted) Affect: + elated affect Mood: no depressed mood Thought Process: + tangential thought process Thought Content: reality based without delusions Suicidal Thoughts: denies suicidal thoughts Homicidal Thoughts: denies homicidal thoughts Hallucinations: no auditory hallucinations and no visual hallucinations Cognition: language grossly intact; + attention not intact Estimated Intelligence: consistent with education level Insight: + limited insight Judgment: + limited judgement Vital Signs (Past 24 Hours): Last Vital Signs Temp 36.5 C 07/04/22 07:56 Pulse 82 07/04/22 11:41 Resp 18 07/04/22 11:41 BP 182/86 H 07/04/22 11:41 Pulse Ox 98 07/04/22 11:41 O2 Del Method Room Air 07/04/22 11:41 Exam Statement: A physical exam was performed in the ED by Dr. Benson for the purposes of medical clearance. I accept that physical as correct and adequate for the purposes of the inpatient physical exam. Results & Data ([facility]) Laboratory Results Laboratory Results - last 24 hr 07/04/22 07/04/22 07/04/22 08:12 08:16 08:16 WBC RBC Hgb Hct MCV MCH MCHC RDW Std Deviation RDW Coeff of Benny Plt Count MPV Immature Gran % (Auto) Neut % (Auto) Lymph % (Auto) [place] % (Auto) Eos % (Auto) Baso % (Auto) Neut # (Auto) Lymph # (Auto) [place] # (Auto) Eos # (Auto) Baso # (Auto) Immature Gran # (Auto) Sodium Potassium Chloride Carbon Dioxide Anion Gap BUN Creatinine Est Cr Clr Drug Dosing Est GFR ( Amer) Est GFR (Non-Af Amer) BUN/Creatinine Ratio Glucose Calcium Phosphorus 3.4 Total Bilirubin AST ALT Alkaline Phosphatase Total Protein Albumin Globulin Albumin/Globulin Ratio TSH Urine Color Yellow Urine Appearance Clear Urine pH 5.5 Ur Specific [place] 1.008 Urine Protein 2+ H Urine Glucose (UA) Negative Urine Ketones Negative Urine Blood Trace H Urine Nitrite Negative Urine Bilirubin Negative Urine Urobilinogen Negative Ur Leukocyte Esterase 1+ H Urine WBC (Auto) 5-10 H Urine RBC (Auto) 0-4 U Hyaline Cast (Auto) 1-5 U Epithel Cells (Auto) 20-30 H Urine Bacteria (Auto) Negative Salicylates Urine Opiates Screen Neg Ur Methadone, Qual Neg Acetaminophen Urine Barbiturates Neg Ur Phencyclidine (PCP) Neg U Amphetamin/Meth Scrn Neg MDMA (Ecstasy) Screen Neg U Benzodiazepines Scrn Neg Ur Cocaine Metabolite Neg U Marijuana (THC) Screen Neg Ethyl Alcohol mg/dL SARS-CoV-2, RNA, NAAT 07/04/22 07/04/22 07/04/22 08:16 08:30 08:30 WBC 7.35 RBC 4.17 L Hgb 12.6 Hct 37.9 MCV 90.9 MCH 30.2 MCHC 33.2 RDW Std Deviation 43.4 RDW Coeff of Benny 13.1 Plt Count 305 MPV 10.2 Immature Gran % (Auto) 0.4 Neut % (Auto) 67.6 Lymph % (Auto) 18.5 [place] % (Auto) 8.6 Eos % (Auto) 3.9 Baso % (Auto) 1.0 Neut # (Auto) 4.97 Lymph # (Auto) 1.36 [place] # (Auto) 0.63 H Eos # (Auto) 0.29 Baso # (Auto) 0.07 Immature Gran # (Auto) 0.03 Sodium 138 Potassium 3.9 Chloride 106 Carbon Dioxide 24 Anion Gap 8 BUN 55 H Creatinine 1.69 H Est Cr Clr Drug Dosing 26.4 Est GFR ( Amer) 33.6 Est GFR (Non-Af Amer) 29.0 BUN/Creatinine Ratio 32.5 H Glucose 105 H Calcium 10.0 Phosphorus Total Bilirubin 0.3 AST 42 H ALT 40 Alkaline Phosphatase 108 H Total Protein 7.9 Albumin 4.4 Globulin 3.5 Albumin/Globulin Ratio 1.3 TSH Urine Color Urine Appearance Urine pH Ur Specific [place] Urine Protein Urine Glucose (UA) Urine Ketones Urine Blood Urine Nitrite Urine Bilirubin Urine Urobilinogen Ur Leukocyte Esterase Urine WBC (Auto) Urine RBC (Auto) U Hyaline Cast (Auto) U Epithel Cells (Auto) Urine Bacteria (Auto) Salicylates Urine Opiates Screen Ur Methadone, Qual Acetaminophen Urine Barbiturates Ur Phencyclidine (PCP) U Amphetamin/Meth Scrn MDMA (Ecstasy) Screen U Benzodiazepines Scrn Ur Cocaine Metabolite U Marijuana (THC) Screen Ethyl Alcohol mg/dL SARS-CoV-2, RNA, NAAT NEGATIVE 07/04/22 07/04/22 07/04/22 08:30 08:30 08:30 WBC RBC Hgb Hct MCV MCH MCHC RDW Std Deviation RDW Coeff of Benny Plt Count MPV Immature Gran % (Auto) Neut % (Auto) Lymph % (Auto) [place] % (Auto) Eos % (Auto) Baso % (Auto) Neut # (Auto) Lymph # (Auto) [place] # (Auto) Eos # (Auto) Baso # (Auto) Immature Gran # (Auto) Sodium Potassium Chloride Carbon Dioxide Anion Gap BUN Creatinine Est Cr Clr Drug Dosing Est GFR ( Amer) Est GFR (Non-Af Amer) BUN/Creatinine Ratio Glucose Calcium Phosphorus Total Bilirubin AST ALT Alkaline Phosphatase Total Protein Albumin Globulin Albumin/Globulin Ratio TSH 3.852 Urine Color Urine Appearance Urine pH Ur Specific [place] Urine Protein Urine Glucose (UA) Urine Ketones Urine Blood Urine Nitrite Urine Bilirubin Urine Urobilinogen Ur Leukocyte Esterase Urine WBC (Auto) Urine RBC (Auto) U Hyaline Cast (Auto) U Epithel Cells (Auto) Urine Bacteria (Auto) Salicylates < 3.0 L Urine Opiates Screen Ur Methadone, Qual Acetaminophen < 3 L Urine Barbiturates Ur Phencyclidine (PCP) U Amphetamin/Meth Scrn MDMA (Ecstasy) Screen U Benzodiazepines Scrn Ur Cocaine Metabolite U Marijuana (THC) Screen Ethyl Alcohol mg/dL < 10.0 SARS-CoV-2, RNA, NAAT Current Inpatient Medications Current Inpatient Medications: Current Inpatient Medications Acetaminophen (Acetaminophen 325 Mg Tab) 650 mg PO Q4H PRN PRN Reason: Headache or Minor Fever Stop: 08/03/22 11:32 Al Hydrox/Mg Hydrox/Simethicone (Aluminum/Magnesium Susp 30 Ml Udc) 30 ml PO Q4H PRN PRN Reason: GI Upset Stop: 08/03/22 11:32 Bismuth Subsalicylate (Bismuth Subsalicylate Liqd 236 Ml) 15 ml PO PRN PRN PRN Reason: Loose Stool Stop: 08/03/22 11:32 Clonazepam (Clonazepam 0.5 Mg Tab) 0.5 mg PO HS PRN PRN Reason: Sleep Stop: 08/03/22 11:34 Clonazepam (Clonazepam 0.25 Mg Tab) 0.25 mg PO Q6 PRN PRN Reason: Anxiety Stop: 08/03/22 11:59 Diclofenac Sodium (Diclofenac Sod 1% Gel 100 Gm Tube) 1 gm EXT QID PRN; Protocol PRN Reason: Pain Stop: 08/03/22 11:39 HCTZ/Spironolactone (Spironolactone/Hctz 25-25) 1 tab PO QAM [facility] Stop: 08/04/22 08:59 Lamotrigine (Lamotrigine 100 Mg Tab) 100 mg PO .COMPLEX RENATE Stop: 08/03/22 11:44 Magnesium Hydroxide (Magnesium Hydroxide Susp 30 Ml Udc) 30 ml PO DAILY PRN PRN Reason: Constipation Stop: 08/03/22 11:32 Multivitamins (Multivitamin Tab) 1 tab PO QAM [facility] Stop: 08/04/22 08:59 Non-Formulary Medication (Cariprazine [Vraylar]) 1.5 mg PO QAM [facility] Stop: 08/04/22 08:59 Pantoprazole Sodium (Pantoprazole 40 Mg Tab) 20 mg PO Q OTHER DAY PRN PRN Reason: Dyspepsia Stop: 08/03/22 11:34 Potassium Chloride (Potassium Chloride 10 Meq Tabcr) [facility] Stop: 08/04/22 08:59 Psyllium Hydrophilic Mucilloid (Psyllium Or Guar Gum Fiber Powder Packet) [facility] Stop: 08/04/22 08:59 Sodium Chloride (Sodium Chloride 0.65% Na Soln 45 Ml ([place])) 1 - 2 sprays NA PRN PRN PRN Reason: Nasal Dryness/Congestion Stop: 08/03/22 11:32
[2022-07-04] MEDS: OLANZAPINE 2.5 MG TAB PO PRN (19:36)
[2022-07-04] MEDS: lamoTRIgine 100 MG TAB PO SCH (20:51)
[2022-07-04] MEDS: clonazePAM 0.5 MG TAB PO PRN (22:00)
[2022-07-04] MEDS: clonazePAM 0.25 MG TAB PO PRN (23:39)
[2022-07-05] MEDS: OLANZAPINE 2.5 MG TAB PO PRN (01:29)
[2022-07-05] MEDS: lamoTRIgine 100 MG TAB PO SCH ×2 (08:23→21:30)
[2022-07-05] MEDS: SPIRONOLACTONE/HCTZ 25-25 PO SCH (08:23)
[2022-07-05] MEDS: CARIPRAZINE HCL PO SCH (08:23)
[2022-07-05] MEDS: POTASSIUM CHLORIDE 10 MEQ TABCR PO SCH (08:24)
[2022-07-05] MEDS: MULTIVITAMIN TAB PO SCH (08:35)
[2022-07-05] MEDS ORDERED: PSYLLIUM or GUAR GUM FIBER POWDER PACKET PO SCH ×2 (09:00)
--- NOTE | 2022-07-05 10:57 | Psychiatric Progress Note ---
Date of Service July 05, 2022 Impression / Recommendations Impression 77 yo female with long hx of bipolar illness, presents with renzo in the setting of possible decreased compliance with appointments and medications. MNPR due to renzo, poor sleep 07/05/2022: unchanged (1) Bipolar disease, chronic: Plan 07/05/2022: increase hs meds, continue to offer Zyprexa, currently not willing to increase Vraylar and non formulary. 07/04/2022: The patient was admitted to the [facility] ([facility] mental health unit) on q15 min checks (behavioral with suicide precautions) for safety. The patient will participate in group, recreational, and milieu therapies and will be offered additional individual and family sessions as clinically appropriate. As was the class last stay, she is very selective about medications and is only willing to take clonazepam for sleep. Zyprexa will be offered as a prn. Will coordinate care with Dr. Arevalo tomorrow as [facility] is currently closed for . Inventory Assets Strengths: intelligent, good relationship with Ludmila Needs: regulate sleep, ensure medication compliance Suicide Risk Level Suicide Risk Level: Low (q15 min observation checks) Risk Factors Assessment : Yes Do You Have Access To A Gun?: No Health Problems: Yes Mental Health Diagnoses: Yes Substance Use Disorders: No Family History of Suicide: Yes Previous Psychiatric Hospitalization: Yes Protective Factors Assessment : No Employed: No Stable Relationships: Yes Interval History Identifying Information Lisbeth is a 77-year-old F who currently lives alone in [place], last hospitalized here in Dec 2020, and was admitted on 07/04/22 11:33 on a 201 volun tary commitment for renzo. Chief Complaint "This is what you should do, I need Vistaril 2 hrs before bed and crushed. Where did you go to school? I had sex and did plan to get my MRS degree". reference to marriage Review of Systems Sleep Information Total Hours of Sleep: 2.5 Sleep Comments: Received Klonopin for sleep, Klonopin for anxiety and Zyprexa for anxiety and agitation Meal Information Percent Meal Consumed - Breakfast: 100 Percent Meal Consumed - Lunch: 100 Percent Meal Consumed - Dinner: 75 Subjective Subjective Patient was seen & assessed and interval progress reviewed with treatment team. Patient remains challenging in that she is intrussive, demanding, likes to be in charge. Slept only 2.5 hours. Physical Exam Psychiatric Orientation: alert and oriented x 3 Apperance: appropriately dressed and appropriately groomed Eye Contact: good eye contact Motor Behavior: no abnormal motor movements Speech: + pressured speech (yet can be interrupted) Affect: + labile affect Mood: + irritable mood Thought Process: + tangential thought process Thought Content: reality based without delusions Suicidal Thoughts: denies suicidal thoughts Homicidal Thoughts: denies homicidal thoughts Hallucinations: no auditory hallucinations and no visual hallucinations Cognition: language grossly intact; + attention not intact Estimated Intelligence: consistent with education level Insight: + limited insight Judgment: + limited judgement Vital Signs (Past 24 Hours) Last Vital Signs Temp 36.6 C 07/05/22 06:42 Pulse 73 07/05/22 06:43 Resp 18 07/05/22 06:42 BP 143/84 H 07/05/22 06:43 Pulse Ox 98 07/04/22 12:26 O2 Del Method Room Air 07/04/22 12:26 Results & Data ([facility]) Laboratory Results Laboratory Results - last 24 hr 07/04/22 08:12 Phosphorus 3.4 Current Inpatient Medications Current Inpatient Medications: Current Inpatient Medications Acetaminophen (Acetaminophen 325 Mg Tab) 650 mg PO Q4H PRN PRN Reason: Headache or Minor Fever Stop: 08/03/22 11:32 Al Hydrox/Mg Hydrox/Simethicone (Aluminum/Magnesium Susp 30 Ml Udc) 30 ml PO Q4H PRN PRN Reason: GI Upset Stop: 08/03/22 11:32 Bismuth Subsalicylate (Bismuth Subsalicylate Liqd 236 Ml) 15 ml PO PRN PRN PRN Reason: Loose Stool Stop: 08/03/22 11:32 Cariprazine (Cariprazine Hcl) 1 each PO Q24H [facility] Stop: 08/04/22 08:59 Last Admin: 07/05/22 08:23 Dose: 1 each Clonazepam (Clonazepam 0.5 Mg Tab) 0.5 mg PO HS PRN PRN Reason: Sleep Stop: 08/03/22 11:34 Last Admin: 07/04/22 22:00 Dose: 0.5 mg Clonazepam (Clonazepam 0.25 Mg Tab) 0.25 mg PO Q6H PRN PRN Reason: Anxiety Stop: 08/03/22 11:59 Last Admin: 07/04/22 23:39 Dose: 0.25 mg Diclofenac Sodium (Diclofenac Sod 1% Gel 100 Gm Tube) 1 gm EXT QID PRN; Protocol PRN Reason: Pain Stop: 08/03/22 11:39 HCTZ/Spironolactone (Spironolactone/Hctz 25-25) 1 tab PO QAM [facility] Stop: 08/04/22 08:59 Last Admin: 07/05/22 08:23 Dose: 1 tab Lamotrigine (Lamotrigine 100 Mg Tab) 300 mg PO QAM [facility] Stop: 08/04/22 08:59 Last Admin: 07/05/22 08:23 Dose: 300 mg Lamotrigine (Lamotrigine 100 Mg Tab) 150 mg PO QPM [facility] Stop: 08/03/22 20:59 Last Admin: 07/04/22 20:51 Dose: 150 mg Magnesium Hydroxide (Magnesium Hydroxide Susp 30 Ml Udc) 30 ml PO DAILY PRN PRN Reason: Constipation Stop: 08/03/22 11:32 Multivitamins (Multivitamin Tab) 1 tab PO QAM [facility] Stop: 08/04/22 08:59 Last Admin: 07/05/22 08:35 Dose: Not Given Olanzapine (Olanzapine 5 Mg Tablet) 5 mg PO Q6H PRN PRN Reason: Anxiety/Agitation Stop: 08/03/22 16:59 Pantoprazole Sodium (Pantoprazole 40 Mg Tab) 40 mg PO Q48H PRN PRN Reason: Dyspepsia Stop: 08/03/22 11:34 Potassium Chloride (Potassium Chloride 10 Meq Tabcr) 10 meq PO QAM [facility] Stop: 08/04/22 08:59 Last Admin: 07/05/22 08:24 Dose: 10 meq Psyllium Hydrophilic Mucilloid (Psyllium Or Guar Gum Fiber Powder Packet) 4 pkt PO QAM [facility] Stop: 08/05/22 08:59 Sodium Chloride (Sodium Chloride 0.65% Na Soln 45 Ml ([place])) 1 - 2 sprays NA PRN PRN PRN Reason: Nasal Dryness/Congestion Stop: 08/03/22 11:32 Mental Health & Subst Abuse Tx Therapist Name of Therapist: Tanya Lombardi @ [facility] Wire Tinner Name of Wire Tinner: Ludmila Sanchez - [facility] Post Discharge Appointments Primary Care Physician Name Of Family Doctor/PCP: Dr. Isra Coates
[2022-07-05] MEDS: DICLOFENAC SOD 1% GEL 100 GM TUBE EXT PRN (12:56)
[2022-07-05] MEDS: OLANZapine 5 MG TABLET PO PRN (16:58)
[2022-07-05] MEDS: clonazePAM 0.25 MG TAB PO PRN (18:27)
[2022-07-05] MEDS: hydrOXYzine HCl 25 MG TAB PO SCH (21:07)
[2022-07-05] MEDS ORDERED: clonazePAM 0.5 MG TAB PO SCH (22:00)
[2022-07-06] MEDS: clonazePAM 0.5 MG TAB PO PRN (01:41)
[2022-07-06] MEDS: OLANZapine 5 MG TABLET PO PRN (02:15)
[2022-07-06] MEDS: DICLOFENAC SOD 1% GEL 100 GM TUBE EXT PRN ×2 (02:48→12:24)
[2022-07-06] MEDS: CARIPRAZINE HCL PO SCH (08:48)
[2022-07-06] MEDS: SPIRONOLACTONE/HCTZ 25-25 PO SCH (08:49)
[2022-07-06] MEDS: lamoTRIgine 100 MG TAB PO SCH ×2 (08:50→21:36)
[2022-07-06] MEDS: MULTIVITAMIN TAB PO SCH (08:51)
[2022-07-06] MEDS: POTASSIUM CHLORIDE 10 MEQ TABCR PO SCH (08:51)
[2022-07-06] MEDS ORDERED: PSYLLIUM or GUAR GUM FIBER POWDER PACKET PO SCH (09:00)
[2022-07-06] MEDS ORDERED: OLANZAPINE 2.5 MG TAB PO PRN (09:44)
--- NOTE | 2022-07-06 10:00 | Psychiatric Progress Note ---
Date of Service July 06, 2022 Impression / Recommendations Impression 77 yo female with long hx of bipolar illness, presents with renzo in the setting of possible decreased compliance with appointments and medications. MNPR due to renzo, poor sleep 07/06/2022: sleep is still broken, slightly less pressured, rx akathisia (will only take Klonopin not propranolol). (1) Bipolar disease, chronic: Plan 07/06/2011: slow titration of hs Klonopin. Decrease Zyprexa to 2.5 mg hs prn. 07/05/2022: increase hs meds, continue to offer Zyprexa, currently not willing to increase Vraylar and non formulary. 07/04/2022: The patient was admitted to the [facility] ([facility] unit) on q15 min checks (behavioral with suicide precautions) for safety. The patient will participate in group, recreational, and milieu therapies and will be offered additional individual and family sessions as clinically appropriate. As was the class last stay, she is very selective about medications and is only willing to take clonazepam for sleep. Zyprexa will be offered as a prn. Will coordinate care with Dr. Arevalo tomorrow as [facility] is currently closed for . Inventory Assets Strengths: intelligent, good relationship with Ludmila Needs: regulate sleep, ensure medication compliance Suicide Risk Level Suicide Risk Level: Low (q15 min observation checks) Risk Factors Assessment : Yes Do You Have Access To A Gun?: No Health Problems: Yes Mental Health Diagnoses: Yes Substance Use Disorders: No Family History of Suicide: Yes Previous Psychiatric Hospitalization: Yes Protective Factors Assessment : No Employed: No Stable Relationships: Yes Interval History Identifying Information Lisbeth is a 77-year-old F who currently lives alone in [place], last hospitalized here in Dec 2020, and was admitted on 07/04/22 11:33 on a 201 voluntary commitment for renzo. Chief Complaint "my legs are moving from that pill" referring to akathisia from Zyprexa. Review of Systems Sleep Information Total Hours of Sleep: 5 Sleep Comments: Received Klonopin at 0141 and Zyprexa at 0215; awoke in middle of night and worked on activities in day room before returning to sleep Meal Information Percent Meal Consumed - Breakfast: 100 Percent Meal Consumed - Lunch: 100 Percent Meal Consumed - Dinner: 100 Subjective Subjective Patient was seen & assessed and interval progress reviewed with treatment team. The patient is slightly less pressured this am. Remains focussed on doses of medications and timing (control issue). She is redirectible. Sleep improved to 5 hrs but still with prns and now has side effects to higher dose of Zyprexa. Gait is steady and she is very aware of risks of falls with her klonopin. It's one of the few medications that have been helpful for acute renzo and she is not willing to try much else so gradually increasing and monitoring. Yesterday she was focussed on going to a hotel for 3 days at discharge so she'd have a pool. Continues with derisive comments. Physical Exam Psychiatric Orientation: alert and oriented x 3 Apperance: appropriately dressed and appropriately groomed Eye Contact: good eye contact Motor Behavior: no abnormal motor movements Affect: + labile affect Mood: + irritable mood; no depressed mood Thought Process: + tangential thought process Thought Content: reality based without delusions Suicidal Thoughts: denies suicidal thoughts Homicidal Thoughts: denies homicidal thoughts Hallucinations: no auditory hallucinations and no visual hallucinations Cognition: language grossly intact; + attention not intact Estimated Intelligence: consistent with education level Insight: + limited insight Judgment: + limited judgement Vital Signs (Past 24 Hours) Last Vital Signs Temp 36.2 C L 07/05/22 20:00 Pulse 63 07/06/22 06:45 Resp 20 07/06/22 06:45 BP 132/86 07/06/22 06:45 Pulse Ox 100 07/06/22 06:45 O2 Del Method Room Air 07/06/22 06:45 Results & Data ([facility]) Current Inpatient Medications Current Inpatient Medications: Current Inpatient Medications Acetaminophen (Acetaminophen 325 Mg Tab) 650 mg PO Q4H PRN PRN Reason: Headache or Minor Fever Stop: 08/03/22 11:32 Al Hydrox/Mg Hydrox/Simethicone (Aluminum/Magnesium Susp 30 Ml Udc) 30 ml PO Q4H PRN PRN Reason: GI Upset Stop: 08/03/22 11:32 Bismuth Subsalicylate (Bismuth Subsalicylate Liqd 236 Ml) 15 ml PO PRN PRN PRN Reason: Loose Stool Stop: 08/03/22 11:32 Cariprazine (Cariprazine Hcl) 1 each PO Q24H [facility] Stop: 08/04/22 08:59 Last Admin: 07/06/22 08:48 Dose: 1 each Clonazepam (Clonazepam 0.5 Mg Tab) 0.5 mg PO HS PRN PRN Reason: Sleep Stop: 08/03/22 11:34 Last Admin: 07/06/22 01:41 Dose: 0.5 mg Clonazepam (Clonazepam 0.25 Mg Tab) 0.25 mg PO Q4 PRN PRN Reason: Anxiety Stop: 08/03/22 11:59 Clonazepam (Clonazepam 0.25 Mg Tab) 0.75 mg PO HS [facility]ENATE Stop: 08/05/22 21:59 Diclofenac Sodium (Diclofenac Sod 1% Gel 100 Gm Tube) 1 gm EXT QID PRN; Protocol PRN Reason: Pain Stop: 08/03/22 11:39 Last Admin: 07/06/22 02:48 Dose: 1 gm HCTZ/Spironolactone (Spironolactone/Hctz 25-25) 1 tab PO QAM [facility] Stop: 08/04/22 08:59 Last Admin: 07/06/22 08:49 Dose: 1 tab Hydroxyzine HCl (Hydroxyzine Hcl 25 Mg Tab) 50 mg PO TODAY@1999 [facility] Stop: 08/04/22 19:59 Last Admin: 07/05/22 21:07 Dose: 50 mg Lamotrigine (Lamotrigine 100 Mg Tab) 300 mg PO QAM [facility] Stop: 08/04/22 08:59 Last Admin: 07/06/22 08:50 Dose: 300 mg Lamotrigine (Lamotrigine 100 Mg Tab) 150 mg PO QPM [facility] Stop: 08/03/22 20:59 Last Admin: 07/05/22 21:30 Dose: 150 mg Magnesium Hydroxide (Magnesium Hydroxide Susp 30 Ml Udc) 30 ml PO DAILY PRN PRN Reason: Constipation Stop: 08/03/22 11:32 Multivitamins (Multivitamin Tab) 1 tab PO QAM [facility] Stop: 08/04/22 08:59 Last Admin: 07/06/22 08:51 Dose: 1 tab Olanzapine (Olanzapine 2.5 Mg Tab) 2.5 mg PO Q6H PRN PRN Reason: Anxiety/Agitation Stop: 08/03/22 16:59 Pantoprazole Sodium (Pantoprazole 40 Mg Tab) 40 mg PO Q48H PRN PRN Reason: Dyspepsia Stop: 08/03/22 11:34 Potassium Chloride (Potassium Chloride 10 Meq Tabcr) 10 meq PO QAM [facility] Stop: 08/04/22 08:59 Last Admin: 07/06/22 08:51 Dose: 10 meq Psyllium Hydrophilic Mucilloid (Psyllium Or Guar Gum Fiber Powder Packet) 4 pkt PO QAM [facility] Stop: 08/06/22 06:59 Sodium Chloride (Sodium Chloride 0.65% Na Soln 45 Ml ([place])) 1 - 2 sprays NA PRN PRN PRN Reason: Nasal Dryness/Congestion Stop: 08/03/22 11:32 Mental Health & Subst Abuse Tx Therapist Name of Therapist: Tanya Lombardi @ [facility] Office Services Clerk Name of Office Services Clerk: Ludmila Sanchez - [facility] CM Post Discharge Appointments Primary Care Physician Name Of Family Doctor/PCP: Dr. Isra Coates
[2022-07-06] MEDS: PSYLLIUM or GUAR GUM FIBER POWDER PACKET PO SCH (10:07)
[2022-07-06] MEDS: clonazePAM 0.25 MG TAB PO PRN ×2 (10:09→17:04)
[2022-07-06] MEDS: guaiFENesin 600 MG TABCR PO SCH (21:35)
[2022-07-06] MEDS: hydrOXYzine HCl 25 MG TAB PO SCH (21:35)
[2022-07-06] MEDS ORDERED: clonazePAM 0.5 MG TAB PO SCH (22:00)
[2022-07-06] MEDS ORDERED: clonazePAM 0.25 MG TAB PO SCH ×2 (22:00)
[2022-07-07] MEDS: clonazePAM 0.5 MG TAB PO PRN (02:58)
[2022-07-07] MEDS: clonazePAM 0.25 MG TAB PO PRN ×2 (04:30→16:43)
[2022-07-07] MEDS: PSYLLIUM or GUAR GUM FIBER POWDER PACKET PO SCH ×2 (06:14→07:54)
[2022-07-07] MEDS: CARIPRAZINE HCL PO SCH (07:51)
[2022-07-07] MEDS: POTASSIUM CHLORIDE 10 MEQ TABCR PO SCH (07:52)
[2022-07-07] MEDS: MULTIVITAMIN TAB PO SCH (07:52)
[2022-07-07] MEDS: lamoTRIgine 100 MG TAB PO SCH ×2 (07:52→21:55)
[2022-07-07] MEDS: SPIRONOLACTONE/HCTZ 25-25 PO SCH (07:52)
[2022-07-07] MEDS: guaiFENesin 600 MG TABCR PO SCH ×2 (08:28→23:11)
[2022-07-07] MEDS: DICLOFENAC SOD 1% GEL 100 GM TUBE EXT PRN (12:20)
--- NOTE | 2022-07-07 14:18 | Psychiatric Progress Note ---
Date of Service July 07, 2022 Impression / Recommendations Impression 77 yo female with long hx of bipolar illness, presents with renzo in the setting of possible decreased compliance with appointments and medications. MNPR due to renzo, poor sleep 07/07/2022: slow improvement, limited options given resistance to certain options, in all fairness has been on multiple medications. (1) Bipolar disease, chronic: Plan 07/07/2022: Klonopin 1 mg po qhs as tolerating and still requiring prns on the lower dose. Dr. Arevalo updated. 07/06/2022: slow titration of hs Klonopin. Decrease Zyprexa to 2.5 mg hs prn. 07/05/2022: increase hs meds, continue to offer Zyprexa, currently not willing to increase Vraylar and non formulary. 07/04/2022: The patient was admitted to the [facility] ([facility]) on q15 min checks (behavioral with suicide precautions) for safety. The patient will participate in group, recreational, and milieu therapies and will be offered additional individual and family sessions as clinically appropriate. As was the class last stay, she is very selective about medications and is only willing to take clonazepam for sleep. Zyprexa will be offered as a prn. Will coordinate care with Dr. Arevalo tomorrow as [facility] is currently closed for . Inventory Assets Strengths: intelligent, good relationship with Ludmila Needs: regulate sleep, ensure medication compliance Risk Factors Assessment : Yes Do You Have Access To A Gun?: No Health Problems: Yes Mental Health Diagnoses: Yes Substance Use Disorders: No Family History of Suicide: Yes Previous Psychiatric Hospitalization: Yes Protective Factors Assessment : No Employed: No Stable Relationships: Yes Interval History Identifying Information Lisbeth is a 77-year-old F who currently lives alone in [place], last hospitalized here in Dec 2020, and was admitted on 07/04/22 11:33 on a 201 voluntary commitment for renzo. Chief Complaint ongoing disrupted sleep Review of Systems Sleep Information Total Hours of Sleep: 3.25 Meal Information Percent Meal Consumed - Breakfast: 100 Percent Meal Consumed - Lunch: 100 Percent Meal Consumed - Dinner: 100 Nutrition Comment: Double Portions Subjective Subjective Patient was seen & assessed and interval progress reviewed with nursing and social work. Patient somewhat less intrussive but demanding of staff at times. Speech not as pressured. Still up/down at night and wants to engage in activities overnight. Gait steady. Patient did sleep late am so sleep info isn't 100% accurate. Physical Exam Psychiatric Orientation: alert and oriented x 3 Apperance: appropriately dressed and appropriately groomed Eye Contact: good eye contact Motor Behavior: no abnormal motor movements Speech: + pressured speech (yet can be interrupted) Affect: euthymic affect Mood: + irritable mood; no depressed mood Thought Process: + tangential thought process Thought Content: reality based without delusions Suicidal Thoughts: denies suicidal thoughts Homicidal Thoughts: denies homicidal thoughts Hallucinations: no auditory hallucinations and no visual hallucinations Cognition: language grossly intact; + attention not intact Estimated Intelligence: consistent with education level Insight: + limited insight Judgment: + limited judgement Vital Signs (Past 24 Hours) Last Vital Signs Temp 36.4 C L 07/07/22 06:32 Pulse 78 07/07/22 06:32 Resp 22 07/07/22 06:32 BP 152/86 H 07/07/22 06:32 Pulse Ox 96 07/07/22 06:32 O2 Del Method Room Air 07/07/22 06:32 Results & Data ([facility]) Current Inpatient Medications Current Inpatient Medications: Current Inpatient Medications Acetaminophen (Acetaminophen 325 Mg Tab) 650 mg PO Q4H PRN PRN Reason: Headache or Minor Fever Stop: 08/03/22 11:32 Al Hydrox/Mg Hydrox/Simethicone (Aluminum/Magnesium Susp 30 Ml Udc) 30 ml PO Q4H PRN PRN Reason: GI Upset Stop: 08/03/22 11:32 Bismuth Subsalicylate (Bismuth Subsalicylate Liqd 236 Ml) 15 ml PO PRN PRN PRN Reason: Loose Stool Stop: 08/03/22 11:32 Cariprazine (Cariprazine Hcl) 1 each PO Q24H [facility] Stop: 08/04/22 08:59 Last Admin: 07/07/22 07:51 Dose: 1 each Clonazepam (Clonazepam 0.5 Mg Tab) 0.5 mg PO HS PRN PRN Reason: Sleep Stop: 08/03/22 11:34 Last Admin: 07/07/22 02:58 Dose: 0.5 mg Clonazepam (Clonazepam 0.25 Mg Tab) 0.25 mg PO Q4 PRN PRN Reason: Anxiety Stop: 08/03/22 11:59 Last Admin: 07/07/22 04:30 Dose: 0.25 mg Clonazepam (Clonazepam 1 Mg Tab) 1 mg PO HS [facility] Stop: 08/06/22 21:59 Diclofenac Sodium (Diclofenac Sod 1% Gel 100 Gm Tube) 1 gm EXT QID PRN; Protocol PRN Reason: Pain Stop: 08/03/22 11:39 Last Admin: 07/07/22 12:20 Dose: 1 gm Guaifenesin (Guaifenesin 600 Mg Tabcr) 600 mg PO Q12 [facility] Stop: 08/05/22 20:59 Last Admin: 07/07/22 08:28 Dose: Not Given HCTZ/Spironolactone (Spironolactone/Hctz 25-25) 1 tab PO QAM [facility] Stop: 08/04/22 08:59 Last Admin: 07/07/22 07:52 Dose: 1 tab Hydroxyzine HCl (Hydroxyzine Hcl 25 Mg Tab) 50 mg PO TODAY@1999 [facility] Stop: 08/04/22 19:59 Last Admin: 07/06/22 21:35 Dose: 50 mg Lamotrigine (Lamotrigine 100 Mg Tab) 300 mg PO QAM [facility] Stop: 08/04/22 08:59 Last Admin: 07/07/22 07:52 Dose: 300 mg Lamotrigine (Lamotrigine 100 Mg Tab) 150 mg PO QPM [facility] Stop: 08/03/22 20:59 Last Admin: 07/06/22 21:36 Dose: 150 mg Magnesium Hydroxide (Magnesium Hydroxide Susp 30 Ml Udc) 30 ml PO DAILY PRN PRN Reason: Constipation Stop: 08/03/22 11:32 Multivitamins (Multivitamin Tab) 1 tab PO QAM [facility] Stop: 08/04/22 08:59 Last Admin: 07/07/22 07:52 Dose: 1 tab Olanzapine (Olanzapine 2.5 Mg Tab) 2.5 mg PO Q6H PRN PRN Reason: Anxiety/Agitation Stop: 08/03/22 16:59 Pantoprazole Sodium (Pantoprazole 40 Mg Tab) 40 mg PO Q48H PRN PRN Reason: Dyspepsia Stop: 08/03/22 11:34 Potassium Chloride (Potassium Chloride 10 Meq Tabcr) 10 meq PO QAM [facility] Stop: 08/04/22 08:59 Last Admin: 07/07/22 07:52 Dose: 10 meq Psyllium Hydrophilic Mucilloid (Psyllium Or Guar Gum Fiber Powder Packet) 4 pkt PO QAM [facility] Stop: 08/06/22 06:59 Last Admin: 07/07/22 07:54 Dose: Not Given Sodium Chloride (Sodium Chloride 0.65% Na Soln 45 Ml ([place])) 1 - 2 sprays NA PRN PRN PRN Reason: Nasal Dryness/Congestion Stop: 08/03/22 11:32 Mental Health & Subst Abuse Tx Psychiatrist Name of Psychiatrist: [facility] - Dr. Arevalo Psychiatrist's Date Of Appointment With Psychiatric Provider: 07/22/22 Time of Appointment with Psychiatrist: 11:00 AM Psychiatric Appointment Comment: [address], [place] [address] Therapist Name of Therapist: Tanya Lombardi @ [facility] Therapist's Date of Therapist Appointment: 07/18/22 Time of Therapist Appointment: 3:00 PM Therapy Appointment Comment: [address], [place] [address] Entry Specialists Name of Entry Specialists: Ludmila Sanchez - [facility] CM Phone Number for Entry Specialists: [phone] Case Management Appointment Comment: Follow up per your regular outpatient schedule. Post Discharge Appointments Primary Care Physician Name Of Family Doctor/PCP: FARSHAD [facility] Date of Future Appointment with PCP: 07/12/2022 Time of Appointment with PCP: 2pm Provider Appointment Comment: [phone] [phone] Contact Information Discharge Discharge Address: [address], [place] [address]
[2022-07-07] MEDS: ACETAMINOPHEN 500 MG TAB PO PRN (19:32)
[2022-07-07] MEDS: hydrOXYzine HCl 25 MG TAB PO SCH (21:54)
[2022-07-07] MEDS ORDERED: clonazePAM 1 MG TAB PO SCH (22:00)
[2022-07-08] MEDS: ACETAMINOPHEN 500 MG TAB PO PRN ×2 (05:09→10:04)
[2022-07-08] MEDS: lamoTRIgine 100 MG TAB PO SCH (09:59)
[2022-07-08] MEDS: SPIRONOLACTONE/HCTZ 25-25 PO SCH (09:59)
[2022-07-08] MEDS: guaiFENesin 600 MG TABCR PO SCH (09:59)
[2022-07-08] MEDS: MULTIVITAMIN TAB PO SCH (09:59)
[2022-07-08] MEDS: CARIPRAZINE HCL PO SCH (10:00)
[2022-07-08] MEDS: POTASSIUM CHLORIDE 10 MEQ TABCR PO SCH (10:00)
[2022-07-08] MEDS: PSYLLIUM or GUAR GUM FIBER POWDER PACKET PO SCH (10:56)
--- NOTE | 2022-07-08 12:18 | Discharge Summary ---
Date of Service July 08, 2022 History of Present Illness Her presentation is rather similar to last stay in that she hasn't been sleeping well for several days and is increasingly paranoid that her sister is coming in to her home and taking and/or rearranging things. Her main support remains Ludmila, her fpccareer guidance counselor who does help with organizing the house. Patient states she can't remember to take Klonopin but it works when she takes it, quickly shifts focus on her psyllium for her bowels which was not ordered correctly last time. Was hypertalkative and tangential in the ED but cooperated with medical clearance, BP was quite elevated on presentation presumably due to renzo. Per 12/2020 admit note: The patient reports her most recent inpatient hospitalization was in [address] [facility]. Around that time she was started on lamotrigine and "that's really kept me out of the hospital". Her mood does cycle, mainly from irritable ("sometimes) to low energy and motivation to go places or eat much. She reports mainly having tofu and eggs throughout day. She started feeling more depressed several weeks ago and was using 10,000 lux light therapy 30 min twice a day but "it made me anxious" so stopped. Her mood has declined since. She remains overwhelmed in caring for the family home but is quite attached to it. She does have a shelter support person who helps her organize mail, etc as "my only support". She relates longstanding concerns (likely paranoia) that her estranged sister is coming in to the home and moving things around just to upset her. She reports sending a legal letter over a decade ago but only recently changing the locks. She denies intent or plan to hubbard rm herself but "it wouldn't matter if the sun didn't come up." She reports compliant with her medication and appointments with her outpatient psychiatrist and therapist. Physical Exam Psychiatric See admission H&P and DOD assessment. Vital Signs (Past 24 Hours) Last Vital Signs Temp 36.6 C 07/08/22 06:43 Pulse 73 07/08/22 06:44 Resp 18 07/08/22 06:43 BP 144/80 H 07/08/22 06:44 Pulse Ox 96 07/07/22 06:32 O2 Del Method Room Air 07/07/22 06:32 Principal Diagnosis bipolar disorder Psychiatric Data See daily stay summary. In short, safety was maintained and she initially had markedly pressured speech and insomnia. She resisted medication changes such as titration of Vraylar or restart of topamax but did respond to prn Klonopin and Zyprexa, though the latter caused some mild akathisia. Klonopin was titrated at hs as only option patient would agree to and she voiced good understanding of controlled substance/fall risk. In lieu of a family session, staff coordinated with her longtime fpccareer guidance counselor. She verbalized a safety plan. The patient was never suicidal and she did not exhibit any signs of psychosis while on the unit. Her sleep improved and her gait remained steady. Although she presented intitially with symptoms of renzo/hypomania, the challenging behaviors on the unit were personality disordered. Ms. Li presents as entitled at baseline with issues with executive functioning. She is derisive with those that are caring for her and her rude comments were often upsetting to staff and copatients. She tended to monopolize group. As was last stay she requests to leave and then implies she will contest her discharge as she is being pushed out. Regardless she no longer meets criteria for inpatient level of care. She did exhibit an escalation of her loud behavior as transitioning from the building as she felt we should arrange transportation for multiple stops as well as coordinate hotel accommodations for her. This was entirely consistent with her narcissistic personality traits and not amenable to further acute inpatient care. I'm familiar with the patient from a previous stay and this behavior is baseline and separate from any renzo. Case was reviewed with Dr. Arevalo throughout her stay. Day of Discharge Assessment Today the patient is agreeable to discharge. They continue to deny thoughts to harm self or others. Thoughts remain circumstantial but they are less scattered than from admission. There is no evidence of psychosis. They agree to take mediations as prescribed and keep follow-up appointments. They are stable for discharge to outpatient level of care. Transition of Care Transition Of Care Record: was reviewed with the patient Advance Directives Advance Directives Information Provided: Yes Advance Directives: No Mental Health Advance Directive: No Advance Directives on File: No Living Will: No Power of Field Court Researcher: No Advance Directives Reason:: Declines as Mental Health Visit. Suicide Risk Level Suicide Risk Level Comments: Suicide risk at discharge is deemed low as the patient is no longer requiring 24-hr monitoring, has a safety plan, and is free of suicidal ideation at discharge. Risk Factors Assessment : Yes Do You Have Access To A Gun?: No Health Problems: Yes Mental Health Diagnoses: Yes Substance Use Disorders: No Family History of Suicide: Yes Previous Psychiatric Hospitalization: Yes Protective Factors Assessment : No Employed: No Stable Relationships: Yes Tobacco Cessation at Discharge Tobacco Cessation Medication Prescribed at Discharge: Not Applicable/Non-Smoker Total Time Total Time Spent: Greater Than 30 Minutes Total Time Includes: Examination of the patient, Discharge Planning and Medi cation Reconciliation Discharge Data Lab Results 07/04/22 07/04/22 07/04/22 08:12 08:16 08:16 WBC RBC Hgb Hct MCV MCH MCHC RDW Std Deviation RDW Coeff of Benny Plt Count MPV Immature Gran % (Auto) Neut % (Auto) Lymph % (Auto) Maries % (Auto) Eos % (Auto) Baso % (Auto) Neut # (Auto) Lymph # (Auto) Maries # (Auto) Eos # (Auto) Baso # (Auto) Immature Gran # (Auto) Sodium Potassium Chloride Carbon Dioxide Anion Gap BUN Creatinine Est Cr Clr Drug Dosing Est GFR ( Amer) Est GFR (Non-Af Amer) BUN/Creatinine Ratio Glucose Calcium Phosphorus 3.4 Total Bilirubin AST ALT Alkaline Phosphatase Total Protein Albumin Globulin Albumin/Globulin Ratio TSH Urine Color Yellow Urine Appearance Clear Urine pH 5.5 Ur Specific [place] 1.008 Urine Protein 2+ H Urine Glucose (UA) Negative Urine Ketones Negative Urine Blood Trace H Urine Nitrite Negative Urine Bilirubin Negative Urine Urobilinogen Negative Ur Leukocyte Esterase 1+ H Urine WBC (Auto) 5-10 H Urine RBC (Auto) 0-4 U Hyaline Cast (Auto) 1-5 U Epithel Cells (Auto) 20-30 H Urine Bacteria (Auto) Negative Salicylates Urine Opiates Screen Neg Ur Methadone, Qual Neg Acetaminophen Urine Barbiturates Neg Ur Phencyclidine (PCP) Neg U Amphetamin/Meth Scrn Neg MDMA (Ecstasy) Screen Neg U Benzodiazepines Scrn Neg Ur Cocaine Metabolite Neg U Marijuana (THC) Screen Neg Ethyl Alcohol mg/dL SARS-CoV-2, RNA, NAAT 07/04/22 07/04/22 07/04/22 08:16 08:30 08:30 WBC 7.35 RBC 4.17 L Hgb 12.6 Hct 37.9 MCV 90.9 MCH 30.2 MCHC 33.2 RDW Std Deviation 43.4 RDW Coeff of Benny 13.1 Plt Count 305 MPV 10.2 Immature Gran % (Auto) 0.4 Neut % (Auto) 67.6 Lymph % (Auto) 18.5 Maries % (Auto) 8.6 Eos % (Auto) 3.9 Baso % (Auto) 1.0 Neut # (Auto) 4.97 Lymph # (Auto) 1.36 Maries # (Auto) 0.63 H Eos # (Auto) 0.29 Baso # (Auto) 0.07 Immature Gran # (Auto) 0.03 Sodium 138 Potassium 3.9 Chloride 106 Carbon Dioxide 24 Anion Gap 8 BUN 55 H Creatinine 1.69 H Est Cr Clr Drug Dosing 26.4 Est GFR ( Amer) 33.6 Est GFR (Non-Af Amer) 29.0 BUN/Creatinine Ratio 32.5 H Glucose 105 H Calcium 10.0 Phosphorus Total Bilirubin 0.3 AST 42 H ALT 40 Alkaline Phosphatase 108 H Total Protein 7.9 Albumin 4.4 Globulin 3.5 Albumin/Globulin Ratio 1.3 TSH Urine Color Urine Appearance Urine pH Ur Specific [place] Urine Protein Urine Glucose (UA) Urine Ketones Urine Blood Urine Nitrite Urine Bilirubin Urine Urobilinogen Ur Leukocyte Esterase Urine WBC (Auto) Urine RBC (Auto) U Hyaline Cast (Auto) U Epithel Cells (Auto) Urine Bacteria (Auto) Salicylates Urine Opiates Screen Ur Methadone, Qual Acetaminophen Urine Barbiturates Ur Phencyclidine (PCP) U Amphetamin/Meth Scrn MDMA (Ecstasy) Screen U Benzodiazepines Scrn Ur Cocaine Metabolite U Marijuana (THC) Screen Ethyl Alcohol mg/dL SARS-CoV-2, RNA, NAAT NEGATIVE 07/04/22 07/04/22 07/04/22 08:30 08:30 08:30 WBC RBC Hgb Hct MCV MCH MCHC RDW Std Deviation RDW Coeff of Benny Plt Count MPV Immature Gran % (Auto) Neut % (Auto) Lymph % (Auto) Maries % (Auto) Eos % (Auto) Baso % (Auto) Neut # (Auto) Lymph # (Auto) Maries # (Auto) Eos # (Auto) Baso # (Auto) Immature Gran # (Auto) Sodium Potassium Chloride Carbon Dioxide Anion Gap BUN Creatinine Est Cr Clr Drug Dosing Est GFR ( Amer) Est GFR (Non-Af Amer) BUN/Creatinine Ratio Glucose Calcium Phosphorus Total Bilirubin AST ALT Alkaline Phosphatase Total Protein Albumin Globulin Albumin/Globulin Ratio TSH 3.852 Urine Color Urine Appearance Urine pH Ur Specific [place] Urine Protein Urine Glucose (UA) Urine Ketones Urine Blood Urine Nitrite Urine Bilirubin Urine Urobilinogen Ur Leukocyte Esterase Urine WBC (Auto) Urine RBC (Auto) U Hyaline Cast (Auto) U Epithel Cells (Auto) Urine Bacteria (Auto) Salicylates < 3.0 L Urine Opiates Screen Ur Methadone, Qual Acetaminophen < 3 L Urine Barbiturates Ur Phencyclidine (PCP) U Amphetamin/Meth Scrn MDMA (Ecstasy) Screen U Benzodiazepines Scrn Ur Cocaine Metabolite U Marijuana (THC) Screen Ethyl Alcohol mg/dL < 10.0 SARS-CoV-2, RNA, NAAT Hospital Course (1) Bipolar disease, chronic: Plan 07/07/2022: Klonopin 1 mg po qhs as tolerating and still requiring prns on the lower dose. Dr. Arevalo updated. 07/06/2022: slow titration of hs Klonopin. Decrease Zyprexa to 2.5 mg hs prn. 07/05/2022: increase hs meds, continue to offer Zyprexa, currently not willing to increase Vraylar and non formulary. 07/04/2022: The patient was admitted to the [facility] ([facility] mental health unit) on q15 min checks (behavioral with suicide precautions) for safety. The patient will participate in group, recreational, and milieu therapies and will be offered additional individual and family sessions as clinically appropriate. As was the class last stay, she is very selective about medications and is only willing to take clonazepam for sleep. Zyprexa will be offered as a prn. Will coordinate care with Dr. Arevalo tomorrow as [facility] is currently closed for . Mental Health & Subst Abuse Tx Psychiatrist Name of Psychiatrist: [facility] - Dr. Arevalo Psychiatrist's Date Of Appointment With Psychiatric Provider: 07/22/22 Time of Appointment with Psychiatrist: 11:00 AM Psychiatric Appointment Comment: [address], [place] [address] Therapist Name of Therapist: Tanya Lombardi @ [facility] Therapist's Date of Therapist Appointment: 07/18/22 Time of Therapist Appointment: 3:00 PM Therapy Appointment Comment: [address], [place] [address] Steel Pourer Helper Name of Steel Pourer Helper: Ludmila Sanchez - [facility] CM Phone Number for Steel Pourer Helper: [phone] Case Management Appointment Comment: Follow up per your regular outpatient schedule. Post Discharge Appointments Primary Care Physician Name Of Family Doctor/PCP: FARSHAD [facility] Date of Future Appointment with PCP: 07/12/2022 Time of Appointment with PCP: 2pm Provider Appointment Comment: [address] [facility] [place] [place] [address] Smoking Cessation Counseling Tobacco Cessation Medication Prescribed at Discharge: Not Applicable/Non-Smoker Contact Information Discharge Discharge Address: [address] [place] [id number] Discharge Plan Discharge Items Patient Disposition: Home - Self-Care Reason For Visit: BIPOLAR DISORDER Discharge Diagnosis: same Activity: Resume your previous activity Non-emergency contact: Primary Care Provider and Psychiatrist Call non-emergency contact if: you have any medication questions and your symptoms worsen Follow-up/Referrals: Isra Coates, [Primary Care Provider] - Diet: Regular Addtl Attending Provider Instructions: SPECIAL CARE INSTRUCTIONS: 1. Follow through with your scheduled aftercare appointments. If unable to keep an appointment, please call to reschedule. 2. Take your medication only as prescribed. Medication should not be changed or stopped without the approval of your doctor. In the event of worsening symptoms or concerns about side effects, contact your doctor immediately. 3. Utilize new healthy coping skills, anger management skills, and stress management skills learned during your hospitalization. Journal feelings and process them with a support person. Identify stressors or situations that may result in relapse, deterioration or inappropriate behaviors and develop a plan to deal with those issues. 4. If your coping skills are ineffective and you are in crisis, contact your outpatient providers for direction. If unable to reach your providers, please call the [facility] CRISIS LINE AT , go to the [facility] walk-in center at [address] [place] [address], [address], [place], or go to the closest Emergency Room. 5. Avoid alcohol and un-prescribed drugs. 6. You have been provided with the Mental Health Advance Directives Pamphlet for your review. 7. Your condition is stable for discharge to outpatient level of care, but recovery is an ongoing process. Ifthoughts to harm yourself or others return, follow the safety plan developed during your stay. Planning for a safe return home includes securing weapons. Our treatment team recommends weaponsbe removed from the home until your outpatient provider reassesses your progress. In rare cases where the items themselvescannot be removed, guns and ammunitionshould be secured separatelyand keys stored by a reliable personoutside of the home. If you were admitted on an involuntary commitment, the police or other legal authorities may be involved in this process. AFTERCARE APPOINTMENTS: * Please call your insurance company prior to your scheduled appointment to confirm your aftercare providers are covered. Take your insurance information to your appointments. WHO TO CALL AND WHEN: Medical Emergencies: For questions or emergencies related to your hospital stay, please contact the Inpatient Behavioral Health Unit at [phone]. A millroom supervisor is on-call 29/08 for the Behavioral Health Unit for emergencies At any time you feel your situation is an emergency, you may also call 911 immediately. Pending Studies at Discharge: No Stand-Alone Forms: [facility], Smoking Cessation Medications and DC Order Prescriptions: New clonazepam 1 mg Tablet 1 mg PO HS Qty: 30 0RF Continued lamotrigine 100 mg tablet 100 mg PO .COMPLEX Rx Instructions: 100 mg orally TAKE 300MG IN THE MORNING AND TAKE 150MG IN THE EVENING; mecobalamin (vitamin B12) 1,000 mcg tablet,disintegrating 1,000 mcg sublingual QAM Rx Instructions: place tablet under tongue and allow to dissolve for at least30 secs before swallowing Vraylar 1.5 mg capsule 1.5 mg PO QAM hydroxyzine HCl 10 mg tablet 30 mg PO HS PRN (Reason: Anxiety) vitamin B complex Tablet 1 tab PO QAM diclofenac sodium 1 % gel 1 g TOPICAL QID PRN (Reason: Pain) psyllium Powder 3 tsp PO DAILYBB Patient Comments: PRN use Rx Instructions: Metamucil multivitamin Tablet 1 tab PO QAM Glucosamine Sulf-Chondroitin 500-400 mg capsule 2 tab PO QAM omega-3 fatty acids Capsule 2 cap PO QPM pantoprazole 20 mg tablet,delayed release (DR/EC) 20 mg PO Q OTHER DAY PRN (Reason: Dyspepsia) potassium chloride 10 mEq capsule, extended release 10 meq PO QAM spironolacton-hydrochlorothiaz 25-25 mg tablet 1 tab PO QAM cholecalciferol (vitamin D3) 50 mcg (2,000 unit) capsule 50 mcg PO QAM Changed clonazepam 0.5 mg tablet 0.25 mg PO BID PRN (Reason: anxiety) Qty: 1 0RF Rx Instructions: up to 3 doses Discharge Orders: Discharge Order (Routine); Ordered 07/08/22 Ordered By: Cesilia Spencer Admission Data Admit Date/Time: 07/04/22 11:33 Attending Provider: Cesilia Spencer Admit Provider: Cesilia Spencer Primary Care Provider: Isra Coates Other Interventions: Discharge Summary Assessment (RN) Last Done: 07/08/22 12:54 PSY Interdisciplinary Discharge Planning Last Done: 07/08/22 13:27 Coding Level of Care Code 56452 D/C day mgmt > 30 min Diagnoses Bipolar disease, chronic F31.9
== END 2022-07-08 14:08 | disposition home or self-care (01) | DRG 885 ==
LOC: ED 07:42 → 3S 11:33

== ENCOUNTER 2023-10-18 06:43 | Observation (INO) ==
--- NOTE | 2023-02-16 16:19 | PAT Medication Instructions ---
Medication Instructions Date of Service February 16, 2023 Home Medications Medication Instructions Recorded spironolactone 25 1 tab PO DAILY 90 days #90 tabs 01/27/23 mg-hydrochlorothiazide 25 mg tablet losartan 25 mg tablet 25 mg PO .COMPLEX #90 tabs 02/09/23 vitamin B complex 1 tab PO QAM diclofenac sodium 1 % topical gel 1 g topical QID PRN omega-3 fatty acids 2 cap PO QPM glucosamine sulfate dipotassium Cl 500 mg-chondroitin 400 mg capsule (Glucosamine Sulfate 2 KCL-Chondroitin) 1 tab PO DAILY multivitamin (Daily Multi-Vitamin tablet) 1 tab PO DAILY spironolactone 25 mg-hydrochlorothiazide 25 mg tablet 1 tab PO DAILY acetaminophen 325 mg tablet 650 mg PO QID PRN losartan 25 mg tablet 25 mg PO .COMPLEX amlodipine 5 mg tablet 5 mg PO DAILY chlorpromazine 25 mg tablet 25 mg PO UD PRN clonazepam 0.5 mg tablet (Klonopin) 0.25 - 0.5 mg PO HS cyanocobalamin (vitamin B-12) 1,000 mcg sublingual tablet 1,000 mcg sublingual QAM denosumab 60 mg/mL subcutaneous syringe (Prolia) 60 mg subcut UD ergocalciferol (vitamin D2) 1,250 mcg (50,000 unit) capsule (Vitamin D2) 1,250 mcg PO WK furosemide 20 mg tablet 10 mg PO DAILY PRN hydroxyzine HCl 10 mg tablet 40 mg PO UD lamotrigine 100 mg tablet 100 mg PO UD melatonin 3 mg tablet 3 mg PO HS pantoprazole 40 mg tablet,delayed release 40 mg PO BID quetiapine 50 mg tablet (Seroquel) 50 mg PO UD Continue as directed amlodipine 5 mg tablet 5 mg PO DAILY hydroxyzine HCl 10 mg tablet 40 mg PO UD lamotrigine 100 mg tablet 100 mg PO UD ASK your prescriber and surgeon chlorpromazine 25 mg tablet 25 mg PO UD PRN denosumab 60 mg/mL subcutaneous syringe (Prolia) 60 mg subcut UD quetiapine 50 mg tablet (Seroquel) 50 mg PO UD STOP taking 2 weeks before surgery (or as soon as possible if surgery is within 2 weeks) omega-3 fatty acids 2 cap PO QPM glucosamine sulfate dipotassium Cl 500 mg-chondroitin 400 mg capsule (Glucosamine Sulfate 2 KCL-Chondroitin) 1 tab PO DAILY STOP taking 24 hours before surgery diclofenac sodium 1 % topical gel 1 g topical QID PRN DO NOT take the morning of surgery vitamin B complex 1 tab PO QAM multivitamin (Daily Multi-Vitamin tablet) 1 tab PO DAILY spironolactone 25 mg-hydrochlorothiazide 25 mg tablet 1 tab PO DAILY losartan 25 mg tablet 25 mg PO .COMPLEX cyanocobalamin (vitamin B-12) 1,000 mcg sublingual tablet 1,000 mcg sublingual QAM ergocalciferol (vitamin D2) 1,250 mcg (50,000 unit) capsule (Vitamin D2) 1,250 mcg PO WK furosemide 20 mg tablet 10 mg PO DAILY PRN Take morning of surgery With a small sip of water, OTHERWISE NOTHING TO EAT OR DRINK AFTER MIDNIGHT: acetaminophen 325 mg tablet 650 mg PO QID PRN(if needed) pantoprazole 40 mg tablet,delayed release 40 mg PO BID Take evening before surgery acetaminophen 325 mg tablet 650 mg PO QID PRN(if needed) clonazepam 0.5 mg tablet (Klonopin) 0.25 - 0.5 mg PO HS melatonin 3 mg tablet 3 mg PO HS pantoprazole 40 mg tablet,delayed release 40 mg PO BID Other Notes If you have any questions please call us at [phone] or [phone] or [phone] or [phone]
--- NOTE | 2023-02-17 14:11 | Anesthesiology Consultation ---
Date of Service February 17, 2023 Assessment & Plan (1) Encounter for pre-operative examination: Plan - upcoming pre-operative appointment 02/22/23 with [facility]. Workload note sent to both [facility] and nephrology by patient request for review of 02/17/23 testing for general medical review, awaiting upcoming PCP pre-op appointment. Per patient request, below needs followed eliza-operatively. Information will be dispersed to upper level departments/management. Surgeon's office notified. - she does not want anyone to speak to her in a loud voice as "this contributes to agitation." - physical therapy exercises for chronic neck, right wrist and right ankle pain "to be continued while hospitalized." - only to be showered/washed when requested by patient or "if develops body odor." - she requests diapers while hospitalized for urinary incontinence: "needs as immediate attention as possible when rings robertson to use bathroom due to incontinence." - constipation: she states will be bringing in fiber supplement from home and states staff are to follow instructions listed on supplement container. - h/o dehydration: "requires constant water and ice." - "must be shown each medication and told what medication it is before being administered." She states "is not to be asked if wants prn medications by staff as I will ask if I want/need prn medication." - voltaren is to be given in a small cup. - Outpatient joint assessment: Patient is currently scheduled for inpatient pathway. If re-evaluated and patient/surgeon requests outpatient pathway, patient is not recommended candidate for outpatient joint program from anesthesia standpoint. - Extensive time and discussion spent in direct patient and care regarding eliza- operative concerns and records confirmation, total time 55 minutes. She indicated questions/concerns were adequately addressed, plan as above regarding medications. Chart Review Chart Review: Pending: Refer to Additional Notes / Consult section and Patient seen in Pre Admission Testing Teaching & Discussion Pre-Anesthesia Teaching/Discussion Notes: Instructed NPO after midnight before surgery, except medications with 15 cc of water. Medication instructions provided according to the PAT guidelines. History Surgery Operation Date: 03/01/23 07:00 Proposed Procedures p Left Total Knee Arthroplasty - Param Mackey MD Height/Weight Height: 5 ft 1 in Weight: 74 kg Allergies Allergy/AdvReac Type Severity Reaction Status Date / Time hydrocodone AdvReac Mild NAUSEA AND Verified 02/16/23 11:51 VOMITING thioridazine AdvReac Mild RESTLESS Verified 02/16/23 11:51 LEG/remote hx ziprasidone AdvReac Mild vomiting/black Verified 02/17/23 15:06 stools meloxicam AdvReac Unknown pt doesn't Verified 02/16/23 11:51 remember Medications Home Medications Medication Instructions Recorded Confirmed Last Taken vitamin B complex 1 tab PO QAM 02/25/19 02/16/23 12/02/22 diclofenac sodium 1 % topical gel 1 g topical QID PRN Pain 08/13/19 02/16/23 11/30/22 omega-3 fatty acids 2 cap PO QPM 12/12/20 02/16/23 12/01/22 glucosamine sulfate dipotassium Cl 1 tab PO DAILY 10/26/22 02/16/23 12/02/22 09:00 500 mg-chondroitin 400 mg capsule (Glucosamine Sulfate 2 KCL-Chondroitin) multivitamin (Daily Multi-Vitamin 1 tab PO DAILY 01/27/23 02/16/23 Unknown tablet) spironolactone 25 1 tab PO DAILY 90 days #90 tabs 01/27/23 02/16/23 Unknown mg-hydrochlorothiazide 25 mg tablet losartan 25 mg tablet 25 mg PO .COMPLEX #90 tabs 02/09/23 02/09/23 Unknown amlodipine 5 mg tablet 5 mg PO DAILY 02/16/23 02/16/23 Unknown chlorpromazine 25 mg tablet 25 mg PO PRN mood 02/16/23 Unknown clonazepam 0.5 mg tablet (Klonopin) 0.25 - 0.5 mg PO HS 02/16/23 02/16/23 Unknown cyanocobalamin (vitamin B-12) 1,000 mcg sublingual QAM 02/16/23 02/16/23 Unknown 1,000 mcg sublingual tablet denosumab 60 mg/mL subcutaneous 60 mg subcut UD 02/16/23 02/16/23 Unknown syringe (Prolia) ergocalciferol (vitamin D2) 1,250 1,250 mcg PO WK 02/16/23 02/16/23 Unknown mcg (50,000 unit) capsule (Vitamin D2) hydroxyzine HCl 10 mg tablet 10 mg PO UD 02/16/23 02/20/23 Unknown lamotrigine 100 mg tablet 100 mg PO DAILY 02/16/23 02/20/23 Unknown melatonin 3 mg tablet 3 mg PO HS 02/16/23 02/16/23 Unknown pantoprazole 40 mg tablet,delayed 40 mg PO BID 02/16/23 02/16/23 Unknown release quetiapine 50 mg tablet (Seroquel) 50 mg PO DAILY 02/16/23 02/20/23 Unknown furosemide 20 mg tablet 10 mg PO PRN Edema 02/20/23 02/20/23 Unknown potassium chloride 20 mEq 10 meq PO DAILY 02/20/23 Unknown tablet,extended release Additional Notes: Medications: patient states that her current medication list is as documented by psychiatry office 02/08/23. She was instructed at PAT visit to stop glucosamine and omega 3 fatty acids-written in patient notebook by her request. We reviewed medication list faxed by psychiatry office and she states concerns as far right of medication list notes different dates than 02/08/23. She requests I contact psychiatry office for list dated 02/08/23. I spoke with Juli, office manager executive assistant at [employer], who advised that varying dates are last time medication was sent to pharmacy. She is going to send another fax with additional details on medications. I called patient and advised we received medication list with ad ditional details and she states prefers to have medication list completed and mailed which I will do. I advised if she does not receive this in the mail by PCP appointment to request printing at that visit. I double checked supplements that were not in EMR, but were on list from [employer]: she denies taking either Vitamin C or iron. She verbalized full understanding and agreement, denied questions or concerns and states will call PAT/discuss with PCP if she has adjustments to medication list. Past Medical History Medical History (Updated 02/20/23 @ 12:04 by Isra Coates DO) Bipolar 1 disorder [facility]>02/08/23 last apt. Cervical radiculopathy hx Diverticulosis GERD with esophagitis controlled, stable per pt Hiatal hernia History of hypothyroidism Hypercalcemia "mild chronic hypercalcemia in setting of chronic HCTZ use" per [facility] 02/09/23 note Hyperparathyroidism following with [facility] and to f/u with endocrinology per nephrology records Hypertension controlled, stable per pt Idiopathic polyneuropathy feet Kidney disease stage 3>followed by Dr. Leon Meningioma forehead area "calcified" Osteopenia Solitary thyroid nodule Torticollis Patient reports improvement with physical therapy and states will need physical therapy to continue these while she is hospitalized Urinary incontinence Patient denies h/o stroke, seizures, heart attack, heart failure, DM, blood clots/DVTs or blood transfusions. Exercise / Class Metabolic Activity II 4-5 Yardwork/Stairs/Walk up hill (denies chest discomfort or shortness of breath with 1 FOS) Past Family History Family History Mother Hypertension Sister Breast cancer Grandfather (Paternal) Myocardial infarction Father Prostate cancer Other Alzheimer disease No family history of adverse response to anesthesia Denies family history of Ovarian cancer Colorectal cancer Past Surgical History Surgical History H/O tooth extraction History of colonoscopy History of endoscopy ? remote hx History of open reduction and internal fixation (ORIF) procedure right arm at age 11 History of right knee joint replacement Hx of cataract extraction left/right S/P rotator cuff repair right S/P tonsillectomy Past Anesthesia History No Hx of Anesthesia Complications and No Family Hx of Anesthesia Complications History of PONV No Hx of Motion Sickness and History of PONV (with hydrocodone post-op per pt) Social History Smoking Status: Never smoker tobacco type: cigarettes Do You Dip or Chew Tobacco: No Smoking End Date: at age 51 Hx Alcohol Use: No Hx Substance Use: No substance use type: does not use Review of Systems Patient denies chest pain, shortness of breath, dyspnea on exertion, snoring, witnessed apneas-reports negative sleep study, fever, chills, cough, wheezing, or palpitations. Physical Exam Vital Signs Vitals BP 105/66 P 75 TEMP 98.1 SP02 96% on RA RESP 18 Physical Patient resting comfortably in chair in no acute distress, alert and oriented, responding appropriately throughout visit, non-pressured speech Full cervical extension range of motion without pain TMD 3.5 finger breadths Mallampati Score 2 Dentition: one crown and one bridge, denies chipped or loose teeth Lungs: normal respiratory effort. Good air movement, clear throughout to auscultation, no adventitious breath sounds Cardiac: regular rate and rhythm, no murmurs noted Carotid arteries: negative bruit bilat Lab Results Anesthesia Preop Results Results Anesthesia Widget: WBC 6.48 K/ul (4.8-10.8) 02/17/23 Hgb 11.1 g/dl (12.0-16.0) L 02/17/23 Hct 33.0 % (37.0-47.0) L 02/17/23 Plt 284 K/uL (130-400) 02/17/23 Na 135 mmol/L (136-145) L 02/17/23 K 4.0 mmol/L (3.5-5.1) 02/17/23 Cl 102 mmol/L (98-107) 02/17/23 CO2 25 mmol/L (21-32) 02/17/23 BUN 86 mg/dl (6-23) H 02/17/23 Creat 1.87 mg/dl (0.6-1.2) H 02/17/23 Glucose Level 99 mg/dl (70-99(Fasting)) 02/17/23 PT 10.6 Seconds (9.0-12.0) 02/17/23 PTT 29 Seconds (21-31) 02/17/23 INR 1.0 (0.9-1.1) 02/17/23 TSH 1.812 uIu/ml (0.300-4.500) 01/15/23 HA1c 5.6 % (4.5-5.6) 02/04/23 Urine Color Yellow 02/17/23 Urine Appearance Clear (Clear) 02/17/23 Urine pH 5.0 (4.5-7.5) 02/17/23 Urine Specific [place] 1.009 (1.000-1.030) 02/17/23 Urine Protein Trace (Negative) H 02/17/23 Urine Glucose (UA) Negative (Negative) 02/17/23 Urine Ketones Negative (Negative) 02/17/23 Urine Blood Negative (Negative) 02/17/23 Urine Nitrite Negative (Negative) 02/17/23 Urine Bilirubin Negative (Negative) 02/17/23 Urine Urobilinogen Negative (Negative) 02/17/23 Urine Leukocyte Esterase Negative (Negative) 02/17/23 Urine WBC (Auto) 0 /hpf (0-5) 02/17/23 Urine RBC (Auto) 0-4 /hpf (0-4) 02/17/23 Urine Hyaline Casts (Auto) 0 /lpf (0-5) 02/17/23 Urine Epithelial Cells (Auto) 0-5 /lpf (0-5) 02/17/23 Urine Bacteria (Auto) Negative (Negative) 02/17/23 SARS-CoV-2, RNA, NAAT NEGATIVE (NEGATIVE) 01/15/23 Blood Type O Positive 02/17/23 Antibody Screen NEGATIVE 02/17/23 Testing Electrocardiogram Date: 01/15/23 NSR, rate 65 bpm Chest X-Ray Date: 02/17/23 Small right basilar linear density favors subsegmental atelectasis are scarring. Otherwise, lungs are clear. The heart is normal in size. A moderate hiatus hernia is again noted. Postoperative changes within the right shoulder. IMPRESSION: No significant change compared to the prior study. No acute process. Echocardiogram Date: 10/20/21 EF 60-65% No LV regional wall motion abnormalities Mild cLVH Mild tricuspid regurgitation Other Testing Head CT 01/16/23 1. No acute intracranial findings. No change in appearance of the brain. 2. Stable 9 mm meningioma overlying the left frontal lobe. Head and neck CTA 10/19/21 1. Mild atherosclerotic vascular disease without aneurysm, high-grade stenosis, dissection or arterial occlusion. 2. 9 mm meningioma adjacent to the left frontal lobe.
--- NOTE | 2023-02-20 14:38 | PAT Medication Instructions ---
Medication Instructions Date of Service February 20, 2023 Home Medications Medication Instructions Recorded spironolactone 25 1 tab PO DAILY 90 days #90 tabs 01/27/23 mg-hydrochlorothiazide 25 mg tablet losartan 25 mg tablet 25 mg PO .COMPLEX #90 tabs 02/09/23 furosemide 20 mg tablet 10 mg (1/2 x 20 mg) PO DAILY PRN 02/17/23 Edema #45 tabs potassium chloride 20 mEq 20 meq PO DAILY #90 tabs 02/17/23 tablet,extended release Medications vitamin B complex 1 tab PO QAM 02/25/19 [History Confirmed 02/16/23] diclofenac sodium 1 % topical gel 1 g topical QID PRN Pain 08/13/19 [History Confirmed 02/16/23] omega-3 fatty acids 2 cap PO QPM 12/12/20 [History Confirmed 02/16/23] glucosamine sulfate dipotassium Cl 500 mg-chondroitin 400 mg capsule (Glucosamine Sulfate 2 KCL-Chondroitin) 1 tab PO DAILY 10/26/22 [History Confirmed 02/16/23] multivitamin (Daily Multi-Vitamin tablet) 1 tab PO DAILY 01/27/23 [History Confirmed 02/16/23] spironolactone 25 mg-hydrochlorothiazide 25 mg tablet 1 tab PO DAILY 90 days #90 tabs 01/27/23 [Rx Confirmed 02/16/23] losartan 25 mg tablet 25 mg PO .COMPLEX #90 tabs 02/09/23 [Rx Confirmed 02/09/23] amlodipine 5 mg tablet 5 mg PO DAILY 02/16/23 [History Confirmed 02/16/23] chlorpromazine 25 mg tablet 25 mg PO PRN mood 02/16/23 [History] clonazepam 0.5 mg tablet (Klonopin) 0.25 - 0.5 mg PO HS 02/16/23 [History Confirmed 02/16/23] cyanocobalamin (vitamin B-12) 1,000 mcg sublingual tablet 1,000 mcg sublingual QAM 02/16/23 [History Confirmed 02/16/23] denosumab 60 mg/mL subcutaneous syringe (Prolia) 60 mg subcut UD 02/16/23 [History Confirmed 02/16/23] ergocalciferol (vitamin D2) 1,250 mcg (50,000 unit) capsule (Vitamin D2) 1,250 mcg PO WK 02/16/23 [History Confirmed 02/16/23] hydroxyzine HCl 10 mg tablet 10 mg PO UD 02/16/23 [History Confirmed 02/20/23] lamotrigine 100 mg tablet 100 mg PO DAILY 02/16/23 [History Confirmed 02/20/23] melatonin 3 mg tablet 3 mg PO HS 02/16/23 [History Confirmed 02/16/23] pantoprazole 40 mg tablet,delayed release 40 mg PO BID 02/16/23 [History Confirmed 02/16/23] quetiapine 50 mg tablet (Seroquel) 50 mg PO DAILY 02/16/23 [History Confirmed 02/20/23] furosemide 20 mg tablet 10 mg PO PRN Edema 02/20/23 [History Confirmed 02/20/23] potassium chloride 20 mEq tablet,extended release 10 meq PO DAILY 02/20/23 [History] Take morning of surgery With a small sip of water, OTHERWISE NOTHING TO EAT OR DRINK AFTER MIDNIGHT: Insulin Dependent Diabetic Patients * Test your blood sugar the morning of surgery * If Blood Sugar is GREATER THAN 150, take HALF of your regular dose of: * If Blood Sugar is LESS THAN 150, DO NOT TAKE ANY: Other Notes If you have any questions please call us at [phone] or [phone] or [phone] or [phone]
--- NOTE | 2023-02-20 14:53 | PAT Medication Instructions ---
Medication Instructions Date of Service February 20, 2023 Home Medications Medication Instructions Recorded spironolactone 25 1 tab PO DAILY 90 days #90 tabs 01/27/ mg-hydrochlorothiazide 25 mg tablet losartan 25 mg tablet 25 mg PO .COMPLEX #90 tabs 02/09/23 Continue as usual amlodipine hydroxyzine HCl-follow usual psychiatrist prescription lamotrigine-follow usual psychiatrist prescription Ask Dr. Arevalo if he has any recommended adjustments regarding surgery for these medications, otherwise take as usual: (Juli with his office is also aware and sent a message to him, they should call you with any recommendations) chlorpromazine quetiapine (Seroquel) ASK your prescriber and surgeon denosumab 60 mg/mL subcutaneous syringe (Prolia) STOP taking 2 weeks before surgery (or as soon as possible if surgery is within 2 weeks) omega-3 fatty acids glucosamine sulfate dipotassium Cl 500 mg-chondroitin 400 mg capsule (Glucosamine Sulfate 2 KCL-Chondroitin) STOP taking 24 hours before surgery diclofenac sodium 1 % topical gel DO NOT take the morning of surgery vitamin B complex multivitamin (Daily Multi-Vitamin tablet) spironolactone 25 mg-hydrochlorothiazide losartan 25 mg cyanocobalamin (vitamin B-12) ergocalciferol (vitamin D2) furosemide potassium chloride Take morning of surgery With a small sip of water, OTHERWISE NOTHING TO EAT OR DRINK AFTER MIDNIGHT: pantoprazole 40 mg tablet,delayed release Take evening before surgery losartan 25 mg tablet clonazepam (Klonopin)-follow usual psychiatrist prescription melatonin 3 mg tablet pantoprazole 40 mg tablet,delayed release Other Notes If you have any questions please call us at [phone] or [phone] or [phone] or [phone]
--- NOTE | 2023-09-27 14:18 | PAT Medication Instructions ---
Medication Instructions Date of Service September 27, 2023 Home Medications Medication Instructions Recorded losartan 25 mg tablet 25 mg PO .COMPLEX #90 tabs 02/09/23 ergocalciferol (vitamin D2) 1,250 1,250 mcg PO WK #12 caps 03/17/23 mcg (50,000 unit) capsule (Vitamin D2) solifenacin 5 mg tablet 5 mg PO DAILY #90 tabs 06/14/23 pantoprazole 20 mg tablet,delayed 20 mg PO DAILY for acid reflux 07/06/23 release #90 tabs furosemide 20 mg tablet 20 mg PO Q OTHER DAY PRN edema #8 07/28/23 tabs spironolactone 25 mg tablet 25 mg PO DAILY #90 tabs 08/21/23 cinacalcet 30 mg tablet 30 mg PO DAILY #30 tabs 08/30/23 denosumab 60 mg/mL subcutaneous 60 mg subcut .[id number] #1 mL 08/30/23 syringe (Prolia) vitamin B complex 1 tab PO QAM diclofenac sodium 1 % topical gel 1 g topical QID PRN Pain omega-3 fatty acids 2 cap PO QPM glucosamine sulfate dipotassium Cl 500 mg-chondroitin 400 mg capsule (Glucosamine Sulfate 2 KCL-Chondroitin) 1 tab PO DAILY multivitamin (Daily Multi-Vitamin tablet) 1 tab PO DAILY losartan 25 mg tablet 25 mg PO .COMPLEX clonazepam 0.5 mg tablet (Klonopin) 0.5 mg PO HS PRN Anxiety cyanocobalamin (vitamin B-12) 1,000 mcg sublingual tablet 1,000 mcg sublingual QAM ergocalciferol (vitamin D2) 1,250 mcg (50,000 unit) capsule (Vitamin D2) 1,250 mcg PO WK solifenacin 5 mg tablet 5 mg PO DAILY pantoprazole 20 mg tablet,delayed release 20 mg PO DAILY for acid reflux olanzapine 5 mg tablet 5 mg PO HS furosemide 20 mg tablet 20 mg PO Q OTHER DAY PRN edema spironolactone 25 mg tablet 25 mg PO DAILY cinacalcet 30 mg tablet 30 mg PO DAILY denosumab 60 mg/mL subcutaneous syringe (Prolia) 60 mg subcut .[id number] ascorbic acid (vitamin C) 500 mg tablet (Vitamin C) 1,000 mg PO DAILY lamotrigine 200 mg tablet (Lamictal) 200 mg PO QAM lamotrigine 200 mg tablet (Lamictal) 250 mg PO HS Continue as directed denosumab 60 mg/mL subcutaneous syringe (Prolia) 60 mg subcut .[id number] STOP taking 2 weeks before surgery (or as soon as possible if surgery is within 2 weeks) omega-3 fatty acids 2 cap PO QPM glucosamine sulfate dipotassium Cl 500 mg-chondroitin 400 mg capsule (Gl ucosamine Sulfate 2 KCL-Chondroitin) 1 tab PO DAILY STOP taking 24 hours before surgery diclofenac sodium 1 % topical gel 1 g topical QID PRN Pain DO NOT take the morning of surgery vitamin B complex 1 tab PO QAM multivitamin (Daily Multi-Vitamin tablet) 1 tab PO DAILY losartan 25 mg tablet 25 mg PO .COMPLEX cyanocobalamin (vitamin B-12) 1,000 mcg sublingual tablet 1,000 mcg sublingual QAM ergocalciferol (vitamin D2) 1,250 mcg (50,000 unit) capsule (Vitamin D2) 1,250 mcg PO WK solifenacin 5 mg tablet 5 mg PO DAILY furosemide 20 mg tablet 20 mg PO Q OTHER DAY PRN edema spironolactone 25 mg tablet 25 mg PO DAILY cinacalcet 30 mg tablet 30 mg PO DAILY ascorbic acid (vitamin C) 500 mg tablet (Vitamin C) 1,000 mg PO DAILY Take morning of surgery With a small sip of water, OTHERWISE NOTHING TO EAT OR DRINK AFTER MIDNIGHT: pantoprazole 20 mg tablet,delayed release 20 mg PO DAILY for acid reflux lamotrigine 200 mg tablet (Lamictal) 200 mg PO QAM Take evening before surgery clonazepam 0.5 mg tablet (Klonopin) 0.5 mg PO HS PRN Anxiety (if needed) olanzapine 5 mg tablet 5 mg PO HS furosemide 20 mg tablet 20 mg PO Q OTHER DAY PRN edema (if needed) lamotrigine 200 mg tablet (Lamictal) 250 mg PO HS Other Notes If you have any questions please call us at [phone] or [phone] or [phone] or [phone]
--- NOTE | 2023-09-29 11:50 | History & Physical Report ---
Date of Service September 29, 2023 Assessment & Plan (1) Left knee DJD: Plan: PRE-OP Diagnosis: Left knee osteoarthritis Planned Procedure: Left total knee arthroplasty Plan: Patient is scheduled to undergo this procedure at the [facility] with Dr. Mackey on October 18, 2023. Risks and complications of the procedure such as: Infection, bleeding, pain, scarring, nerve blood vessel damage, weakness, wound problems, stiffness, incomplete re lief of symptoms, hardware failure, hardware loosening, wear, fracture, tendon or ligament injury, blood clots, embolism, cardiac, stroke and were explained to the patient at her visit today and informed consent for the procedure was obtained. We will need to obtain preoperative medical clearance from the patient's primary care provider Dr. Coates. She has appointment scheduled for October 02 at 3 PM. Patient is scheduled to meet with anesthesia at the hospital tomorrow afternoon. While there she will obtain a CBC with differential, complete metabolic panel, PT/INR, PTT, blood type and screen, urinalysis, urine culture and sensitivity, EKG and a chest x-ray. During today's visit we reviewed the total knee packet. I provided her with information about lectures offered by [facility] in regards to joint replacement surgery. Patient has a walker from her previous right knee surgery and will bring it with her on the day of the procedure. She also has a shower chair and raised toilet seat. We discussed discharge planning from the hospital. Patient states she will most likely do postoperative therapy at [facility] before transitioning to outpatient physical therapy. I advised the patient that she will be provided with a prescription for narcotic pain medication for postoperative pain control. We will have her on Eliquis twice daily for the first 30 days postoperatively for blood clot prevention. Patient verbalized understanding of all information provided during today's visit. Patient be scheduled for 2-week postoperative follow-up visit with Mika on November 01. This chart was completed utilizing [employer] voice recognition software. Grammatical errors, random word insertions, pronoun errors, and in complete sen tences are an occasional consequence of the system. Any questions or concerns about the content, text, or information contained within the body of this dictation should be addressed directly to the physician for clarification. History of Present Illness Chief Complaint: Chief Complaint: Left knee pain Primary Care Provider: Isra Coates DO History of Present Illness (including history relevant to procedure): This 78-year-old female presents to the clinic today for preoperative history and physical. Patient complains of increasing left knee pain over the past several months. She states she has pain primarily when she is ambulatory. At rest it is nonsevere. She localizes most of the pain on the medial aspect of her knee. She states that her left knee is not as straight as her right knee that was replaced back in 2017. She feels that her gait has been affected and at times has to use an assistive device. She is electing to proceed with surgical intervention at this time. Review Of Systems: A 12 point review of systems is performed is unremarkable except for those things stated in the HPI and past medical history. Past Medical History: Problems: Pain in both feet Arthritis of both feet Flat feet, bilateral Cervical strain Carpal tunnel syndrome, right Right shoulder pain Trigger finger of right thumb Osteoarthritis of left knee Strain of piriformis muscle Iliotibial band tendonitis Right lumbar radiculitis Right hip pain Iliotibial band syndrome, right leg Toe fracture, left Trochanteric bursitis Torn rotator cuff Complete rotator cuff tear of left shoulder Sprain of upper extremity Sprain, supraspinatus Contusion of left deltoid region Sacroiliitis Status post total right knee replacement Preop examination Knee osteoarthritis Contusion of right knee Sciatic leg pain. Left lumbosacral radiculopathy Gluteus medius or minimus syndrome Pain in left hip Muscle strain of left gluteal region Prepatellar bursitis of left knee Osteoarthritis of knee Pain in thumb joint with movement of right hand Acute medial meniscal injury of right knee Lumbar disc disease Low back pain Pes anserine bursitis Pain of left sacroiliac joint Shoulder strain Strain of patellar tendon Knee pain Acquired hallux rigidus Wrist pain, right Shoulder pain, right Upper arm pain Bipolar disorder Foot pain HTN (hypertension) Great toe pain Procedure History Procedure Procedure Date Comments Rotator cuff repair - right Echocardiography 10/20/2021 - Mild concentric left ventricular hypertrophy. EF 60-65%Mild tricuspid regurgitation.No study for comparison. Knee replacement 2017 - Right knee Colonoscopy 12/07/2015 - Large hiatus hernia. LA grade D reflux esophagitis. Normal stomach. Normal examined duodenum.No specimens collected. CT of abdomen and pelvis 12/04/2015 - 1) There are no acute infectious or inflammatory findings in the abdomen or pelvis. 2) Moderate to large hiatal hernia with approximately half of the stomach located in the thoracic cavitiy. 3) Moderate colonic diverticulsosi without CT evidence of acute diverticulitis. 4) Additional changes as above. Allergies and Sensitivities: Vicodin(vomiting) Geodon(nausea) Geodon(black stools) Current Home Meds: (Last Updated 09/27 15:15) OLANZapine (OLANZapine 5 mg oral tablet, disintegrating) amoxicillin (amoxicillin 500 mg oral capsule) 2,000 mg PO As indicated one hour before dental and other procedures as directed cariprazine (Vraylar 1.5 mg oral capsule) cholecalciferol (Vitamin D3) chondroitin-glucosamine (Chondroitin-Glucosamine) 1 cap PO Daily cinacalcet (cinacalcet 30 mg oral tablet) cloNAZepam (KlonoPIN 0.5 mg oral tablet) 0.125 mg PO PRN cyanocobalamin (Vitamin B12) denosumab (Prolia 60 mg/mL subcutaneous solution) diclofenac topical (diclofenac 1% topical gel) APPLY TO AFFECTED AREA DIRECTED 4 TIMES DAILY IF NEEDED ergocalciferol (ergocalciferol 1.25 mg (50,000 intl units) oral capsule) hydroCHLOROthiazide-spironolactone (hydroCHLOROthiazide-spironolactone 25 mg-25 mg oral tablet) PO Daily half tab in the am, half tab in the pm lamoTRIgine (LaMICtal) 100 mg PO 3 tabs in the am 1.5 in pm losartan (losartan 25 mg oral tablet) multivitamin (Multiple Vitamins oral tablet) 1 tab PO Daily multivitamin (Vitamin B Complex) 1 cap PO Daily omega-3 polyunsaturated fatty acids (Fish Oil oral capsule) 2 caps daily pantoprazole (pantoprazole 40 mg oral delayed release tablet) psyllium (Metamucil) 1.7 g PO Daily spironolactone (spironolactone 25 mg oral tablet) HAZARDOUS MEDICATION | tablet: green | suspension: teal - B Repasky 09/27 15:14 topiramate (Topamax) 50 mg PO Daily unlisted medication (RA SLEEP TABLET) Initial Wt: 09/27 85.6 kg 188 lb Allergies Allergy/AdvReac Type Severity Reaction Status Date / Time hydrocodone AdvReac Mild NAUSEA AND Verified 09/25/23 15:32 VOMITING thioridazine AdvReac Mild RESTLESS Verified 09/25/23 15:32 LEG/remote hx ziprasidone AdvReac Mild vomiting/black Verified 09/25/23 15:32 stools meloxicam AdvReac Unknown pt doesn't Verified 09/25/23 15:32 remember Home Medications Medication Instructions Recorded Confirmed Type vitamin B complex 1 tab PO QAM 02/25/19 09/25/23 History diclofenac sodium 1 % topical gel 1 g topical QID PRN Pain 08/13/19 09/25/23 History omega-3 fatty acids 2 cap PO QPM 12/12/20 09/25/23 History glucosamine sulfate dipotassium Cl 1 tab PO DAILY 10/26/22 09/25/23 History 500 mg-chondroitin 400 mg capsule (Glucosamine Sulfate 2 KCL-Chondroitin) multivitamin (Daily Multi-Vitamin 1 tab PO DAILY 01/27/23 09/25/23 History tablet) losartan 25 mg tablet 25 mg PO .COMPLEX #90 tabs 02/09/23 09/25/23 Rx clonazepam 0.5 mg tablet (Klonopin) 0.5 mg PO HS PRN Anxiety 02/16/23 09/25/23 History cyanocobalamin (vitamin B-12) 1,000 mcg sublingual QAM 02/16/23 09/25/23 History 1,000 mcg sublingual tablet ergocalciferol (vitamin D2) 1,250 1,250 mcg PO WK #12 caps 03/17/23 09/25/23 Rx mcg (50,000 unit) capsule (Vitamin D2) pantoprazole 20 mg tablet,delayed 20 mg PO DAILY for acid reflux 07/06/23 09/25/23 Rx release #90 tabs olanzapine 5 mg tablet 5 mg PO HS 07/21/23 09/25/23 History furosemide 20 mg tablet 20 mg PO Q OTHER DAY PRN edema #8 07/28/23 09/25/23 Rx tabs spironolactone 25 mg tablet 25 mg PO DAILY #90 tabs 08/21/23 09/25/23 Rx cinacalcet 30 mg tablet 30 mg PO DAILY #30 tabs 08/30/23 09/25/23 Rx denosumab 60 mg/mL subcutaneous 60 mg subcut .[id number] #1 mL 08/30/23 09/25/23 Rx syringe (Prolia) ascorbic acid (vitamin C) 500 mg 1,000 mg PO DAILY 09/25/23 09/25/23 History tablet (Vitamin C) lamotrigine 200 mg tablet 200 mg PO QAM 09/25/23 09/25/23 History (Lamictal) lamotrigine 200 mg tablet 250 mg PO HS 09/25/23 09/25/23 History (Lamictal) Past Med/Surg History Problem List Dietary counseling Tick bite 08/11/23 Cerebrovascular disease Cerebral atrophy Class 1 drug-induced obesity with serious comorbidity and body mass index (BMI) of 34.0 to 34.9 in adult Physical deconditioning Heartburn Urinary urgency Bipolar I, most recent episode manic, severe Gait abnormality URI (upper respiratory infection) 04/11/23 Class 1 drug-induced obesity with body mass index (BMI) of 31.0 to 31.9 in adult Encounter for pre-operative examination Sensorineural hearing loss of combined types, bilateral Imbalance Polyneuropathy B12 deficiency Lumbar radiculopathy Right knee DJD Chronic kidney disease (Chronic) stage 3 Cervical radiculopathy hx DJD (degenerative joint disease) of cervical spine Neuropathy Meningioma forehead area "calcified" Overweight Bipolar disease, chronic (Chronic) Osteoporosis Carpal tunnel syndrome, right Osteopenia of femoral neck, bilateral (Chronic) Left knee DJD Diverticulosis (Chronic) Vitamin D deficiency (Chronic) Medical History Cervical radiculopathy hx Vitamin B 12 deficiency Vitamin D deficiency Diverticulosis Osteoporosis DJD (degenerative joint disease) of cervical spine Polyneuropathy Hx of upper respiratory infection (04/2023) "cough" >>resolved Gait abnormality Cerebral atrophy Cerebrovascular disease Hx: UTI (urinary tract infection) Hypertension controlled, stable per pt Torticollis Urinary incontinence Kidney disease stage 3>followed by Dr. Edward Randolph History of hypothyroidism Bipolar 1 disorder Sabes[employer]>02/08/23 last apt. Idiopathic polyneuropathy feet Hyperparathyroidism following with [facility] and to f/u with endocrinology per nephrology records GERD with esophagitis controlled, stable per pt Hypercalcemia "mild chronic hypercalcemia in setting of chronic HCTZ use" per [facility] 02/09/23 note Solitary thyroid nodule Hiatal hernia Surgical History Hx of cataract extraction left/right History of endoscopy ? remote hx History of colonoscopy History of right knee joint replacement History of open reduction and internal fixation (ORIF) procedure right arm at age 11 S/P tonsillectomy S/P rotator cuff repair right H/O tooth extraction Family History Mother Hypertension Sister Breast cancer Grandfather (Paternal) Myocardial infarction Father Prostate cancer Other Alzheimer disease No family history of adverse response to anesthesia Denies family history of Ovarian cancer Colorectal cancer Social History Smoking Status: Former smoker Tobacco Type: Cigarettes Second Hand Exposure: Yes (in the past); Do You Dip or Chew Tobacco: No; Hx Alcohol Use: No Hx Substance Use: No Preferred Language: Czech Communication Ability: Effective Visual Impairment: No Limitations Hearing Ability: Normal 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 Beliefs That Will Affect Care: None marital status: Single Current Living Situation: Alone current occupational status: retired Feels Safe at Home: Yes Childhood Exposure to Second-Hand Smoke: No Diet: regular Dental Care, Regularly: Yes Physical Activity Frequency: 3-4 Times per Week Seatbelt Use: always Sunscreen Use: Yes Gender Identity: Female Assistive Devices: Cane, Glasses and Walker Review of Systems All systems reviewed & are unremarkable except as noted in Subjective Physical Exam Physical Exam: Physical Exam: (relevant to the procedure, including heart and lung evaluation) General: Alert and oriented x 3 with proper grooming and hygiene Eyes: Pupils are equal reactive to light with accommodation. Extraocular movements are intact Throat: Posterior oropharynx is clear with absence of edema, erythema or exudate Cardiac: Regular rate and rhythm with no murmurs or gallops appreciated Lungs: Clear to auscultation throughout with no wheezing, rales or rhonchi Abdomen: Mildly obese, nondistended, nontender with NABS Extremities: Left knee; range of motion is from 10 degrees of extension to 120 degrees of flexion. There is audible crepitation with passive range of motion. Patient experiences medial joint line tenderness of the is palpated in the flexed position. She also has some slight lateral joint line tenderness. Her patella is not mobile due to arthritic change within the patellofemoral joint. She had visible valgus malalignment. There is no laxity with varus or valgus stressing. AP drawer sign and Sarah test are negative. Patient is neurovascularly intact in the left lower extremity. Neuro: Cranial nerves II through XII are intact no motor or sensory deficit Skin: Normal appearance with no open skin areas or discharge Results & Data Diagnostic Findings Studies (relevant to the procedure): Left knee film has moderate to end-stage DJD. No evidence of fracture or loose body.
--- NOTE | 2023-09-29 14:49 | Anesthesiology Consultation ---
Date of Service September 29, 2023 Assessment & Plan (1) Encounter for pre-operative examination: - awaiting surgeon ordered [facility] PCP clearance. - Patient denies any anesthesia, eliza-operative or inpatient plan questions, concerns or requests. - Outpatient joint assessment: Patient is currently scheduled for inpatient pathway. If re-evaluated and patient/surgeon requests outpatient pathway, patient is not ideal candidate for outpatient joint program from anesthesia standpoint. Chart Review Chart Review: Pending: Refer to Additional Notes / Consult section and Patient seen in Pre Admission Testing Teaching & Discussion Pre-Anesthesia Teaching/Discussion Notes: Instructed NPO after midnight before surgery, except medications with 15 cc of water. Medication instructions provided according to the PAT guidelines. History Surgery Operation Date: 03/01/23 07:00 Proposed Procedures p Left Total Knee Arthroplasty - Param Mackey MD Operation Date: 10/18/23 10:50 Proposed Procedures p Left Total Knee Arthroplasty - Param Mackey MD Height/Weight Height: 5 ft 1 in Weight: 85 kg Allergies Allergy/AdvReac Type Severity Reaction Status Date / Time hydrocodone AdvReac Mild NAUSEA AND Verified 09/25/23 15:32 VOMITING thioridazine AdvReac Mild RESTLESS Verified 09/25/23 15:32 LEG/remote hx ziprasidone AdvReac Mild vomiting/black Verified 09/25/23 15:32 stools meloxicam AdvReac Unknown vomiting/black Verified 09/29/23 14:43 stools Medications Home Medications Medication Instructions Recorded Confirmed Last Taken vitamin B complex 1 tab PO QAM 02/25/19 09/25/23 12/02/22 diclofenac sodium 1 % topical gel 1 g topical QID PRN Pain 08/13/19 09/25/23 11/30/22 omega-3 fatty acids 2 cap PO QPM 12/12/20 09/25/23 12/01/22 glucosamine sulfate dipotassium Cl 1 tab PO DAILY 10/26/22 09/25/23 12/02/22 09:00 500 mg-chondroitin 400 mg capsule (Glucosamine Sulfate 2 KCL-Chondroitin) multivitamin (Daily Multi-Vitamin 1 tab PO DAILY 01/27/23 09/25/23 Unknown tablet) losartan 25 mg tablet 25 mg PO .COMPLEX #90 tabs 02/09/23 09/25/23 Unknown clonazepam 0.5 mg tablet (Klonopin) 0.5 mg PO HS PRN Anxiety 02/16/23 09/25/23 Unknown cyanocobalamin (vitamin B-12) 1,000 mcg sublingual QAM 02/16/23 09/25/23 Unknown 1,000 mcg sublingual tablet ergocalciferol (vitamin D2) 1,250 1,250 mcg PO WK #12 caps 03/17/23 09/25/23 3 Days Ago mcg (50,000 unit) capsule (Vitamin ~04/24/23 D2) pantoprazole 20 mg tablet,delayed 20 mg PO DAILY for acid reflux 07/06/23 09/25/23 Unknown release #90 tabs olanzapine 5 mg tablet 5 mg PO HS 07/21/23 09/25/23 Unknown furosemide 20 mg tablet 20 mg PO Q OTHER DAY PRN edema #8 07/28/23 09/25/23 Unknown tabs spironolactone 25 mg tablet 25 mg PO DAILY #90 tabs 08/21/23 09/25/23 Unknown cinacalcet 30 mg tablet 30 mg PO DAILY #30 tabs 08/30/23 09/25/23 Unknown denosumab 60 mg/mL subcutaneous 60 mg subcut .[id number] #1 mL 08/30/23 09/25/23 Unknown syringe (Prolia) ascorbic acid (vitamin C) 500 mg 1,000 mg PO DAILY 09/25/23 09/25/23 Unknown tablet (Vitamin C) lamotrigine 200 mg tablet 200 mg PO QAM 09/25/23 09/25/23 Unknown (Lamictal) lamotrigine 200 mg tablet 250 mg PO HS 09/25/23 09/25/23 Unknown (Lamictal) Past Medical History Medical History (Updated 09/29/23 @ 14:44 by Brittnee Kaur PA-C) Bipolar 1 disorder [employer]>02/08/23 last apt. Cerebral atrophy Cerebrovascular disease Cervical radiculopathy hx Diverticulosis DJD (degenerative joint disease) of cervical spine Gait abnormality GERD with esophagitis controlled, stable per pt Hiatal hernia History of hypothyroidism Hx of upper respiratory infection (04/2023) "cough" >>resolved Hx: UTI (urinary tract infection) Hypercalcemia "mild chronic hypercalcemia in setting of chronic HCTZ use" per [facility] 02/09/23 note Hyperparathyroidism following with [facility] and to f/u with endocrinology per nephrology records Hypertension controlled, stable per pt Idiopathic polyneuropathy feet Kidney disease stage 3>followed by Dr. Leon Osteopenia Osteoporosis Solitary thyroid nodule Torticollis isolated episode Urinary incontinence Vitamin B 12 deficiency Vitamin D deficiency Patient denies h/o stroke, seizures, heart attack, heart failure, DM, blood clots/DVTs or blood transfusions. Exercise / Class Metabolic Activity II 4-5 Yardwork/Stairs/Walk up hill (denies chest discomfort or shortness of breath with one flight of stairs) Past Family History Family History Mother Hypertension Sister Breast cancer Grandfather (Paternal) Myocardial infarction Father Prostate cancer Other Alzheimer disease No family history of adverse response to anesthesia Denies family history of Ovarian cancer Colorectal cancer Past Surgical History Surgical History H/O tooth extraction History of colonoscopy History of endoscopy ? remote hx History of open reduction and internal fixation (ORIF) procedure right arm at age 11 History of right knee joint replacement Hx of cataract extraction left/right S/P rotator cuff repair right S/P tonsillectomy Past Anesthesia History No Hx of Anesthesia Complications and No Family Hx of Anesthesia Complications History of PONV No Hx of Motion Sickness and History of PONV Social History Smoking Status: Former smoker tobacco type: cigarettes Do You Dip or Chew Tobacco: No Smoking End Date: at age 51 Hx Alcohol Use: No Hx Substance Use: No substance use type: does not use Review of Systems Patient denies chest pain, shortness of breath, dyspnea on exertion, snoring, witnessed apneas, fever, chills, cough, wheezing, or palpitations. Physical Exam Vital Signs Vitals BP 155/80 P 85 TEMP 97.9 SP02 97% on RA RESP 18 Physical Patient resting comfortably in chair in no acute distress, alert and oriented, responding appropriately throughout visit, normal speech pattern and focus Full cervical extension range of motion without pain TMD 3.5 finger breadths Mallampati Score 2 Dentition: intact, denies chipped or loose teeth, caps/crowns, implants or bridges Lungs: normal respiratory effort. Good air movement, clear throughout to auscultation, no adventitious breath sounds Cardiac: regular rate and rhythm, no murmurs noted Carotid arteries: negative bruit bilat Lab Results Anesthesia Preop Results Results Anesthesia Widget: WBC 7.48 K/ul (4.8-10.8) 09/29/23 Hgb 10.9 g/dl (12.0-16.0) L 09/29/23 Hct 34.5 % (37.0-47.0) L 09/29/23 Plt 296 K/uL (130-400) 09/29/23 Na 139 mmol/L (136-145) 09/29/23 K 4.6 mmol/L (3.5-5.1) 09/29/23 Cl 110 mmol/L (98-107) H 09/29/23 CO2 24 mmol/L (21-32) 09/29/23 BUN 43 mg/dl (6-23) H 09/29/23 Creat 1.65 mg/dl (0.6-1.2) H 09/29/23 Glucose Level 101 mg/dl (70-99(Fasting)) H 09/29/23 PT 10.4 Seconds (9.0-12.0) 09/29/23 PTT 30 Seconds (21-31) 09/29/23 INR 1.0 (0.9-1.1) 09/29/23 HA1c 6.1 % (4.5-5.6) H 09/22/23 Urine Color Yellow 09/29/23 Urine Appearance Clear (Clear) 09/29/23 Urine pH 5.5 (4.5-7.5) 09/29/23 Urine Specific Clifford 1.011 (1.000-1.030) 09/29/23 Urine Protein 2+ (Negative) H 09/29/23 Urine Glucose (UA) Negative (Negative) 09/29/23 Urine Ketones Negative (Negative) 09/29/23 Urine Blood Negative (Negative) 09/29/23 Urine Nitrite Negative (Negative) 09/29/23 Urine Bilirubin Negative (Negative) 09/29/23 Urine Urobilinogen Negative (Negative) 09/29/23 Urine Leukocyte Esterase Trace (Negative) H 09/29/23 Urine WBC (Auto) 6-10 /hpf (0-5) H 09/29/23 Urine RBC (Auto) 0-2 /hpf (0-2) 09/29/23 Urine Hyaline Casts (Auto) 0-2 /lpf (0-2) 09/29/23 Urine Epithelial Cells (Auto) 0-2 /hpf (0-2) 09/29/23 Urine Bacteria (Auto) None Seen (None Seen) 09/29/23 Blood Type O Positive 09/29/23 Antibody Screen NEGATIVE 09/29/23 Testing Electrocardiogram Date: 07/08/23 NSR, rate 77 bpm Chest X-Ray Date: 07/08/23 No significant change compared to the prior study. No acute process. Echocardiogram Date: 10/20/21 EF 60-65% No LV regional wall motion abnormalities Mild cLVH Mild tricuspid regurgitation Other Testing Head CT 01/16/23 1. No acute intracranial findings. No change in appearance of the brain. 2. Stable 9 mm meningioma overlying the left frontal lobe. Head and neck CTA 10/19/21 1. Mild atherosclerotic vascular disease without aneurysm, high-grade stenosis, dissection or arterial occlusion. 2. 9 mm meningioma adjacent to the left frontal lobe.
[~2023-10-18 06:43] MED LIST changes: +ACETAMINOPHEN 500 MG TAB PO SCH; -ASCO10003 PO; -CALCTAB7 PO; -CITA20TA9 PO; -CLON0.5T3 PO; +CeleBREX 200 MG CAP PO SCH; +FAMOTIDINE 20 MG TAB PO SCH; -GLUCTAB7 PO; -LAMO100T16 PO; +LR 60ML/HR IV SCH; -LURA1TAB PO; -MULT-589 PO; -PRT/20 PO; +ROPIVACAINE 0.5% HCL/PF 246 MG, Ketorolac (*for OR use only*) 30 MG, EPINEPHrine 30MG/3... INFIL SCH; -SPIR1TAB72 PO; +Scopolamine 1 MG TDSY TD SCH; +Scopolamine CHECK PATCH PLACEMENT SCH; +TRANEXAMIC ACID 1,000 MG **IV Intra-op IV SCH; +TRANEXAMIC ACID 1,000 MG **IV Pre-op IV SCH; +ceFAZolin 2000MG 2,000 MG/15 ML SYR IV SCH; +dexAMETHasone**PF** 10 MG/ML VIAL IV SCH; +traMADol HCL 50 MG TABLET PO SCH
--- NOTE | 2023-10-18 06:59 | History & Physical Bridge Note ---
Date of Service October 18, 2023 History & Physical Bridge Note I have examined the patient, reviewed the History & Physical and in the interval since the performance of the History & Physical I have noted the following changes of clinical significance: consent and site verified. asked about derm consult for a nose skin lesion. explained none come to the hospital. She has an appointment already scheduled.no changes noted
[2023-10-18] MEDS ORDERED: MIDAZOLAM HCL 1 MG/ML 2ML VIAL ONE (07:10)
[2023-10-18] MEDS: LR 60ML/HR IV SCH (07:42)
[2023-10-18] MEDS ORDERED: ATROPINE SULFATE 0.1 MG/ML 10ML SYR IV PRN (08:06)
[2023-10-18] MEDS ORDERED: ePHEDrine sulfate 50 MG/ML AMP IV PRN (08:06)
[2023-10-18] MEDS ORDERED: fentaNYL citrate PF 100 MCG/2 ML VIAL IV PRN (08:06)
[2023-10-18] MEDS ORDERED: fentaNYL citrate PF 100 MCG/2 ML VIAL ONE (08:28)
[2023-10-18] MEDS: TRANEXAMIC ACID 1,000 MG **IV Pre-op IV SCH (08:51)
[2023-10-18] MEDS: ceFAZolin 2000MG 2,000 MG/15 ML SYR IV SCH ×2 (09:17→17:16)
[2023-10-18] MEDS: ORTHO JOINT ANESTHETIC ONE (09:41)
[2023-10-18] MEDS ORDERED: PROPOFOL IV EMULSION 10 MG/ML 20 ML VIAL IV ONE (10:01)
[2023-10-18] MEDS: TRANEXAMIC ACID 1,000 MG **IV Intra-op IV SCH (10:15)
[2023-10-18] MEDS: ROPIVACAINE 0.5% HCL/PF 246 MG, Ketorolac (*for OR use only*) 30 MG, EPINEPHrine 30MG/3... INFIL SCH (10:27)
--- NOTE | 2023-10-18 10:47 | Post Operative Brief Note ---
Immediate Post Op Note Date of Surgery October 18, 2023 Pre & Post Diagnosis Operation Date: 10/18/23 08:50 <No data on this case meets the specified criteria> Osteoarthritis left knee pre and postop diagnosis same with valgus deformity I identified the patient and participated in the time-out.: Yes Procedure Operation Date: 10/18/23 08:50 <No data on this case meets the specified criteria> Cemented left total knee replacement Surgeon Param Mackey MD Boiler Riveter Linsey/Diana Estimated Blood Loss 20 Findings Consistent with Post-Op Diagnosis Severe lateral compartment disease tibia and femur severe patellofemoral disease moderate medial disease left knee Fluids 1000 cc of fluid Complications None
--- NOTE | 2023-10-18 10:51 | Operative Report ---
Post Operative Report Pre & Post Diagnosis Operation Date: 10/18/23 08:50 <No data on this case meets the specified criteria> Osteoarthritis left knee with valgus deformity pre and postop diagnosis same I identified the patient and participated in the time-out.: Yes Procedure Operation Date: 10/18/23 08:50 <No data on this case meets the specified criteria> Cemented left total knee replacement Surgeon Param Mackey MD Trucker Linsey/Diana Estimated Blood Loss 20 Findings Consistent with Post-Op Diagnosis Severe lateral disease patellofemoral disease with moderate medial disease Fluids 1000 cc Specimens Bone pathology Drains None Complications None Indications Severe pain failed conservative management knee gives way with any type of the incline or decline Description of Procedure After the patient was appropriate notified site verified consent verified antibiotics confirmed as being given left lower extremity was prepped and draped use routine fashion. Total tourniquet time was 53 minutes. The leg was exsanguinated with a rubber Esmarch bandage and the tourniquet plated to 275 mmHg. Midline exposure utilized parapatellar arthrotomy performed synovectomy completed osteophytes resected. Cruciates resected tibia subluxated menisci resected. Distal femur entered. 9 mm cut off the distal femur. 4 mm cut off the proximal tibia based on the medial side. There was marked deformity in the lateral compartment on the tibia and femur. Extension gap was excellent. Femur was sized to a size 5 appropriate cutting block applied anterior posterior condylar and chamfer cuts made. Box cut was made after was verified that the flexion gap was excellent. Ortho mix was injected about the knee posteriorly. Once the box cut was made a size 5 femur fit well and lug seating holes were made. Size femur fit well. The tibia was then broached and reamed to a size 4. Size 5 spacer gave us the best range of motion midrange stability. Patella tracked well. It was resected leaving about 15 mm. A 35 button was then seated. It tracked well. Ortho mix was then injected all about the knee. All trial implants were then removed wound irrigated after was soaked in Betadine for 2-1/2 minutes with some Pulsavac. The implants were then cemented in position tibia femur patella in that order at 12 minutes of tourniquet deflated at 14 minutes of the knee flexed no cement removal was required. The trial spacer was removed the permanent spacer seated after irrigated with Betadine and Pulsavac and then wound closed with #2 Vicryl 2-0 Vicryl and standstill clips. Should he mention that an additional dose of TXA was given about 2 minutes prior to releasing the tourniquet. There was minimal bleeding total blood loss during the procedure was probably 20 cc or less. Summary of implants size 5 left femur posterior cruciate substituting size 4 rotating platform tray size 35 patella size 5 x 5 mm rotating platform insert posterior cruciate substituting. EBL 20 cc or less crystalloid 1000 cc DVT PE prophylaxis start tomorrow. Family contact notified. Ludmila Sanchez. I attest to the content of the Intraoperative Record and any orders documented therein. Any exceptions are noted below.
--- NOTE | 2023-10-18 10:52 | Orthopedic Progress Note ---
Date of Service October 18, 2023 Orthopedic Progress Note Patient underwent cemented left total knee replacement tolerated well vital signs stable afebrile denies chest pain shortness of breath fever chills nausea or headache. Wound dressing clean dry and intact. X-ray pending. Family contacted. Discharge tomorrow if does well overnight.
--- NOTE | 2023-10-18 10:54 | Discharge Summary ---
Date of Service October 19, 2023 Admission HPI Per Admitting Provider History of Present Illness (including history relevant to procedure): This 78-year-old female presents to the clinic today for preoperative history and physical. Patient complains of increasing left knee pain over the past several months. She states she has pain primarily when she is ambulatory. At rest it is nonsevere. She localizes most of the pain on the medial aspect of her knee. She states that her left knee is not as straight as her right knee that was replaced back in 2017. She feels that her gait has been affected and at times has to use an assistive device. She is electing to proceed with surgical intervention at this time. Review Of Systems: A 12 point review of systems is performed is unremarkable except for those things stated in the HPI and past medical history. Past Medical History: Problems: Pain in both feet Arthritis of both feet Flat feet, bilateral Cervical strain Carpal tunnel syndrome, right Right shoulder pain Trigger finger of right thumb Osteoarthritis of left knee Strain of piriformis muscle Iliotibial band tendonitis Right lumbar radiculitis Right hip pain Iliotibial band syndrome, right leg Toe fracture, left Trochanteric bursitis Torn rotator cuff Complete rotator cuff tear of left shoulder Sprain of upper extremity Sprain, supraspinatus Contusion of left deltoid region Sacroiliitis Status post total right knee replacement Preop examination Knee osteoarthritis Contusion of right knee Sciatic leg pain. Left lumbosacral radiculopathy Gluteus medius or minimus syndrome Pain in left hip Muscle strain of left gluteal region Prepatellar bursitis of left knee Osteoarthritis of knee Pain in thumb joint with movement of right hand Acute medial meniscal injury of right knee Lumbar disc disease Low back pain Pes anserine bursitis Pain of left sacroiliac joint Shoulder strain Strain of patellar tendon Knee pain Acquired hallux rigidus Wrist pain, right Shoulder pain, right Upper arm pain Bipolar disorder Foot pain HTN (hypertension) Great toe pain Procedure History Procedure Procedure Date Comments Rotator cuff repair - right Echocardiography 10/20/2021 - Mild concentric left ventricular hypertrophy. EF 60-65%Mild tricuspid regurgitation.No study for comparison. Knee replacement 2017 - Right knee Colonoscopy 12/07/2015 - Large hiatus hernia. LA grade D reflux esophagitis. Normal stomach. Normal examined duodenum.No specimens collected. CT of abdomen and pelvis 12/04/2015 - 1) There are no acute infectious or inflammatory findings in the abdomen or pelvis. 2) Moderate to large hiatal hernia with approximately half of the stomach located in the thoracic cavitiy. 3) Moderate colonic diverticulsosi without CT evidence of acute diverticulitis. 4) Additional changes as above. Allergies and Sensitivities: Vicodin(vomiting) Geodon(nausea) Geodon(black stools) Current Home Meds: (Last Updated 09/27 15:15) OLANZapine (OLANZapine 5 mg oral tablet, disintegrating) amoxicillin (amoxicillin 500 mg oral capsule) 2,000 mg PO As indicated one hour before dental and other procedures as directed cariprazine (Vraylar 1.5 mg oral capsule) cholecalciferol (Vitamin D3) chondroitin-glucosamine (Chondroitin-Glucosamine) 1 cap PO Daily cinacalcet (cinacalcet 30 mg oral tablet) cloNAZepam (KlonoPIN 0.5 mg oral tablet) 0.125 mg PO PRN cyanocobalamin (Vitamin B12) denosumab (Prolia 60 mg/mL subcutaneous solution) diclofenac topical (diclofenac 1% topical gel) APPLY TO AFFECTED AREA DIRECTED 4 TIMES DAILY IF NEEDED ergocalciferol (ergocalciferol 1.25 mg (50,000 intl units) oral capsule) hydroCHLOROthiazide-spironolactone (hydroCHLOROthiazide-spironolactone 25 mg-25 mg oral tablet) PO Daily half tab in the am, half tab in the pm lamoTRIgine (LaMICtal) 100 mg PO 3 tabs in the am 1.5 in pm losartan (losartan 25 mg oral tablet) multivitamin (Multiple Vitamins oral tablet) 1 tab PO Daily multivitamin (Vitamin B Complex) 1 cap PO Daily omega-3 polyunsaturated fatty acids (Fish Oil oral capsule) 2 caps daily pantoprazole (pantoprazole 40 mg oral delayed release tablet) psyllium (Metamucil) 1.7 g PO Daily spironolactone (spironolactone 25 mg oral tablet) HAZARDOUS MEDICATION | tablet: green | suspension: teal - B Repasky 09/27 15:14 topiramate (Topamax) 50 mg PO Daily unlisted medication (RA SLEEP TABLET) Initial Wt: 09/27 85.6 kg 188 lb Principal Diagnosis Osteoarthritis with valgus deformity left knee Discharge Data Allergies Allergy/AdvReac Type Severity Reaction Status Date / Time hydrocodone AdvReac Mild NAUSEA AND Verified 10/18/23 07:07 VOMITING thioridazine AdvReac Mild RESTLESS Verified 10/18/23 07:07 LEG/remote hx ziprasidone AdvReac Mild vomiting/black Verified 10/18/23 07:07 stools meloxicam AdvReac Unknown vomiting/black Verified 10/18/23 07:07 stools Vaccinations None Consultations None Procedures Performed Operation Date: 10/18/23 08:50 <No data on this case meets the specified criteria> Cemented left total knee replacement Ordered Studies 10/18/23 05:00 US - OR guided needle placemen Routine Diabetes Follow up None Hospital Course (1) Status post left knee replacement: Total Time Total Time Spent Total Time Spent (In Minutes): 5 Discharge Plan Discharge Items Patient Disposition: Transfer Inpatient Rehab Fac Reason For Visit: Left Knee Osteoarthritis Discharge Diagnosis: Left knee s/p total knee replacement Condition on Discharge: Good Activity: Per Instructions section Lifting: Wait until after follow-up appointment Bathing: Keep incision dry Sexual Activity: Wait until after follow-up appointment Exercise/Sports: Wait until after follow-up appointment Driving/Machine Use: No driving until cleared by Dr. Mackey Weightbearing: Full weightbearing Non-emergency contact: Surgeon Call non-emergency contact if: you have any medication questions, your pain is not controlled, your temperature is above 101.5, your wound has increased redness, your wound has increased drainage and your wound pain has increased Follow-up/Referrals: Mika Ortiz PA-C [Physician Dock Worker] - 11/02/23 Isra Coates, DO [Primary Care Provider] - Diet: Heart Healthy Addtl Attending Provider Instructions: MEDICATIONS: * Please take your prescriptions as instructed at your pre-op appointment and/or see medication discharge instructions listed above. * If concerns develop, call your physician's office at . SPECIAL CARE INSTRUCTIONS: * Ice/Elevate as instructed. * Keep dressing clean, dry, intact. * Your surgical extremity may be discolored due to prepping agents used on the skin. A bluish-green tint is a normal variant and should not cause alarm. Call your doctor at [phone] if: * Temperature above 101 degrees * Pain not relieved by pain medicine ordered * There is increased drainage or redness from any incision * You have any unanswered questions, problems or concerns. FOLLOW UP VISIT: * If not already scheduled, please call the office at to schedule a follow-up appointment. New Medicine: * You will likely be taking one or more of these medications: 1. Percocet - Take, as directed, when you need it, every four to six hours to control your pain. 2. Iron Sulfate - Take 1x each day for the month after surgery to help you replace the blood lost during surgery. 3. Eliquis - Thins your blood to lessen the chance of forming a blood clot. * The most common side effects of pain medicine and iron are nausea and constipation. If nausea or constipation is too much of a problem or if you have any questions about your new medicines or doses, call [facility] at . We will try to help you manage these issues. "VERY IMPORTANT TO READ AND REVIEW" Blood Clots and Blood Thinning Medicine: * You are given Eliquis during the immediate post-operative period to lessen the risk of blood clots forming in your legs and/or lungs. It is usually given for 4 weeks after surgery. Pain: * The immediate post-operative period after knee replacement surgery is often quite painful. * You are given a prescription for pain medicine. You should take it, as directed, when you need it, especially before physical therapy and before going to bed. Pain that interferes with sleep is very common and can last several months. * You will likely need pain medicine for the first four to six weeks. It will not stop all of the pain. The pain will lessen and as you feel better, you may change to milder pain medicine such as Tylenol. * The most common side effects of pain medicine are nausea and constipation, so don't take more than you need. Physical Therapy: * You will have physical therapy two or three times each week for four to six w eeks after your surgery in order to regain your knee range of motion and to retrain your knee to work properly. * It is just as important to make sure you are getting your knee perfectly straight as it is to regain your knee bend. * Taking a pain pill an hour before therapy can help you have a more productive and comfortable therapy session if needed. Home Exercise: * You were shown a series of exercises (heel props, heel slides, etc.) in the hospital. Do these exercises three to four times each day including the exercises you were shown in physical therapy. Walking: * Get up and walk several times each day. For the first four weeks, try not to stand or walk for more than one hour at a time. If you do stand or walk for more than one hour, you will not hurt anything, but your knee and leg will likely swell. * As you feel comfortable, you may change from the walker or crutches to a cane and then to independent walking. SELF CARE INSTRUCTIONS AFTER TOTAL KNEE REPLACEMENT A. You may need to continue a physical therapy program after discharge from the hospital. There are several options available to you. Your doctor will assist you in selecting the best one for you. 1. An out-patient facility 2 to 3 times a week for therapy or home therapy. 2. Continue working on all exercises taught to you in the hospital. Your goals should be to increase bending of your knee to 90 degrees and beyond and to fully straighten your knee. B. You may progress at your own pace from walking with a walker or crutches to a cane; then to no assistive devices. C. Make walking a part of your daily routine. Be up as much as comfortable with rest periods throughout the day. Rest with leg elevation is very i mportant. Use the ice wrap frequently for the first 3-4 weeks. D. There are no restrictions on activities. You may ride in a car, shop, participate in equipment service technician and all social activities. E. Wear the long elastic stockings (CORIE hose) 20 hours a day for six weeks after surgery. They can be removed several times a day for laundering and for a shower. F. Do not place a pillow behind your knee when resting. A pillow at your ankle is okay. VERY IMPORTANT TO READ AND REVIEW A. Take Eliquis (blood thinning medication) as directed by your doctor. B. There are a few signs you need to watch for after you are home. Call [facility] if you notice any of the followin. Increased severe knee pain. Some pain is expected especially when you exercise. 2. Increased swelling in your leg or knee; pain or swelling of the calf muscle in either lower leg. 3. Any fluid drainage from the incision. 4. Shortness of breath or chest pain. C. Please call [facility] at if you have any concerns or questions about your operation or recovery. The doctor or his nurse will return your call promptly. D. You must take antibiotics before dental work, bladder, bowel or other surgery. Call the office to obtain a prescription at least 2 days prior to your appointment. * CALL IF INCREASED PAIN, REDNESS, DRAINAGE OR FEVER GREATER THAT 101. * Sutures should be removed 12-14 days after surgery unless you are on chronic steroids, then it will be 14-18 days after surgery. Call your doctor if: * Temperature above 101 degrees F. * Pain not relieved by pain medicine ordered. * Increased drainage or redness from incision. * Notify your doctor with any questions or concerns. Use your knee immobilizer today and tomorrow when out of bed. It can be discontinued entirely on Monday morning use your walker for ambulation ice and elevate the knee frequently to reduce pain/swelling Pending Studies at Discharge: Yes Studies:: bone pathology Stand-Alone Forms: [facility] Skilled Items Patient informed of condition?: Yes DNR: No Discharge Level of Care: Acute rehab Communicable Disease: No Discharge Prognosis: Stable Lines: None Urinary Catheter: No Medications and DC Order Prescriptions: No Action ergocalciferol (vitamin D2) [Vitamin D2] 1,250 mcg (50,000 unit) capsule 1,250 mcg PO WK Qty: 12 3RF Rx Instructions: Monday mornings furosemide 20 mg tablet 20 mg PO Q OTHER DAY PRN (Reason: edema) Qty: 8 0RF Metamucil 3.4 gram/5.4 gram powder See Rx Instructions PO PRN Qty: 660 0RF Rx Instructions: Metamucil 3 teaspoons in water in the AM, take 30 mins away from food. orally as needed; mix into at least 8 oz of water or juice before administering losartan 25 mg tablet 25 mg PO .COMPLEX Qty: 90 3RF Rx Instructions: 25 mg orally 1 tablet by mouth each morning; for kidney health - lowers blood pressure - pt started Sep vitamin B complex Tablet 1 tab PO QAM multivitamin [Daily Multi-Vitamin] Tablet 1 tab PO DAILY cinacalcet 30 mg tablet 30 mg PO DAILY Qty: 30 5RF Patient Comments: WITH FOOD Prolia 60 mg/mL syringe 60 mg subcut .[id number] Qty: 1 1RF spironolactone 25 mg tablet 25 mg PO DAILY Qty: 90 3RF pantoprazole 20 mg tablet,delayed release (DR/EC) 20 mg PO DAILY Qty: 90 3RF olanzapine 5 mg tablet 5 mg PO HS diclofenac sodium 1 % gel 1 g TOPICAL QID PRN (Reason: Pain) Glucosamine Sulf-Chondroitin 500-400 mg capsule 1 tab PO DAILY Rx Instructions: 1 tab orally 1 tab in AM, 1tab in PM; omega-3 fatty acids Capsule 2 cap PO QPM Patient Comments: mid day cyanocobalamin (vitamin B-12) 1,000 mcg Tablet, Sublingual 1,000 mcg SUBLINGUAL QAM clonazepam [Klonopin] 0.5 mg Tablet 0.5 mg PO HS PRN (Reason: Anxiety) Patient Comments: may take up to 2 tablets in addition overnight for insomnia Rx Instructions: 1 tab (0.5mg) po at bedtime. may take up to 2 tabs overnight additionally if needed for insomnia." ascorbic acid (vitamin C) [Vitamin C] 500 mg Tablet 1,000 mg PO DAILY lamotrigine [Lamictal] 200 mg Tablet 200 mg PO QAM lamotrigine [Lamictal] 200 mg Tablet 250 mg PO HS Discharge Orders: Discharge Order (Routine); Ordered 10/19/23 Ordered By: Param Mackey Admission Data Admit Date/Time: 10/18/23 11:13 Attending Provider: Param Mackey Admit Provider: Param Mackey Primary Care Provider: Isra Coates Other Providers: [facility]
--- NOTE | 2023-10-18 10:58 | Operative Report ---
Post Operative Report Pre & Post Diagnosis Operation Date: 10/18/23 08:50 Pre-Op Diagnosis: Left Knee Degenerative Joint Disease Post-Op Diagnosis: Left Knee Degenerative Joint Disease I identified the patient and participated in the time-out.: Yes Procedure Operation Date: 10/18/23 08:50 Actual Procedures p Left Total Knee Arthroplasty(Left) - Param Mackey MD Surgeon Param Mackey MD Household Refrigeration Mechanic Linsey/Diana Estimated Blood Loss 20 Findings Consistent with Post-Op Diagnosis Specimens Bone pathology Description of Procedure Patient was brought to the operative suite. Left lower extremities prepped and draped in usual sterile fashion. Surgical timeout was performed. Patient underwent a left total knee arthroplasty, please see Dr. Mackey's operative report for full details. I was present and assisted with limb positioning, surgical approach, soft tissue retraction, hardware implantation, wound closure, postoperative dressing placement. Patient was awakened and taken to the recovery room in stable condition. I attest to the content of the Intraoperative Record and any orders documented therein. Any exceptions are noted below.
--- NOTE | 2023-10-18 11:04 | Operative Report ---
Post Operative Report Pre & Post Diagnosis Operation Date: 10/18/23 08:50 Pre-Op Diagnosis: Left Knee Degenerative Joint Disease Post-Op Diagnosis: Left Knee Degenerative Joint Disease I identified the patient and participated in the time-out.: Yes Procedure Operation Date: 10/18/23 08:50 Actual Procedures p Left Total Knee Arthroplasty(Left) - Param Mackey MD Surgeon JUDY Mackey MD Mold Changer Linsey/Diana ACKERMAN Estimated Blood Loss 20 Findings Consistent with Post-Op Diagnosis see operative report Specimens see operative report Drains none Complications none Disposition Accompanied Patient To Recovery: Yes Indications This 78-year-old female presented to the office complaints of persisting left knee pain. She had tried conservative care measures without improvement. She elected to proceed with surgical intervention after being educated about potential risks and outcomes. Preoperative imaging was obtained. Description of Procedure The patient was administered a spinal anesthetic and then taken to the operating room where she was given sedation. She was prepped and draped in the usual sterile fashion. Please see Dr. Mackey's operative report for specifics of the procedure. I was present for the entire case from initial patient positioning through final wound closure. Assistance was provided in tissue retraction, hemostasis, trial implant placement, final implant placement, and final wound closure. The patient was taken to the recovery room in satisfactory condition. I attest to the content of the Intraoperative Record and any orders documented therein. Any exceptions are noted below.
[2023-10-18] MEDS: ONDANSETRON INJ 2 MG/ML 2 ML VIAL IV PRN ×2 (11:20→17:40)
--- NOTE | 2023-10-18 11:37 | XRay Report ---
XR knee LT 1 or 2V routine CLINICAL HISTORY: S/P L TKA TECHNIQUE: 2 views of the left knee were obtained. Comparison: Comparison is made to knee radiographs 06/28/2021 FINDINGS: Patient is status post total knee arthroplasty with expected postsurgical changes including soft tiss ue swelling and subcutaneous emphysema. No periarticular lucency or hardware fracture is seen. IMPRESSION: Expected postoperative appearance status post placement of total knee arthroplasty. ACT 112: Negative or not required by law. Electronically signed by: Fran Lombardi M.D. 10/18/2023 11:35 AM
[2023-10-18] MEDS ORDERED: MAGNESIUM HYDROXIDE SUSP 30 ML UDC PO PRN (12:06)
[2023-10-18] MEDS ORDERED: diphenhydrAMINE 50 MG/ML VIAL IV PRN (12:06)
[2023-10-18] MEDS ORDERED: ALUMINUM/MAGNESIUM SUSP 30 ML UDC PO PRN (12:06)
[2023-10-18] MEDS ORDERED: bisacodyL 10 MG SUPP PR PRN (12:06)
[2023-10-18] MEDS ORDERED: NALOXONE HCL 0.4 MG/1 ML VIAL/CARP IV PRN (12:06)
[2023-10-18] MEDS ORDERED: VANCOMYCIN CONSULT ACTIVE PRN (12:06)
[2023-10-18] MEDS ORDERED: FUROSEMIDE 20 MG TAB PO PRN (12:06)
[2023-10-18] MEDS ORDERED: VANCOMYCIN HCL 1,250 MG in SODIUM CHLORIDE 0.9% 500 ML IV ONE (12:06)
[2023-10-18] MEDS: SODIUM CHLORIDE 0.9% 1,000 ML IV SCH (12:29)
[2023-10-18] MEDS: SODIUM CHLORIDE 0.9% 1000ML IV SCH (12:29)
[2023-10-18] MEDS: KETOROLAC TROMETHAMINE 15 MG/ML VIAL IV SCH (13:23)
[2023-10-18] MEDS: ACETAMINOPHEN 500 MG TAB PO SCH (13:23)
[2023-10-18] MEDS: VANCOMYCIN HCL 1,250 MG in SODIUM CHLORIDE 0.9% 250 ML IV ONE (14:57)
--- NOTE | 2023-10-18 15:12 | Orthopedic Progress Note ---
Date of Service October 18, 2023 Assessment & Plan Admission and Anticipated Discharge Date Admission Date: October 18, 2023 Orthopedic Progress Note Afternoon rounds doing well is up walking around in the room. Is able to void. Eating and drinking. Will saline lock her IV. Vital signs are stable she is afebrile. Neurovascular check from sciatic nerve is normal. Was complaining her dressing was too tight it is actually very good she has no issues. There is no bleeding there is no tight Band-Aid everything looks good. Postop x-rays look excellent. Assessment doing well directed her on how to do her exercises showed her how to do the knee extension the knee flexion and the heel elevation and the stretch. She states she will do them. She did not realize she can do my and emphasized that they have to be done commonly and frequently. She needs to put effort into it. She is only use the knee immobilizer for up and ambulating. Does not need it when she is sitting or in bed. Eating and drinking well we will saline lock her IV. Postop x-rays look excellent.
[2023-10-18] MEDS: PSYLLIUM or GUAR GUM FIBER 4GM PACKET PO SCH (15:39)
[2023-10-18] MEDS: oxyCODONE HCL IR 5 MG TAB (IMMEDIATE RELEASE) PO PRN (15:42)
[2023-10-18] MEDS: ASCORBIC ACID 500 MG TAB PO SCH (16:31)
[2023-10-18] MEDS: FERROUS GLUCONATE 324 MG TAB PO SCH (16:31)
[2023-10-18] MEDS: HYDROmorphone INJ 0.5 MG/0.5 ML SYR IV PRN (18:31)
[2023-10-18] MEDS: DOCUSATE SODIUM 100 MG CAP PO SCH (21:13)
[2023-10-18] MEDS: SENNA 8.6 MG TAB PO SCH (21:13)
[2023-10-18] MEDS: clonazePAM 0.5 MG TAB PO PRN (21:14)
[2023-10-18] MEDS: OLANZapine 5 MG TABLET PO SCH (21:15)
[2023-10-18] MEDS: lamoTRIgine 100 MG TAB PO SCH (21:16)
[2023-10-18] MEDS: METOCLOPRAMIDE HCL INJ 5 MG/ML 2 ML VIAL IV PRN (21:22)
--- NOTE | 2023-10-19 06:38 | Orthopedic Progress Note ---
Date of Service October 19, 2023 Assessment & Plan Admission and Anticipated Discharge Date Admission Date: October 18, 2023 Orthopedic Progress Note Postop day #1 status post left total knee replacement. Patient having some issues with nausea related to narcotic use. Vital signs are stable she is afebrile. She denies chest pain shortness of breath fever chills. She had many questions regarding all of her medications which I do not prescribe. Of asked her to talk to her own providers on that. 1 specifically about urinary retention which she is perseverating over. Wound dressing clean dry and intact. Neurovascular check femoral sciatic nerve is normal. Can do a straight leg raise. A.m. labs are pending. Assessment doing well status post total knee replacement left. Having some. Narcotic nausea with some emesis. This point in time suggest that she minimize narcotic use maximizing acetaminophen use and use Zofran every 6 hours until she is off the narcotic. This can cause constipation and she needs to make sure she takes care of her bowels. This was described to her in detail. Last evening for short timeframe refused her antibiotic and then rethought that and took it about an hour and a half late. Assessment doing well status post knee replacement needs to be more cooperative with management plans. Please provide Zofran prescription with discharge. Handwashing by myself was done perfect before and after the visit.
[2023-10-19 07:55] VITALS: BP 118/74; RESP 18; TEMP 98.1; O2SAT 94
[2023-10-19 08:48] LABS: Hematocrit (blood only) 28.9 % (37.0-47.0); Hemoglobin 9.5 g/dl (12.0-16.0); Mean Corpuscular Hemoglobin 28.9 pg (25.0-34.0); Mean Corpuscular Hgb Conc 32.9 g/dL (32.0-36.0); Mean Corpuscular Volume 87.8 fL (80.0-100.0); Mean Platelet Volume 10.2 fL (9.4-12.4); Platelet Count 254 K/uL (130-400); RDW Coefficient of Variation 13.8 % (11.5-14.5); RDW Standard Deviation 44.7 fL (36.4-46.3); Red Blood Count 3.29 M/uL (4.20-5.40)
[2023-10-19 09:07] LABS: BUN Creatinine Ratio 18.5 (10-20); Calcium 7.3 mg/dl (8.6-10.3); Creatinine Clr Calc Pharmacy 25.2 ml/min; Est GFR (African American) 30.1 ml/min; Potassium 4.6 mmol/L (3.5-5.1)
[2023-10-19] MEDS: dexAMETHasone 10 MG in SYRINGE 0 ML IV SCH (09:07)
[2023-10-19] MEDS: APIXABAN 2.5 MG TAB PO SCH (09:08)
--- NOTE | 2023-10-19 09:08 | Orthopedic Progress Note ---
Date of Service October 19, 2023 Assessment & Plan (1) Status post left knee replacement: Plan: The patient's dressing was changed this morning by me. Mahesh stocking was applied. Medications were finalized, including addition of Zofran for her nausea. I spoke with nursing staff to be sure the patient received Zofran this morning due to her complaints of nausea. I had an extended conversation with the patient regarding her physical therapy exercises, what was found during surgery, and her postop follow-up schedule. written discharge instructions were provided. She will be transferred to [facility] at 1030 this morning. Follow-up with me in 2 weeks as scheduled. Weight-bear as tolerated using her walker. She should use her knee immobilizer today and tomorrow when out of bed. It can be discontinued entirely on Monday morning. Admission and Anticipated Discharge Date Admission Date: October 18, 2023 Subjective This 78-year-old female is seen this morning in her room, for evaluation of her left knee. She is 1 day status post left total knee arthroplasty. She states she had significant nausea overnight. She denies being nauseated now. She then changed her mind and said she is nauseated. She has not taken anything for nausea since 9 PM last evening. She denies any chest pain, shortness of breath, abdominal pain, chills, sweats, or significant knee pain. She is going to [facility] at 1030 this morning. She has extensive questions this morning about surgery, medications, rehab, and follow-up. Review of Systems Review of Systems: Unchanged from yesterday. Physical Exam Physical Exam: General: Well-developed, well-nourished, elderly female, in no acute distress. Laying in bed. Alert and oriented. Holding a vomit bag. Skin: Warm and dry with good turgor. No rashes. Postsurgical dressings are in place on the left leg. Upon removal, she has scant dried blood on her inner dressings. No active bleeding. An are in place. Wound edges are well- approximated. No ecchymosis or edema yet. Musculoskeletal: The patient has intact motor function of her left leg. She is able to perform a straight leg raise. She has full terminal extension. Flexion to around 60 degrees fairly easily. Intact motor function of the ankle and toes. Neurologic: Gross sensation is intact across the left leg by soft touch. Peripheral pulses are 2+. Results & Data Vital Signs (Past 12 Hours) Vital Signs Temp Pulse Resp BP Pulse Ox O2 Del Method 10/19/23 07:54 36.7 C 79 18 118/74 94 Room Air 10/19/23 04:10 36.5 C 69 15 161/88 H 96 Room Air 10/18/23 22:49 36.3 C L 74 18 160/87 H 96 Room Air
[2023-10-19] MEDS: CINACALCET HCL 30 MG TAB PO SCH (09:09)
[2023-10-19] MEDS: lamoTRIgine 100 MG TAB PO SCH (09:10)
[2023-10-19] MEDS: LOSARTAN POTASSIUM 25 MG TAB PO SCH (09:11)
[2023-10-19] MEDS: MULTIVITAMIN TAB PO SCH (09:12)
[2023-10-19] MEDS: SPIRONOLACTONE 25 MG TAB PO SCH (09:12)
[2023-10-19] MEDS: PANTOprazole 40 MG TAB PO SCH (09:12)
[2023-10-19] MEDS: General Order Problem(s) SCH (09:37)
[2023-10-19 10:34] VITALS: PULSE 67
== END 2023-10-19 10:51 ==
LOC: 3E 06:43 → ASU 06:43
DX: Z79.899 Other long term (current) drug therapy; K21.9 Gastro-esophageal reflux disease without esophagitis; Z87.891 Personal history of nicotine dependence; Z88.8 Allergy status to other drugs, medicaments and biological substances; M21.062 Valgus deformity, not elsewhere classified, left knee; M17.12 Unilateral primary osteoarthritis, left knee; I10 Essential (primary) hypertension; F31.9 Bipolar disorder, unspecified; Z88.5 Allergy status to narcotic agent

== ENCOUNTER 2024-11-01 13:11 | Inpatient (IN) ==
[2024-11-01] MEDS: LORazepam 1 MG/1 ML SYR ED Inj Use ONE (13:33)
[2024-11-01] MEDS: HALOPERIDOL LACTATE 5 MG/ML 1 ML VIAL ONE (13:33)
--- NOTE | 2024-11-01 13:58 | Emergency Department Note ---
Impression & Plan Acute psychosis, Bipolar disease, chronic ED Provider Note NAME: NATHALIE THAYER AGE: 79 SEX: F : 1945 ARRIVES VIA: Ambulance INFORMANT: Patient ED PROVIDER(S): Martin Graham MD CHIEF COMPLAINT: Bipolar disorder, psychosis PLAN: Disposition: MEDICAL DECISION MAKING: The patient is a 79-year-old woman with a past medical history of bipolar disorder, cerebrovascular disease, CKD, osteoporosis who presents to the emergency department via EMS for evaluation of acute psychosis where the patient was noted to be outside of her home walking to the street shouting and cursing at [employer]. Police was concerned that the patient is not caring for herself as she is not eating, drinking or showering. She is not taking her medications. Patient is combative and cursing on arrival, unable to provide any useful information. On my evaluation the patient is agitated with pressured speech, cursing, incoherent, attempting to flee, unable to be directed. Due to the patient's agitation physical and chemical restraints were required and 10 mg of IM Haldol and 2 mg of IM Ativan were administered. Patient monitored on school bus monitor. EKG without overt acute ischemia. CXR negative for acute cardiopulmonary process per my personal preliminary review/interpretation. WBC and platelets within normal limits. H/H similar to prior. Chemistry without metabolic acidosis. Creatinine 2.4, similar to prior range values in the setting of CKD. LFTs unremarkable. TSH within limits. UA without evidence of infection. Urine drug screen was negative. Medical alcohol was undetectable. CT of the head was obtained and was negative for acute abnormalities. Patient was subsequently medically cleared. Disposition subsequently pending case management psychiatric evaluation once the patient is awake following her sedation for agitation. Nevertheless, 302 was upheld given evidence of failure to care for herself with acute psychosis, lacking insight. The patient was signed out to Dr. Lujan at change of shift. Triage Nursing notes reviewed and agree them. Prior/external medical records reviewed Vital Signs: reviewed Differential diagnosis: Mood disorder, infection, hypoglycemia, electrolyte abnormalities, cardiac sources, intracerebral event, toxicologic, trauma, neurologic, as well as other pathologies. ER treatment provided: See below. Diagnostics interpreted by me: ECG: Normal sinus rhythm, 79 bpm, no ectopy, nonspecific T wave abnormality, no overt ST elevation or depression, QTc 424, QRS 86. Cardiac Monitoring: An order for continuous cardiac monitoring was placed and demonstrated Normal sinus rhythm, 79 bpm, no ectopy. Laboratory studies: See below Imaging studies: See below Consultation(s): Case management. HPI: Per MDM. ROS: See above HPI for pertinent positives & negatives. A total of 10 systems reviewed and were otherwise negative. VITALS:See Below PHYSICAL EXAMINATION: GENERAL: Awake, alert, agitating-appearing, in no distress. HENT: Normocephalic, atraumatic. Oropharynx unremarkable. EYES: Normal conjunctiva. Sclera non-icteric. EOMI. No nystamgus. PEARRL. NECK: Supple. No nuchal rigidity. FROM. No JVD. RESPIRATORY: Clear to auscultation. CARDIAC: Regular rate, normal rhythm. Extremities warm and well perfused. Pulses equal. ABDOMEN: Soft, non-distended. No tenderness to palpation. No rebound or guarding. No masses. MUSCULOSKELETAL: Chest examination reveals no tenderness. The back is symmetrical on inspection without obvious abnormality. There is no CVA tenderness to palpation. No joint edema. LOWER EXTREMITIES: Calves are equal size bilaterally and non-tender. No edema. No discoloration. NEURO: No focal sensory or motor deficits noted. SKIN: No rash or jaundice noted. PSYCH: Agitated, restless, pressured speech, cursing, incoherent, attempting to flee. ED COURSE: Critical Care: I have personally spent greater than 35 minutes of critical care time in the direct management of this patient. This includes bedside care, interpretation of diagnostic studies, and testing, discussion with consultants, patient, and family members, and other required patient management activities. This 35 minutes is in excess of all separately billable procedures. Martin Graham MD Past Med/Surg History Problem List (Updated 11/01/24 @ 16:49 by Martin Graham MD) Acute psychosis (Acute) Encounter for annual routine gynecological examination Sensorineural hearing loss (SNHL) of both ears Sleep disturbance Diarrhea Hypertension controlled, stable per pt Hyperparathyroidism following with [facility] and to f/u with endocrinology per nephrology records Cerebrovascular disease Cerebral atrophy Polyneuropathy Right knee DJD Chronic kidney disease (Chronic) stage 3 Cervical radiculopathy hx Bipolar disease, chronic (Chronic) Osteoporosis Medical History Benign skin lesion of nose Urinary urgency Sensorineural hearing loss of combined types, bilateral B12 deficiency Lumbar radiculopathy Meningioma forehead area "calcified" Overweight Carpal tunnel syndrome, right Vitamin B 12 deficiency Vitamin D deficiency Diverticulosis DJD (degenerative joint disease) of cervical spine Gait abnormality Torticollis isolated episode Urinary incontinence GERD with esophagitis controlled, stable per pt Hypercalcemia "mild chronic hypercalcemia in setting of chronic HCTZ use" per [facility] 02/09/23 note Solitary thyroid nodule Hiatal hernia Surgical History Status post left knee replacement Hx of cataract extraction left/right History of endoscopy ? remote hx History of colonoscopy History of right knee joint replacement History of open reduction and internal fixation (ORIF) procedure right arm at age 11 S/P tonsillectomy S/P rotator cuff repair right H/O tooth extraction Family History Mother Hypertension Sister Breast cancer Grandfather (Paternal) Myocardial infarction Father Prostate cancer Other Alzheimer disease No family history of adverse response to anesthesia Denies family history of Ovarian cancer Colorectal cancer Social History Smoking Status: Unknown if ever smoked Tobacco Type: Cigarettes Age Started Using Tobacco: 2; Age Quit Using Tobacco: 1; packs per day: 1; Second Hand Exposure: Yes (in the past); Do You Dip or Chew Tobacco: No; Hx Alcohol Use: No Hx Substance Use: No Preferred Language: Nauruan Communication Ability: Effective Visual Impairment: No Limitations Hearing Ability: Normal Caustic Preparer Required: No Beliefs That Will Affect Care: None marital status: Single Current Living Situation: Alone current occupational status: retired Feels Safe at Home: Declines to Answer Childhood Exposure to Second-Hand Smoke: No Diet: regular caffeine: Yes (1 cup 4 x a week) Dental Care, Regularly: Yes Physical Activity Frequency: 3-4 Times per Week Seatbelt Use: always Sunscreen Use: Yes Do you think of yourself as: straight/heterosexual Gender Identity: Female Assistive Devices: Walker Allergies Allergies Allergy/AdvReac Type Severity Reaction Status Date / Time hydrocodone AdvReac Intermediate NAUSEA AND Verified 10/11/24 10:55 VOMITING meloxicam AdvReac Intermediate vomiting/black Verified 10/11/24 10:55 stools thioridazine AdvReac Intermediate RESTLESS Verified 10/11/24 10:55 LEG/remote hx ziprasidone AdvReac Intermediate vomiting/black Verified 10/11/24 10:55 stools Home Meds Home Medications Medication Instructions Recorded Confirmed vitamin B complex 1 tab PO QAM 02/25/19 10/11/24 diclofenac sodium 1 % topical gel 1 g topical QID PRN Pain 08/13/19 10/11/24 glucosamine sulfate dipotassium Cl 1 tab PO DAILY 10/26/22 10/11/24 500 mg-chondroitin 400 mg capsule (Glucosamine Sulfate 2 KCL-Chondroitin) multivitamin (Daily Multi-Vitamin 1 tab PO DAILY 01/27/23 10/11/24 tablet) cyanocobalamin (vitamin B-12) 1,000 mcg sublingual QAM 02/16/23 10/11/24 1,000 mcg sublingual tablet ascorbic acid (vitamin C) 500 mg 1,000 mg PO DAILY 09/25/23 10/11/24 tablet (Vitamin C) hydroxyzine HCl 10 mg tablet 30 mg PO HS 12/07/23 10/11/24 clonazepam 0.5 mg disintegrating 0.5 mg PO QPM 06/28/24 10/11/24 tablet lamotrigine 100 mg tablet See Rx Instructions .Route .COMPLEX 06/28/24 10/11/24 omega-3 fatty acids 1,000 mg 2,000 mg PO DAILY 06/28/24 10/11/24 capsule rhodiola root extract 250 mg 100 mg PO BID 09/16/24 10/11/24 capsule pantoprazole [Protonix] PO 10/11/24 10/11/24 Previous Rx's Medication Instructions Recorded losartan 50 mg tablet 50 mg PO .COMPLEX #90 tabs 04/25/24 denosumab 60 mg/mL subcutaneous 60 mg subcut .[id number] #1 mL 09/03/24 syringe (Prolia) spironolactone 25 mg tablet 25 mg PO DAILY #90 tabs 09/12/24 furosemide 20 mg tablet 20 mg PO DAILY PRN edema #14 tabs 09/19/24 calcitriol 0.25 mcg capsule 0.25 mcg PO Q OTHER DAY regulates 09/23/24 calcium & phosphate levels in body. #45 caps cinacalcet 30 mg tablet 30 mg PO DAILY To lower blood 10/09/24 calcium level. #90 tabs COVID vaccine (12yrs 0.5 ml IM ONCE #1 syringe 10/24/24 up)-adjuvant (PF) 5 mcg/0.5 mL IM syringe Results & Data (ED) Vital Signs Vital Signs - 24 hr 11/01/24 13:20 11/01/24 14:00 11/01/24 15:13 Temperature 37 C Temperature Source Oral Pulse Rate 79 Pulse Rate [Finger] 95 H Pulse Rhythm [Finger] Pulse Strength [Finger] Respiratory Rate 26 H Respiratory Effort / Characteristics Respiratory Depth Respiratory Pattern Blood Pressure [Right Arm] 159/85 H Blood Pressure Mean [Right Arm] 109 Blood Pressure Position [Right Arm] Pulse Oximetry 92 Oxygen Delivery Method Room Air Sepsis New/Unexplained Change in Mental Status Yes Sepsis Action Taken by Nursing No Action Required 11/01/24 16:00 11/01/24 18:00 11/01/24 21:03 Temperature Temperature Source Pulse Rate Pulse Rate [Finger] 80 70 76 Pulse Rhythm [Finger] Regular Regular Pulse Strength [Finger] Normal Normal Respiratory Rate 19 14 16 Respiratory Effort / Characteristics Non-Labored Spontaneous Non-Labored Spontaneous Non-Labored Spontaneous Respiratory Depth Normal Normal Normal Respiratory Pattern Regular Regular Regular Blood Pressure [Right Arm] 134/69 125/69 106/82 Blood Pressure Mean [Right Arm] 90 87 90 Blood Pressure Position [Right Arm] Semi-fowlers Pulse Oximetry 93 94 98 Oxygen Delivery Method Room Air Room Air Room Air Sepsis New/Unexplained Change in Mental Status Sepsis Action Taken by Nursing Laboratory Data Attestation: I reviewed the patient's lab results. 11/01/24 14:35 11/01/24 14:35 Lab Results 11/01/24 11/01/24 Range/Units 14:35 Unknown WBC 10.41 (4.8-10.8) K/ul RBC 3.83 L (4.20-5.40) M/uL Hgb 11.7 L (12.0-16.0) g/dl Hct 34.5 L (37.0-47.0) % MCV 90.1 (80.0-100.0) fL MCH 30.5 (25.0-34.0) pg MCHC 33.9 (32.0-36.0) g/dL RDW Std Deviation 42.3 (36.4-46.3) fL RDW Coeff of Benny 12.9 (11.5-14.5) % Plt Count 243 (130-400) K/uL MPV 10.6 (9.4-12.4) fL Immature Gran % (Auto) 0.4 % Neut % (Auto) 90.1 % Lymph % (Auto) 4.7 % [place] % (Auto) 3.7 % Eos % (Auto) 0.3 % Baso % (Auto) 0.8 % Neut # (Auto) 9.39 H (1.40-6.50) K/uL Lymph # (Auto) 0.49 L (1.20-3.40) K/uL [place] # (Auto) 0.38 (0.11-0.59) K/uL Eos # (Auto) 0.03 (0.00-0.50) K/uL Baso # (Auto) 0.08 (0.00-0.20) K/uL Immature Gran # (Auto) 0.04 (0.01-0.20) K/uL Rouleaux 1+ Sodium 141 (136-145) mmol/L Potassium 3.8 (3.5-5.1) mmol/L Chloride 107 (98-107) mmol/L Carbon Dioxide 22 (21-32) mmol/L Anion Gap 12 H (3-11) BUN 45 H (6-23) mg/dl Creatinine 2.42 H (0.6-1.2) mg/dl Est Cr Clr Drug Dosing Not Reportable eGFR 19.97 BUN/Creatinine Ratio 18.6 (10-20) Glucose 114 H (70-99(Fasting)) mg/dl Calcium 8.9 (8.6-10.3) mg/dl Total Bilirubin 0.6 (0.2-1.0) mg/dl AST 29 (13-39) U/L ALT 18 (7-52) U/L Alkaline Phosphatase 110 H (34-104) U/L Total Protein 7.8 (6.0-8.3) gm/dl Albumin 4.6 (3.4-5.0) gm/dl Globulin 3.2 (2.5-4.0) gm/dl Albumin/Globulin Ratio 1.4 (0.9-2) TSH 2.934 (0.300-4.500) uIu/ml Urine Color Yellow Urine Appearance Clear (Clear) Urine pH 6.5 (4.5-7.5) Ur Specific [place] 1.013 (1.000-1.030) Urine Protein 2+ H (Negative) Urine Glucose (UA) Negative (Negative) Urine Ketones Trace H (Negative) Urine Blood Negative (Negative) Urine Nitrite Negative (Negative) Urine Bilirubin Negative (Negative) Urine Urobilinogen Negative (Negative) Ur Leukocyte Esterase Negative (Negative) Urine WBC (Auto) 0-5 (0-5) /hpf Urine RBC (Auto) 0-2 (0-2) /hpf U Hyaline Cast (Auto) 0-2 (0-2) /lpf U Epithel Cells (Auto) 0-2 (0-2) /hpf Urine Bacteria (Auto) None Seen (None Seen) Urine Comment Salicylates < 3.0 L (3.0-30) mg/dl Urine Opiates Screen Neg (Neg) Ur Methadone, Qual Neg (Neg) Urine Fentanyl Screen Neg (Neg) Acetaminophen < 3 L (10-30) ug/ml Urine Barbiturates Neg (Neg) Ur Phencyclidine (PCP) Neg (Neg) U Amphetamin/Meth Scrn Neg (Neg) MDMA (Ecstasy) Screen Neg (Neg) U Benzodiazepines Scrn Neg (Neg) Ur Cocaine Metabolite Neg (Neg) U Marijuana (THC) Screen Neg (Neg) Ethyl Alcohol mg/dL < 10.0 (<10.0) mg/dl Administered Medications Discontinued Medications Haloperidol Lactate (Haloperidol Lactate 5 Mg/Ml 1 Ml Vial) Confirm Administered Dose 10 mg .ROUTE .STK-MED ONE Stop: 11/01/24 13:27 Last Admin: 11/01/24 13:33 Dose: 10 mg Documented By: [facility] Sodium Chloride (Nss) 500 mls @ 999 mls/hr IV .Q31M ONE Stop: 11/01/24 18:56 Last Infusion: 11/01/24 20:38 Dose: Infused Documented By: [facility] Admin: 11/01/24 18:59 Dose: 999 mls/hr Documented By: [facility] Sodium Chloride (Nss) 500 mls @ 999 mls/hr IV .Q31M ONE Stop: 11/01/24 21:30 Last Admin: 11/01/24 21:08 Dose: 999 mls/hr Documented By: [facility] Lorazepam (Lorazepam 1 Mg/1 Ml Syr Ed Inj Use) Confirm Administered Dose 2 mg .ROUTE .STK-MED ONE Stop: 11/01/24 13:27 Last Admin: 11/01/24 13:33 Dose: 2 mg Documented By: [facility] Data Radiologist's Impression: Chest X-Ray 11/01/24 15:36 Technique: A frontal view of the chest was obtained Findings: There are no confluent pulmonary infiltrates. The heart size is within normal limits. No pleural effusion or pneumothorax is seen. There is no definite pulmonary nodule. No fracture is noted. No foreign body is seen Impression: No active disease Electronically signed by Troy Cisneros 11-01-2024 6:[address] 11/01/24 15:36 Clinical History: Psychosis Technique: Axial computed tomography images were obtained of the brain without intravenous contrast. Comparison is made to the prior CT dated 05/14/2024 Findings: There is unchanged cerebral atrophy, within expected limits for the patient's age. Areas of decreased attenuation are seen within the periventricular white matter, likely representing chronic small vessel ischemic disease. There is no definite sign of acute or old infarction. No intracranial hemorrhage is evident. There is an unchanged 1 cm partially calcified lesion adjacent to the left frontal lobe, likely a meningioma. There is no midline shift or other form of herniation. No hydrocephalus is seen. No fracture is identified. The orbits and the visualized paranasal sinuses appear unremarkable. The mastoid air cells appear clear. Impression: 1. Cerebral atrophy and chronic small vessel ischemic disease 2. Unchanged suspected left frontal meningioma 3. No definite acute pathology Electronically signed by Troy Cisneros 11-01-2024 4:19 PM Discharge Plan Visit Data Chief Complaint: Mental Health Evaluation Stated Complaint: E ED Provider: Virgil Lujan Discharge Problem: Acute psychosis, Bipolar disease, chronic Condition: Fair Forms Stand Alone Forms: My [facility] [employer], Suicide Prevention Resources Prescriptions Prescriptions: No Action losartan 50 mg tablet 50 mg PO .COMPLEX Qty: 90 3RF Rx Instructions: 50 mg orally 1 tablet by mouth each morning; for kidney health - lowers blood pressure - pt started Sep; increased to 50 mg daily on 04/01/24; Prolia 60 mg/mL syringe 60 mg subcut .[id number] Qty: 1 1RF spironolactone 25 mg tablet 25 mg PO DAILY Qty: 90 3RF Hold Instructions: Home Medication placed on hold at Doctor's office Rx Instructions: Take in the AM for hypertension furosemide 20 mg tablet 20 mg PO DAILY PRN (Reason: edema) Qty: 14 1RF Rx Instructions: 1 tablet daily as needed for edema calcitriol 0.25 mcg capsule 0.25 mcg PO Q OTHER DAY Qty: 45 1RF cinacalcet 30 mg tablet 30 mg PO DAILY Qty: 90 1RF Patient Comments: WITH FOOD Rx Instructions: Take with food. COVID vac 25-26(12y up)-adj-PF 5 mcg/0.5 mL syringe 0.5 ml IM ONCE Qty: 1 0RF vitamin B complex Tablet 1 tab PO QAM multivitamin [Daily Multi-Vitamin] Tablet 1 tab PO DAILY pantoprazole [Protonix] PO hydroxyzine HCl 10 mg tablet 30 mg PO HS Rx Instructions: PER PT "TAKE 30 MG 1 HR PRIOR TO BED, THEN MAY REPEAT 10 MG IF NEEDED". rhodiola root extract 250 mg capsule 100 mg PO BID Patient Comments: 2 in the AM and 1 in the PM diclofenac sodium 1 % gel 1 g TOPICAL QID PRN (Reason: Pain) Glucosamine Sulf-Chondroitin 500-400 mg capsule 1 tab PO DAILY Hold Instructions: Resume on 11/18/23. Rx Instructions: 1 tab orally 1 tab in AM, 1tab in PM; cyanocobalamin (vitamin B-12) 1,000 mcg Tablet, Sublingual 1,000 mcg SUBLINGUAL QAM ascorbic acid (vitamin C) [Vitamin C] 500 mg Tablet 1,000 mg PO DAILY omega-3 fatty acids 1,000 mg Capsule 2,000 mg PO DAILY lamotrigine 100 mg tablet See Rx Instructions .ROUTE .COMPLEX Rx Instructions: TAKES 200 MG QAM, THEN 250 MG QHS clonazepam 0.5 mg tablet,disintegrating 0.5 mg PO QPM Rx Instructions: MAY REPEAT X 2 IF NEEDED PER PT. Referrals Referrals: Isra Coates, [Primary Care Provider] -
[2024-11-01 14:52] LABS: Hematocrit (blood only) 34.5 % (37.0-47.0); Hemoglobin 11.7 g/dl (12.0-16.0); Mean Corpuscular Hemoglobin 30.5 pg (25.0-34.0); Mean Corpuscular Volume 90.1 fL (80.0-100.0); Platelet Count 243 K/uL (130-400); RDW Standard Deviation 42.3 fL (36.4-46.3); Red Blood Count 3.83 M/uL (4.20-5.40); White Blood Count 10.41 K/ul (4.8-10.8)
[2024-11-01 15:08] LABS: Acetaminophen < 3 ug/ml (10-30); Salicylate < 3.0 mg/dl (3.0-30)
[2024-11-01 15:10] LABS: Alanine Aminotransferase 18 U/L (7-52); Albumin Globulin Ratio 1.4 (0.9-2); Albumin Level 4.6 gm/dl (3.4-5.0); Alkaline Phosphatase 110 U/L (34-104); Anion Gap 12 (3-11); Bilirubin,Total 0.6 mg/dl (0.2-1.0); Blood Urea Nitrogen 45 mg/dl (6-23); Calcium 8.9 mg/dl (8.6-10.3); Carbon Dioxide 22 mmol/L (21-32); Chloride 107 mmol/L (98-107); Globulin 3.2 gm/dl (2.5-4.0); Glucose 114 mg/dl (70-99(Fasting)); Potassium 3.8 mmol/L (3.5-5.1); Sodium 141 mmol/L (136-145); Total Protein 7.8 gm/dl (6.0-8.3)
[2024-11-01 15:15] LABS: Immature Granulocytes # (auto) 0.04 K/uL (0.01-0.20); Immature Granulocytes % (auto) 0.4 %; Rouleaux 1+
[2024-11-01 15:24] LABS: Thyroid Stimulating Hormone 2.934 uIu/ml (0.300-4.500)
--- NOTE | 2024-11-01 16:20 | CT Scan Report ---
Clinical History: Psychosis Technique: Axial computed tomography images were obtained of the brain without intravenous contrast. Comparison is made to the prior CT dated 05/14/2024 Findings: There is unchanged cerebral atrophy, within expected limits for the patient's age. Areas of decreased attenuation are seen within the periventricular white matter, likely representing chronic small vessel ischemic disease. There is no definite sign of acute or old infarction. No intracranial hemorrhage is evident. There is an unchanged 1 cm partially calcified lesion adjacent to the left frontal lobe, likely a meningioma. There is no midline shift or other form of herniation. No hydrocephalus is seen. No fracture is identified. The orbits and the visualized paranasal sinuses appear unremarkable. The mastoid air cells appear clear. Impression: 1. Cerebral atrophy and chronic small vessel ischemic disease 2. Unchanged suspected left frontal meningioma 3. No definite acute pathology Electronically signed by Troy Cisneros 11-01-2024 4:19 PM
[2024-11-01 16:33] LABS: Appearance Urine Clear (Clear); Bacteria Urine Automated None Seen (None Seen); Cast Urine Automated 0-2 /lpf (0-2); Epithelial Cell Urine Auto 0-2 /hpf (0-2); Glucose Urine UA Negative (Negative); RBC Urine Automated 0-2 /hpf (0-2); WBC Urine Automated 0-5 /hpf (0-5)
--- NOTE | 2024-11-01 16:58 | Emergency Department Note ---
ED Visit Note I assumed care at the change of shift. The patient has a history of bipolar disease. She by report was shouting outside her home, she has by report not been taking her medications. She required sedation. CT imaging of the brain was unremarkable. The patient is currently resting. She is to be assessed by psychiatry case management once she is more awake and interactive. A 302 petition had been signed. The patient was found to have some mild acute kidney injury. She did receive a liter of IV saline for hydration. The patient was seen by psychiatry case management. The decision has been made to proceed with a medical admission with a psych consult. Patient's medical issues are too complex for a direct admission to psychiatry. The patient remains somnolent from the sedation received earlier. She has been cooperative. Vital signs are stable The on-call hospitalist was consulted. .
[2024-11-01] MEDS ORDERED: CALCITRIOL 0.25 MCG CAPSULE PO SCH (17:00)
[2024-11-01 17:27] LABS: Amphetamines+Metham, Urine Neg (Neg); MDMA (Ecstacy), Urine Neg (Neg); Marijuana, Urine Neg (Neg)
--- NOTE | 2024-11-01 18:12 | XRay Report ---
Technique: A frontal view of the chest was obtained Findings: There are no confluent pulmonary infiltrates. The heart size is within normal limits. No pleural effusion or pneumothorax is seen. There is no definite pulmonary nodule. No fracture is noted. No foreign body is seen Impression: No active disease Electronically signed by Troy Cisneros 11-01-2024 6:08 PM
[2024-11-01] MEDS: SODIUM CHLORIDE 0.9% 500 ML IV ONE ×2 (18:59→21:08)
[2024-11-01] MEDS ORDERED: CLONAZEPAM 0.5 MG PO SCH (21:00)
[2024-11-02] MEDS: clonazePAM 0.5 MG TAB PO SCH (00:45)
--- NOTE | 2024-11-02 02:12 | History & Physical Report ---
Date of Service November 02, 2024 Assessment & Plan (1) Acute on chronic renal insufficiency: (2) Acute psychosis: (3) Bipolar disease, chronic: Plan Patient is a 79-year-old female with past medical history of bipolar disorder and CKD who presented via EMS due to acute psychosis. Due to her agitation she was sedated with 10 mg of IM Haldol and 2 mg of IM Ativan. Laboratories revealed creatinine increased from 2.15 to 2.42. Given renal insufficiency, medical issues were too complex for admission to psychiatry so patient will be admitted to medical service with psychiatry consult. #renal insufficiencyCr 2.15 -> 2.42, K+ 3.8 BUN 45. UA with 2+ protein and trace ketones. prerenal in the setting of acute hypovolemia/dehydration with poor p.o. intake. Received 1L NSS bolus in the ED Continue fluid resuscitation with LR at 80 mL/hour x 2 L (most recent EF 60- 65%) Hold spironolactone and losartan Ordered magnesium level Trend BMP and magnesium #Psychosis/bipolar disorderReported to have been agitated at time of arrival to the ED however somnolent at time of admission after lorazepam and Haldol in ED. Electrolytes stable, UDS negative, TSH WNL, head CT negative, no signs of acute infection (CXR negative, UA negative, no leukocytosis, afebrile). S/p lorazepam 2 mg IM and Haldol 10 mg IM in ED Hold lamotrigine is still unclear as to how long patient has held this at home Continue home Klonopin 0.5 mg p.o. HS and hydroxyzine 30 mg po HS Consult psychiatry One-to-one ordered Safe tray VTE ppx: SCDs, low risk Dispo: med surg with psych consult Admission and Anticipated Discharge Date Admission Date: 11/02/24 History of Present Illness Chief Complaint: mental health eval Primary Care Provider: Isra Coates DO Patient is a 79-year-old female with past medical history of bipolar disorder and CKD who presented via EMS due to acute psychosis. Due to her agitation she was sedated with 10 mg of IM Haldol and 2 mg of IM Ativan. Laboratories revealed creatinine increased from 2.13 to 2.47. Given renal insufficiency, medical issues were too complex for admission to psychiatry so patient will be admitted to medical service with psychiatry consult. Patient seen at bedside. She aroused to verbal stimuli however was completely disoriented. There is reported that patient was not eating or drinking for days and she has not taken her home medications as scheduled. Allergies Allergy/AdvReac Type Severity Reaction Status Date / Time hydrocodone AdvReac Intermediate NAUSEA AND Verified 10/11/24 10:55 VOMITING meloxicam AdvReac Intermediate vomiting/black Verified 10/11/24 10:55 stools thioridazine AdvReac Intermediate RESTLESS Verified 10/11/24 10:55 LEG/remote hx ziprasidone AdvReac Intermediate vomiting/black Verified 10/11/24 10:55 stools Home Medications Medication Instructions Recorded Confirmed Type vitamin B complex 1 tab PO QAM 02/25/19 10/11/24 History diclofenac sodium 1 % topical gel 1 g topical QID PRN Pain 08/13/19 10/11/24 History glucosamine sulfate dipotassium Cl 1 tab PO DAILY 10/26/22 10/11/24 History 500 mg-chondroitin 400 mg capsule (Glucosamine Sulfate 2 KCL-Chondroitin) multivitamin (Daily Multi-Vitamin 1 tab PO DAILY 01/27/23 10/11/24 History tablet) cyanocobalamin (vitamin B-12) 1,000 mcg sublingual QAM 02/16/23 10/11/24 History 1,000 mcg sublingual tablet ascorbic acid (vitamin C) 500 mg 1,000 mg PO DAILY 09/25/23 10/11/24 History tablet (Vitamin C) hydroxyzine HCl 10 mg tablet 30 mg PO HS 12/07/23 10/11/24 History losartan 50 mg tablet 50 mg PO .COMPLEX #90 tabs 04/25/24 10/11/24 Rx clonazepam 0.5 mg disintegrating 0.5 mg PO QPM 06/28/24 10/11/24 History tablet lamotrigine 100 mg tablet See Rx Instructions .Route .COMPLEX 06/28/24 10/11/24 History omega-3 fatty acids 1,000 mg 2,000 mg PO DAILY 06/28/24 10/11/24 History capsule denosumab 60 mg/mL subcutaneous 60 mg subcut .[id number] #1 mL 09/03/24 10/11/24 Rx syringe (Prolia) spironolactone 25 mg tablet 25 mg PO DAILY #90 tabs 09/12/24 10/11/24 Rx rhodiola root extract 250 mg 100 mg PO BID 09/16/24 10/11/24 History capsule furosemide 20 mg tablet 20 mg PO DAILY PRN edema #14 tabs 09/19/24 10/11/24 Rx calcitriol 0.25 mcg capsule 0.25 mcg PO Q OTHER DAY regulates 09/23/24 10/11/24 Rx calcium & phosphate levels in body. #45 caps cinacalcet 30 mg tablet 30 mg PO DAILY To lower blood 10/09/24 10/11/24 Rx calcium level. #90 tabs pantoprazole [Protonix] PO 10/11/24 10/11/24 History COVID vaccine 2024- (12yrs 0.5 ml IM ONCE #1 syringe 10/24/24 Rx up)-adjuvant (PF) 5 mcg/0.5 mL IM syringe Past Med/Surg History Problem List (Updated 11/02/24 @ 02:32 by Ligia Emery PA-C) Acute on chronic renal insufficiency Acute psychosis (Acute) Encounter for annual routine gynecological examination Sensorineural hearing loss (SNHL) of both ears Sleep disturbance Diarrhea Hypertension controlled, stable per pt Hyperparathyroidism following with [facility] and to f/u with endocrinology per nephrology records Cerebrovascular disease Cerebral atrophy Polyneuropathy Right knee DJD Chronic kidney disease (Chronic) stage 3 Cervical radiculopathy hx Bipolar disease, chronic (Chronic) Osteoporosis Medical History Benign skin lesion of nose Urinary urgency Sensorineural hearing loss of combined types, bilateral B12 deficiency Lumbar radiculopathy Meningioma forehead area "calcified" Overweight Carpal tunnel syndrome, right Vitamin B 12 deficiency Vitamin D deficiency Diverticulosis DJD (degenerative joint disease) of cervical spine Gait abnormality Torticollis isolated episode Urinary incontinence GERD with esophagitis controlled, stable per pt Hypercalcemia "mild chronic hypercalcemia in setting of chronic HCTZ use" per [facility] 02/09/23 note Solitary thyroid nodule Hiatal hernia Surgical History Status post left knee replacement Hx of cataract extraction left/right History of endoscopy ? remote hx History of colonoscopy History of right knee joint replacement History of open reduction and internal fixation (ORIF) procedure right arm at age 11 S/P tonsillectomy S/P rotator cuff repair right H/O tooth extraction Family History Mother Hypertension Sister Breast cancer Grandfather (Paternal) Myocardial infarction Father Prostate cancer Other Alzheimer disease No family history of adverse response to anesthesia Denies family history of Ovarian cancer Colorectal cancer Social History Smoking Status: Unknown if ever smoked Tobacco Type: Cigarettes Age Started Using Tobacco: 2; Age Quit Using Tobacco: 1; packs per day: 1; Second Hand Exposure: Yes (in the past); Do You Dip or Chew Tobacco: No; Hx Alcohol Use: No Hx Substance Use: No Preferred Language: Spanish Communication Ability: Effective Visual Impairment: No Limitations Hearing Ability: Normal Golf Club Maker Required: No Beliefs That Will Affect Care: None marital status: Single Current Living Situation: Alone current occupational status: retired Feels Safe at Home: Declines to Answer Childhood Exposure to Second-Hand Smoke: No Diet: regular caffeine: Yes (1 cup 4 x a week) Dental Care, Regularly: Yes Physical Activity Frequency: 3-4 Times per Week Seatbelt Use: always Sunscreen Use: Yes Do you think of yourself as: straight/heterosexual Gender Identity: Female Assistive Devices: Walker Review of Systems Review of Systems: unable to obtain given confusion Physical Exam Physical Exam: The patient is sleeping, arouses to verbal stimuli, disoriented. HEENT- EOMI, mucous membranes dry. Hearing grossly intact. Heart-normal S1 and S2. No murmurs, rubs or gallops. Lungs-clear bilaterally, no respiratory distress, no accessory muscle use. Abdomen-normal bowel sounds and soft. No ascites noted. Non-tender. Extremities- no clubbing, cyanosis, or edema. Rheumatologic-normal range of motion. Results & Data Results & Data Vital Signs (Past 12 Hours) Vital Signs Pulse Pulse Resp BP Pulse Ox O2 Del Method 11/01/24 23:00 16 123/61 100 11/01/24 22:33 65 11/01/24 21:03 76 16 106/82 98 Room Air 11/01/24 18:00 70 14 125/69 94 Room Air 11/01/24 16:00 80 19 134/69 93 Room Air 11/01/24 15:13 79 Laboratory Results Reviewed CBC and CMP UA, UDS, EtOH level Diagnostic Findings reviewed CXR and head CT Medications Administered EDlorazepam 2 mg IM, Haldol 10 Mg IM, 1L NSS bolus AdmissionLR at 80 mL/hour x 2 L ECG Additional Comments: NSR Rate 79 QTc 424 Code Status & VTE Plan Code Status make full code given involuntary psych admission VTE Prophylaxis Plan VTE Prophylaxis will be ordered: Yes Supervising Physician Co-Signing Physician Notes Attending addendum: I have physically seen this patient, have supervised the CHRISTIANO's activities, and agree with the H&P unless as otherwise noted. Assessment and Plan: The patient is a 79-year-old female with a past medical history including bipolar disorder and CKD who presented to the emergency department via EMS due to acute psychosis. She was sedated with Haldol 10 mg IM and Ativan 2 mg IM by the ED. Patient was to be admitted to mental health unit, however, there was concern by the psychiatry service regarding her creatinine increase from 2.15 to 2.42. [facility], with psychiatry consult. Renal insufficiency- Creatinine increased from 2.15-2.42. Status post 1 L normal saline bolus in the ED Continue IV fluid rehydration with LR at 80 mL/h x 2 L Hold spironolactone and losartan Check a magnesium level Repeat laboratories in the a.m. Psychosis/bipolar disorder- Patient was sedated as above noted Urinalysis negative, urine drug screen negative, CT scan head was negative. Continue home Klonopin and hydroxyzine One-to-one observation Safe tray Consults psychiatry PG Care Time/CCT Total # of Minutes Spent Total Time Spent with Patient: Total time spent is greater than 50% in coordination of care (as documented) at patient's floor/unit and/or counseling patient: Coding Level of Care Code 26231 INT INP/OBS CARE 3/75MIN Diagnoses Acute on chronic renal insufficiency N28.9; N18.9 Acute psychosis F23 Bipolar disease, chronic F31.9
[2024-11-02 02:38] LABS: Magnesium 2.3 mg/dl (1.7-2.4)
[2024-11-02] MEDS ORDERED: ONDANSETRON INJ 2 MG/ML 2 ML VIAL IV PRN (03:07)
[2024-11-02] MEDS ORDERED: MELATONIN 3 MG TAB PO PRN (03:07)
[2024-11-02] MEDS: LACTATED RINGER'S 1,000 ML IV SCH (03:21)
[2024-11-02 08:00] LABS: Anion Gap 6 (3-11); Blood Urea Nitrogen 40 mg/dl (6-23); Calcium 7.7 mg/dl (8.6-10.3); Carbon Dioxide 23 mmol/L (21-32); Chloride 112 mmol/L (98-107); Glucose 74 mg/dl (70-99(Fasting)); Magnesium 2.2 mg/dl (1.7-2.4); Potassium 3.8 mmol/L (3.5-5.1); Sodium 141 mmol/L (136-145)
[2024-11-02] MEDS: DOCUSATE SODIUM 100 MG CAP PO PRN (08:05)
[2024-11-02] MEDS ORDERED: POTASSIUM PHOS 3 MMOL/1 ML INFUSION IV STA (08:52)
--- NOTE | 2024-11-02 08:54 | Electrocardiogram Report ---
Test Reason : Blood Pressure : */* mmHG Vent. Rate : 79 BPM Atrial Rate : 79 BPM P-R Int : 180 ms QRS Dur : 86 ms QT Int : 370 ms P-R-T Axes : 54 58 61 degrees QTcB Int : 424 ms Normal sinus rhythm Nonspecific T wave abnormality Abnormal ECG When compared with ECG of 28-Jun-2024 21:24, Premature atrial complexes are no longer Present Criteria for Inferior infarct are no longer Present Confirmed by Agusto Yap ([id number]) on 11/02/2024 8:54:20 AM Referred By: Confirmed By: Agusto Yap
[2024-11-02] MEDS ORDERED: LOSARTAN POTASSIUM 50 MG TAB PO SCH (09:00)
[2024-11-02] MEDS ORDERED: CINACALCET HCL 30 MG TAB PO SCH (09:00)
[2024-11-02] MEDS ORDERED: SPIRONOLACTONE 25 MG TAB PO SCH (09:00)
[2024-11-02] MEDS ORDERED: ASCORBIC ACID 500 MG TAB PO SCH (09:00)
[2024-11-02] MEDS: CYANOCOBALAMIN (B-12) 500 MCG TABLET PO SCH (09:12)
[2024-11-02 09:26] LABS: Albumin Level 3.6 gm/dl (3.4-5.0)
[2024-11-02] MEDS: POTASSIUM PHOSPHATE 24 MMOL in SODIUM CHLORIDE 0.9% 500 ML IV ONE (09:42)
--- NOTE | 2024-11-02 13:23 | Psychiatric Consultation ---
Date of Consultation November 02, 2024 Impression / Recommendations Impression Diagnostically consistent with acute renzo with psychosis in context of known hiostory of bipolar affective disorder with possible recent medication non- adherence and poor oral intake. UDS with trace ketones consistent with recent poor intake. No benzodiazepines on UDS but often clonazepam isn't reliably detected so possible she has been taking this. Given report of poor sleep, agitation and renzo with previous apparent good response to olanzapine during geriatric inpatient psychiatry admission in April 2023 and largely metabolized by liver would start olanzapine for acute renzo and psychosis. Continue lamictal at prior to admission dose as she reports consistent use of this and could accurately provide her dose (matches with external medication reconciliation). Would also restart her clonazepam and Vistaril. Plan for inpatient psychiatric treatment once medically stable. The patient remains hospitalized on a completed 302 involuntary commitment, which if not extended, will on 11/06/2024 @ 1311. This patient must remain on safety precautions with a 1-on-1 and is unable to leave the hospital AMA. Overall, I spent a total of 80 minutes with this case including review of chart records, review of labwork, review of EKG QTc, direct evaluation of the patient at bedside, counseling the patient, discussion of the patient with the Nurse and with the hospitalist provider, discussion with the psychiatric liason during clinical rounds and documentation in the electronic health record. (1) Bipolar I disorder with renzo: (2) Acute on chronic renal insufficiency: (3) Acute psychosis: Plan -Continue 1-on-1 due to 302 commitment -Doesn't need suicide precautions -Cannot leave AMA due to 302 commitment -Plan for inpatient geriatric psychiatry hospitalization once medically stable -Start olanzapine 5mg ODT BID -Restart prior to admission: * Lamictal 200mg qAM and 250mg HS * Klonopin 0.5mg HS * Vistaril 30mg HS -Start Klonopin as 0.5mg TID prn for agitation/anxiety/insomnia -For behavioral emergency would use: olanzapine 10mg IM prn for agitation OR haldol 5mg IM prn and ativan 2mg IM prn Psych History Identifying Data Lisbeth Li is a 79-year-old female with past medical history of bipolar disorder and CKD who presented via EMS/police due to acute psychosis. Psychiatry consulted due to 302 commitment and psychosis with agitation. Chief Complaint "I have anger not renzo". History of Present Illness Lisbeth was brought to the hospital by police after she was found shouting in the road and cursing at people passing by. She is on a 302 commitment completed by police and ED provider due to concern for psychosis and renzo with inability to meet her care needs as she has been repeatedly calling 911 for nonsensical reasons and apparently has not eaten any of the food dropped off by [employer] since Monday and concern she has not been drinking fluids. She required 10 mg of IM Haldol and 2 mg of IM Ativan on arrival to the ED due to acute agitation and attempts to elope. Tali disputes that she was shouting at [employer] nor that she has been experiencing renzo rather said she was brought to the hospital because her home health aide blocked the door and "would not let me back in send I needed to be in a straitjacket". Reports she has been angry recently but does not feel she is experiencing renzo. Reports she has been sleeping approximately 3 hours per night over the last few weeks. She denies any suicidal thoughts. Denies any homicidal thoughts. She is able to confirm her medications reports she has been consistent with her Lamictal and accurately tells me the doses which match the external medication reconciliation. Also reports she has been taking her Klonopin and Vistaril at bedtime with additional doses of Klonopin and Vistaril overnight if she wakes up. However unclear if she has been using these additional as needed doses recently as she reports she has been sleeping only 1 to 3 hours at times. States she is not interested in in taking any other "psychotropic medications" and is frustrated that they offered her olanzapine this morning though she did take it. Discussed with her that olanzapine was recommended due to her current symptoms appearing consistent with renzo and need to treat her agitation and psychosis. She perseverates about the potassium she is receiving through her IV and that she does not need this and only needs the saline. She does confirm that she is likely dehydrated due to recent poor fluid intake. She frequently has me stop what I am saying and repeat it and then tells me I am speaking to loudly and she cannot hear me due to this. Attempts to speak more softly and slowly did not seem to make a difference in her ability to follow a more linear conversation. Tells me she continues to see Dr. Arevalo for outpatient psychiatry and recently was seeing a life insurance sales agent Yesica Monzon but states that their sessions concluded last week "because I was doing so well". She denies any other supports who she would want to involved. Per chart review appears last inpatient psychiatric hospitalization was at [facility] for inpatient geriatric psychiatry, in April 2023 where she was admitted for renzo with psychosis including concerns about being poisoned by [place] spies and the spice girls. During this admission she was on Lamictal 200 mg twice daily as well as olanzapine 10 mg at bedtime and Vistaril and clonidine and clonazepam. History of many previous inpatient psychiatric admissions, estimated greater than 25. Allergies Allergy/AdvReac Type Severity Reaction Status Date / Time hydrocodone AdvReac Intermediate NAUSEA AND Verified 10/11/24 10:55 VOMITING meloxicam AdvReac Intermediate vomiting/black Verified 10/11/24 10:55 stools thioridazine AdvReac Intermediate RESTLESS Verified 10/11/24 10:55 LEG/remote hx ziprasidone AdvReac Intermediate vomiting/black Verified 10/11/24 10:55 stools Home Medications Medication Instructions Recorded Confirmed Type vitamin B complex 1 tab PO QAM 02/25/19 10/11/24 History diclofenac sodium 1 % topical gel 1 g topical QID PRN Pain 08/13/19 10/11/24 History glucosamine sulfate dipotassium Cl 1 tab PO DAILY 10/26/22 10/11/24 History 500 mg-chondroitin 400 mg capsule (Glucosamine Sulfate 2 KCL-Chondroitin) multivitamin (Daily Multi-Vitamin 1 tab PO DAILY 01/27/23 10/11/24 History tablet) cyanocobalamin (vitamin B-12) 1,000 mcg sublingual QAM 02/16/23 10/11/24 History 1,000 mcg sublingual tablet ascorbic acid (vitamin C) 500 mg 1,000 mg PO DAILY 09/25/23 10/11/24 History tablet (Vitamin C) hydroxyzine HCl 10 mg tablet 30 mg PO HS 12/07/23 10/11/24 History losartan 50 mg tablet 50 mg PO .COMPLEX #90 tabs 04/25/24 10/11/24 Rx clonazepam 0.5 mg disintegrating 0.5 mg PO QPM 06/28/24 10/11/24 History tablet lamotrigine 100 mg tablet See Rx Instructions .Route .COMPLEX 06/28/24 10/11/24 History omega-3 fatty acids 1,000 mg 2,000 mg PO DAILY 06/28/24 10/11/24 History capsule denosumab 60 mg/mL subcutaneous 60 mg subcut .m5rsjibe #1 mL 09/03/24 10/11/24 Rx syringe (Prolia) spironolactone 25 mg tablet 25 mg PO DAILY #90 tabs 09/12/24 10/11/24 Rx rhodiola root extract 250 mg 100 mg PO BID 09/16/24 10/11/24 History capsule furosemide 20 mg tablet 20 mg PO DAILY PRN edema #14 tabs 09/19/24 10/11/24 Rx calcitriol 0.25 mcg capsule 0.25 mcg PO Q OTHER DAY regulates 09/23/24 10/11/24 Rx calcium & phosphate levels in body. #45 caps cinacalcet 30 mg tablet 30 mg PO DAILY To lower blood 10/09/24 10/11/24 Rx calcium level. #90 tabs pantoprazole [Protonix] PO 10/11/24 10/11/24 History COVID vaccine 2024- (12yrs 0.5 ml IM ONCE #1 syringe 10/24/24 Rx up)-adjuvant (PF) 5 mcg/0.5 mL IM syringe Patient History Medical History Benign skin lesion of nose Urinary urgency Sensorineural hearing loss of combined types, bilateral B12 deficiency Lumbar radiculopathy Meningioma forehead area "calcified" Overweight Carpal tunnel syndrome, right Vitamin B 12 deficiency Vitamin D deficiency Diverticulosis DJD (degenerative joint disease) of cervical spine Gait abnormality Torticollis isolated episode Urinary incontinence GERD with esophagitis controlled, stable per pt Hypercalcemia "mild chronic hypercalcemia in setting of chronic HCTZ use" per [facility] 02/09/23 note Solitary thyroid nodule Hiatal hernia Surgical History Status post left knee replacement Hx of cataract extraction left/right History of endoscopy ? remote hx History of colonoscopy History of right knee joint replacement History of open reduction and internal fixation (ORIF) procedure right arm at age 11 S/P tonsillectomy S/P rotator cuff repair right H/O tooth extraction Family History Mother Hypertension Sister Breast cancer Grandfather (Paternal) Myocardial infarction Father Prostate cancer Other Alzheimer disease No family history of adverse response to anesthesia Denies family history of Ovarian cancer Colorectal cancer Social History Smoking Status: Unknown if ever smoked Tobacco Type: Cigarettes Age Started Using Tobacco: 2; Age Quit Using Tobacco: 1; packs per day: 1; Second Hand Exposure: Yes (in the past); Do You Dip or Chew Tobacco: No; Hx Alcohol Use: No Hx Substance Use: No Preferred Language: Chinese Communication Ability: Effective Visual Impairment: No Limitations Hearing Ability: Normal Operations Inspector Required: No Beliefs That Will Affect Care: None marital status: Single Current Living Situation: Alone current occupational status: retired Feels Safe at Home: Declines to Answer Childhood Exposure to Second-Hand Smoke: No Diet: regular caffeine: Yes (1 cup 4 x a week) Dental Care, Regularly: Yes Physical Activity Frequency: 3-4 Times per Week Seatbelt Use: always Sunscreen Use: Yes Do you think of yourself as: straight/heterosexual Gender Identity: Female Assistive Devices: Walker Physical Exam Psychiatric: Orientation: alert, oriented to person and oriented to place Apperance: appropriately dressed Eye Contact: good eye contact Speech: + pressured speech and + loud speech Affect: + labile affect and + irritable affect Mood: + angry mood Thought Process: + tangential thought process and + looseness of associations Thought Content: + preoccupation Suicidal Thoughts: denies suicidal thoughts Homicidal Thoughts: denies homicidal thoughts Hallucinations: no auditory hallucinations and no visual hallucinations Insight: + poor insight Judgment: + limited judgement Vital Signs (Past 24 Hours): Last Vital Signs Temp 37 C 11/01/24 14:00 Pulse 66 11/02/24 10:17 Resp 20 11/02/24 10:17 BP 132/74 11/02/24 10:17 Pulse Ox 98 11/02/24 10:17 O2 Del Method Room Air 11/02/24 10:17 Results & Data (PSY) Medications Administered Clonazepam (Clonazepam 0.5 Mg Tab) 0.5 mg PO QPM RENATE Stop: 12/01/24 20:59 Last Admin: 11/02/24 00:45 Dose: 0.5 mg Documented By: GHANSHYAM Cyanocobalamin (Cyanocobalamin (B-12) 500 Mcg Tablet) 1,000 mcg PO QAM RENATE Stop: 12/02/24 08:59 Last Admin: 11/02/24 09:12 Dose: 1,000 mcg Documented By: brigitte Docusate Sodium (Docusate Sodium 100 Mg Cap) 100 mg PO BID PRN PRN Reason: Constipation Stop: 12/02/24 03:06 Last Admin: 11/02/24 08:05 Dose: 100 mg Documented By: brigitte Hydroxyzine HCl (Hydroxyzine Hcl 10 Mg Tab) 30 mg PO HS RENATE Stop: 12/01/24 20:59 Last Admin: 11/02/24 00:38 Dose: 30 mg Documented By: GHANSHYAM Lactated Ringer's (Lr) 1,000 mls @ 80 mls/hr IV .[id number] RENATE Stop: 11/03/24 03:14 Last Admin: 11/02/24 03:21 Dose: 80 mls/hr Documented By: MARY Potassium Phosphate 24 mmol/ (Sodium Chloride) 508 mls @ 88 mls/hr IV ONE ONE Stop: 11/02/24 14:46 Last Admin: 11/02/24 09:42 Dose: 88 mls/hr Documented By: BRANDY Olanzapine (Olanzapine Zydis 5 Mg Orally Dis. Tab) 5 mg PO BID RENATE Stop: 12/02/24 08:59 Last Admin: 11/02/24 09:13 Dose: 5 mg Documented By: brigitte Coding Level of Care Code 11975 IN/OBS CONSULT LVL 5,80M Diagnoses Bipolar I disorder with renzo F31.10 Acute on chronic renal insufficiency N28.9; N18.9 Acute psychosis F23
[2024-11-02] MEDS: lamoTRIgine 100 MG TAB PO SCH ×2 (16:32→21:03)
[2024-11-02] MEDS ORDERED: clonazePAM 0.5 MG TAB PO SCH (21:00)
[2024-11-02] MEDS: lamoTRIgine 25 MG TAB PO SCH (22:30)
[2024-11-03] MEDS: clonazePAM 0.5 MG TAB PO PRN (04:22)
[2024-11-03 06:00] VITALS: RESP 18
[2024-11-03] MEDS: ACETAMINOPHEN 325 MG TAB PO PRN (06:08)
[2024-11-03 07:50] LABS: Anion Gap 7 (3-11); Blood Urea Nitrogen 39 mg/dl (6-23); Calcium 7.6 mg/dl (8.6-10.3); Carbon Dioxide 25 mmol/L (21-32); Chloride 111 mmol/L (98-107); Glucose 92 mg/dl (70-99(Fasting)); Potassium 3.7 mmol/L (3.5-5.1); Sodium 143 mmol/L (136-145)
--- NOTE | 2024-11-03 11:06 | Hospitalist Progress Note ---
Date of Service November 03, 2024 Assessment & Plan (1) Acute on chronic renal insufficiency: Plan: cf., BUN 45, creatinine 2.42 (11/01/2024, 2:35pm). cf., BUN 40, creatinine 1.82 (11/02/2024, 7:22am). cf., BUN 39, creatinine 1.75 (11/03/2024, 7:13am). cf., CKD stage IV with baseline creatinine range, 1.64 - 2.15 (08/13/2019 - 08/09/2024). Etiology of acute kidney injury was due to a combination of patient's home- scheduled losartan 50mg PO daily and spironolactone 25mg PO daily. Subsequently, patient was held off both home-scheduled medications; consequently, acute kidney injury RESOLVED, as shown above. Etiology of CKD stage IV is due to advanced age of 79 years and HTN. As patient's BP remains normal at 130/77 (11/03/2024, 3:30am), patient continues to be held off her home-scheduled losartan 50mg PO daily and spironolactone 25mg PO daily on 11/03/2024. Of final note, patient is cleared from a medical standpoint on 11/03/2024 to undergo further Psychiatry Service evaluation(s) to determine if patient daniel nts further inpatient hospitalization for her acute exacerbation of bipolar disorder. To this end, patient awaits screening COVID test (11/03/2024, 10:43am) should patient require transfer to an external inpatient Psychiatry Service facility/treatment center on 11/03/2024. (2) Acute psychosis: Plan: Appreciate and defer to Psychiatry Service of Dr. Modesta Mccormack. (3) Bipolar disease, chronic: Plan: Appreciate and defer to Psychiatry Service of Dr. Modesta Mccormack. Plan 79 years old female with PMH of FULL CODE @ home, HTN on home- scheduled losartan 50mg PO daily and home-scheduled spironolactone 25mg PO daily, CKD stage IV with baseline creatinine range, 1.64 - 2.15 (08/13/2019 - 08/09/2024), and bipolar disorder, who presented to [facility] ER on 11/02/2024 via EMS due to acute psychosis. Due to her agitation, patient was sedated with 10 mg of IM Haldol and 2 mg of IM Ativan. Laboratories revealed creatinine increased from 2.15 to 2.42. Given renal insufficiency, medical issues were deemed too complex for admission to psychiatry, and subsequently, patient was admitted to the inpatient hospitalist service @ [facility] on 11/02/2024 with the following diagnoses: 1. Acute kidney injury, due to nephrotoxic effects of patient's home-scheduled losartan 50mg PO daily and home-scheduled spironolactone 25mg PO daily, superimposed on CKD stage IV with baseline creatinine range, 1.64 - 2.15 (08/13/2019 - 08/09/2024). 2. Acute exacerbation of bipolar disorder. #renal insufficiencyCr 2.15 -> 2.42, K+ 3.8 BUN 45. UA with 2+ protein and trace ketones. prerenal in the setting of acute hypovolemia/dehydration with poor p.o. intake. Received 1L NSS bolus in the ED Continue fluid resuscitation with LR at 80 mL/hour x 2 L (most recent EF 60- 65%) Hold spironolactone and losartan Ordered magnesium level Trend BMP and magnesium #Psychosis/bipolar disorderReported to have been agitated at time of arrival to the ED however somnolent at time of admission after lorazepam and Haldol in ED. Electrolytes stable, UDS negative, TSH WNL, head CT negative, no signs of acute infection (CXR negative, UA negative, no leukocytosis, afebrile). S/p lorazepam 2 mg IM and Haldol 10 mg IM in ED Hold lamotrigine is still unclear as to how long patient has held this at home Continue home Klonopin 0.5 mg p.o. HS and hydroxyzine 30 mg po HS Consult psychiatry One-to-one ordered Safe tray VTE ppx: SCDs, low risk Dispo: med surg with psych consult Admission and Anticipated Discharge Date Admission Date: November 02, 2024 Subjective "When can I leave this place? I'm fine. I did not ask to come to the hospital. The police brought me here. There is nothing wrong with me." Review of Systems Constitutional: Negative for antecedent/coincident fevers, chills, diaphoresis, cough, wheeze, sore throat, hemoptysis, chest pains, palpitations, pleurisy, nausea, vomiting, diarrhea, abdominal pain, pelvic pain, hematemesis, hematochezia, melena, hematuria, dysuria, frequency, urgency, headaches, dizziness, lightheadedness, visual changes, hearing changes, weakness, falls, syncope, trauma, travel history, sick contacts, or food/drug ingestions novel or new. All other review of systems are reported as negative by the patient on 11/03/2024. Physical Exam Constitutional: General: Comfortable, cooperative, coherent. Wide awake and alert. Not confused, lethargic, or obtunded. Patient speaks in complete, fluent, and articulate sentences without pause, interruption, cough, or wheeze. HEENT: Normocephalic, atraumatic. Extra-ocular muscles intact. Pupils equally round and reactive to light. No nystagmus, gaze paresis, anisocoria, miosis, mydriasis, hyphema, chemosis, scleral injection, conjunctivitis, or pterygium. No otorrhea or rhinorrhea. No pharyngeal discharge or exudate. Neck: Supple, no stridor or bruit. Jugular venous pressure is estimated to be 3 cm above the sternal angle of Eder, which is, by definition, 5 cm above the level of the right atrium. Hence, jugular venous pressure of 8 cm is not elevated on 11/03/2024. Lymphatics: No anterior/posterior cervical, infraclavicular, supraclavicular, axillary, epitrochlear, or inguinal adenopathy. Chest: Symmetric rise and fall with respirations. Non-tender to palpation. Lungs: Clear to auscultation and percussion. No audible expiratory wheeze, egophony, pectoriloquy, increase in tactile fremitus, or flatness/dullness to percussion at the bases. Heart: Regular rate and rhythm. S1 and S2 noted. No S3 or S4 summation gallop. No tripartite friction rub. Grade II/ early systolic murmur at left lower sternal border without radiation to the carotids, axilla, or back, and which remains invariant in regards to the respiratory cycle. Abdomen: Soft, non-tender, non-distended. No rebound, guarding, Peña's sign, or organomegaly. Bowel sounds auscultated in all 4 quadrants. Extremities: No clubbing, cyanosis, or edema. 2+ pedal pulses bilaterally. Skin: No decubitus ulcer, exanthem, or enanthem. Urology: No cruz catheter. No purewick. No urethral discharge. Neurology: Alert and oriented in regards to person, place, time, and situation. DTR+. 5/5 motor strength in all 4 extremities, both proximally and distally. Back: No spinal tenderness. No paraspinal tenderness. Straight leg raising negative/normal bilaterally. Psychiatry: No flat affect. No monotone voice. Pressured speech, racing thoughts, impulsive behavior. Results & Data Results & Data Vital Signs (Past 12 Hours) Vital Signs Temp Pulse Resp BP Pulse Ox 11/03/24 03:30 36.4 C L 78 18 130/77 96 Laboratory Results BUN 45, creatinine 2.42 (11/01/2024, 2:35pm). BUN 40, creatinine 1.82 (11/02/2024, 7:22am). BUN 39, creatinine 1.75 (11/03/2024, 7:13am). cf., CKD stage IV with baseline creatinine range, 1.64 - 2.15 (08/13/2019 - 08/09/2024). COVID test/screen (11/03/2024, 10:43am). Diagnostic Findings Portable CXR (11/01/2024, 3:36pm): 1. No infiltrate, effusion, cardiomegaly, pulmonary vascular congestion, or pneumothorax. (by my review). CT brain without IV contrast (11/01/2024, 3:36pm): 1. Cerebral atrophy and chronic small vessel ischemic disease. 2. Unchanged suspected left frontal meningioma . 3. No definite acute pathology. PG Care Time/CCT Total # of Minutes Spent Total Time Spent with Patient: Total time spent is greater than 50% in coordination of care (as documented) at patient's floor/unit and/or counseling patient: Coding Level of Care Code 01785 SUB INP/OBS CARE 2/35MIN Diagnoses Acute on chronic renal insufficiency N28.9; N18.9 Acute psychosis F23 Bipolar disease, chronic F31.9
--- NOTE | 2024-11-03 12:42 | Psychiatric Progress Note ---
Date of Service November 03, 2024 Impression / Recommendations Impression Diagnostically consistent with acute renzo with psychosis in context of known hiostory of bipolar affective disorder with possible recent medication non- adherence and poor oral intake. UDS with trace ketones consistent with recent poor intake. No benzodiazepines on UDS but often clonazepam isn't reliably detected so possible she has been taking this. Given report of poor sleep, agitation and renzo with previous apparent good response to olanzapine during geriatric inpatient psychiatry admission in April 2023 and largely metabolized by liver would start olanzapine for acute renzo and psychosis. A: Ongoing renzo with psychosis. Now medically stable. Bed search for geriatric psychiatry started. The patient remains hospitalized on a completed 302 involuntary commitment, which if not extended, will on 11/06/2024 @ 1311. This patient must remain on safety precautions with a 1-on-1 and is unable to leave the hospital AMA. Overall, I spent a total of 25 minutes with this case including review of chart records, review of labwork, direct evaluation of the patient, discussion of the patient with the Nurse and with the hospitalist provider, discussion with the psychiatric liason during clinical rounds and documentation in the electronic health record. (1) Bipolar I disorder with renzo: (2) Acute on chronic renal insufficiency: (3) Acute psychosis: Plan -Continue 1-on-1 due to 302 commitment -Doesn't need suicide precautions -Cannot leave AMA due to 302 commitment -Bed search started for inpatient geriatric psychiatry hospitalization -Start olanzapine 5mg ODT BID -Restart prior to admission: * Lamictal 200mg qAM and 250mg HS * Klonopin 0.5mg HS * Vistaril 30mg HS -Start Klonopin as 0.5mg TID prn for agitation/anxiety/insomnia -For behavioral emergency would use: olanzapine 10mg IM prn for agitation OR haldol 5mg IM prn and ativan 2mg IM prn Interval History Identifying Information Lisbeth Li is a 79-year-old female with past medical history of bipolar disorder and CKD who presented via EMS/police due to acute psychosis. Psychiatry consulted due to 302 commitment and psychosis with agitation. Chief Complaint sleeping Subjective Subjective Patient was seen & assessed and interval progress reviewed. Refusing olanzapine but taking her other medications. Appears to have slept about 3 hours overnight. Eating. Intrusive at times, trying to look at cameras of other patient rooms over nurses by going into the hallway outside her room. Asking for nurses to check on status of possible friends and neighbors admitted in the hospital. Sleeping this morning at time of my assessment. Given ongoing renzo with poor sleep overnight and importance of sleep, I did not wake her. Physical Exam Vital Signs (Past 24 Hours) Last Vital Signs Temp 36.4 C L 11/03/24 03:30 Pulse 78 11/03/24 03:30 Resp 18 11/03/24 03:30 BP 130/77 11/03/24 03:30 Pulse Ox 96 11/03/24 03:30 O2 Del Method Room Air 11/02/24 10:17 Results & Data ([facility]) Laboratory Results Laboratory Results - last 24 hr 11/03/24 11/03/24 07:13 10:43 Sodium 143 Potassium 3.7 Chloride 111 H Carbon Dioxide 25 Anion Gap 7 BUN 39 H Creatinine 1.75 H Est Cr Clr Drug Dosing Not Reportable eGFR 29.46 BUN/Creatinine Ratio 22.3 H Glucose 92 Calcium 7.6 L Phosphorus 2.1 L SARS-CoV-2 RNA (RT-PCR) Pending Current Inpatient Medications Current Inpatient Medications: Current Inpatient Medications Acetaminophen (Acetaminophen 325 Mg Tab) 650 mg PO Q4H PRN PRN Reason: Pain or Fever Stop: 12/02/24 03:06 Last Admin: 11/03/24 06:08 Dose: 650 mg Clonazepam (Clonazepam 0.5 Mg Tab) 0.5 mg PO QPM RENATE Stop: 12/01/24 20:59 Last Admin: 11/02/24 22:30 Dose: 0.5 mg Clonazepam (Clonazepam 0.5 Mg Tab) 0.5 mg PO TID PRN PRN Reason: agitation/anxiety/insomnia Stop: 12/02/24 13:09 Last Admin: 11/03/24 04:22 Dose: 0.5 mg Cyanocobalamin (Cyanocobalamin (B-12) 500 Mcg Tablet) 1,000 mcg PO QAM RENATE Stop: 12/02/24 08:59 Last Admin: 11/03/24 09:19 Dose: 1,000 mcg Docusate Sodium (Docusate Sodium 100 Mg Cap) 100 mg PO BID PRN PRN Reason: Constipation Stop: 12/02/24 03:06 Last Admin: 11/02/24 08:05 Dose: 100 mg Hydroxyzine HCl (Hydroxyzine Hcl 10 Mg Tab) 30 mg PO HS RENATE Stop: 12/01/24 20:59 Last Admin: 11/02/24 21:03 Dose: 30 mg Lamotrigine (Lamotrigine 100 Mg Tab) 200 mg PO QAM RENATE; Protocol Stop: 12/02/24 13:29 Last Admin: 11/03/24 09:20 Dose: 200 mg Lamotrigine (Lamotrigine 25 Mg Tab) 50 mg PO HS RENATE; Protocol Stop: 12/02/24 20:59 Last Admin: 11/02/24 22:30 Dose: 50 mg Lamotrigine (Lamotrigine 100 Mg Tab) 200 mg PO HS RENATE; Protocol Stop: 12/02/24 20:59 Last Admin: 11/02/24 21:03 Dose: 200 mg Melatonin (Melatonin 3 Mg Tab) 3 mg PO HS PRN PRN Reason: Sleep Stop: 12/02/24 03:06 Olanzapine (Olanzapine Zydis 5 Mg Orally Dis. Tab) 5 mg PO BID RENATE Stop: 12/02/24 08:59 Last Admin: 11/03/24 09:29 Dose: Not Given Olanzapine (Olanzapine 10 Mg/2.1 Ml Sdv) 10 mg IM ONCE PRN PRN Reason: Agitation Stop: 12/02/24 08:54 Ondansetron HCl (Ondansetron Inj 2 Mg/Ml 2 Ml Vial) 4 mg IV Q6H PRN PRN Reason: Nausea And Vomiting Stop: 12/02/24 03:06
[2024-11-03 18:00] VITALS: TEMP 98.1
[2024-11-04] MEDS: SPIRONOLACTONE 25 MG TAB PO ONE (08:27)
[2024-11-04 09:22] VITALS: BP 150/93; PULSE 72; O2SAT 98
--- NOTE | 2024-11-04 15:33 | Discharge Summary ---
Discharge Summary Date of Service November 04, 2024 Principal Dx & Hospital Course #1 = Principal Diagnosis (1) Acute on chronic renal insufficiency: cf., BUN 45, creatinine 2.42 (11/01/2024, 2:35pm). cf., BUN 40, creatinine 1.82 (11/02/2024, 7:22am). cf., BUN 39, creatinine 1.75 (11/03/2024, 7:13am). cf., CKD stage IV with baseline creatinine range, 1.64 - 2.15 (08/13/2019 - 08/09/2024). Etiology of acute kidney injury was due to a combination of patient's home- scheduled losartan 50mg PO daily and spironolactone 25mg PO daily. Subsequently, patient was held off both home-scheduled medications; consequently, acute kidney injury RESOLVED, as shown above. Etiology of CKD stage IV is due to advanced age of 79 years and HTN. As patient's BP remains normal at 130/77 (11/03/2024, 3:30am), patient continues to be held off her home-scheduled losartan 50mg PO daily and spironolactone 25mg PO daily on 11/03/2024 and on 11/04/2024. In fact, patient was advised NOT to resume either home-scheduled losartan 50mg PO daily and/or spironolactone 25mg PO daily on hospital discharge to [facility] on 11/04/2024, until 11/11/2024, on which date, patient was advised to resume both home-scheduled losartan 50mg PO daily and spironolactone 25mg PO daily. (2) Acute psychosis: Appreciate and defer to Psychiatry Service of Dr. Modesta Mccormack, who advised that patient: 1. Start olanzapine 5mg ODT PO bid. 2. Continue home-scheduled lamictal 200mg PO qam. 3. Continue home-scheduled lamictal 250mg PO qhs. 4. Continue home-scheduled clonazepam 0.5mg PO qhs. 5. Continue home-scheduled hydroxyzine 30mg PO qhs. (3) Bipolar disease, chronic: Appreciate and defer to Psychiatry Service of Dr. Modesta Mccormack, who advised that patient: 1. Start olanzapine 5mg ODT PO bid. 2. Continue home-scheduled lamictal 200mg PO qam. 3. Continue home-scheduled lamictal 250mg PO qhs. 4. Continue home-scheduled clonazepam 0.5mg PO qhs. 5. Continue home-scheduled hydroxyzine 30mg PO qhs. Plan 79 years old female with PMH of FULL CODE @ home, HTN on home- scheduled losartan 50mg PO daily and home-scheduled spironolactone 25mg PO daily, CKD stage IV with baseline creatinine range, 1.64 - 2.15 (08/13/2019 - 08/09/2024), and bipolar disorder, who presented to [facility] ER on 11/02/2024 via EMS due to acute psychosis. Due to her agitation, patient was sedated with 10 mg of IM Haldol and 2 mg of IM Ativan. Laboratories revealed creatinine increased from 2.15 to 2.42. Given renal insufficiency, medical issues were deemed too complex for admission to psychiatry, and subsequently, patient was admitted to the inpatient hospitalist service @ [facility] on 11/02/2024 with the following diagnoses: 1. Acute kidney injury, due to nephrotoxic effects of patient's home-scheduled losartan 50mg PO daily and home-scheduled spironolactone 25mg PO daily, superimposed on CKD stage IV with baseline creatinine range, 1.64 - 2.15 (08/13/2019 - 08/09/2024). 2. Acute exacerbation of bipolar disorder. #renal insufficiencyCr 2.15 -> 2.42, K+ 3.8 BUN 45. UA with 2+ protein and trace ketones. prerenal in the setting of acute hypovolemia/dehydration with poor p.o. intake. Received 1L NSS bolus in the ED Continue fluid resuscitation with LR at 80 mL/hour x 2 L (most recent EF 60- 65%) Hold spironolactone and losartan Ordered magnesium level Trend BMP and magnesium #Psychosis/bipolar disorderReported to have been agitated at time of arrival to the ED however somnolent at time of admission after lorazepam and Haldol in ED. Electrolytes stable, UDS negative, TSH WNL, head CT negative, no signs of acute infection (CXR negative, UA negative, no leukocytosis, afebrile). S/p lorazepam 2 mg IM and Haldol 10 mg IM in ED Hold lamotrigine is still unclear as to how long patient has held this at home Continue home Klonopin 0.5 mg p.o. HS and hydroxyzine 30 mg po HS Consult psychiatry One-to-one ordered Safe tray VTE ppx: SCDs, low risk Dispo: med surg with psych consult Admission HPI Per Admitting Provider Patient is a 79-year-old female with past medical history of bipolar disorder and CKD who presented via EMS due to acute psychosis. Due to her agitation she was sedated with 10 mg of IM Haldol and 2 mg of IM Ativan. Laboratories revealed creatinine increased from 2.13 to 2.47. Given renal insufficiency, medical issues were too complex for admission to psychiatry so patient will be admitted to medical service with psychiatry consult. Patient seen at bedside. She aroused to verbal stimuli however was completely disoriented. There is reported that patient was not eating or drinking for days and she has not taken her home medications as scheduled. Discharge Exam Constitutional General: Comfortable, cooperative, coherent. Wide awake and alert. Not confused, lethargic, or obtunded. Patient speaks in complete, fluent, and articulate sentences without pause, interruption, cough, or wheeze. HEENT: Normocephalic, atraumatic. Extra-ocular muscles intact. Pupils equally round and reactive to light. No nystagmus, gaze paresis, anisocoria, miosis, mydriasis, hyphema, chemosis, scleral injection, conjunctivitis, or pterygium. No otorrhea or rhinorrhea. No pharyngeal discharge or exudate. Neck: Supple, no stridor or bruit. Jugular venous pressure is estimated to be 3 cm above the sternal angle of Eder, which is, by definition, 5 cm above the level of the right atrium. Hence, jugular venous pressure of 8 cm is not elevated on 11/03/2024. Lymphatics: No anterior/posterior cervical, infraclavicular, supraclavicular, axillary, epitrochlear, or inguinal adenopathy. Chest: Symmetric rise and fall with respirations. Non-tender to palpation. Lungs: Clear to auscultation and percussion. No audible expiratory wheeze, egophony, pectoriloquy, increase in tactile fremitus, or flatness/dullness to percussion at the bases. Heart: Regular rate and rhythm. S1 and S2 noted. No S3 or S4 summation gallop. No tripartite friction rub. Grade II/ early systolic murmur at left lower sternal border without radiation to the carotids, axilla, or back, and which remains invariant in regards to the respiratory cycle. Abdomen: Soft, non-tender, non-distended. No rebound, guarding, Peña's sign, or organomegaly. Bowel sounds auscultated in all 4 quadrants. Extremities: No clubbing, cyanosis, or edema. 2+ pedal pulses bilaterally. Skin: No decubitus ulcer, exanthem, or enanthem. Urology: No cruz catheter. No purewick. No urethral discharge. Neurology: Alert and oriented in regards to person, place, time, and situation. DTR+. 5/5 motor strength in all 4 extremities, both proximally and distally. Back: No spinal tenderness. No paraspinal tenderness. Straight leg raising negative/normal bilaterally. Psychiatry: No flat affect. No monotone voice. Pressured speech, racing thoughts, impulsive behavior present on 11/02/2024, 11/03/2024, and on 11/04/2024. Discharge Plan Discharge Items Patient Disposition: Transfer Behavioral Health Fac Reason For Visit: 1. WILVER on CKD stage IV. Discharge Diagnosis: 1. WILVER RESOLVED, on CKD stage IV. 2. Acute exacerbation of bipolar disorder with renzo. Condition on Discharge: Fair Activity: Resume your previous activity Lifting: Gradually increase as tolerated Bathing: No limitations Exercise/Sports: Gradually increase as tolerated Weightbearing: Full weightbearing Non-emergency contact: Primary Care Provider Call non-emergency contact if: you have any medication questions Follow-up/Referrals: Isra Coates, DO [Primary Care Provider] - Diet: Heart Healthy Addtl Attending Provider Instructions: See PCP Dr. Isra Coates within 5-7 days of hospital discharge. Pending Studies at Discharge: No Stand-Alone Forms: My [facility] Medications and DC Order Prescriptions: New clonazepam 0.5 mg Tablet 0.5 mg PO QPM Qty: 7 0RF lamotrigine [Lamictal] 25 mg Tablet 50 mg PO HS Qty: 60 0RF hydroxyzine HCl 10 mg Tablet 30 mg PO HS Qty: 7 0RF lamotrigine 100 mg Tablet 200 mg PO HS Qty: 60 0RF lamotrigine 100 mg Tablet 200 mg PO QAM Qty: 60 0RF olanzapine 5 mg Tablet,Disintegrating 5 mg PO BID Qty: 14 0RF Continued Prolia 60 mg/mL syringe 60 mg subcut .[id number] Qty: 1 1RF calcitriol 0.25 mcg capsule 0.25 mcg PO Q OTHER DAY Qty: 45 1RF cinacalcet 30 mg tablet 30 mg PO DAILY Qty: 90 1RF Patient Comments: WITH FOOD Rx Instructions: Take with food. hydroxyzine HCl 10 mg tablet 30 mg PO HS Rx Instructions: PER PT "TAKE 30 MG 1 HR PRIOR TO BED, THEN MAY REPEAT 10 MG IF NEEDED". diclofenac sodium 1 % gel 1 g TOPICAL QID PRN (Reason: Pain) Glucosamine Sulf-Chondroitin 500-400 mg capsule 1 tab PO DAILY Hold Instructions: Resume on 11/18/23. Rx Instructions: 1 tab orally 1 tab in AM, 1tab in PM; omega-3 fatty acids 1,000 mg Capsule 2,000 mg PO DAILY clonazepam 0.5 mg tablet,disintegrating 0.5 mg PO QPM Rx Instructions: MAY REPEAT X 2 IF NEEDED PER PT. Held losartan 50 mg tablet 50 mg PO .COMPLEX Qty: 90 3RF Hold Instructions: Resume on 11/11/24. Rx Instructions: 50 mg orally 1 tablet by mouth each morning; for kidney health - lowers blood pressure - pt started Sep; increased to 50 mg daily on 04/01/24; spironolactone 25 mg tablet 25 mg PO DAILY Qty: 90 3RF Hold Instructions: Resume on 11/11/24. Rx Instructions: Take in the AM for hypertension Discontinued furosemide 20 mg tablet 20 mg PO DAILY PRN (Reason: edema) Qty: 14 1RF Rx Instructions: 1 tablet daily as needed for edema COVID vac 25-26(12y up)-adj-PF 5 mcg/0.5 mL syringe 0.5 ml IM ONCE Qty: 1 0RF vitamin B complex Tablet 1 tab PO QAM multivitamin [Daily Multi-Vitamin] Tablet 1 tab PO DAILY pantoprazole [Protonix] PO rhodiola root extract 250 mg capsule 100 mg PO BID Patient Comments: 2 in the AM and 1 in the PM cyanocobalamin (vitamin B-12) 1,000 mcg Tablet, Sublingual 1,000 mcg SUBLINGUAL QAM ascorbic acid (vitamin C) [Vitamin C] 500 mg Tablet 1,000 mg PO DAILY lamotrigine 100 mg tablet See Rx Instructions .ROUTE .COMPLEX Rx Instructions: TAKES 200 MG QAM, THEN 250 MG QHS Discharge Orders: Discharge Order (Routine); Ordered 11/04/24 Ordered By: Jose G Marquez Admission Data Admit Date/Time: 11/02/24 02:18 Attending Provider: Jose G Marquez Admit Provider: Duran Yap Primary Care Provider: Isra Coates Other Providers: Duran Yap Hospital Stay Data Consultations 11/02/24 00:43 ED Decision to Admit Stat Diagnostic Imagining Performed 11/01/24 15:36 CT head/brain wo con Stat Pending Results Patient Have Any Pending Studies at Discharge: No Discharge Instructions Given to Patient (Per Discharging Provider) See PCP Dr. Isra Coates within 5-7 days of hospital discharge. Total Time Total Time Spent Total Time Spent (In Minutes): Discharge time, 35 minutes. Of this time period, 19 minutes were spent in coordinating patient's discharge. Coding Level of Care Code 58367 INP/OBS DISCH >30 MIN Diagnoses Acute on chronic renal insufficiency N28.9; N18.9 Acute psychosis F23 Bipolar disease, chronic F31.9
== END 2024-11-04 09:20 | DRG 885 ==
LOC: ED 13:11 → SUATTDRO 11-02 02:18 → EDINP 11-02 02:18